=== PATIENT | male | born 1930 | race Two or more races ===

== ENCOUNTER 2019-02-14 12:02 | Day surgery (SDC) | payer MEDICARE, OTHER ==
[~2019-02-14] VITALS: Ht 182.9 cm; Wt 85.0 kg
[2019-02-14] VITALS (9 sets, daily range): BP systolic 103–166; BP diastolic 46–98; PULSE 83–100; RESP 14–23
[2019-02-14] MEDS ORDERED: METR500P3 IV (13:19)
[2019-02-14] MEDS ORDERED: MICO45CR10 VAGINAL (13:19)
[2019-02-14] MEDS ORDERED: MULTI PO (13:19)
[2019-02-14] MEDS ORDERED: GLUC1KIT IJ (13:19)
[2019-02-14] MEDS ORDERED: CHLO118L3 TOP (13:19)
[2019-02-14] MEDS ORDERED: ACET325S GTB (13:19)
[2019-02-14] MEDS ORDERED: [UNRECOGNIZED DRUG - CODE] IV (13:19)
[2019-02-14] MEDS ORDERED: METO10DI2 IJ (13:19)
[2019-02-14] MEDS ORDERED: [UNRECOGNIZED DRUG - OTHER] IV (13:19)
[2019-02-14] MEDS ORDERED: HEPA1000 IJ (13:19)
[2019-02-14] MEDS ORDERED: SAN30GM TOP (13:19)
[2019-02-14] MEDS ORDERED: DEXT50DI2 INJ (13:19)
[2019-02-14] MEDS ORDERED: ALBU2.5V3 NEB (13:19)
[2019-02-14] MEDS ORDERED: MICO30CR17 TOP (13:19)
[2019-02-14] MEDS ORDERED: ACET325S G-TUBE (13:19)
[2019-02-14] MEDS ORDERED: EPOE40002 SC (13:19)
[2019-02-14] MEDS ORDERED: BALS3OIN TP (13:19)
[2019-02-14] MEDS ORDERED: ONDA4VIA6 IV (13:21)
[2019-02-14] MEDS ORDERED: SILV20CR12 TOP (13:21)
[2019-02-14] MEDS ORDERED: OXYC5CAP17 PO (13:21)
[2019-02-14] MEDS ORDERED: SODI473S19 IRR (13:22)
[2019-02-14] MEDS ORDERED: VANC250C12 PO (13:22)
[2019-02-14] MEDS ORDERED: ZINC220T G-TUBE (13:23)
--- NOTE | 2019-02-14 16:14 | PREAC ---
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 not on B-Smooth Reported Medications Zinc Sulfate* (Zinc Sulfate*) 220 Mg Tablet, 220 MG G-TUBE DAILY, TAB 02/14/19 Sodium Hypochlorite (Dakin's (1/4 Strength)) 473 Ml Irrig.soln, 473 ML IRR DAILY, BOTTLE 02/14/19 Vancomycin Hcl (Vancocin Hcl Oral) 250 Mg Capsule, 250 MG PO Q6, CAP 02/14/19 Silver Sulfadiazine* (Silvadene*) 1% - 20 Gm Cream.gm., 1 APPLIC TOP DAILY, #1 TUB 02/14/19 Oxycodone Hcl* (IR) (Oxycodone Hcl*) 5 Mg Capsule, 5 MG PO Q6H PRN for PAIN, CAP 02/14/19 Ondansetron Hcl* (Ondansetron Hcl* Inj) 4 Mg/2 Ml Vial, 4 MG IV Q6 PRN for NAUSEA AND/OR VOMITING, VIAL 02/14/19 Multivitamins* (Theragran*) 1 Tab Tab, 1 TAB PO DAILY, TAB 02/14/19 Miconazole Nitrate* (Miconazole*) 2% - 45 Gm Cr, 1 APPFUL VAGINAL BID, #1 TUB 02/14/19 Miconazole Nitrate* (Miconazole Nitrate*) 2% - 30 Gm Cr, 1 APPLIC TOP BID, TUB 02/14/19 Metronidazole/Sodium Chloride (Metro IV 500 mg/100 ml) 500 Mg/100 Ml Piggyback, 500 MG IV Q8H 02/14/19 Metoclopramide HCl (Metoclopramide HCl) 10 Mg/2 Ml Syringe, 5 MG IJ TID 02/14/19 Heparin Sodium,Porcine/Pf (Heparin 2,000 Unit/2 ml Vial) 1,000 Unit/1 Ml Vial, 5000 UNIT IJ Q12, VIAL 02/14/19 Glucagon,Human Recombinant (Glucagon Emergency Kit) 1 Mg Kit, 1 MG IJ PRN for FOR BS<70, KIT 02/14/19 Epoetin amauri* (Epogen*) 4,000 Unit/1 Ml Vial, 28581 UNIT SC WITH DIALYSIS, VIAL 02/14/19 Dextrose/Sod Chloride* (D5-1/2NS*) 1,000 Ml Iv.soln., 1000 ML IV 50 ML/HR, EA 02/14/19 Dextrose* (D50W Syringe*) 50 Ml Soln, 50 ML INJ PRN FOR BS<70, EA 02/14/19 Collagenase* (Santyl*) 30 Gm Oint..gm., 1 APPLIC TOP .SOILED PRN for SOILED, #1 TUB 02/14/19 Chlorhexidine Gluconate* (Chlorhexidine Gluconate*) 118 Ml Liquid, 10 ML TOP Q12, ML 02/14/19 Balsam [place] Oil (CIRCUDERM EMOLLIENT) 3 Gm Oint.pack, 3 GM TP Q12 02/14/19 Albuterol Sulfate* (Albuterol Sulfate* Neb) 0.083%-3 Ml Neb, 2.5 MG NEB Q4H, #30 VIAL 02/14/19 Albumin Human* (Albumin 25%*) 100 Ml Soln, 100 ML IV WITH DIALYSIS, BOTTLE 02/14/19 Acetaminophen* (Acetaminophen* Susp) 325 Mg/10.15 Ml Solution, 500 MG GTB Q8 PRN for MILD PAIN(1-3) OR TEMP>38C, ML 02/14/19 Acetaminophen* (Acetaminophen* Susp) 325 Mg/10.15 Ml Solution, 650 MG G-TUBE Q4H PRN for PAIN OR TEMP ABOVE 38C, ML 02/14/19 Meds reviewed: Yes Allergies Coded Allergies: Cephalosporins (Verified Allergy, Severe, 02/14/19) ertapenem (Verified Allergy, Severe, 02/14/19) piperacillin (Verified Allergy, Severe, 02/14/19) tazobactam (Verified Allergy, Severe, 02/14/19) Allergies Reviewed: Yes Labs/Studies Labs Reviewed: Reviewed by anesthesiologist test: N/A Pre-procedure Exam Airway: Adequate mouth opening, Adequate thyromental dist Mallampati: Mallampati III Teeth: Normal Lung: Normal Heart: Normal ASA Physical Status ASA physical status: 4 Emergency: None Planned Anesthetic General/MAC: ETT Planned Pain Management Parenteral pain med Pre-operative Attestations Prior to commencing anesthesia and surgery, the patient was re-evaluated, there was verification of: *The patient's identity *The results of appropriate recent lab work and preoperative vital signs *The above evaluation not changing prior to induction *Anesthetic plan, risk benefits, alternative and complications discussed with patient/family; questions answered; patient/family understands, accepts and wishes to proceed. MALIA BURK February 14, 2019 16:14
--- NOTE | 2019-02-14 17:56 | HPN ---
Date/Time of Note Date/Time of Note DATE: 02/14/19 TIME: 17:56 Interval H&P Admission Note Pt. seen H&P reviewed: No system changes JUDI ZABALA MD February 14, 2019 17:56
--- NOTE | 2019-02-14 19:37 | PAC ---
Date/Time of Note Date/Time of Note DATE: 02/14/19 TIME: 19:36 Post-Anesthesia Notes Post-Anesthesia Note Last documented vital signs BP 152/75 o2 SAT 98% TEMP 98.1 P 88 Activity: WNL Respiratory function: WNL Cardiovascular function: WNL Mental status: Baseline Pain reasonably controlled: Yes Hydration appropriate: Yes Nausea/Vomiting absent: Yes MALIA BURK February 14, 2019 19:37
[2019-02-14] MEDS ORDERED: hydrALAzine 20 MG INJ ONE (19:55)
[2019-02-14] MEDS ORDERED: LABETALOL HCL 20MG INJ IV PRN (20:00)
[2019-02-14] MEDS ORDERED: FENTAnyl 50 MCG/ML VIAL IV PRN ×2 (20:00)
[2019-02-14] MEDS ORDERED: hydrALAzine 20 MG INJ IV PRN (20:00)
[2019-02-14] MEDS ORDERED: EPHEDrine 25 MG/5 ML SYG IV PRN (20:00)
[2019-02-14] MEDS ORDERED: MIDAZOLAM 1 MG/ML 2 ML INJ IV PRN (20:00)
[2019-02-14] MEDS ORDERED: DIPHENHYDRAMINE 50 MG INJ IV PRN (20:00)
[2019-02-14] MEDS ORDERED: ALBUTEROL 0.083% (NEB) 2.5 MG/3 ML AMP HHN PRN (20:00)
--- NOTE | 2019-02-15 03:51 | GILP ---
DATE OF PROCEDURE: 02/14/2019 PROCEDURE: G-tube and conversion of G-tube to J-tube. INDICATION: An 88-year-old male undergoing this procedure for a blocked GJ tube. The risk of the pr ocedure, related and unrelated complications, anesthetic risks, alternatives were discussed and infor med consent was obtained. The patient was mildly bradycardic on the floor with a heart rate of 50 to 60. Cardiology clearance was obtained. DESCRIPTION OF PROCEDURE: The patient was brought to the OR room #2, placed in a prone position. Up per endoscope was passed with much ease into the esophagus. NG tube was removed. The GJ tube also w as removed by deflating the balloon. The guidewire was passed through the gastrocutaneous fistula an d the entire procedure was completed by modified Ponsky technique. New 24-Italian G-tube was placed t hrough the same gastrocutaneous fistula through the G-tube. Now the J-tube extended, 12-Italian was p assed with much ease into the stomach. The loop was grasped with the alligator forceps and taken gm n all the way into the jejunum. No extended loop was left behind in the stomach. The J-tube extende r was well positioned in the proximal jejunum. Scope was thus removed with excellent patient toleran ce. IMPRESSION: 1. Removal of the GJ tube and NG tube. 2. Placement of 24-Italian G-tube endoscopically through the same gastrocutaneous fistula. 3. J-tube extended was passed through the G-tube and appropriately positioning the proximal jejunum. PLAN: To continue Reglan. Resume feeding through the J-tube feeding port and all the medication thr ough the medication port. Abdominal binder all the time. Dictated By: JUDI LEBRON/NTS Conf#: [id number] DID#: [id number] CC: DUSTIN TRIPP MD;*EndCC*
== END 2019-02-14 20:30 | disposition other institution (70) ==
LOC: GIL 12:02 → SDS 12:02 → GIL 20:30
PROVIDERS: ATTEND Internal Medicine Gastroenterology
DX: K94.23 Gastrostomy malfunction (principal); Y84.8 Other medical procedures as the cause of abnormal reaction of the patient, or of later complication, without mention of misadventure at the time of the procedure; Y82.8 Other medical devices associated with adverse incidents; I13.2 Hypertensive heart and chronic kidney disease with heart failure and with stage 5 chronic kidney disease, or end stage renal disease; I50.9 Heart failure, unspecified; N18.6 End stage renal disease; Z99.2 Dependence on renal dialysis
CPT/HCPCS: 49446; J0360

== ENCOUNTER 2019-02-19 09:28 | Day surgery (SDC) | payer OTHER ==
[~2019-02-19 09:28] MED LIST: ACET325S G-TUBE; ACET325S GTB; ALBU2.5V3 NEB; BALS3OIN TP; CHLO118L3 TOP; DEXT50DI2 INJ; EPOE40002 SC; GLUC1KIT IJ; HEPA1000 IJ; METO10DI2 IJ; METR500P3 IV; MICO30CR17 TOP; MICO45CR10 VAGINAL; MULTI PO; ONDA4VIA6 IV; OXYC5CAP17 PO; SAN30GM TOP; SILV20CR12 TOP; SODI473S19 IRR; VANC250C12 PO; ZINC220T G-TUBE; [UNRECOGNIZED DRUG - CODE] IV; [UNRECOGNIZED DRUG - OTHER] IV
== END 2019-02-21 10:31 ==
LOC: SDS 09:28
PROVIDERS: ATTEND Thoracic Surgery (Cardiothoracic Vascular Surgery)
DX: I12.0 Hypertensive chronic kidney disease with stage 5 chronic kidney disease or end stage renal disease (principal); N18.6 End stage renal disease; J96.10 Chronic respiratory failure, unspecified whether with hypoxia or hypercapnia; R53.2 Functional quadriplegia
CPT/HCPCS: 36561; 86850; 86900; 86901; 86920; 94002; C1750

== ENCOUNTER 2019-04-06 20:44 | Inpatient (IN) | payer MEDICARE, OTHER ==
[~2019-04-06] VITALS: Ht 198.1 cm; Wt 93.0 kg
[2019-04-06] MEDS ORDERED: AZTREONAM 1 GM/NS (PMX) 50 ML IVPB ONE (21:00)
[2019-04-06] MEDS ORDERED: VANCOMYCIN 1 GM (PMX) 250 ML IVPB ONE (21:00)
[2019-04-06] MEDS ORDERED: SOD CHLORIDE 0.9% 1,000 ML IV STA (21:01)
[2019-04-06] MEDS ORDERED: SOD CHLORIDE 0.9% 0 ML IV ONE (21:10)
[2019-04-06] MEDS ORDERED: ASPIRIN 300 MG SUPP PR ONE (21:30)
[2019-04-06] MEDS ORDERED: ONDANSETRON 4 MG INJ IV PRN ×2 (23:00)
[2019-04-06] MEDS ORDERED: NACL 0.9% 3 ML SYG IV SCH (23:00)
[2019-04-06] MEDS ORDERED: ACETAMINOPHEN 325 MG TAB PO PRN ×2 (23:00)
--- NOTE | 2019-04-06 23:27 | ERD ---
ER Documentation Chief Complaint Chief Complaint jon pa from [facility] for low hemoglobin, vent/trach HPI Patient is an 88-year-old male who receives dialysis on a chronic trach and vent who presents with low hemoglobin. Please note the history and physical exam is limited secondary to the patient's mental status at baseline and encephalopathy. The patient was brought in by ambulance. Hemoglobin was 6.2 so he was sent to the ER. The patient is a PICC line in the right upper extremity. He is full code. I cannot obtain history otherwise. ROS All systems reviewed and are negative except as per history of present illness. Medications Home Meds Reported Medications Zinc Sulfate* (Zinc Sulfate*) 220 Mg Tablet, 220 MG G-TUBE DAILY, TAB 02/14/19 Sodium Hypochlorite (Dakin's (1/ Strength)) 473 Ml Irrig.soln, 473 ML IRR DAILY, BOTTLE 02/14/19 Vancomycin Hcl (Vancocin Hcl Oral) 250 Mg Capsule, 250 MG PO Q6, CAP 02/14/19 Silver Sulfadiazine* (Silvadene*) 1% - 20 Gm Cream.gm., 1 APPLIC TOP DAILY, #1 TUB 02/14/19 Oxycodone Hcl* (IR) (Oxycodone Hcl*) 5 Mg Capsule, 5 MG PO Q6H PRN for PAIN, CAP 02/14/19 Ondansetron Hcl* (Ondansetron Hcl* Inj) 4 Mg/2 Ml Vial, 4 MG IV Q6 PRN for NAUSEA AND/OR VOMITING, VIAL 02/14/19 Multivitamins* (Theragran*) 1 Tab Tab, 1 TAB PO DAILY, TAB 02/14/19 Miconazole Nitrate* (Miconazole*) 2% - 45 Gm Cr, 1 APPFUL VAGINAL BID, #1 TUB 02/14/19 Miconazole Nitrate* (Miconazole Nitrate*) 2% - 30 Gm Cr, 1 APPLIC TOP BID, TUB 02/14/19 Metronidazole/Sodium Chloride (Metro IV 500 mg/100 ml) 500 Mg/100 Ml Piggyback, 500 MG IV Q8H 02/14/19 Metoclopramide HCl (Metoclopramide HCl) 10 Mg/2 Ml Syringe, 5 MG IJ TID 02/14/19 Heparin Sodium,Porcine/Pf (Heparin 2,000 Unit/2 ml Vial) 1,000 Unit/1 Ml Vial, 5000 UNIT IJ Q12, VIAL 02/14/19 Glucagon,Human Recombinant (Glucagon Emergency Kit) 1 Mg Kit, 1 MG IJ PRN for FOR BS<70, KIT 02/14/19 Epoetin amauri* (Epogen*) 4,000 Unit/1 Ml Vial, 95851 UNIT SC WITH DIALYSIS, VIAL 02/14/19 Dextrose/Sod Chloride* (D5-1/2NS*) 1,000 Ml Iv.soln., 1000 ML IV 50 ML/HR, EA 02/14/19 Dextrose* (D50W Syringe*) 50 Ml Soln, 50 ML INJ PRN FOR BS<70, EA 02/14/19 Collagenase* (Santyl*) 30 Gm Oint..gm., 1 APPLIC TOP .SOILED PRN for SOILED, #1 TUB 02/14/19 Chlorhexidine Gluconate* (Chlorhexidine Gluconate*) 118 Ml Liquid, 10 ML TOP Q12, ML 02/14/19 Balsam [place] Oil (CIRCUDERM EMOLLIENT) 3 Gm Oint.pack, 3 GM TP Q12 02/14/19 Albuterol Sulfate* (Albuterol Sulfate* Neb) 0.083%-3 Ml Neb, 2.5 MG NEB Q4H, #30 VIAL 02/14/19 Albumin Human* (Albumin 25%*) 100 Ml Soln, 100 ML IV WITH DIALYSIS, BOTTLE 02/14/19 Acetaminophen* (Acetaminophen* Susp) 325 Mg/10.15 Ml Solution, 500 MG GTB Q8 PRN for MILD PAIN(1-3) OR TEMP>38C, ML 02/14/19 Acetaminophen* (Acetaminophen* Susp) 325 Mg/10.15 Ml Solution, 650 MG G-TUBE Q4H PRN for PAIN OR TEMP ABOVE 38C, ML 02/14/19 Allergies Allergies: Coded Allergies: Cephalosporins (Verified Allergy, Severe, 02/19/19) ertapenem (Verified Allergy, Severe, 02/19/19) piperacillin (Verified Allergy, Severe, 02/19/19) tazobactam (Verified Allergy, Severe, 02/19/19) PMhx/Soc History of Surgery: Yes (SKIN GRAFT,TRACH,GTUBE,WILBER) Anesthesia Reaction: No Hx Neurological Disorder: Yes (ANOXIC BRAIN INJURY ) Hx Respiratory Disorders: Yes (RESP FAILURE,AIRWAY INJURY WHILE COOKING , PNEUMONIA) Hx Cardiac Disorders: Yes (HTN,CARDIAC ARREST,CHF,) Hx Miscellaneous Medical Probl: No Hx Alcohol Use: No (UNK) Hx Substance Use: No (UNK) Hx Tobacco Use: No (UNK) Smoking Status: Never smoker FmHx Unable to obtain Physical Exam Vitals Vital Signs Date Temp Pulse Resp B/P (MAP) Pulse Ox O2 O2 Flow FiO2 Time Delivery Rate 04/06/19 80 33 100 40 20:55 04/06/19 Nasal 20:51 Cannula 04/06/19 98.6 82 19 122/89 100 20:46 (100) Physical Exam Const: Chronically ill Head: Atraumatic Eyes: Normal Conjunctiva ENT: Tracheostomy in place Neck: Full range of motion. No meningismus. Resp: Clear to auscultation bilaterally Cardio: Regular rate and rhythm, no murmurs Abd: Soft, non tender, non distended. Normal bowel sounds Skin: No petechiae or rashes Back: No midline or flank tenderness Ext: No cyanosis, or edema Neur: Encephalopathic Result Diagram: 04/06/19204604/06/192046 Results 24 hrs Laboratory Tests Test 04/06/19 20:46 04/06/19 20:47 POC Venous Lactate 1.2 mmol/L White Blood Count 10.2 10^3/ul Red Blood Count 2.05 10^6/ul Hemoglobin 6.4 g/dl Hematocrit 21.7 % Mean Corpuscular Volume 105.9 fl Mean Corpuscular Hemoglobin 31.2 pg Mean Corpuscular Hemoglobin Concent 29.5 g/dl Red Cell Distribution Width 20.0 % Platelet Count 151 10^3/UL Mean Platelet Volume 10.8 fl Immature Granulocytes % 1.300 % Neutrophils % % Segmented Neutrophils % (Manual) 53 % Band Neutrophils % (Manual) 5 % Lymphocytes % % Lymphocytes % (Manual) 10 % Monocytes % % Monocytes % (Manual) 3 % Eosinophils % % Eosinophils % (Manual) 29 % Basophils % % Nucleated Red Blood Cells % 0.0 /100WBC Immature Granulocytes # 0.130 10^3/ul Neutrophils # 10^3/ul Neutrophils # (Manual) 5.5 10^3/ul Band Neutrophils # 0.5 10^3/ul Lymphocytes (Manual) 1.0 10^3/ul Lymphocytes # 10^3/ul Monocytes # 10^3/ul Monocytes # (Manual) 0.3 10^3/ul Eosinophils # 10^3/ul Basophils # 10^3/ul Nucleated Red Blood Cells # 10^3/ul Platelet Estimate NORMAL Polychromasia 2+ Hypochromasia 1+ Anisocytosis 2+ Macrocytosis 2+ Prothrombin Time 15.4 Sec Prothrombin Time Ratio 1.2 INR International Normalized Ratio 1.21 Activated Partial Thromboplast Time 110.2 Sec Sodium Level 139 mmol/L Potassium Level 3.2 mmol/L Chloride Level 103 mmol/L Carbon Dioxide Level 26 mmol/L Anion Gap 10 Blood Urea Nitrogen 38 mg/dl Creatinine 1.49 mg/dl Est Glomerular Filtrat Rate mL/min mL/min Glucose Level 109 mg/dl Calcium Level 9.0 mg/dl Total Bilirubin 0.3 mg/dl Direct Bilirubin 0.00 mg/dl Indirect Bilirubin 0.3 mg/dl Aspartate Amino Transf (AST/SGOT) 80 IU/L Alanine Aminotransferase (ALT/SGPT) 50 IU/L Alkaline Phosphatase 457 IU/L Troponin I 0.406 ng/ml Total Protein 7.6 g/dl Albumin 3.1 g/dl Globulin 4.50 g/dl Albumin/Globulin Ratio 0.68 Current Medications Medications Dose Sig/Leila Start Time Status Last (Trade) Ordered Route PRN Stop Time Admin Dose Reason Admin Vancomycin 250 ml @ ONCE ONCE 04/06/19 DC 04/06/19 HCl 125 mls/hr IVPB 21:00 21:58 04/06/19 22:59 Aztreonam 50 ml @ ONCE ONCE 04/06/19 DC 04/06/19 100 mls/hr IVPB 21:00 21:08 04/06/19 21:29 Sodium 1,000 ml @ Q1H STAT 04/06/19 DC 04/06/19 Chloride 1,000 mls/hr IV 21:01 21:08 04/06/19 22:00 Sodium 0 ml @ 0 Q0M ONCE 04/06/19 DC Chloride mls/hr IV 21:10 04/06/19 21:11 Aspirin 300 mg ONCE ONCE 04/06/19 DC 04/06/19 (Aspirin) OK 21:30 21:58 04/06/19 21:31 Ondansetron 4 mg ER BRIDGE 04/06/19 HCl (Zofran PRN IV 23:00 Inj) NAUSEA/VOMITI 04/07/19 22:59 NG 650 mg ER BRIDGE 04/06/19 Acetaminophen PRN PO 23:00 (Tylenol .MILD PAIN 04/07/19 22:59 Tab) 1-3 OR TEMP Sodium 1,000 ml @ Q8H IV 04/06/19 Chloride 125 mls/hr 22:52 IV Flush 3 ml PER 04/06/19 (NS 3 ml) PROTOCOL IV 23:00 Ondansetron 4 mg Q6H PRN 04/06/19 HCl (Zofran IV 23:00 Inj) NAUSEA/VOMITI NG 650 mg Q6H PRN 04/06/19 Acetaminophen PO .PAIN 1-3 23:00 (Tylenol OR TEMP Tab) Morphine 2 mg Q4H PRN 04/06/19 Sulfate IV .PAIN 23:00 (morphine) 7-10 Famotidine 20 mg DAILY IV 04/07/19 (Pepcid Iv) 09:00 Procedures/MDM EKG read by me: Rate/Rhythm: Regular rate and rhythm Intervals: Normal Impression: No evidence of ischemia or arrhythmia Chest x-ray read by radiology. Patient is a 88-year-old male who presents for anemia. The patient has a hemoglobin of 6.2 and I have ordered 2 units of packed red blood cells. The patient was also found to have a positive troponin consistent with NSTEMI. The patient was given rectal aspirin. I doubt sepsis at this time. The patient has a very poor prognosis and I believe the best course of action would be hospice care. I have consulted [facility] hospice from the emergency department. The patient will be admitted to Dr. Johnston as the patient's primary doctor is Dr. Odell. The patient will be admitted to a telemetry inpatient bed. Critical Care: Time: 35 minutes excluding all billable procedures. Treatments/Evaluations: Close monitoring and treatment of unstable vital signs, cardiorespiratory, and neurologic status, while maintaining tight balance of fluid, respiratory, and cardiac interventions. Departure Diagnosis: Primary Impression: NSTEMI (non-ST elevated myocardial infarction) Additional Impression: Anemia Anemia type: unspecified type Qualified Codes: D64.9 - Anemia, unspecified Condition: Serious KELTON SHORT MD Apr 06, 2019 23:26
[2019-04-07] VITALS (16 sets, daily range): BP systolic 82–106; BP diastolic 48–57; PULSE 74–85; RESP 18–34; BMI 17.8
[2019-04-07] MEDS: SOD CHLORIDE 0.9% 1,000 ML IV SCH ×4 (06:52→23:02)
[2019-04-07] MEDS ORDERED: POTASSIUM CHLORIDE (SR) 20 MEQ TAB PO STA (10:27)
--- NOTE | 2019-04-07 10:27 | HP ---
Date/Time of Note Date/Time of Note DATE: 04/07/19 TIME: 10:23 Assessment/Plan VTE Prophylaxis Pharmacological prophylaxis: NA/contraindicated Pharm contraindication: bleeding Lines/Catheters IV Catheter Type (from Nrsg): PICC Line Central line still needed: Yes Urinary Cath still in place: Yes Reason Cath still needed: skin wounds contaminated by urine Assessment/Plan Hospital Course 1) anemia - transfuse 2) questionable history of ESRD - monitor BUN/Cr 3) dehydration - IV hydration - restart tube feedings 4) encephalopathy - monitor Result Diagram: 04/07/1952204/07/19522 Results 24hrs Laboratory Tests Test 04/06/19 20:46 04/06/19 20:47 04/06/19 23:00 04/07/19 01:50 POC Venous Lactate 1.2 White Blood Count 10.2 Red Blood Count 2.05 #L Hemoglobin 6.4 #*L Hematocrit 21.7 L Mean Corpuscular 105.9 H Volume Mean Corpuscular 31.2 Hemoglobin Mean Corpuscular 29.5 L Hemoglobin Concent Red Cell 20.0 H Distribution Width Platelet Count 151 Mean Platelet Volume 10.8 H Immature 1.300 H Granulocytes % Neutrophils % Segmented 53 Neutrophils % (Manual) Band Neutrophils % 5 H (Manual) Lymphocytes % Lymphocytes % 10 L (Manual) Monocytes % Monocytes % (Manual) 3 Eosinophils % Eosinophils % 29 H (Manual) Basophils % Nucleated Red Blood 0.0 Cells % Immature 0.130 H Granulocytes # Neutrophils # Neutrophils # 5.5 (Manual) Band Neutrophils # 0.5 Lymphocytes (Manual) 1.0 Lymphocytes # Monocytes # Monocytes # (Manual) 0.3 Eosinophils # Basophils # Nucleated Red Blood Cells # Platelet Estimate NORMAL Polychromasia 2+ Hypochromasia 1+ Anisocytosis 2+ Macrocytosis 2+ Prothrombin Time 15.4 H Prothrombin Time 1.2 Ratio INR International 1.21 Normalized Ratio Activated 110.2 *H Partial Thromboplast Time Sodium Level 139 Potassium Level 3.2 L Chloride Level 103 Carbon Dioxide Level 26 Anion Gap 10 Blood Urea Nitrogen 38 H Creatinine 1.49 H Est Glomerular Filtrat Rate mL/min Glucose Level 109 Calcium Level 9.0 Total Bilirubin 0.3 Direct Bilirubin 0.00 Indirect Bilirubin 0.3 Aspartate Amino 80 H Transf (AST/SGOT) Alanine 50 Aminotransferase (AL T/SGPT) Alkaline Phosphatase 457 H Troponin I 0.406 *H Total Protein 7.6 Albumin 3.1 L Globulin 4.50 H Albumin/Globulin 0.68 Ratio Lactic Acid Level 2.1 *H 2.5 *H Test 04/07/19 05:23 White Blood Count 13.9 #H Red Blood Count 2.30 L Hemoglobin 7.1 L Hematocrit 23.5 L Mean Corpuscular 102.2 H Volume Mean Corpuscular 30.9 Hemoglobin Mean Corpuscular 30.2 L Hemoglobin Concent Red Cell 19.4 H Distribution Width Platelet Count 142 Mean Platelet Volume 10.7 H Immature 0.900 H Granulocytes % Neutrophils % 73.1 Lymphocytes % 8.5 L Monocytes % 8.6 Eosinophils % 8.7 H Basophils % 0.2 Nucleated Red Blood 0.0 Cells % Immature 0.130 H Granulocytes # Neutrophils # 10.1 H Lymphocytes # 1.2 Monocytes # 1.2 H Eosinophils # 1.2 H Basophils # 0.0 Nucleated Red Blood 0.0 Cells # Sodium Level 139 Potassium Level 3.3 L Chloride Level 105 Carbon Dioxide Level 26 Anion Gap 8 Blood Urea Nitrogen 44 H Creatinine 1.66 H Est Glomerular Filtrat Rate mL/min Glucose Level 61 #L Hemoglobin A1c 5.2 Calcium Level 9.1 Total Bilirubin 0.7 Direct Bilirubin 0.00 Indirect Bilirubin 0.7 Aspartate Amino 71 H Transf (AST/SGOT) Alanine 45 Aminotransferase (AL T/SGPT) Alkaline Phosphatase 389 H Total Protein 7.1 Albumin 2.9 L Globulin 4.20 H Albumin/Globulin 0.69 Ratio HPI/ROS Admit Date/Time Admit Date/Time Apr 06, 2019 at 22:52 Hx of Present Illness Patient with respiratory failure, ESRD per ER doctor's note, encephalopathy com es from subacute facility because of severe anemia. Patient was also found to be dehydrated. He was admitted for further treatment. Unable to obtain any other history at this time. PMH/Family/Social Past Medical History Respiratory failure Medications Current Medications Ondansetron HCl (Zofran Inj) 4 mg ER BRIDGE PRN IV NAUSEA/VOMITING; Start 04/06/19 at 23:00; Stop 04/07/19 at 22:59 Acetaminophen (Tylenol Tab) 650 mg ER BRIDGE PRN PO .MILD PAIN 1-3 OR TEMP; Start 04/06/19 at 23:00; Stop 04/07/19 at 22:59 Sodium Chloride 1,000 ml @ 125 mls/hr Q8H IV ; Start 04/06/19 at 22:52 IV Flush (NS 3 ml) 3 ml PER PROTOCOL IV ; Start 04/06/19 at 23:00 Ondansetron HCl (Zofran Inj) 4 mg Q6H PRN IV NAUSEA/VOMITING; Start 04/06/19 at 23:00 Acetaminophen (Tylenol Tab) 650 mg Q6H PRN PO .PAIN 1-3 OR TEMP; Start 04/06/19 at 23:00 Morphine Sulfate (morphine) 2 mg Q4H PRN IV .PAIN 7-10; Start 04/06/19 at 23:00 Famotidine (Pepcid Iv) 20 mg DAILY IV ; Start 04/07/19 at 09:00 Coded Allergies: Cephalosporins (Verified Allergy, Severe, 02/19/19) ertapenem (Verified Allergy, Severe, 02/19/19) piperacillin (Verified Allergy, Severe, 02/19/19) tazobactam (Verified Allergy, Severe, 02/19/19) Social History Smoking Status: Never smoker Exam/Review of Systems Vital Signs Vitals Vital Signs Date Temp Pulse Resp B/P (MAP) Pulse Ox O2 O2 Flow FiO2 Time Delivery Rate 04/07/19 98.5 77 26 82/48 (59) 97 Mechanical 07:21 Ventilator 04/07/19 40 04:52 Exam Constitutional: well developed Head: normocephalic, atraumatic Neck: supple Respiratory: diminished breath sounds Cardiovascular: regular rate and rhythm Gastrointestinal: soft, non-tender Extremities: normal pulses CARLITO GUERRA Apr 07, 2019 10:27
[2019-04-07] MEDS ORDERED: POTASSIUM CHLORIDE 20 MEQ POWDER FOR ORAL SOLN GTB SCH (11:30)
[2019-04-07] MEDS: FAMOTIDINE 20 MG INJ IV SCH (12:05)
[2019-04-08] VITALS (18 sets, daily range): BP systolic 82–111; BP diastolic 46–56; PULSE 63–75; RESP 20–33
[2019-04-08] MEDS: SOD CHLORIDE 0.9% 1,000 ML IV SCH (06:53)
[2019-04-08] MEDS: MIDODRINE 5 MG TAB PO SCH (09:00)
[2019-04-08] MEDS: FAMOTIDINE 20 MG INJ IV SCH (09:35)
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
[2019-04-08] MEDS ORDERED: COLLAGENASE 30 GM TUBE TOP PRN (13:30)
[2019-04-08] MEDS ORDERED: EPOETIN 4000 UNITS/ML VIAL (ONCOLOGY) SC SCH (13:30)
--- NOTE | 2019-04-08 13:57 | CONS ---
Assessment/Plan Assessment/Plan Hospital Course (Demo Recall) Acute blood loss anemia Labile blood pressure Elevated troponin, trending down CAD Preserved ejection fraction End-stage renal disease on hemodialysis Patient admitted with severe anemia. Incidentally found to have elevated troponin, which is trending down Patient unable to give history Echocardiogram recently done with preserved left ventricular ejection fraction Blood pressure has been labile, patient has a history of this and is on Midodrine We will check ECG, patient currently not on any antiplatelet therapy likely secondary to anemia Fluid management via hemodialysis as per nephrology No beta-aidee given labile blood pressure Would start statin if no complication Consultation Date/Type/Reason Admit Date/Time Apr 06, 2019 at 22:52 Type of Consult Cardiology Reason for Consultation Elevated troponin Date/Time of Note DATE: 04/08/19 TIME: 13:51 Hx of Present Illness This is an 88-year-old male with encephalopathy, vent dependent respiratory failure, end-stage renal disease hemodialysis who was admitted and found to have severe anemia. Incidental laboratory studies with elevated troponin for this reason cardiology condition was requested. Patient was seen by me when he was at [place] recently. He is unable to give history. Unable to be performed the current time given patient nonverbal Past Medical History Respiratory failure CAD Labile blood pressure End-stage renal disease on hemodialysis Home Meds Reported Medications Zinc Sulfate* (Zinc Sulfate*) 220 Mg Tablet, 220 MG G-TUBE DAILY, TAB 02/14/19 Sodium Hypochlorite (Dakin's (1/4 Strength)) 473 Ml Irrig.soln, 473 ML IRR D AILY, BOTTLE 02/14/19 Vancomycin Hcl (Vancocin Hcl Oral) 250 Mg Capsule, 250 MG PO Q6, CAP 02/14/19 Silver Sulfadiazine* (Silvadene*) 1% - 20 Gm Cream.gm., 1 APPLIC TOP DAILY, #1 TUB 02/14/19 Oxycodone Hcl* (IR) (Oxycodone Hcl*) 5 Mg Capsule, 5 MG PO Q6H PRN for PAIN, CAP 02/14/19 Ondansetron Hcl* (Ondansetron Hcl* Inj) 4 Mg/2 Ml Vial, 4 MG IV Q6 PRN for NAUSEA AND/OR VOMITING, VIAL 02/14/19 Multivitamins* (Theragran*) 1 Tab Tab, 1 TAB PO DAILY, TAB 02/14/19 Miconazole Nitrate* (Miconazole*) 2% - 45 Gm Cr, 1 APPFUL VAGINAL BID, #1 TUB 02/14/19 Miconazole Nitrate* (Miconazole Nitrate*) 2% - 30 Gm Cr, 1 APPLIC TOP BID, TUB 02/14/19 Metronidazole/Sodium Chloride (Metro IV 500 mg/100 ml) 500 Mg/100 Ml Piggyback, 500 MG IV Q8H 02/14/19 Metoclopramide HCl (Metoclopramide HCl) 10 Mg/2 Ml Syringe, 5 MG IJ TID 02/14/19 Heparin Sodium,Porcine/Pf (Heparin 2,000 Unit/2 ml Vial) 1,000 Unit/1 Ml Vial, 5000 UNIT IJ Q12, VIAL 02/14/19 Glucagon,Human Recombinant (Glucagon Emergency Kit) 1 Mg Kit, 1 MG IJ PRN for FOR BS<70, KIT 02/14/19 Epoetin amauri* (Epogen*) 4,000 Unit/1 Ml Vial, 37794 UNIT SC WITH DIALYSIS, VIAL 02/14/19 Dextrose/Sod Chloride* (D5-1/2NS*) 1,000 Ml Iv.soln., 1000 ML IV 50 ML/HR, EA 02/14/19 Dextrose* (D50W Syringe*) 50 Ml Soln, 50 ML INJ PRN FOR BS<70, EA 02/14/19 Collagenase* (Santyl*) 30 Gm Oint..gm., 1 APPLIC TOP .SOILED PRN for SOILED, #1 TUB 02/14/19 Chlorhexidine Gluconate* (Chlorhexidine Gluconate*) 118 Ml Liquid, 10 ML TOP Q12, ML 02/14/19 Balsam Lina/[place] Oil (CIRCUDERM EMOLLIENT) 3 Gm Oint.pack, 3 GM TP Q12 02/14/19 Albuterol Sulfate* (Albuterol Sulfate* Neb) 0.083%-3 Ml Neb, 2.5 MG NEB Q4H, #30 VIAL 02/14/19 Albumin Human* (Albumin 25%*) 100 Ml Soln, 100 ML IV WITH DIALYSIS, BOTTLE 02/14/19 Acetaminophen* (Acetaminophen* Susp) 325 Mg/10.15 Ml Solution, 500 MG GTB Q8 PRN for MILD PAIN(1-3) OR TEMP>38C, ML 02/14/19 Acetaminophen* (Acetaminophen* Susp) 325 Mg/10.15 Ml Solution, 650 MG G-TUBE Q4H PRN for PAIN OR TEMP ABOVE 38C, ML 02/14/19 Medications Current Medications Sodium Chloride 1,000 ml @ 125 mls/hr Q8H IV Last administered on 04/08/19at 06:53; Admin Dose 125 MLS/HR; Start 04/06/19 at 22:52 IV Flush (NS 3 ml) 3 ml PER PROTOCOL IV ; Start 04/06/19 at 23:00 Ondansetron HCl (Zofran Inj) 4 mg Q6H PRN IV NAUSEA/VOMITING; Start 04/06/19 at 23:00 Morphine Sulfate (morphine) 2 mg Q4H PRN IV .PAIN 7-10; Start 04/06/19 at 23:00 Famotidine (Pepcid Iv) 20 mg DAILY IV Last administered on 04/08/19at 09:35; Admin Dose 20 MG; Start 04/07/19 at 09:00 Acetaminophen (Tylenol Liquid) 650 mg Q4H PRN GTB MILD PAIN(1-3) OR TEMP>38C; Start 04/08/19 at 13:30 Albuterol (Proventil 0.083% (Neb)) 2.5 mg Q4H RESP THERAPY NEB ; Start 04/08/19 at 13:30 Collagenase (Santyl) 1 applic SOILED PRN TOP SOILED; Start 04/08/19 at 13:30 Epoetin Amauri (Epogen (Oncology)) 10,000 units WITH DIALYSIS SC ; Start 04/08/19 at 13:30 Zinc Sulfate (Zinc Sulfate) 220 mg DAILY GTB ; Start 04/09/19 at 09:00 Vancomycin HCl (Vancomycin Oral Syringe) 250 mg Q6 PO ; Start 04/08/19 at 18:00 Midodrine (Proamatine) 5 mg TID@,13,17 PO ; Start 04/08/19 at 17:00 Allergies: Coded Allergies: Cephalosporins (Verified Allergy, Severe, 02/19/19) ertapenem (Verified Allergy, Severe, 02/19/19) piperacillin (Verified Allergy, Severe, 02/19/19) tazobactam (Verified Allergy, Severe, 02/19/19) Past Surgical History Past Surgical Hx: other (Including but not limited to tracheostomy, PEG placement, dialysis catheter) Family History Significant Family History: no pertinent family hx Social History Smoking Status: Never smoker Exam/Review of Systems Vital Signs Vitals Vital Signs Date Temp Pulse Resp B/P (MAP) Pulse Ox O2 O2 Flow FiO2 Time Delivery Rate 04/08/19 86 24 98 40 11:17 04/08/19 98.0 87/51 (63) Mechanical 11:07 Ventilator Trach Collar Intake and Output 04/07/19 04/07/19 04/08/19 1515:00 23:00 07:00 IntakeIntake Total 1650 ml BalanceBalance 1650 ml Exam Exam Nonverbal, no apparent distress, trach to ventilator Head: normocephalic Neck: other (Tracheostomy) Respiratory: other (Coarse breath sounds bilaterally, scattered crackles) Cardiovascular: regular rate and rhythm (S1-S2 heard) Gastrointestinal: soft, bowel sounds, other (No grimacing with palpation) Extremities: edema Labs Result Diagram: 04/08/19 0551 04/07/19 0523 Results 24hrs Laboratory Tests Test 04/07/19 14:56 04/08/19 05:51 Troponin I 0.256 *H White Blood Count 9.9 # Red Blood Count 2.33 L Hemoglobin 7.3 L Hematocrit 23.0 L Mean Corpuscular Volume 98.7 Mean Corpuscular Hemoglobin 31.3 Mean Corpuscular Hemoglobin Concent 31.7 L Red Cell Distribution Width 22.4 H Platelet Count 158 Mean Platelet Volume 10.9 H Immature Granulocytes % 1.100 H Neutrophils % Segmented Neutrophils % (Manual) 70 Band Neutrophils % (Manual) 3 Lymphocytes % Lymphocytes % (Manual) 15 Monocytes % Monocytes % (Manual) 10 Eosinophils % Eosinophils % (Manual) 2 Basophils % Nucleated Red Blood Cells % 0.0 Immature Granulocytes # 0.110 H Neutrophils # Neutrophils # (Manual) 6.9 Band Neutrophils # 0.2 Lymphocytes (Manual) 1.4 Lymphocytes # Monocytes # Monocytes # (Manual) 0.9 Eosinophils # Basophils # Nucleated Red Blood Cells # Platelet Estimate NORMAL Giant Platelets 4 H Polychromasia 1+ Anisocytosis 1+ Macrocytosis 1+ Medications Medications Current Medications Sodium Chloride 1,000 ml @ 125 mls/hr Q8H IV Last administered on 04/08/19at 06:53; Admin Dose 125 MLS/HR; Start 04/06/19 at 22:52 IV Flush (NS 3 ml) 3 ml PER PROTOCOL IV ; Start 04/06/19 at 23:00 Ondansetron HCl (Zofran Inj) 4 mg Q6H PRN IV NAUSEA/VOMITING; Start 04/06/19 at 23:00 Morphine Sulfate (morphine) 2 mg Q4H PRN IV .PAIN 7-10; Start 04/06/19 at 23:00 Famotidine (Pepcid Iv) 20 mg DAILY IV Last administered on 04/08/19at 09:35; Admin Dose 20 MG; Start 04/07/19 at 09:00 Acetaminophen (Tylenol Liquid) 650 mg Q4H PRN GTB MILD PAIN(1-3) OR TEMP>38C; Start 04/08/19 at 13:30 Albuterol (Proventil 0.083% (Neb)) 2.5 mg Q4H RESP THERAPY NEB ; Start 04/08/19 at 13:30 Collagenase (Santyl) 1 applic SOILED PRN TOP SOILED; Start 04/08/19 at 13:30 Epoetin Amauri (Epogen (Oncology)) 10,000 units WITH DIALYSIS SC ; Start 04/08/19 at 13:30 Zinc Sulfate (Zinc Sulfate) 220 mg DAILY GTB ; Start 04/09/19 at 09:00 Vancomycin HCl (Vancomycin Oral Syringe) 250 mg Q6 PO ; Start 04/08/19 at 18:00 Midodrine (Proamatine) 5 mg TID@09,13,17 PO ; Start 04/08/19 at 17:00 Mendoza Ludwig DO Apr 08, 2019 13:57
[2019-04-08] MEDS ORDERED: COLLAGENASE 5 GM (UD JAR) TOP PRN (14:00)
[2019-04-08] MEDS ORDERED: VANCOMYCIN HCL 250 MG/5ML POSYG PO SCH (18:00)
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
[2019-04-08] MEDS: ALBUTEROL 0.083% (NEB) 2.5 MG/3 ML AMP NEB SCH (19:57)
[2019-04-08] MEDS: ATORVASTATIN 20 MG TAB PO SCH (21:00)
[2019-04-09] VITALS (34 sets, daily range): BP systolic 79–122; BP diastolic 42–67; PULSE 32–67; RESP 19–31
[2019-04-09] MEDS: ALBUTEROL 0.083% (NEB) 2.5 MG/3 ML AMP NEB SCH ×4 (01:19→14:10)
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
[2019-04-09] MEDS: ZINC SULFATE 220 MG CAP GTB SCH (10:31)
[2019-04-09] MEDS: FAMOTIDINE 20 MG INJ IV SCH (10:32)
[2019-04-09] MEDS: MIDODRINE 5 MG TAB PO SCH ×2 (13:00→17:00)
--- NOTE | 2019-04-09 14:20 | CONS ---
Assessment/Plan Assessment/Plan Hospital Course (Demo Recall) assessment/impression - anemia on admission - elevated troponin on admission - pulm edema vs pneumonia on CXR - h/o sepsis due to bacteremia - h/o sepsis due to C diff colitis - VDRF - GT - chronic metabolic encephalopathy recommendations - pending results: blood cultures x2 - I personally collected cultures of the purulence/slough at HD site on R chest wall, blister of R thigh, blood culture from HD catheter and another culture by phlebotomy - if it is local cellulitis without bacteremia, I recommend treating it with topical antibiotic and intensive wound care; if blood cultures grow and/or if Pt shows systemic signs of infection, I plan to start systemic antibiotics management d/w Pt's RN Ashish, charge nurse Vielka, dialysis nurse, [employer] Loraine the total time I took to care for this Pt today was from 1330 to 1415 Consultation Date/Type/Reason Admit Date/Time Apr 06, 2019 at 22:52 Initial Consult Date 04/08/19 Type of Consult ID Requesting Provider: WILLA CARTY Date/Time of Note DATE: 04/09/19 TIME: 14:14 24 HR Interval Summary Subjective hx not possible: pt non-verbal Exam/Review of Systems Exam Vitals Vital Signs Date Temp Pulse Resp B/P (MAP) Pulse Ox O2 O2 Flow FiO2 Time Delivery Rate 04/09/19 97.0 62 20 108/49 95 Trach 11:20 (68) Collar 04/09/19 40 09:15 Intake and Output 04/08/19 04/08/19 04/09/19 1515:00 23:00 07:00 OutputOutput Total 200 ml BalanceBalance -200 ml Constitutional: non-verbal, frail Psych: confusion Head: normocephalic, atraumatic Eyes: nl conjunctiva, nl lids ENMT: nl external ears & nose, nl nasal mucosa & septum, mucosa pink and moist Neck: other (trach) Respiratory: crackles/rales Cardiovascular: regular rate and rhythm, nl pulses, edema Gastrointestinal: soft, non-tender, other (GT); No distended Genitourinary - Male: other (FC) Musculoskeletal: other (contractured and rigid) Extremities: edema Neurological: unresponsive Skin: other (purulence from HD site, purulence on R anterior thigh, ) Results Result Diagram: 04/09/19 0528 04/09/19 0528 Results 24hrs Laboratory Tests Test 04/09/19 05:28 04/09/19 07:22 White Blood Count 8.5 Red Blood Count 2.66 L Hemoglobin 8.4 L Hematocrit 26.0 L Mean Corpuscular Volume 97.7 Mean Corpuscular Hemoglobin 31.6 Mean Corpuscular Hemoglobin Concent 32.3 Red Cell Distribution Width 21.9 H Platelet Count 167 Mean Platelet Volume 10.6 H Immature Granulocytes % 0.900 H Neutrophils % 59.5 Segmented Neutrophils % (Manual) 52 Band Neutrophils % (Manual) 14 H Lymphocytes % 18.9 Lymphocytes % (Manual) 7 L Reactive Lymphocytes % (Manual) 10 H Monocytes % 10.0 Monocytes % (Manual) 3 Eosinophils % 10.3 H Eosinophils % (Manual) 13 H Basophils % 0.4 Basophils % (Manual) 1 Nucleated Red Blood Cells % 0.0 Immature Granulocytes # 0.080 H Neutrophils # 5.1 Neutrophils # (Manual) 4.5 Band Neutrophils # 1.1 H Lymphocytes (Manual) 0.5 L Lymphocytes # 1.6 Reactive Lymphocytes # 0.8 H Monocytes # 0.9 Monocytes # (Manual) 0.2 L Eosinophils # 0.9 H Basophils # 0.0 Basophils # (Manual) 0.0 Nucleated Red Blood Cells # 0.0 Platelet Estimate NORMAL Polychromasia 1+ Poikilocytosis 3+ Anisocytosis 2+ Macrocytosis 2+ Sodium Level 139 Potassium Level 3.6 Chloride Level 108 Carbon Dioxide Level 21 Anion Gap 10 Blood Urea Nitrogen 64 H Creatinine 2.49 H Est Glomerular Filtrat Rate mL/min Glucose Level 119 Calcium Level 8.8 Lab Scanned Report BLOOD TRANSFUSION Medications Medication Current Medications IV Flush (NS 3 ml) 3 ml PER PROTOCOL IV ; Start 04/06/19 at 23:00 Ondansetron HCl (Zofran Inj) 4 mg Q6H PRN IV NAUSEA/VOMITING; Start 04/06/19 at 23:00 Morphine Sulfate (morphine) 2 mg Q4H PRN IV .PAIN 7-10; Start 04/06/19 at 23:00 Famotidine (Pepcid Iv) 20 mg DAILY IV Last administered on 04/09/19at 10:32; Admin Dose 20 MG; Start 04/07/19 at 09:00 Acetaminophen (Tylenol Liquid) 650 mg Q4H PRN GTB MILD PAIN(1-3) OR TEMP>38C; Start 04/08/19 at 13:30 Albuterol (Proventil 0.083% (Neb)) 2.5 mg Q4H RESP THERAPY NEB Last administered on 04/09/19at 14:10; Admin Dose 2.5 MG; Start 04/08/19 at 13:30 Epoetin Nick (Epogen (Oncology)) 10,000 units WITH DIALYSIS SC ; Start 04/08/19 at 13:30 Zinc Sulfate (Zinc Sulfate) 220 mg DAILY GTB Last administered on 04/09/19at 10:31; Admin Dose 220 MG; Start 04/09/19 at 09:00 Midodrine (Proamatine) 5 mg TID@09,13,17 PO Last administered on 04/08/19at 09:00; Admin Dose 5 MG; Start 04/08/19 at 17:00 Atorvastatin Calcium (Lipitor) 20 mg HS PO Last administered on 04/08/19at 21:00; Admin Dose 20 MG; Start 04/08/19 at 21:00 Collagenase (Santyl) 1 applic SOILED PRN TOP SOILED; Start 04/08/19 at 14:00 JESUS RIVAS M.D. Apr 09, 2019 14:20
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
--- NOTE | 2019-04-09 16:19 | CONS ---
Assessment/Plan Assessment/Plan Hospital Course (Demo Recall) Acute blood loss anemia Labile blood pressure Elevated troponin, trending down CAD Preserved ejection fraction End-stage renal disease on hemodialysis Encephalopathy Patient admitted with severe anemia. Incidentally found to have elevated troponin, which is trending down Echocardiogram recently done with preserved left ventricular ejection fraction Blood pressure has been labile, patient has a history of this and is on Midodrine No significant ischemic abnormalities on ECG Patient currently not on any antiplatelet therapy likely secondary to anemia Fluid management via hemodialysis as per nephrology No beta-aidee given labile blood pressure Continue statin therapy if no contraindication Consultation Date/Type/Reason Admit Date/Time Apr 06, 2019 at 22:52 Initial Consult Date 04/08/19 Type of Consult Cardiology Requesting Provider: WILLA CARTY Date/Time of Note DATE: 04/09/19 TIME: 16:17 24 HR Interval Summary Free Text/Dictation Patient being initiated on hemodialysis currently Exam/Review of Systems Vital Signs Vitals Vital Signs Date Temp Pulse Resp B/P (MAP) Pulse Ox O2 O2 Flow FiO2 Time Delivery Rate 04/09/19 97.0 60 20 96/50 (65) 99 Trach 15:35 Collar 04/09/19 40 15:10 Intake and Output 04/08/19 04/08/19 04/09/19 1515:00 23:00 07:00 OutputOutput Total 200 ml BalanceBalance -200 ml Exam Constitutional: non-verbal (No apparent distress) Head: normocephalic Neck: other (Tracheostomy) Respiratory: other (Coarse breath sounds bilaterally, no wheezing) Cardiovascular: regular rate and rhythm (S1-S2 heard) Gastrointestinal: soft, non-tender, bowel sounds Extremities: edema Labs Result Diagram: 04/09/19 0528 04/09/19 0528 Results 24hrs Laboratory Tests Test 04/09/19 05:28 04/09/19 07:22 04/09/19 14:05 White Blood Count 8.5 Red Blood Count 2.66 L Hemoglobin 8.4 L Hematocrit 26.0 L Mean Corpuscular Volume 97.7 Mean Corpuscular Hemoglobin 31.6 Mean Corpuscular 32.3 Hemoglobin Concent Red Cell Distribution Width 21.9 H Platelet Count 167 Mean Platelet Volume 10.6 H Immature Granulocytes % 0.900 H Neutrophils % 59.5 Segmented Neutrophils 52 % (Manual) Band Neutrophils % (Manual) 14 H Lymphocytes % 18.9 Lymphocytes % (Manual) 7 L Reactive Lymphocytes % (Manual) 10 H Monocytes % 10.0 Monocytes % (Manual) 3 Eosinophils % 10.3 H Eosinophils % (Manual) 13 H Basophils % 0.4 Basophils % (Manual) 1 Nucleated Red Blood Cells % 0.0 Immature Granulocytes # 0.080 H Neutrophils # 5.1 Neutrophils # (Manual) 4.5 Band Neutrophils # 1.1 H Lymphocytes (Manual) 0.5 L Lymphocytes # 1.6 Reactive Lymphocytes # 0.8 H Monocytes # 0.9 Monocytes # (Manual) 0.2 L Eosinophils # 0.9 H Basophils # 0.0 Basophils # (Manual) 0.0 Nucleated Red Blood Cells # 0.0 Platelet Estimate NORMAL Polychromasia 1+ Poikilocytosis 3+ Anisocytosis 2+ Macrocytosis 2+ Sodium Level 139 Potassium Level 3.6 Chloride Level 108 Carbon Dioxide Level 21 Anion Gap 10 Blood Urea Nitrogen 64 H Creatinine 2.49 H Est Glomerular Filtrat Rate mL/min Glucose Level 119 Calcium Level 8.8 Lab Scanned Report BLOOD TRANSFUSION Hepatitis B Surface Antigen NEGATIVE Medications Medications Current Medications IV Flush (NS 3 ml) 3 ml PER PROTOCOL IV ; Start 04/06/19 at 23:00 Ondansetron HCl (Zofran Inj) 4 mg Q6H PRN IV NAUSEA/VOMITING; Start 04/06/19 at 23:00 Morphine Sulfate (morphine) 2 mg Q4H PRN IV .PAIN 7-10; Start 04/06/19 at 23:00 Famotidine (Pepcid Iv) 20 mg DAILY IV Last administered on 04/09/19at 10:32; Admin Dose 20 MG; Start 04/07/19 at 09:00 Acetaminophen (Tylenol Liquid) 650 mg Q4H PRN GTB MILD PAIN(1-3) OR TEMP>38C; Start 04/08/19 at 13:30 Albuterol (Proventil 0.083% (Neb)) 2.5 mg Q4H RESP THERAPY NEB Last adm inistered on 04/09/19at 14:10; Admin Dose 2.5 MG; Start 04/08/19 at 13:30 Epoetin Nick (Epogen (Oncology)) 10,000 units WITH DIALYSIS SC ; Start 04/08/19 at 13:30 Zinc Sulfate (Zinc Sulfate) 220 mg DAILY GTB Last administered on 04/09/19at 10:31; Admin Dose 220 MG; Start 04/09/19 at 09:00 Midodrine (Proamatine) 5 mg TID@09,13,17 PO Last administered on 04/09/19at 13:00; Admin Dose 5 MG; Start 04/08/19 at 17:00 Atorvastatin Calcium (Lipitor) 20 mg HS PO Last administered on 04/08/19at 21:00; Admin Dose 20 MG; Start 04/08/19 at 21:00 Collagenase (Santyl) 1 applic SOILED PRN TOP SOILED; Start 04/08/19 at 14:00 Heparin Sodium (Porcine) (Heparin (1000 Units/ml)) 3,200 unit AFTER DIALYSIS CATHETER ; Start 04/09/19 at 14:30 Albumin Human 50 ml @ 100 mls/hr WITH DIALYSIS PRN IV SBP < 90 DURING DIALYSIS; Start 04/09/19 at 14:30 Mendoza Ludwig DO Apr 09, 2019 16:19
[2019-04-09] MEDS: HEPARIN 1000 UNITS/ML 10 ML INJ CATHETER SCH (16:51)
[2019-04-09] MEDS: ALBUMIN HUMAN 25% 50 ML IV PRN (17:00)
[2019-04-09] MEDS: ATORVASTATIN 20 MG TAB PO SCH (20:47)
[2019-04-09] MEDS: ALBUTEROL HFA 8 GM INHALER INH SCH (21:52)
[2019-04-10] VITALS (16 sets, daily range): BP systolic 100–132; BP diastolic 55–66; PULSE 65–69; RESP 19–25
[2019-04-10] MEDS ORDERED: ALBUTEROL HFA 8 GM INHALER INH SCH (01:00)
[2019-04-10] MEDS: ALBUTEROL HFA 8 GM INHALER INH SCH ×6 (01:15→21:13)
[2019-04-10] MEDS: ZINC SULFATE 220 MG CAP GTB SCH (09:09)
[2019-04-10] MEDS: MIDODRINE 5 MG TAB PO SCH ×3 (09:09→16:41)
[2019-04-10] MEDS: FAMOTIDINE 20 MG INJ IV SCH (09:09)
[2019-04-10] MEDS ORDERED: VANCOMYCIN IV PER PHARMACY XX SCH (15:30)
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
[2019-04-10] MEDS ORDERED: VANCOMYCIN 1.25 GM/NS 250 ML 250 ML IVPB ONE (17:00)
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
--- NOTE | 2019-04-10 17:18 | CONS ---
Assessment/Plan Assessment/Plan Hospital Course (Demo Recall) Acute blood loss anemia Labile blood pressure Elevated troponin, trending down CAD Preserved ejection fraction End-stage renal disease on hemodialysis Encephalopathy Patient admitted with severe anemia. Incidentally found to have elevated troponin, which is trending down Echocardiogram recently done with preserved left ventricular ejection fraction Blood pressure has been labile, patient has a history of this and is on Midodrine No significant ischemic abnormalities on ECG Patient currently not on any antiplatelet therapy likely secondary to anemia Fluid management via hemodialysis as per nephrology No beta-aidee given labile blood pressure Continue statin therapy if no contraindication Consultation Date/Type/Reason Admit Date/Time Apr 06, 2019 at 22:52 Initial Consult Date 04/08/19 Type of Consult Cardiology Requesting Provider: WILLA CARTY Date/Time of Note DATE: 04/10/19 TIME: 17:17 24 HR Interval Summary Subjective hx not possible: pt non-verbal Exam/Review of Systems Vital Signs Vitals Vital Signs Date Temp Pulse Resp B/P (MAP) Pulse Ox O2 O2 Flow FiO2 Time Delivery Rate 04/10/19 98.6 66 22 122/59 99 Mechanical 16:04 (80) Ventilator Trach Collar 04/10/19 40 13:13 Intake and Output 04/09/19 04/09/19 04/10/19 1515:00 23:00 07:00 OutputOutput Total 2500 ml 100 ml BalanceBalance -2500 ml -100 ml Exam Constitutional: non-verbal (No apparent distress) Respiratory: other (Coarse breath sounds bilaterally, no wheezing) Cardiovascular: regular rate and rhythm (S1-S2 heard) Gastrointestinal: soft, non-tender, bowel sounds Extremities: edema Labs Result Diagram: 04/10/19 0525 04/10/19 0525 Results 24hrs Laboratory Tests Test 04/10/19 05:25 White Blood Count 6.2 # Red Blood Count 2.61 L Hemoglobin 8.1 L Hematocrit 25.3 L Mean Corpuscular Volume 96.9 Mean Corpuscular Hemoglobin 31.0 Mean Corpuscular Hemoglobin Concent 32.0 Red Cell Distribution Width 21.9 H Platelet Count 169 Mean Platelet Volume 10.5 H Immature Granulocytes % 0.800 H Neutrophils % 56.1 Lymphocytes % 15.8 Monocytes % 12.2 H Eosinophils % 14.8 H Basophils % 0.3 Nucleated Red Blood Cells % 0.0 Immature Granulocytes # 0.050 H Neutrophils # 3.5 Lymphocytes # 1.0 Monocytes # 0.8 Eosinophils # 0.9 H Basophils # 0.0 Nucleated Red Blood Cells # 0.0 Sodium Level 139 Potassium Level 3.6 Chloride Level 103 Carbon Dioxide Level 28 Anion Gap 8 Blood Urea Nitrogen 46 #H Creatinine 1.89 H Est Glomerular Filtrat Rate mL/min Glucose Level 98 Calcium Level 8.3 L Medications Medications Current Medications IV Flush (NS 3 ml) 3 ml PER PROTOCOL IV ; Start 04/06/19 at 23:00 Ondansetron HCl (Zofran Inj) 4 mg Q6H PRN IV NAUSEA/VOMITING; Start 04/06/19 at 23:00 Morphine Sulfate (morphine) 2 mg Q4H PRN IV .PAIN 7-10; Start 04/06/19 at 23:00 Famotidine (Pepcid Iv) 20 mg DAILY IV Last administered on 04/10/19at 09:09; Admin Dose 20 MG; Start 04/07/19 at 09:00 Acetaminophen (Tylenol Liquid) 650 mg Q4H PRN GTB MILD PAIN(1-3) OR TEMP>38C; Start 04/08/19 at 13:30 Epoetin Nick (Epogen (Oncology)) 10,000 units WITH DIALYSIS SC ; Start 04/08/19 at 13:30 Zinc Sulfate (Zinc Sulfate) 220 mg DAILY GTB Last administered on 04/10/19at 09:09; Admin Dose 220 MG; Start 04/09/19 at 09:00 Midodrine (Proamatine) 5 mg TID@,13,17 PO Last administered on 04/10/19at 1 2:51; Admin Dose 5 MG; Start 04/08/19 at 17:00 Atorvastatin Calcium (Lipitor) 20 mg HS PO Last administered on 04/09/19at 20:47; Admin Dose 20 MG; Start 04/08/19 at 21:00 Collagenase (Santyl) 1 applic SOILED PRN TOP SOILED; Start 04/08/19 at 14:00 Heparin Sodium (Porcine) (Heparin (1000 Units/ml)) 3,200 unit AFTER DIALYSIS CATHETER Last administered on 04/09/19at 16:51; Admin Dose 3,200 UNIT; Start 04/09/19 at 14:30 Albumin Human 50 ml @ 100 mls/hr WITH DIALYSIS PRN IV SBP < 90 DURING DIALYSIS Last administered on 04/09/19at 17:00; Admin Dose 100 MLS/HR; Start 04/09/19 at 14:30 Albuterol (Ventolin Hfa) 2 puff Q4H RESP THERAPY INH Last administered on 04/10/19at 13:13; Admin Dose 2 PUFF; Start 04/09/19 at 21:50 Vancomycin HCl (Vanco Iv Per Pharmacy) VANCOMYCIN PER PHARMACY PER PROTOCOL XX ; Start 04/10/19 at 15:30 Vancomycin/Sodium Chloride 250 ml @ 83.333 mls/ hr ONCE ONCE IVPB ; Start 04/10/19 at 17:00; Stop 04/10/19 at 19:59 Miscellaneous Information (*Rx Drug Level Order Reminder*) RANDOM VANCOMYCIN LEVEL... ONCE ONCE XX ; Start 04/12/19 at 05:00; Stop 04/12/19 at 05:01 Mendoza Ludwig DO Apr 10, 2019 17:18
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
[2019-04-10] MEDS: ATORVASTATIN 20 MG TAB PO SCH (21:00)
[2019-04-11] VITALS (33 sets, daily range): BP systolic 85–134; BP diastolic 41–81; PULSE 58–71; RESP 18–25
[2019-04-11] MEDS: ALBUTEROL HFA 8 GM INHALER INH SCH ×6 (01:58→20:58)
[2019-04-11] MEDS: FAMOTIDINE 20 MG INJ IV SCH (08:35)
[2019-04-11] MEDS: MIDODRINE 5 MG TAB PO SCH ×3 (08:36→17:07)
[2019-04-11] MEDS: ZINC SULFATE 220 MG CAP GTB SCH (08:36)
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
[2019-04-11] MEDS: ALBUMIN HUMAN 25% 50 ML IV PRN ×2 (10:56→11:32)
[2019-04-11] MEDS: HEPARIN 1000 UNITS/ML 10 ML INJ CATHETER SCH (13:04)
--- NOTE | 2019-04-11 16:38 | CONS ---
Assessment/Plan Assessment/Plan Hospital Course (Demo Recall) Acute blood loss anemia Labile blood pressure Elevated troponin, trending down CAD Preserved ejection fraction End-stage renal disease on hemodialysis Encephalopathy Patient admitted with severe anemia. Incidentally found to have elevated troponin, which is trending down Echocardiogram recently done with preserved left ventricular ejection fraction Blood pressure has been labile, patient has a history of this and is on Midodrine No significant ischemic abnormalities on ECG Patient currently not on any antiplatelet therapy likely secondary to anemia Fluid management via hemodialysis as per nephrology No beta-aidee given labile blood pressure Continue statin therapy if no contraindication Consultation Date/Type/Reason Admit Date/Time Apr 06, 2019 at 22:52 Initial Consult Date 04/08/19 Type of Consult Cardiology Requesting Provider: WILLA CARTY Date/Time of Note DATE: 04/11/19 TIME: 16:37 24 HR Interval Summary Subjective hx not possible: pt non-verbal Exam/Review of Systems Vital Signs Vitals Vital Signs Date Temp Pulse Resp B/P (MAP) Pulse Ox O2 O2 Flow FiO2 Time Delivery Rate 04/11/19 68 13:30 04/11/19 89/50 (63) 12:39 04/11/19 98.0 22 96 Mechanical 12:37 Ventilator Trach Collar 04/11/19 40 04:17 Intake and Output 04/10/19 04/10/19 04/11/19 1515:00 23:00 07:00 OutputOutput Total 100 ml 100 ml BalanceBalance -100 ml -100 ml Exam Constitutional: non-verbal (No apparent distress) Head: normocephalic Respiratory: other (Coarse breath sounds bilaterally, no wheezing) Cardiovascular: regular rate and rhythm (S1-S2 heard) Gastrointestinal: soft, non-tender, bowel sounds Extremities: edema Labs Result Diagram: 04/11/19 0554 04/11/19 0554 Results 24hrs Laboratory Tests Test 04/11/19 05:54 White Blood Count 5.2 Red Blood Count 2.85 L Hemoglobin 8.7 L Hematocrit 27.7 L Mean Corpuscular Volume 97.2 Mean Corpuscular Hemoglobin 30.5 Mean Corpuscular Hemoglobin Concent 31.4 L Red Cell Distribution Width 21.5 H Platelet Count 171 Mean Platelet Volume 10.4 Immature Granulocytes % 0.800 H Neutrophils % 47.1 Lymphocytes % 19.7 Monocytes % 13.9 H Eosinophils % 18.1 H Basophils % 0.4 Nucleated Red Blood Cells % 0.0 Immature Granulocytes # 0.040 H Neutrophils # 2.5 Lymphocytes # 1.0 Monocytes # 0.7 Eosinophils # 0.9 H Basophils # 0.0 Nucleated Red Blood Cells # 0.0 Sodium Level 139 Potassium Level 3.6 Chloride Level 102 Carbon Dioxide Level 27 Anion Gap 10 Blood Urea Nitrogen 55 H Creatinine 2.31 H Est Glomerular Filtrat Rate mL/min Glucose Level 106 Calcium Level 8.5 Medications Medications Current Medications IV Flush (NS 3 ml) 3 ml PER PROTOCOL IV ; Start 04/06/19 at 23:00 Ondansetron HCl (Zofran Inj) 4 mg Q6H PRN IV NAUSEA/VOMITING; Start 04/06/19 at 23:00 Morphine Sulfate (morphine) 2 mg Q4H PRN IV .PAIN 7-10; Start 04/06/19 at 23:00 Famotidine (Pepcid Iv) 20 mg DAILY IV Last administered on 04/11/19at 08:35; Admin Dose 20 MG; Start 04/07/19 at 09:00 Acetaminophen (Tylenol Liquid) 650 mg Q4H PRN GTB MILD PAIN(1-3) OR TEMP>38C; Start 04/08/19 at 13:30 Epoetin Nick (Epogen (Oncology)) 10,000 units WITH DIALYSIS SC ; Start 04/08/19 at 13:30 Zinc Sulfate (Zinc Sulfate) 220 mg DAILY GTB Last administered on 04/11/19at 08:36; Admin Dose 220 MG; Start 04/09/19 at 09:00 Midodrine (Proamatine) 5 mg TID@,,17 PO Last administered on 04/11/19at 12:40; Admin Dose 5 MG; Start 04/08/19 at 17:00 Atorvastatin Calcium (Lipitor) 20 mg HS PO Last administered on 04/10/19at 21:00; Admin Dose 20 MG; Start 04/08/19 at 21:00 Collagenase (Santyl) 1 applic SOILED PRN TOP SOILED; Start 04/08/19 at 14:00 Heparin Sodium (Porcine) (Heparin (1000 Units/ml)) 3,200 unit AFTER DIALYSIS CATHETER Last administered on 04/11/19at 13:04; Admin Dose 3,200 UNIT; Start 04/09/19 at 14:30 Albumin Human 50 ml @ 100 mls/hr WITH DIALYSIS PRN IV SBP < 90 DURING DIALYSIS Last administered on 04/11/19at 11:32; Admin Dose 100 MLS/HR; Start 04/09/19 at 14:30 Albuterol (Ventolin Hfa) 2 puff Q4H RESP THERAPY INH Last administered on 04/11/19at 04:14; Admin Dose 2 PUFF; Start 04/09/19 at 21:50 Vancomycin HCl (Vanco Iv Per Pharmacy) VANCOMYCIN PER PHARMACY PER PROTOCOL XX ; Start 04/10/19 at 15:30 Miscellaneous Information (*Rx Drug Level Order Reminder*) RANDOM VANCOMYCIN LEVEL... ONCE ONCE XX ; Start 04/12/19 at 05:00; Stop 04/12/19 at 05:01 Mendoza Ludwig DO Apr 11, 2019 16:38
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
[2019-04-11] MEDS: ATORVASTATIN 20 MG TAB PO SCH (20:43)
[2019-04-12] VITALS (20 sets, daily range): BP systolic 92–112; BP diastolic 51–68; PULSE 61–106; RESP 20–25
[2019-04-12] MEDS: ALBUTEROL HFA 8 GM INHALER INH SCH ×6 (00:54→21:35)
[2019-04-12] MEDS: ZINC SULFATE 220 MG CAP GTB SCH (09:02)
[2019-04-12] MEDS: FAMOTIDINE 20 MG INJ IV SCH (09:03)
[2019-04-12] MEDS: MIDODRINE 5 MG TAB PO SCH ×3 (09:03→17:10)
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
--- NOTE | 2019-04-12 13:45 | CONS ---
Assessment/Plan Assessment/Plan Hospital Course (Demo Recall) Acute blood loss anemia Labile blood pressure Elevated troponin, trending down CAD Preserved ejection fraction End-stage renal disease on hemodialysis Encephalopathy Patient admitted with severe anemia. Incidentally found to have elevated troponin, which is trending down Echocardiogram recently done with preserved left ventricular ejection fraction Blood pressure has been labile, patient has a history of this and is on Midodrine No significant ischemic abnormalities on ECG Patient currently not on any antiplatelet therapy likely secondary to anemia Fluid management via hemodialysis as per nephrology No beta-aidee given labile blood pressure Continue statin therapy if no contraindication Consultation Date/Type/Reason Admit Date/Time Apr 06, 2019 at 22:52 Initial Consult Date 04/08/19 Type of Consult Cardiology Requesting Provider: WILLA CARTY Date/Time of Note DATE: 04/12/19 TIME: 13:44 24 HR Interval Summary Subjective hx not possible: pt non-verbal Exam/Review of Systems Vital Signs Vitals Vital Signs Date Temp Pulse Resp B/P (MAP) Pulse Ox O2 O2 Flow FiO2 Time Delivery Rate 04/12/19 67 12:32 04/12/19 98.2 21 92/54 (67) 96 Mechanical 12:16 Ventilator Trach Collar 04/12/19 30 11:04 Intake and Output 04/11/19 04/11/19 04/12/19 1515:00 23:00 07:00 IntakeIntake Total 100 ml 940 ml 780 ml OutputOutput Total 1600 ml 850 ml 50 ml BalanceBalance -1500 ml 90 ml 730 ml Exam Constitutional: non-verbal (No apparent distress) Head: normocephalic Respiratory: other (Coarse breath sounds bilaterally, no wheezing) Cardiovascular: regular rate and rhythm (S1-S2 heard) Gastrointestinal: soft, non-tender, bowel sounds Extremities: edema Labs Result Diagram: 04/12/19 1130 04/12/19 0514 Results 24hrs Laboratory Tests Test 04/12/19 05:14 04/12/19 07:03 04/12/19 11:30 White Blood Count 5.7 Red Blood Count 2.67 L Hemoglobin 8.1 L 8.0 L Hematocrit 26.5 L 25.6 L Mean Corpuscular Volume 99.3 Mean Corpuscular Hemoglobin 30.3 Mean Corpuscular 30.6 L Hemoglobin Concent Red Cell Distribution Width 21.5 H Platelet Count 167 Mean Platelet Volume 10.4 Immature Granulocytes % 0.500 H Neutrophils % 55.8 Lymphocytes % 17.5 Monocytes % 12.7 H Eosinophils % 13.1 H Basophils % 0.4 Nucleated Red Blood Cells % 0.0 Immature Granulocytes # 0.030 Neutrophils # 3.2 Lymphocytes # 1.0 Monocytes # 0.7 Eosinophils # 0.7 H Basophils # 0.0 Nucleated Red Blood Cells # 0.0 Sodium Level 138 Potassium Level 3.8 Chloride Level 101 Carbon Dioxide Level 29 Anion Gap 8 Blood Urea Nitrogen 42 #H Creatinine 1.73 H Est Glomerular Filtrat Rate mL/min Glucose Level 101 Calcium Level 8.3 L Phosphorus Level 2.8 Magnesium Level 1.9 Total Bilirubin 0.3 Direct Bilirubin 0.00 Indirect Bilirubin 0.3 Aspartate Amino Transf (AST/SGOT) 51 H Alanine 33 Aminotransferase (ALT/SGPT) Alkaline Phosphatase 272 H Total Protein 6.7 Albumin 2.8 L Globulin 3.90 H Albumin/Globulin Ratio 0.71 Random Vancomycin Level 15.4 Lab Scanned Report REFERENCE LAB Medications Medications Current Medications IV Flush (NS 3 ml) 3 ml PER PROTOCOL IV ; Start 04/06/19 at 23:00 Ondansetron HCl (Zofran Inj) 4 mg Q6H PRN IV NAUSEA/VOMITING; Start 04/06/19 at 23:00 Morphine Sulfate (morphine) 2 mg Q4H PRN IV .PAIN 7-10; Start 04/06/19 at 23:00 Famotidine (Pepcid Iv) 20 mg DAILY IV Last administered on 04/12/19at 09:03; Admin Dose 20 MG; Start 04/07/19 at 09:00 Acetaminophen (Tylenol Liquid) 650 mg Q4H PRN GTB MILD PAIN(1-3) OR TEMP>38C; Start 04/08/19 at 13:30 Epoetin Nick (Epogen (Oncology)) 10,000 units WITH DIALYSIS SC ; Start 04/08/19 at 13:30 Zinc Sulfate (Zinc Sulfate) 220 mg DAILY GTB Last administered on 04/12/19at 09:02; Admin Dose 220 MG; Start 04/09/19 at 09:00 Atorvastatin Calcium (Lipitor) 20 mg HS PO Last administered on 04/11/19at 20:43; Admin Dose 20 MG; Start 04/08/19 at 21:00 Collagenase (Santyl) 1 applic SOILED PRN TOP SOILED; Start 04/08/19 at 14:00 Heparin Sodium (Porcine) (Heparin (1000 Units/ml)) 3,200 unit AFTER DIALYSIS CATHETER Last administered on 04/11/19 13:04; Admin Dose 3,200 UNIT; Start 04/09/19 at 14:30 Albumin Human 50 ml @ 100 mls/hr WITH DIALYSIS PRN IV SBP < 90 DURING DIALYSIS Last administered on 04/11/19 11:32; Admin Dose 100 MLS/HR; Start 04/09/19 at 14:30 Albuterol (Ventolin Hfa) 2 puff Q4H RESP THERAPY INH Last administered on 04/12 13:08; Admin Dose 2 PUFF; Start 04/09/19 at 21:50 Vancomycin HCl (Vanco Iv Per Pharmacy) VANCOMYCIN PER PHARMACY PER PROTOCOL XX ; Start 04/10/19 at 15:30 Midodrine (Proamatine) 10 mg TID@09,13,17 PO Last administered on 04/12/19 12:35; Admin Dose 10 MG; Start 04/12/19 at 09:00 Mendoza Ludwig DO Apr 12, 2019 13:45
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
[2019-04-12] MEDS: ATORVASTATIN 20 MG TAB PO SCH (20:38)
[2019-04-12] MEDS ORDERED: VANCOMYCIN 1 GM 250 ML IVPB ONE (22:00)
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
[2019-04-13] VITALS (34 sets, daily range): BP systolic 88–115; BP diastolic 49–59; PULSE 44–80; RESP 16–30
[2019-04-13] MEDS: ALBUTEROL HFA 8 GM INHALER INH SCH ×6 (01:16→20:04)
[2019-04-13] MEDS: FAMOTIDINE 20 MG TAB GTB SCH (09:10)
[2019-04-13] MEDS: MIDODRINE 5 MG TAB PO SCH ×3 (09:10→17:28)
[2019-04-13] MEDS: ZINC SULFATE 220 MG CAP GTB SCH (09:10)
[2019-04-13] MEDS: COLLAGENASE 5 GM (UD JAR) TOP SCH (09:10)
[2019-04-13] MEDS: DAKINS 0.0125%(1/40) 473 ML SOLUTION TP SCH (09:23)
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
[2019-04-13] MEDS: ALBUMIN HUMAN 25% 50 ML IV PRN ×2 (15:36→17:32)
--- NOTE | 2019-04-13 16:14 | RADRPT ---
Vent Rate: 62 bpm RR Interval: 972 msec MO Interval: 226 msec QRS Duration: 103 msec QT Interval: 432 msec QTC Interval: 438 msec P-R-T [place]: 6 - -40 - 10 degrees Sinus rhythm...normal P axis, V-rate 50- 99 Prolonged MO interval...MO >220, V-rate 50- 90 Low voltage, extremity and precordial leads...extremity<0.5mV, precordial<1.0mV Electronically Signed By: Surinder Swanson
[2019-04-13] MEDS: HEPARIN 1000 UNITS/ML 10 ML INJ CATHETER SCH (18:28)
[2019-04-13] MEDS: ATORVASTATIN 20 MG TAB PO SCH (20:35)
[2019-04-14] VITALS (19 sets, daily range): BP systolic 88–106; BP diastolic 49–67; PULSE 67–102; RESP 16–29
[2019-04-14] MEDS: ALBUTEROL HFA 8 GM INHALER INH SCH ×6 (00:38→21:11)
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
[2019-04-14] MEDS: COLLAGENASE 5 GM (UD JAR) TOP SCH (09:01)
[2019-04-14] MEDS: ZINC SULFATE 220 MG CAP GTB SCH (09:01)
[2019-04-14] MEDS: MIDODRINE 5 MG TAB PO SCH ×3 (09:02→18:01)
[2019-04-14] MEDS: DAKINS 0.0125%(1/40) 473 ML SOLUTION TP SCH (09:02)
[2019-04-14] MEDS: FAMOTIDINE 20 MG TAB GTB SCH (09:02)
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
[2019-04-14] MEDS: ATORVASTATIN 20 MG TAB PO SCH (21:29)
[2019-04-15] VITALS (33 sets, daily range): BP systolic 73–136; BP diastolic 41–91; PULSE 58–138; RESP 18–27
[2019-04-15] MEDS: ALBUTEROL HFA 8 GM INHALER INH SCH ×6 (01:10→21:13)
[2019-04-15] MEDS: MUPIROCIN 2% 22 GM OINT TOP SCH ×3 (02:20→22:45)
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
[2019-04-15] MEDS: COLLAGENASE 5 GM (UD JAR) TOP SCH (09:35)
[2019-04-15] MEDS: DAKINS 0.0125%(1/40) 473 ML SOLUTION TP SCH (09:35)
[2019-04-15] MEDS: FAMOTIDINE 20 MG TAB GTB SCH (09:36)
[2019-04-15] MEDS: ZINC SULFATE 220 MG CAP GTB SCH (09:36)
[2019-04-15] MEDS: MIDODRINE 5 MG TAB PO SCH ×3 (09:36→17:51)
[2019-04-15] MEDS: ALBUMIN HUMAN 25% 50 ML IV PRN ×2 (12:26→12:50)
[2019-04-15] MEDS ORDERED: EPOETIN ALFA-EPBX (NON-ESRD 10,000 UNIT/ML VIAL SC SCH (13:30)
[2019-04-15] MEDS: HEPARIN 1000 UNITS/ML 10 ML INJ CATHETER SCH (14:51)
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
--- NOTE | 2019-04-15 17:15 | CONS ---
Assessment/Plan Assessment/Plan Hospital Course (Demo Recall) Acute blood loss anemia Labile blood pressure Elevated troponin, trending down CAD Preserved ejection fraction End-stage renal disease on hemodialysis Encephalopathy Midodrine as needed Fluid management via hemodialysis as per nephrology No beta-aidee given labile blood pressure Continue statin therapy if no contraindication Patient currently not on any antiplatelet therapy likely secondary to anemia Consultation Date/Type/Reason Admit Date/Time Apr 06, 2019 at 22:52 Initial Consult Date 04/08/19 Type of Consult Cardiology Requesting Provider: WILLA CARTY Date/Time of Note DATE: 04/15/19 TIME: 17:13 24 HR Interval Summary Subjective hx not possible: pt non-verbal Exam/Review of Systems Vital Signs Vitals Vital Signs Date Temp Pulse Resp B/P (MAP) Pulse Ox O2 O2 Flow FiO2 Time Delivery Rate 04/15/19 97.6 64 18 98/52 (67) 96 15:42 04/15/19 30 12:50 04/15/19 Trach 12:28 Collar Intake and Output 04/14/19 04/14/19 04/15/19 1515:00 23:00 07:00 IntakeIntake Total 930 ml 780 ml OutputOutput Total 100 ml 200 ml BalanceBalance 830 ml 580 ml Exam Exam nad, undergoing HD Head: normocephalic Respiratory: other (course bs, no wheeze) Cardiovascular: regular rate and rhythm (s1s2) Gastrointestinal: soft, non-tender, bowel sounds Extremities: edema Labs Result Diagram: 04/13/19 0457 04/13/19 0457 Results 24hrs Laboratory Tests Test 04/15/19 05:00 Random Vancomycin Level 18.0 Medications Medications Current Medications IV Flush (NS 3 ml) 3 ml PER PROTOCOL IV ; Start 04/06/19 at 23:00 Ondansetron HCl (Zofran Inj) 4 mg Q6H PRN IV NAUSEA/VOMITING; Start 04/06/19 at 23:00 Morphine Sulfate (morphine) 2 mg Q4H PRN IV .PAIN 7-10; Start 04/06/19 at 23:00 Acetaminophen (Tylenol Liquid) 650 mg Q4H PRN GTB MILD PAIN(1-3) OR TEMP>38C; Start 04/08/19 at 13:30 Zinc Sulfate (Zinc Sulfate) 220 mg DAILY GTB Last administered on 04/15/19 09:36; Admin Dose 220 MG; Start 04/09/19 at 09:00 Atorvastatin Calcium (Lipitor) 20 mg HS PO Last administered on 04/14/19 21:29; Admin Dose 20 MG; Start 04/08/19 at 21:00 Collagenase (Santyl) 1 applic SOILED PRN TOP SOILED; Start 04/08/19 at 14:00 Heparin Sodium (Porcine) (Heparin (1000 Units/ml)) 3,200 unit AFTER DIALYSIS CATHETER Last administered on 04/15/19 14:51; Admin Dose 3,200 UNIT; Start 04/09/19 at 14:30 Albumin Human 50 ml @ 100 mls/hr WITH DIALYSIS PRN IV SBP < 90 DURING DIALYSIS Last administered on 04/15/19 12:50; Admin Dose 100 MLS/HR; Start 04/09/19 at 14:30 Albuterol (Ventolin Hfa) 2 puff Q4H RESP THERAPY INH Last administered on 04/15/19 17:10; Admin Dose 2 PUFF; Start 04/09/19 at 21:50 Vancomycin HCl (Vanco Iv Per Pharmacy) VANCOMYCIN PER PHARMACY PER PROTOCOL XX ; Start 04/10/19 at 15:30 Midodrine (Proamatine) 10 mg TID@09,13,17 PO Last administered on 04/15/19 12:51; Admin Dose 10 MG; Start 04/12/19 at 09:00 Collagenase (Santyl) 1 applic DAILY TOP Last administered on 04/15/19 09:35; Admin Dose 1 APPLIC; Start 04/13/19 at 09:00 Sodium Hypochlorite (Dakins Diluted ()) 1 applic DAILY TP Last administered on 04/15/19 09:35; Admin Dose 1 APPLIC; Start 04/13/19 at 09:00 Famotidine (Pepcid) 20 mg DAILY GTB Last administered on 04/15/19 09:36; Admin Dose 20 MG; Start 04/13/19 at 09:00 Mupirocin (Bactroban) 1 applic BID TOP Last administered on 04/15/19 09:35; Admin Dose 1 APPLIC; Start 04/14/19 at 22:00 Vancomycin HCl 250 ml @ 125 mls/hr Q96H IVPB ; Start 04/15/19 at 21:00 Epoetin Nick-epbx (Retacrit (Non-Esrd)) 10,000 unit WITH DIALYSIS SC ; Start 04/15/19 at 13:30 Mendoza Ludwig DO Apr 15, 2019 17:15
[2019-04-15] MEDS ORDERED: VANCOMYCIN 1 GM 250 ML IVPB SCH (21:00)
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
[2019-04-15] MEDS: ATORVASTATIN 20 MG TAB PO SCH (22:45)
[2019-04-16] VITALS (51 sets, daily range): BP systolic 63–144; BP diastolic 31–62; PULSE 58–81; RESP 8–27
[2019-04-16] MEDS: ALBUTEROL HFA 8 GM INHALER INH SCH ×6 (01:09→21:04)
[2019-04-16] MEDS: MUPIROCIN 2% 22 GM OINT TOP SCH ×2 (09:01→21:32)
[2019-04-16] MEDS: MIDODRINE 5 MG TAB PO SCH ×3 (09:02→18:13)
[2019-04-16] MEDS: ZINC SULFATE 220 MG CAP GTB SCH (09:03)
[2019-04-16] MEDS: FAMOTIDINE 20 MG TAB GTB SCH (09:03)
[2019-04-16] MEDS: COLLAGENASE 5 GM (UD JAR) TOP SCH (09:03)
[2019-04-16] MEDS: DAKINS 0.0125%(1/40) 473 ML SOLUTION TP SCH (09:04)
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
[2019-04-16] MEDS ORDERED: GENTAMICIN IV PER PHARMACY XX SCH (14:00)
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
[2019-04-16] MEDS ORDERED: GENTAMICIN 150 MG in DEXTROSE 5% 100 ML IVPB SCH (16:30)
--- NOTE | 2019-04-16 18:48 | CONS ---
Assessment/Plan Assessment/Plan Hospital Course (Demo Recall) Acute blood loss anemia Labile blood pressure Elevated troponin, trending down CAD Preserved ejection fraction End-stage renal disease on hemodialysis Encephalopathy Patient with discrepancies in blood pressure readings, discussion with ICU nurse with a rapid response, blood pressure cuff was initially on the leg with hypotension, once moved to the arm, blood pressure normalized. Midodrine as needed Fluid management via hemodialysis as per nephrology No beta-aidee given labile blood pressure Continue statin therapy if no contraindication Patient currently not on any antiplatelet therapy likely secondary to anemia Consultation Date/Type/Reason Admit Date/Time Apr 06, 2019 at 22:52 Initial Consult Date 04/08/19 Type of Consult Cardiology Requesting Provider: WILLA CARTY Date/Time of Note DATE: 04/16/19 TIME: 18:47 24 HR Interval Summary Free Text/Dictation Patient transferred to ICU secondary to labile blood pressure Exam/Review of Systems Vital Signs Vitals Vital Signs Date Temp Pulse Resp B/P (MAP) Pulse Ox O2 O2 Flow FiO2 Time Delivery Rate 04/16/19 69 24 91/51 (64) 94 18:15 04/16/19 Mechanical 18:00 Ventilator 04/16/19 30 17:48 04/16/19 97.5 15:43 Intake and Output 04/15/19 04/15/19 04/16/19 1515:00 23:00 07:00 IntakeIntake Total 662 ml OutputOutput Total 250 ml 900 ml 200 ml BalanceBalance -250 ml -900 ml 462 ml Exam Constitutional: non-verbal (No apparent distress) Head: normocephalic Respiratory: other (Coarse breath sounds bilaterally, no wheezing) Cardiovascular: regular rate and rhythm (S1-S2 heard) Gastrointestinal: soft, non-tender, bowel sounds Extremities: edema Labs Result Diagram: 04/13/19 0457 04/13/19 0457 Results 24hrs Laboratory Tests Test 04/16/19 12:19 04/16/19 14:16 Bedside Glucose 120 Lactic Acid Level 1.6 Medications Medications Current Medications IV Flush (NS 3 ml) 3 ml PER PROTOCOL IV ; Start 04/06/19 at 23:00 Ondansetron HCl (Zofran Inj) 4 mg Q6H PRN IV NAUSEA/VOMITING; Start 04/06/19 at 23:00 Morphine Sulfate (morphine) 2 mg Q4H PRN IV .PAIN 7-10; Start 04/06/19 at 23:00 Acetaminophen (Tylenol Liquid) 650 mg Q4H PRN GTB MILD PAIN(1-3) OR TEMP>38C; Start 04/08/19 at 13:30 Zinc Sulfate (Zinc Sulfate) 220 mg DAILY GTB Last administered on 04/16/19 09:03; Admin Dose 220 MG; Start 04/09/19 at 09:00 Atorvastatin Calcium (Lipitor) 20 mg HS PO Last administered on 04/15/19 22:45; Admin Dose 20 MG; Start 04/08/19 at 21:00 Collagenase (Santyl) 1 applic SOILED PRN TOP SOILED; Start 04/08/19 at 14:00 Heparin Sodium (Porcine) (Heparin (1000 Units/ml)) 3,200 unit AFTER DIALYSIS CATHETER Last administered on 04/15/19 14:51; Admin Dose 3,200 UNIT; Start 04/09/19 at 14:30 Albumin Human 50 ml @ 100 mls/hr WITH DIALYSIS PRN IV SBP < 90 DURING DIALYSIS Last administered on 04/15/19 12:50; Admin Dose 100 MLS/HR; Start 04/09/19 at 14:30 Albuterol (Ventolin Hfa) 2 puff Q4H RESP THERAPY INH Last administered on 04/16/19 17:56; Admin Dose 2 PUFF; Start 04/09/19 at 21:50 Vancomycin HCl (Vanco Iv Per Pharmacy) VANCOMYCIN PER PHARMACY PER PROTOCOL XX ; Start 04/10/19 at 15:30 Midodrine (Proamatine) 10 mg TID@,,17 PO Last administered on 04/16/19 18:13; Admin Dose 10 MG; Start 04/12/19 at 09:00 Collagenase (Santyl) 1 applic DAILY TOP Last administered on 04/16/19 09:03; Admin Dose 1 APPLIC; Start 04/13/19 at 09:00 Sodium Hypochlorite (Dakins Diluted (40)) 1 applic DAILY TP Last administered on 04/16/19 09:04; Admin Dose 1 APPLIC; Start 04/13/19 at 09:00 Famotidine (Pepcid) 20 mg DAILY GTB Last administered on 04/16/19 09:03; Admin Dose 20 MG; Start 04/13/19 at 09:00 Mupirocin (Bactroban) 1 applic BID TOP Last administered on 04/16/19at 09:01; Admin Dose 1 APPLIC; Start 04/14/19 at 22:00 Vancomycin HCl 250 ml @ 125 mls/hr Q96H IVPB Last administered on 04/15/19at 22:45; Admin Dose 125 MLS/HR; Start 04/15/19 at 21:00 Epoetin Nick-epbx (Retacrit (Non-Esrd)) 10,000 unit WITH DIALYSIS SC ; Start 04/15/19 at 13:30 Gentamicin Sulfate (Gentamicin Iv Per Pharmacy) GENTAMICIN PER PHARM... NOTE XX ; Start 04/16/19 at 14:00 Gentamicin Sulfate 150 mg/ Dextrose 103.75 ml @ 103.75 mls/hr ONCE IVPB Last administered on 04/16/19at 18:10; Admin Dose 103.75 MLS/HR; Start 04/16/19 at 16:30; Stop 04/16/19 at 23:00 Gentamicin Sulfate 50 ml @ 104 mls/hr AFTER DIALYSIS IVPB ; Start 04/17/19 at 15:00 Mendoza Ludwig DO Apr 16, 2019 18:48
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
[2019-04-16] MEDS: ATORVASTATIN 20 MG TAB PO SCH (21:32)
[2019-04-17] VITALS (58 sets, daily range): BP systolic 66–115; BP diastolic 30–68; PULSE 58–85; RESP 0–33
[2019-04-17] MEDS: ALBUTEROL HFA 8 GM INHALER INH SCH ×6 (01:12→20:00)
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
[2019-04-17] MEDS: MUPIROCIN 2% 22 GM OINT TOP SCH ×2 (08:53→22:49)
[2019-04-17] MEDS: MIDODRINE 5 MG TAB PO SCH ×3 (08:59→18:51)
[2019-04-17] MEDS: COLLAGENASE 5 GM (UD JAR) TOP SCH (08:59)
[2019-04-17] MEDS: FAMOTIDINE 20 MG TAB GTB SCH (08:59)
[2019-04-17] MEDS: ZINC SULFATE 220 MG CAP GTB SCH (08:59)
[2019-04-17] MEDS: DAKINS 0.0125%(1/40) 473 ML SOLUTION TP SCH (09:00)
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
--- NOTE | 2019-04-17 12:47 | CONS ---
Assessment/Plan Assessment/Plan Hospital Course (Demo Recall) Acute blood loss anemia Labile blood pressure Elevated troponin, trending down CAD Preserved ejection fraction End-stage renal disease on hemodialysis Encephalopathy Midodrine to be continued, titrate as needed Fluid management via hemodialysis as per nephrology No beta-aidee given labile blood pressure Continue statin therapy if no contraindication Patient currently not on any antiplatelet therapy likely secondary to anemia Consultation Date/Type/Reason Admit Date/Time Apr 06, 2019 at 22:52 Initial Consult Date 04/08/19 Type of Consult Cardiology Requesting Provider: WILLA CARTY Date/Time of Note DATE: 04/17/19 TIME: 12:46 24 HR Interval Summary Free Text/Dictation Seen and examined Exam/Review of Systems Vital Signs Vitals Vital Signs Date Temp Pulse Resp B/P (MAP) Pulse Ox O2 O2 Flow FiO2 Time Delivery Rate 04/17/19 68 21 94/47 (63) 97 Mechanical 12:30 Ventilator 04/17/19 98.0 12:00 04/17/19 40 11:07 Intake and Output 04/16/19 04/16/19 04/17/19 1515:00 23:00 07:00 IntakeIntake Total 445 ml 583.75 ml 430 ml BalanceBalance 445 ml 583.75 ml 430 ml Exam Constitutional: non-verbal (Nurse at bedside) Head: normocephalic Respiratory: other (course bs, no wheeze) Cardiovascular: regular rate and rhythm, other (s1s2) Gastrointestinal: soft, non-tender, bowel sounds Extremities: edema Labs Result Diagram: 04/17/19 0430 04/17/19 0430 Results 24hrs Laboratory Tests Test 04/16/19 14:16 04/17/19 04:30 Lactic Acid Level 1.6 Procalcitonin 1.50 H White Blood Count 7.6 Red Blood Count 2.42 L Hemoglobin 7.5 L Hematocrit 24.3 L Mean Corpuscular Volume 100.4 Mean Corpuscular Hemoglobin 31.0 Mean Corpuscular Hemoglobin Concent 30.9 L Red Cell Distribution Width 20.9 H Platelet Count 145 Mean Platelet Volume 11.1 H Immature Granulocytes % 0.700 H Neutrophils % 59.3 Segmented Neutrophils % (Manual) 49 Band Neutrophils % (Manual) 8 H Lymphocytes % 18.3 Lymphocytes % (Manual) 19 Reactive Lymphocytes % (Manual) 1 H Monocytes % 11.5 H Monocytes % (Manual) 9 Eosinophils % 10.1 H Eosinophils % (Manual) 13 H Basophils % 0.1 Promyelocytes % (Manual) 1 H Nucleated Red Blood Cells % 0.0 Immature Granulocytes # 0.050 H Neutrophils # 4.5 Neutrophils # (Manual) 3.8 Band Neutrophils # 0.6 Lymphocytes (Manual) 1.4 Lymphocytes # 1.4 Reactive Lymphocytes # 0.0 Monocytes # 0.9 Monocytes # (Manual) 0.6 Eosinophils # 0.8 H Basophils # 0.0 Promyelocytes # 0.0 Nucleated Red Blood Cells # 0.0 Platelet Estimate NORMAL Hypochromasia 1+ Anisocytosis 2+ Macrocytosis 2+ Spherocytes 1+ Sodium Level 139 Potassium Level 3.5 Chloride Level 101 Carbon Dioxide Level 30 Anion Gap 8 Blood Urea Nitrogen 47 H Creatinine 1.94 H Est Glomerular Filtrat Rate mL/min Glucose Level 94 Calcium Level 8.5 Medications Medications Current Medications IV Flush (NS 3 ml) 3 ml PER PROTOCOL IV ; Start 04/06/19 at 23:00 Ondansetron HCl (Zofran Inj) 4 mg Q6H PRN IV NAUSEA/VOMITING; Start 04/06/19 at 23:00 Morphine Sulfate (morphine) 2 mg Q4H PRN IV .PAIN 7-10; Start 04/06/19 at 23:00 Acetaminophen (Tylenol Liquid) 650 mg Q4H PRN GTB MILD PAIN(1-3) OR TEMP>38C; Start 04/08/19 at 13:30 Zinc Sulfate (Zinc Sulfate) 220 mg DAILY GTB Last administered on 04/17/19at 08:59; Admin Dose 220 MG; Start 04/09/19 at 09:00 Atorvastatin Calcium (Lipitor) 20 mg HS PO Last administered on 04/16/19at 21:32; Admin Dose 20 MG; Start 04/08/19 at 21:00 Collagenase (Santyl) 1 applic SOILED PRN TOP SOILED; Start 04/08/19 at 14:00 Heparin Sodium (Porcine) (Heparin (1000 Units/ml)) 3,200 unit AFTER DIALYSIS CATHETER Last administered on 04/15/19at 14:51; Admin Dose 3,200 UNIT; Start 04/09/19 at 14:30 Albumin Human 50 ml @ 100 mls/hr WITH DIALYSIS PRN IV SBP < 90 DURING DIALYSIS Last administered on 04/15/19 12:50; Admin Dose 100 MLS/HR; Start 04/09/19 at 14:30 Albuterol (Ventolin Hfa) 2 puff Q4H RESP THERAPY INH Last administered on 04/17/19 09:04; Admin Dose 2 PUFF; Start 04/09/19 at 21:50 Vancomycin HCl (Vanco Iv Per Pharmacy) VANCOMYCIN PER PHARMACY PER PROTOCOL XX ; Start 04/10/19 at 15:30 Midodrine (Proamatine) 10 mg TID@,13,17 PO Last administered on 04/17/19 08:59; Admin Dose 10 MG; Start 04/12/19 at 09:00 Collagenase (Santyl) 1 applic DAILY TOP Last administered on 04/17/19 08:59; Admin Dose 1 APPLIC; Start 04/13/19 at 09:00 Sodium Hypochlorite (Dakins Diluted (1/40)) 1 applic DAILY TP Last administered on 04/17/19 09:00; Admin Dose 1 APPLIC; Start 04/13/19 at 09:00 Famotidine (Pepcid) 20 mg DAILY GTB Last administered on 04/17/19 08:59; Admin Dose 20 MG; Start 04/13/19 at 09:00 Mupirocin (Bactroban) 1 applic BID TOP Last administered on 04/17/19 08:53; Admin Dose 1 APPLIC; Start 04/14/19 at 22:00 Vancomycin HCl 250 ml @ 125 mls/hr Q96H IVPB Last administered on 04/15/19 22:45; Admin Dose 125 MLS/HR; Start 04/15/19 at 21:00 Epoetin Nick-epbx (Retacrit (Non-Esrd)) 10,000 unit WITH DIALYSIS SC ; Start 04/15/19 at 13:30 Gentamicin Sulfate (Gentamicin Iv Per Pharmacy) GENTAMICIN PER PHARM... NOTE XX ; Start 04/16/19 at 14:00 Gentamicin Sulfate 50 ml @ 104 mls/hr AFTER DIALYSIS IVPB ; Start 04/17/19 at 15:00 Mendoza Ludwig DO Apr 17, 2019 12:47
[2019-04-17] MEDS ORDERED: NORepinephrine 8MG/250 ML (PMX 250 ML ONE (13:40)
[2019-04-17] MEDS ORDERED: GENTAMICIN 80 MG/NS (PMX) 50 ML IVPB SCH (15:00)
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
[2019-04-17] MEDS: ATORVASTATIN 20 MG TAB PO SCH (22:48)
[2019-04-18] VITALS (37 sets, daily range): BP systolic 73–107; BP diastolic 23–59; PULSE 66–80; RESP 12–30
[2019-04-18] MEDS: ALBUTEROL HFA 8 GM INHALER INH SCH ×6 (00:35→21:15)
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
[2019-04-18] MEDS: MIDODRINE 5 MG TAB PO SCH ×3 (08:39→17:00)
[2019-04-18] MEDS: COLLAGENASE 5 GM (UD JAR) TOP SCH (08:39)
[2019-04-18] MEDS: FAMOTIDINE 20 MG TAB GTB SCH (08:39)
[2019-04-18] MEDS: MUPIROCIN 2% 22 GM OINT TOP SCH ×2 (08:40→21:02)
[2019-04-18] MEDS: ZINC SULFATE 220 MG CAP GTB SCH (08:40)
[2019-04-18] MEDS: DAKINS 0.0125%(1/40) 473 ML SOLUTION TP SCH (08:43)
--- NOTE | 2019-04-18 11:15 | CONS ---
Assessment/Plan Assessment/Plan Assessment/Plan (Daily) Ventilator setting; assist control of 24, tidal volume 500, PEEP of 5, 40% FiO2. Assessment and recommendations; 1. Patient with history of VDRF and chronic encephalopathy admitted for hypotension with interval improvement. 2. Bilateral pneumonia. 3. Sacral wound, growing multiple organisms. Patient currently on appropriate antimicrobial regimen. 4. End-stage renal disease, dialysis dependent. 5. Chronic anemia. 6. Interval resolution of large right pleural effusion. 7. History of diabetes and hypertension. Continue current supportive care. Prognosis is extremely poor. Hemodialysis per waste duster. Consultation Date/Type/Reason Admit Date/Time Apr 06, 2019 at 22:52 Initial Consult Date 04/17/19 Type of Consult Pulmonary/critical care Patient is an 89-year-old gentleman who was transferred to ICU from medical floor with episode of hypotension. The patient stabilized and did not require any pressor support. Patient has advanced dementia and was unable to give any history by himself whatsoever. Patient however did not appear to be in any distress. Past medical history; 1. Advanced encephalopathy. 2. End-stage renal disease, on hemodialysis. 3. History of diabetes. 4. History of hypertension. 5. Anemia on admission. Status post blood transfusion. 6. Sacral wound. Medications; reviewed. Allergies; as outlined above. Social history; not available. Occupational history; not available. Family history; patient apparently has a supportive family. Review of system; unable to be obtained. General exam; elderly male, on ventilator via tracheostomy, unresponsive, currently in no distress. Requesting Provider: WILLA CARTY Date/Time of Note DATE: 04/18/19 TIME: 11:12 24 HR Interval Summary Free Text/Dictation Patient's condition is stable. General exam; elderly male, on ventilator via tracheostomy, unresponsive. Currently in no distress. Exam/Review of Systems Exam Vitals Vital Signs Date Temp Pulse Resp B/P (MAP) Pulse Ox O2 O2 Flow FiO2 Time Delivery Rate 04/18/19 35 08:00 04/18/19 73 17 87/59 (68) 99 Mechanical 07:15 Ventilator 04/17/19 98.0 16:00 Intake and Output 04/17/19 04/17/19 04/18/19 1414:59 22:59 06:59 IntakeIntake Total 300 ml BalanceBalance 300 ml Exam H EENT exam; supple neck, no JVD. No lymphadenopathy. Midline trachea. No thyromegaly. Tracheostomy in place. Patient has multiple carious teeth. Chest exam; diminished breath sounds bilaterally. No added sounds. S1-S2 audible, no murmurs. Regular rhythm. Abdomen exam; soft, no organomegaly. G-tube in place. Bowel sounds are audible. Abdomen is nondistended. Extremity exam; no peripheral edema. RN ADVICE exam; patient remains profoundly unresponsive. Results Result Diagram: 04/18/19 0637 04/18/19 0637 Results 24hrs Laboratory Tests Test 04/17/19 16:00 04/17/19 18:45 04/18/19 06:37 Body Fluid Type PLEURAL FLUID Body Fluid Volume 1100.0 Body Fluid Color YELLOW Body Fluid Appearance HAZY Body Fluid WBC 216 Body Fluid RBC (Auto) 5000 Body Fluid Polynuclear WBCs (%) 17.1 Body Fluid Mononuclear Cells % 82.9 Auto Body Fluid Lactate Dehydrogenase 422 Bedside Glucose 105 White Blood Count 6.8 Red Blood Count 2.30 L Hemoglobin 7.2 L Hematocrit 22.9 L Mean Corpuscular Volume 99.6 Mean Corpuscular Hemoglobin 31.3 Mean Corpuscular 31.4 L Hemoglobin Concent Red Cell Distribution Width 21.1 H Platelet Count 155 Mean Platelet Volume 10.9 H Immature Granulocytes % 0.700 H Neutrophils % 57.7 Segmented Neutrophils % (Manual) 42 Band Neutrophils % (Manual) 13 H Lymphocytes % 20.7 Lymphocytes % (Manual) 26 Reactive Lymphocytes % (Manual) 2 H Monocytes % 12.8 H Monocytes % (Manual) 7 Eosinophils % 7.8 H Eosinophils % (Manual) 9 H Basophils % 0.3 Basophils % (Manual) 1 Nucleated Red Blood Cells % 0.0 Immature Granulocytes # 0.050 H Neutrophils # 3.9 Neutrophils # (Manual) 2.9 Band Neutrophils # 0.8 H Lymphocytes (Manual) 1.7 Lymphocytes # 1.4 Reactive Lymphocytes # 0.1 H Monocytes # 0.9 Monocytes # (Manual) 0.4 Eosinophils # 0.5 Basophils # 0.0 Basophils # (Manual) 0.0 Nucleated Red Blood Cells # 0.0 Platelet Estimate NORMAL Giant Platelets 2 H Polychromasia 1+ Poikilocytosis 1+ Anisocytosis 2+ Macrocytosis 1+ Sodium Level 136 Potassium Level 3.9 Chloride Level 98 Carbon Dioxide Level 29 Anion Gap 9 Blood Urea Nitrogen 58 H Creatinine 2.42 H Est Glomerular Filtrat Rate mL/min Glucose Level 89 Calcium Level 8.6 Medications Medication Current Medications IV Flush (NS 3 ml) 3 ml PER PROTOCOL IV ; Start 04/06/19 at 23:00 Ondansetron HCl (Zofran Inj) 4 mg Q6H PRN IV NAUSEA/VOMITING; Start 04/06/19 at 23:00 Morphine Sulfate (morphine) 2 mg Q4H PRN IV .PAIN 7-10; Start 04/06/19 at 23:00 Acetaminophen (Tylenol Liquid) 650 mg Q4H PRN GTB MILD PAIN(1-3) OR TEMP>38C; Start 04/08/19 at 13:30 Zinc Sulfate (Zinc Sulfate) 220 mg DAILY GTB Last administered on 04/18/19 08:40; Admin Dose 220 MG; Start 04/09/19 at 09:00 Atorvastatin Calcium (Lipitor) 20 mg HS PO Last administered on 04/17/19 22:48; Admin Dose 20 MG; Start 04/08/19 at 21:00 Collagenase (Santyl) 1 applic SOILED PRN TOP SOILED; Start 04/08/19 at 14:00 Heparin Sodium (Porcine) (Heparin (1000 Units/ml)) 3,200 unit AFTER DIALYSIS CATHETER Last administered on 04/15/19 14:51; Admin Dose 3,200 UNIT; Start 04/09/19 at 14:30 Albumin Human 50 ml @ 100 mls/hr WITH DIALYSIS PRN IV SBP < 90 DURING DIALYSIS Last administered on 04/15/19 12:50; Admin Dose 100 MLS/HR; Start 04/09/19 at 14:30 Albuterol (Ventolin Hfa) 2 puff Q4H RESP THERAPY INH Last administered on 04/18/19 09:01; Admin Dose 2 PUFF; Start 04/09/19 at 21:50 Vancomycin HCl (Vanco Iv Per Pharmacy) VANCOMYCIN PER PHARMACY PER PROTOCOL XX ; Start 04/10/19 at 15:30 Midodrine (Proamatine) 10 mg TID@,,17 PO Last administered on 04/18/19 08:39; Admin Dose 10 MG; Start 04/12/19 at 09:00 Collagenase (Santyl) 1 applic DAILY TOP Last administered on 04/18/19 08:39; Admin Dose 1 APPLIC; Start 04/13/19 at 09:00 Sodium Hypochlorite (Dakins Diluted ()) 1 applic DAILY TP Last administered on 04/18/19 08:43; Admin Dose 1 APPLIC; Start 04/13/19 at 09:00 Famotidine (Pepcid) 20 mg DAILY GTB Last administered on 04/18/19 08:39; Admin Dose 20 MG; Start 04/13/19 at 09:00 Mupirocin (Bactroban) 1 applic BID TOP Last administered on 04/18/19 08:40; Admin Dose 1 APPLIC; Start 04/14/19 at 22:00 Vancomycin HCl 250 ml @ 125 mls/hr Q96H IVPB Last administered on 04/15/19 22:45; Admin Dose 125 MLS/HR; Start 04/15/19 at 21:00 Epoetin Nick-epbx (Retacrit (Non-Esrd)) 10,000 unit WITH DIALYSIS SC ; Start 04/15/19 at 13:30 Gentamicin Sulfate (Gentamicin Iv Per Pharmacy) GENTAMICIN PER PHARM... NOTE XX ; Start 04/16/19 at 14:00 Gentamicin Sulfate 50 ml @ 104 mls/hr AFTER DIALYSIS IVPB ; Start 04/17/19 at 15:00 MARS FONSECA Apr 18, 2019 11:15
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
[2019-04-18] MEDS ORDERED: AMIKACIN IV PER PHARMACY XX SCH (18:00)
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
[2019-04-18] MEDS ORDERED: AMIKACIN 500 MG in SOD CHLORIDE 0.9% 100 ML IVPB SCH (20:00)
[2019-04-18] MEDS: ATORVASTATIN 20 MG TAB PO SCH (21:02)
[2019-04-18] MEDS ORDERED: ALBUMIN HUMAN 25% 50 ML IV ONE (23:00)
[2019-04-19] VITALS (47 sets, daily range): BP systolic 65–125; BP diastolic 30–77; PULSE 64–97; RESP 8–27
[2019-04-19] MEDS: ALBUTEROL HFA 8 GM INHALER INH SCH ×5 (01:24→16:07)
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
--- NOTE | 2019-04-19 09:20 | CONS ---
Assessment/Plan Assessment/Plan Assessment/Plan (Daily) Ventilator setting; AC of 24, tidal volume 500, PEEP of 5, 40% FiO2. Assessment and recommendations; 1. Patient with history of chronic encephalopathy and VDRF admitted for recurrent sepsis due to severe bilateral pneumonia as well as sacral decubitus ulcer. Multiple organisms cultured from sacral wound. Patient currently on appropriate antimicrobial regimen. 2. Chronic renal failure, dialysis dependent. Currently dialysis on hold. Patient exhibiting poor urine output. And may require reinitiation of dialysis. 3. Interval resolution of right pleural effusion. 4. Anemia and thrombocytopenia. Continue current supportive care. Overall prognosis is very poor. Consultation Date/Type/Reason Admit Date/Time Apr 06, 2019 at 22:52 Initial Consult Date 04/17/19 Type of Consult Pulmonary/critical care Patient is an 89-year-old gentleman who was transferred to ICU from medical floor with episode of hypotension. The patient stabilized and did not require any pressor support. Patient has advanced dementia and was unable to give any history by himself whatsoever. Patient however did not appear to be in any distress. Past medical history; 1. Advanced encephalopathy. 2. End-stage renal disease, on hemodialysis. 3. History of diabetes. 4. History of hypertension. 5. Anemia on admission. Status post blood transfusion. 6. Sacral wound. Medications; reviewed. Allergies; as outlined above. Social history; not available. Occupational history; not available. Family history; patient apparently has a supportive family. Review of system; unable to be obtained. General exam; elderly male, on ventilator via tracheostomy, unresponsive, currently in no distress. Requesting Provider: WILLA CARTY Date/Time of Note DATE: 04/19/19 TIME: 09:17 24 HR Interval Summary Free Text/Dictation Patient's condition remains critical but stable. Has remained hemodynamically stable. General exam; elderly male, on ventilator via tracheostomy, noncommunicative. Currently no distress. Exam/Review of Systems Exam Vitals Vital Signs Date Temp Pulse Resp B/P (MAP) Pulse Ox O2 O2 Flow FiO2 Time Delivery Rate 04/19/19 35 08:00 04/19/19 66 67/47 (54) 100 07:30 04/19/19 18 Mechanical 07:00 Ventilator 04/19/19 99.2 04:00 Intake and Output 04/18/19 04/18/19 04/19/19 1515:00 23:00 07:00 IntakeIntake Total 470 ml 40 ml 360 ml OutputOutput Total 7 ml 5 ml 50 ml BalanceBalance 463 ml 35 ml 310 ml Exam HEENT exam; supple neck, no JVD. No lymphadenopathy. Midline trachea. No thyromegaly. Tracheostomy in place. Patient has a multiple carious teeth. Chest exam; diminished breath sounds bilaterally. S1-S2 audible, no murmurs. Regular rhythm. Abdomen exam; soft, nondistended. No organomegaly. G-tube in place. Bowel sounds audible. Extremity exam; patient has a flexion contractures. No peripheral edema. Back exam; dressing applied to sacrum. INDEP[employer]ENT [employer]OR exam; patient is noncommunicative. Results Result Diagram: 04/19/19 0604/19/19 06 Results 24hrs Laboratory Tests Test 04/19/19 06:06 White Blood Count 7.2 Red Blood Count 2.38 L Hemoglobin 7.4 L Hematocrit 23.3 L Mean Corpuscular Volume 97.9 Mean Corpuscular Hemoglobin 31.1 Mean Corpuscular Hemoglobin Concent 31.8 L Red Cell Distribution Width 21.1 H Platelet Count 159 Mean Platelet Volume 10.7 H Immature Granulocytes % 1.100 H Neutrophils % 53.5 Lymphocytes % 23.5 Monocytes % 14.9 H Eosinophils % 6.7 Basophils % 0.3 Nucleated Red Blood Cells % 0.0 Immature Granulocytes # 0.080 H Neutrophils # 3.9 Lymphocytes # 1.7 Monocytes # 1.1 H Eosinophils # 0.5 Basophils # 0.0 Nucleated Red Blood Cells # 0.0 Sodium Level 136 Potassium Level 4.1 Chloride Level 99 Carbon Dioxide Level 28 Anion Gap 9 Blood Urea Nitrogen 71 H Creatinine 2.79 H Est Glomerular Filtrat Rate mL/min Glucose Level 80 Calcium Level 8.7 Medications Medication Current Medications IV Flush (NS 3 ml) 3 ml PER PROTOCOL IV ; Start 04/06/19 at 23:00 Ondansetron HCl (Zofran Inj) 4 mg Q6H PRN IV NAUSEA/VOMITING; Start 04/06/19 at 23:00 Morphine Sulfate (morphine) 2 mg Q4H PRN IV .PAIN 7-10; Start 04/06/19 at 23:00 Acetaminophen (Tylenol Liquid) 650 mg Q4H PRN GTB MILD PAIN(1-3) OR TEMP>38C; Start 04/08/19 at 13:30 Zinc Sulfate (Zinc Sulfate) 220 mg DAILY GTB Last administered on 04/18/19 08:40; Admin Dose 220 MG; Start 04/09/19 at 09:00 Atorvastatin Calcium (Lipitor) 20 mg HS PO Last administered on 04/18/19 21:02; Admin Dose 20 MG; Start 04/08/19 at 21:00 Collagenase (Santyl) 1 applic SOILED PRN TOP SOILED; Start 04/08/19 at 14:00 Heparin Sodium (Porcine) (Heparin (1000 Units/ml)) 3,200 unit AFTER DIALYSIS CATHETER Last administered on 04/15/19 14:51; Admin Dose 3,200 UNIT; Start 04/09/19 at 14:30 Albumin Human 50 ml @ 100 mls/hr WITH DIALYSIS PRN IV SBP < 90 DURING DIALYSIS Last administered on 04/15/19 12:50; Admin Dose 100 MLS/HR; Start 04/09/19 at 14:30 Albuterol (Ventolin Hfa) 2 puff Q4H RESP THERAPY INH Last administered on 04/19/19 08:09; Admin Dose 2 PUFF; Start 04/09/19 at 21:50 Midodrine (Proamatine) 10 mg TID@09,13,17 PO Last administered on 04/18/19 17:00; Admin Dose 10 MG; Start 04/12/19 at 09:00 Collagenase (Santyl) 1 applic DAILY TOP Last administered on 04/18/19 08:39; Admin Dose 1 APPLIC; Start 04/13/19 at 09:00 Sodium Hypochlorite (Dakins Diluted ()) 1 applic DAILY TP Last administered on 04/18/19 08:43; Admin Dose 1 APPLIC; Start 04/13/19 at 09:00 Famotidine (Pepcid) 20 mg DAILY GTB Last administered on 04/18/19 08:39; Admin Dose 20 MG; Start 04/13/19 at 09:00 Mupirocin (Bactroban) 1 applic BID TOP Last administered on 04/18/19 21:02; Admin Dose 1 APPLIC; Start 04/14/19 at 22:00 Epoetin Nick-epbx (Retacrit (Non-Esrd)) 10,000 unit WITH DIALYSIS SC ; Start 04/15/19 at 13:30 Amikacin Sulfate (Amikacin Iv Per Pharmacy) AMIKACIN PER PHARMACY NOTE XX ; Start 04/18/19 at 18:00 Amikacin Sulfate 350 mg/Sodium Chloride 101.4 ml @ 102 mls/hr AFTER DIALYSIS IVPB ; Start 04/19/19 at 22:00 MARS FONSECA Apr 19, 2019 09:20
[2019-04-19] MEDS: FAMOTIDINE 20 MG TAB GTB SCH (10:12)
[2019-04-19] MEDS: ZINC SULFATE 220 MG CAP GTB SCH (10:12)
[2019-04-19] MEDS: MIDODRINE 5 MG TAB PO SCH ×3 (10:12→18:52)
[2019-04-19] MEDS: MUPIROCIN 2% 22 GM OINT TOP SCH ×2 (10:13→21:59)
[2019-04-19] MEDS: DAKINS 0.0125%(1/40) 473 ML SOLUTION TP SCH (10:13)
[2019-04-19] MEDS: COLLAGENASE 5 GM (UD JAR) TOP SCH (10:13)
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
--- NOTE | 2019-04-19 13:52 | CONS ---
Assessment/Plan Assessment/Plan Hospital Course (Demo Recall) Late entry 04/18/2019 4pm Acute blood loss anemia Hypotension with labile blood pressure Elevated troponin, trending down CAD Preserved ejection fraction End-stage renal disease on hemodialysis Encephalopathy Midodrine to be continued, titrate as needed Fluid management via hemodialysis as per nephrology No beta-aidee given labile blood pressure Continue statin therapy if no contraindication Patient currently not on any antiplatelet therapy likely secondary to anemia Consultation Date/Type/Reason Admit Date/Time Apr 06, 2019 at 22:52 Initial Consult Date 04/08/19 Type of Consult Cardiology Requesting Provider: WILLA CARTY Date/Time of Note DATE: 04/18/19 TIME: 13:51 24 HR Interval Summary Subjective hx not possible: pt non-verbal Exam/Review of Systems Vital Signs Vitals Vital Signs Date Temp Pulse Resp B/P (MAP) Pulse Ox O2 O2 Flow FiO2 Time Delivery Rate 04/19/19 69 26 105/51 95 Mechanical 13:00 (69) Ventilator 04/19/19 30 12:00 04/19/19 97.8 12:00 Intake and Output 04/18/19 04/18/19 04/19/19 1515:00 23:00 07:00 IntakeIntake Total 470 ml 40 ml 400 ml OutputOutput Total 7 ml 5 ml 50 ml BalanceBalance 463 ml 35 ml 350 ml Exam Constitutional: non-verbal (No apparent distress) Head: normocephalic Respiratory: other (Coarse breath sounds bilaterally, no wheezing) Cardiovascular: regular rate and rhythm (S1-S2 heard) Gastrointestinal: soft, bowel sounds, other (No grimacing with palpation) Extremities: edema Labs Result Diagram: 04/19/19 0606 04/19/19 0606 Results 24hrs Laboratory Tests Test 04/19/19 06:06 White Blood Count 7.2 Red Blood Count 2.38 L Hemoglobin 7.4 L Hematocrit 23.3 L Mean Corpuscular Volume 97.9 Mean Corpuscular Hemoglobin 31.1 Mean Corpuscular Hemoglobin Concent 31.8 L Red Cell Distribution Width 21.1 H Platelet Count 159 Mean Platelet Volume 10.7 H Immature Granulocytes % 1.100 H Neutrophils % 53.5 Segmented Neutrophils % (Manual) 50 Band Neutrophils % (Manual) 7 H Lymphocytes % 23.5 Lymphocytes % (Manual) 20 Reactive Lymphocytes % (Manual) 1 H Monocytes % 14.9 H Monocytes % (Manual) 7 Eosinophils % 6.7 Eosinophils % (Manual) 11 H Basophils % 0.3 Basophils % (Manual) 1 Myelocytes % (Manual) 2 H Promyelocytes % (Manual) 1 H Nucleated Red Blood Cells % 0.0 Immature Granulocytes # 0.080 H Neutrophils # 3.9 Neutrophils # (Manual) 3.6 Band Neutrophils # 0.5 Lymphocytes (Manual) 1.4 Lymphocytes # 1.7 Reactive Lymphocytes # 0.0 Monocytes # 1.1 H Monocytes # (Manual) 0.5 Eosinophils # 0.5 Basophils # 0.0 Basophils # (Manual) 0.0 Myelocytes # 0.1 H Promyelocytes # 0.0 Nucleated Red Blood Cells # 0.0 Platelet Estimate NORMAL Giant Platelets 2 H Polychromasia 1+ Hypochromasia 1+ Anisocytosis 2+ Macrocytosis 1+ Spherocytes 1+ Sodium Level 136 Potassium Level 4.1 Chloride Level 99 Carbon Dioxide Level 28 Anion Gap 9 Blood Urea Nitrogen 71 H Creatinine 2.79 H Est Glomerular Filtrat Rate mL/min Glucose Level 80 Calcium Level 8.7 Medications Medications Current Medications IV Flush (NS 3 ml) 3 ml PER PROTOCOL IV ; Start 04/06/19 at 23:00 Ondansetron HCl (Zofran Inj) 4 mg Q6H PRN IV NAUSEA/VOMITING; Start 04/06/19 at 23:00 Morphine Sulfate (morphine) 2 mg Q4H PRN IV .PAIN 7-10; Start 04/06/19 at 23:00 Acetaminophen (Tylenol Liquid) 650 mg Q4H PRN GTB MILD PAIN(1-3) OR TEMP>38C; Start 04/08/19 at 13:30 Zinc Sulfate (Zinc Sulfate) 220 mg DAILY GTB Last administered on 04/19/19at 10:12; Admin Dose 220 MG; Start 04/09/19 at 09:00 Atorvastatin Calcium (Lipitor) 20 mg HS PO Last administered on 04/18/19at 21:02; Admin Dose 20 MG; Start 04/08/19 at 21:00 Collagenase (Santyl) 1 applic SOILED PRN TOP SOILED; Start 04/08/19 at 14:00 Heparin Sodium (Porcine) (Heparin (1000 Units/ml)) 3,200 unit AFTER DIALYSIS CATHETER Last administered on 04/15/19at 14:51; Admin Dose 3,200 UNIT; Start 04/09/19 at 14:30 Albumin Human 50 ml @ 100 mls/hr WITH DIALYSIS PRN IV SBP < 90 DURING DIALYSIS Last administered on 04/15/19 12:50; Admin Dose 100 MLS/HR; Start 04/09/19 at 14:30 Albuterol (Ventolin Hfa) 2 puff Q4H RESP THERAPY INH Last administered on 04/19/19 13:15; Admin Dose 2 PUFF; Start 04/09/19 at 21:50 Midodrine (Proamatine) 10 mg TID@09,13,17 PO Last administered on 04/19/19 10:12; Admin Dose 10 MG; Start 04/12/19 at 09:00 Collagenase (Santyl) 1 applic DAILY TOP Last administered on 04/19/19 10:13; Admin Dose 1 APPLIC; Start 04/13/19 at 09:00 Sodium Hypochlorite (Dakins Diluted (40)) 1 applic DAILY TP Last administered on 04/19/19 10:13; Admin Dose 1 APPLIC; Start 04/13/19 at 09:00 Famotidine (Pepcid) 20 mg DAILY GTB Last administered on 04/19/19 10:12; Admin Dose 20 MG; Start 04/13/19 at 09:00 Mupirocin (Bactroban) 1 applic BID TOP Last administered on 04/19/19 10:13; Admin Dose 1 APPLIC; Start 04/14/19 at 22:00 Epoetin Nick-epbx (Retacrit (Non-Esrd)) 10,000 unit WITH DIALYSIS SC ; Start 04/15/19 at 13:30 Amikacin Sulfate (Amikacin Iv Per Pharmacy) AMIKACIN PER PHARMACY NOTE XX ; Start 04/18/19 at 18:00 Amikacin Sulfate 350 mg/Sodium Chloride 101.4 ml @ 102 mls/hr AFTER DIALYSIS IVPB ; Start 04/19/19 at 22:00 Mendoza Ludwig DO Apr 19, 2019 13:52
--- NOTE | 2019-04-19 13:53 | CONS ---
Assessment/Plan Assessment/Plan Hospital Course (Demo Recall) Acute blood loss anemia Hypotension with labile blood pressure Elevated troponin, trending down CAD Preserved ejection fraction End-stage renal disease on hemodialysis Encephalopathy Midodrine to be continued, titrate as needed Fluid management via hemodialysis as per nephrology No beta-aidee given labile blood pressure Continue statin therapy if no contraindication Patient currently not on any antiplatelet therapy likely secondary to anemia Consultation Date/Type/Reason Admit Date/Time Apr 06, 2019 at 22:52 Initial Consult Date 04/08/19 Type of Consult Cardiology Requesting Provider: WILLA CARTY Date/Time of Note DATE: 04/19/19 TIME: 13:52 24 HR Interval Summary Subjective hx not possible: pt non-verbal Exam/Review of Systems Vital Signs Vitals Vital Signs Date Temp Pulse Resp B/P (MAP) Pulse Ox O2 O2 Flow FiO2 Time Delivery Rate 04/19/19 69 26 105/51 95 Mechanical 13:00 (69) Ventilator 04/19/19 30 12:00 04/19/19 97.8 12:00 Intake and Output 04/18/19 04/18/19 04/19/19 1515:00 23:00 07:00 IntakeIntake Total 470 ml 40 ml 400 ml OutputOutput Total 7 ml 5 ml 50 ml BalanceBalance 463 ml 35 ml 350 ml Exam Constitutional: non-verbal (No apparent distress) Head: normocephalic Respiratory: other (Coarse breath sounds bilaterally, no wheezing) Cardiovascular: regular rate and rhythm (S1-S2 heard) Gastrointestinal: soft, non-tender (No grimacing with palpation), bowel sounds Extremities: edema Labs Result Diagram: 04/19/19 0604/19/19 0606 Results 24hrs Laboratory Tests Test 04/19/19 06:06 White Blood Count 7.2 Red Blood Count 2.38 L Hemoglobin 7.4 L Hematocrit 23.3 L Mean Corpuscular Volume 97.9 Mean Corpuscular Hemoglobin 31.1 Mean Corpuscular Hemoglobin Concent 31.8 L Red Cell Distribution Width 21.1 H Platelet Count 159 Mean Platelet Volume 10.7 H Immature Granulocytes % 1.100 H Neutrophils % 53.5 Segmented Neutrophils % (Manual) 50 Band Neutrophils % (Manual) 7 H Lymphocytes % 23.5 Lymphocytes % (Manual) 20 Reactive Lymphocytes % (Manual) 1 H Monocytes % 14.9 H Monocytes % (Manual) 7 Eosinophils % 6.7 Eosinophils % (Manual) 11 H Basophils % 0.3 Basophils % (Manual) 1 Myelocytes % (Manual) 2 H Promyelocytes % (Manual) 1 H Nucleated Red Blood Cells % 0.0 Immature Granulocytes # 0.080 H Neutrophils # 3.9 Neutrophils # (Manual) 3.6 Band Neutrophils # 0.5 Lymphocytes (Manual) 1.4 Lymphocytes # 1.7 Reactive Lymphocytes # 0.0 Monocytes # 1.1 H Monocytes # (Manual) 0.5 Eosinophils # 0.5 Basophils # 0.0 Basophils # (Manual) 0.0 Myelocytes # 0.1 H Promyelocytes # 0.0 Nucleated Red Blood Cells # 0.0 Platelet Estimate NORMAL Giant Platelets 2 H Polychromasia 1+ Hypochromasia 1+ Anisocytosis 2+ Macrocytosis 1+ Spherocytes 1+ Sodium Level 136 Potassium Level 4.1 Chloride Level 99 Carbon Dioxide Level 28 Anion Gap 9 Blood Urea Nitrogen 71 H Creatinine 2.79 H Est Glomerular Filtrat Rate mL/min Glucose Level 80 Calcium Level 8.7 Medications Medications Current Medications IV Flush (NS 3 ml) 3 ml PER PROTOCOL IV ; Start 04/06/19 at 23:00 Ondansetron HCl (Zofran Inj) 4 mg Q6H PRN IV NAUSEA/VOMITING; Start 04/06/19 at 23:00 Morphine Sulfate (morphine) 2 mg Q4H PRN IV .PAIN 7-10; Start 04/06/19 at 23:00 Acetaminophen (Tylenol Liquid) 650 mg Q4H PRN GTB MILD PAIN(1-3) OR TEMP>38C; Start 04/08/19 at 13:30 Zinc Sulfate (Zinc Sulfate) 220 mg DAILY GTB Last administered on 04/19/19at 10:12; Admin Dose 220 MG; Start 04/09/19 at 09:00 Atorvastatin Calcium (Lipitor) 20 mg HS PO Last administered on 04/18/19at 21:02; Admin Dose 20 MG; Start 04/08/19 at 21:00 Collagenase (Santyl) 1 applic SOILED PRN TOP SOILED; Start 04/08/19 at 14:00 Heparin Sodium (Porcine) (Heparin (1000 Units/ml)) 3,200 unit AFTER DIALYSIS CATHETER Last administered on 04/15/19at 14:51; Admin Dose 3,200 UNIT; Start 04/09/19 at 14:30 Albumin Human 50 ml @ 100 mls/hr WITH DIALYSIS PRN IV SBP < 90 DURING DIALYSIS Last administered on 04/15/19 12:50; Admin Dose 100 MLS/HR; Start 04/09/19 at 14:30 Albuterol (Ventolin Hfa) 2 puff Q4H RESP THERAPY INH Last administered on 04/19/19 13:15; Admin Dose 2 PUFF; Start 04/09/19 at 21:50 Midodrine (Proamatine) 10 mg TID@09,13,17 PO Last administered on 04/19/19 10:12; Admin Dose 10 MG; Start 04/12/19 at 09:00 Collagenase (Santyl) 1 applic DAILY TOP Last administered on 04/19/19 10:13; Admin Dose 1 APPLIC; Start 04/13/19 at 09:00 Sodium Hypochlorite (Dakins Diluted (/40)) 1 applic DAILY TP Last administered on 04/19/19 10:13; Admin Dose 1 APPLIC; Start 04/13/19 at 09:00 Famotidine (Pepcid) 20 mg DAILY GTB Last administered on 04/19/19 10:12; Admin Dose 20 MG; Start 04/13/19 at 09:00 Mupirocin (Bactroban) 1 applic BID TOP Last administered on 04/19/19 10:13; Admin Dose 1 APPLIC; Start 04/14/19 at 22:00 Epoetin Nick-epbx (Retacrit (Non-Esrd)) 10,000 unit WITH DIALYSIS SC ; Start 04/15/19 at 13:30 Amikacin Sulfate (Amikacin Iv Per Pharmacy) AMIKACIN PER PHARMACY NOTE XX ; Start 04/18/19 at 18:00 Amikacin Sulfate 350 mg/Sodium Chloride 101.4 ml @ 102 mls/hr AFTER DIALYSIS IVPB ; Start 04/19/19 at 22:00 Mendoza Ludwig DO Apr 19, 2019 13:53
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
[2019-04-19] MEDS ORDERED: AMIKACIN 500 MG INJ INH SCH ×3 (16:00→17:00)
[2019-04-19] MEDS ORDERED: LIDOCAINE 1% (MDV) 20 ML INJ ONE (17:54)
--- NOTE | 2019-04-19 18:03 | OPR ---
Date/Time of Note Date/Time of Note DATE: 04/19/19 TIME: 18:01 Operative Report Procedure Date: Apr 19, 2019 Preoperative Diagnosis Status post permacath Postoperative Diagnosis Same Operation/Procedure Performed Removal of the permacath Surgeon see signature line Medicaid Eligibility Specialist None Anesthesia Type: other Estimated Blood Loss: minimal Transfusion none Specimen Catheter tip Grafts/Implants none Complications none Indications I was asked by the nephrology service to remove this catheter does not need it anymore Procedure Description Since comp occasions alternative therapies explained to the patient's family consent obtained timeout was called 1% lidocaine was used throughout the operation for local anesthesia at the cuff of the catheter was grabbed using a hemostat the catheter in the cuff were removed and the entirety appropriate dressings applied patient tolerated procedure well JENNYFER DE LEÓN MD Apr 19, 2019 18:03
[2019-04-19] MEDS: AMIKACIN 500 MG INJ INH SCH (20:12)
[2019-04-19] MEDS: ATORVASTATIN 20 MG TAB PO SCH (21:59)
[2019-04-19] MEDS ORDERED: AMIKACIN 350 MG in SOD CHLORIDE 0.9% 100 ML IVPB SCH (22:00)
[2019-04-20] VITALS (18 sets, daily range): BP systolic 104–127; BP diastolic 50–80; PULSE 58–92; RESP 18–24
[2019-04-20] MEDS: ALBUTEROL HFA 8 GM INHALER INH SCH ×7 (01:00→21:10)
[2019-04-20] MEDS: AMIKACIN 500 MG INJ INH SCH (08:00)
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
[2019-04-20] MEDS: DAKINS 0.0125%(1/40) 473 ML SOLUTION TP SCH (09:00)
[2019-04-20] MEDS: MUPIROCIN 2% 22 GM OINT TOP SCH ×2 (09:00→21:32)
[2019-04-20] MEDS: ZINC SULFATE 220 MG CAP GTB SCH (10:14)
[2019-04-20] MEDS: COLLAGENASE 5 GM (UD JAR) TOP SCH (10:14)
[2019-04-20] MEDS: FAMOTIDINE 20 MG TAB GTB SCH (10:20)
[2019-04-20] MEDS: MIDODRINE 5 MG TAB PO SCH ×3 (10:20→17:47)
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
--- NOTE | 2019-04-20 17:28 | CONS ---
Consult Date/Type/Reason Admit Date/Time Apr 06, 2019 at 22:52 Initial Consult Date 04/17/19 Type of Consultation: Pulm Requesting Provider: WILLA CARTY Date/Time of Note DATE: 04/20/19 TIME: 17:25 Subjective No events. Stable on the vent. Objective Vitals Vital Signs Date Temp Pulse Resp B/P (MAP) Pulse Ox O2 O2 Flow FiO2 Time Delivery Rate 04/20/19 98.2 58 18 112/55 97 16:40 (74) 04/20/19 30 16:31 04/20/19 Mechanical 04:00 Ventilator Intake and Output 04/19/19 04/19/19 04/20/19 1515:00 23:00 07:00 IntakeIntake Total 80 ml 640 ml OutputOutput Total 25 ml 200 ml BalanceBalance 55 ml 440 ml Exam HEENT: Neck supple; no JVD; no LAD; + trach CVS: RRR, S1 and S2 CHEST: Coarse BS b/l ABD: Soft, NT, + BS EXT: No c/c; + edema Results/Medications Result Diagram: 04/20/1952704/20/19527 Results 24 hrs Laboratory Tests Test 04/20/19 05:28 White Blood Count 6.7 Red Blood Count 2.63 L Hemoglobin 7.9 L Hematocrit 25.8 L Mean Corpuscular Volume 98.1 Mean Corpuscular Hemoglobin 30.0 Mean Corpuscular Hemoglobin Concent 30.6 L Red Cell Distribution Width 20.9 H Platelet Count 156 Mean Platelet Volume 10.8 H Immature Granulocytes % 1.200 H Neutrophils % 51.9 Lymphocytes % 20.6 Monocytes % 16.0 H Eosinophils % 10.0 H Basophils % 0.3 Nucleated Red Blood Cells % 0.0 Immature Granulocytes # 0.080 H Neutrophils # 3.5 Lymphocytes # 1.4 Monocytes # 1.1 H Eosinophils # 0.7 H Basophils # 0.0 Nucleated Red Blood Cells # 0.0 Sodium Level 135 Potassium Level 4.4 Chloride Level 98 Carbon Dioxide Level 28 Anion Gap 9 Blood Urea Nitrogen 87 H Creatinine 3.08 H Est Glomerular Filtrat Rate mL/min Glucose Level 107 Calcium Level 8.9 Home Meds Reported Medications Zinc Sulfate* (Zinc Sulfate*) 220 Mg Tablet, 220 MG G-TUBE DAILY, TAB 02/14/19 Sodium Hypochlorite (Dakin's (/ Strength)) 473 Ml Irrig.soln, 473 ML IRR DAILY, BOTTLE 02/14/19 Vancomycin Hcl (Vancocin Hcl Oral) 250 Mg Capsule, 250 MG PO Q6, CAP 02/14/19 Silver Sulfadiazine* (Silvadene*) 1% - 20 Gm Cream.gm., 1 APPLIC TOP DAILY, #1 TUB 02/14/19 Oxycodone Hcl* (IR) (Oxycodone Hcl*) 5 Mg Capsule, 5 MG PO Q6H PRN for PAIN, CAP 02/14/19 Ondansetron Hcl* (Ondansetron Hcl* Inj) 4 Mg/2 Ml Vial, 4 MG IV Q6 PRN for NAUSEA AND/OR VOMITING, VIAL 02/14/19 Multivitamins* (Theragran*) 1 Tab Tab, 1 TAB PO DAILY, TAB 02/14/19 Miconazole Nitrate* (Miconazole*) 2% - 45 Gm Cr, 1 APPFUL VAGINAL BID, #1 TUB 02/14/19 Miconazole Nitrate* (Miconazole Nitrate*) 2% - 30 Gm Cr, 1 APPLIC TOP BID, TUB 02/14/19 Metronidazole/Sodium Chloride (Metro IV 500 mg/100 ml) 500 Mg/100 Ml Piggyback, 500 MG IV Q8H 02/14/19 Metoclopramide HCl (Metoclopramide HCl) 10 Mg/2 Ml Syringe, 5 MG IJ TID 02/14/19 Heparin Sodium,Porcine/Pf (Heparin 2,000 Unit/2 ml Vial) 1,000 Unit/1 Ml Vial, 5000 UNIT IJ Q12, VIAL 02/14/19 Glucagon,Human Recombinant (Glucagon Emergency Kit) 1 Mg Kit, 1 MG IJ PRN for FOR BS<70, KIT 02/14/19 Epoetin amauri* (Epogen*) 4,000 Unit/1 Ml Vial, 81890 UNIT SC WITH DIALYSIS, VIAL 02/14/19 Dextrose/Sod Chloride* (D5-1/2NS*) 1,000 Ml Iv.soln., 1000 ML IV 50 ML/HR, EA 02/14/19 Dextrose* (D50W Syringe*) 50 Ml Soln, 50 ML INJ PRN FOR BS<70, EA 02/14/19 Collagenase* (Santyl*) 30 Gm Oint..gm., 1 APPLIC TOP .SOILED PRN for SOILED, #1 TUB 02/14/19 Chlorhexidine Gluconate* (Chlorhexidine Gluconate*) 118 Ml Liquid, 10 ML TOP Q12, ML 02/14/19 Balsam Lina/[place] Oil (CIRCUDERM EMOLLIENT) 3 Gm Oint.pack, 3 GM TP Q12 02/14/19 Albuterol Sulfate* (Albuterol Sulfate* Neb) 0.083%-3 Ml Neb, 2.5 MG NEB Q4H, #30 VIAL 02/14/19 Albumin Human* (Albumin 25%*) 100 Ml Soln, 100 ML IV WITH DIALYSIS, BOTTLE 02/14/19 Acetaminophen* (Acetaminophen* Susp) 325 Mg/10.15 Ml Solution, 500 MG GTB Q8 PRN for MILD PAIN(1-3) OR TEMP>38C, ML 02/14/19 Acetaminophen* (Acetaminophen* Susp) 325 Mg/10.15 Ml Solution, 650 MG G-TUBE Q4H PRN for PAIN OR TEMP ABOVE 38C, ML 02/14/19 Medications Current Medications IV Flush (NS 3 ml) 3 ml PER PROTOCOL IV ; Start 04/06/19 at 23:00 Ondansetron HCl (Zofran Inj) 4 mg Q6H PRN IV NAUSEA/VOMITING; Start 04/06/19 at 23:00 Morphine Sulfate (morphine) 2 mg Q4H PRN IV .PAIN 7-10; Start 04/06/19 at 23:00 Acetaminophen (Tylenol Liquid) 650 mg Q4H PRN GTB MILD PAIN(1-3) OR TEMP>38C; Start 04/08/19 at 13:30 Zinc Sulfate (Zinc Sulfate) 220 mg DAILY GTB Last administered on 04/20/19at 10:14; Admin Dose 220 MG; Start 04/09/19 at 09:00 Atorvastatin Calcium (Lipitor) 20 mg HS PO Last administered on 04/19/19at 21:59; Admin Dose 20 MG; Start 04/08/19 at 21:00 Collagenase (Santyl) 1 applic SOILED PRN TOP SOILED; Start 04/08/19 at 14:00 Heparin Sodium (Porcine) (Heparin (1000 Units/ml)) 3,200 unit AFTER DIALYSIS CATHETER Last administered on 04/15/19at 14:51; Admin Dose 3,200 UNIT; Start 04/09/19 at 14:30 Albumin Human 50 ml @ 100 mls/hr WITH DIALYSIS PRN IV SBP < 90 DURING DIALYSIS Last administered on 04/15/19 12:50; Admin Dose 100 MLS/HR; Start 04/09/19 at 14:30 Albuterol (Ventolin Hfa) 2 puff Q4H RESP THERAPY INH Last administered on 04/20/19 13:40; Admin Dose 2 PUFF; Start 04/09/19 at 21:50 Midodrine (Proamatine) 10 mg TID@,13,17 PO Last administered on 04/20/19 10:20; Admin Dose 10 MG; Start 04/12/19 at 09:00 Collagenase (Santyl) 1 applic DAILY TOP Last administered on 04/20/19 10:14; Admin Dose 1 APPLIC; Start 04/13/19 at 09:00 Sodium Hypochlorite (Dakins Diluted ()) 1 applic DAILY TP Last administered on 04/20/19 09:00; Admin Dose 1 APPLIC; Start 04/13/19 at 09:00 Famotidine (Pepcid) 20 mg DAILY GTB Last administered on 04/20/19 10:20; Admin Dose 20 MG; Start 04/13/19 at 09:00 Mupirocin (Bactroban) 1 applic BID TOP Last administered on 04/20/19 09:00; Admin Dose 1 APPLIC; Start 04/14/19 at 22:00 Epoetin Amauri-epbx (Retacrit (Non-Esrd)) 10,000 unit WITH DIALYSIS SC ; Start 04/15/19 at 13:30 Amikacin Sulfate (Amikacin) 250 mg Q12H RESP THERAPY INH Last administered on 04/19/19 20:12; Admin Dose 250 MG; Start 04/19/19 at 20:10 Colistimethate Sodium (Colistin Inhal) 75 mg BID RESP THERAPY NEB ; Start 04/20/19 at 20:00 Assessment/Plan Assessment/Plan (Daily) IMP: 1. Sepsis 2. VDRF 3. ESRD on HD 4. Pleura effusion 5. Anemia RECS: 1. continue current vent settings 2. CPT and suctioning prn 3. BD's YASH YODER MD Apr 20, 2019 17:28
[2019-04-20] MEDS ORDERED: COLISTIMETHATE (25 MG/ML INHAL SYG) NEB SCH (20:00)
[2019-04-20] MEDS: ATORVASTATIN 20 MG TAB PO SCH (21:31)
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
[2019-04-21] VITALS (18 sets, daily range): BP systolic 83–109; BP diastolic 47–56; PULSE 61–71; RESP 16–24
[2019-04-21] MEDS: ALBUTEROL HFA 8 GM INHALER INH SCH ×6 (01:19→20:17)
[2019-04-21] MEDS: FAMOTIDINE 20 MG TAB GTB SCH (09:26)
[2019-04-21] MEDS: DAKINS 0.0125%(1/40) 473 ML SOLUTION TP SCH (09:27)
[2019-04-21] MEDS: MUPIROCIN 2% 22 GM OINT TOP SCH ×2 (09:27→21:31)
[2019-04-21] MEDS: COLLAGENASE 5 GM (UD JAR) TOP SCH (09:27)
[2019-04-21] MEDS: ZINC SULFATE 220 MG CAP GTB SCH (09:27)
[2019-04-21] MEDS: MIDODRINE 5 MG TAB PO SCH ×3 (09:27→17:11)
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
--- NOTE | 2019-04-21 15:49 | CONS ---
Consult Date/Type/Reason Admit Date/Time Apr 06, 2019 at 22:52 Initial Consult Date 04/17/19 Type of Consultation: Pulm Requesting Provider: WILLA CARTY Date/Time of Note DATE: 04/21/19 TIME: 15:48 Subjective No events. Stable on the vent. Objective Vitals Vital Signs Date Temp Pulse Resp B/P (MAP) Pulse Ox O2 O2 Flow FiO2 Time Delivery Rate 04/21/19 97.6 61 18 92/54 (67) 97 15:01 04/21/19 40 13:08 04/20/19 Mechanical 04:00 Ventilator Intake and Output 04/20/19 04/20/19 04/21/19 1515:00 23:00 07:00 IntakeIntake Total 640 ml OutputOutput Total 200 ml 200 ml BalanceBalance -200 ml 440 ml Exam HEENT: Neck supple; no JVD; no LAD; + trach CVS: RRR, S1 and S2 CHEST: Coarse BS b/l ABD: Soft, NT, + BS EXT: No c/c; + edema Results/Medications Result Diagram: 04/21/19 0550 04/21/19 0550 Results 24 hrs Laboratory Tests Test 04/21/19 05:50 White Blood Count 6.5 Red Blood Count 2.57 L Hemoglobin 7.8 L Hematocrit 25.1 L Mean Corpuscular Volume 97.7 Mean Corpuscular Hemoglobin 30.4 Mean Corpuscular Hemoglobin Concent 31.1 L Red Cell Distribution Width 20.7 H Platelet Count 138 L Mean Platelet Volume 10.7 H Immature Granulocytes % 1.200 H Neutrophils % 47.1 Lymphocytes % 24.8 Monocytes % 14.7 H Eosinophils % 11.9 H Basophils % 0.3 Nucleated Red Blood Cells % 0.0 Immature Granulocytes # 0.080 H Neutrophils # 3.1 Lymphocytes # 1.6 Monocytes # 1.0 H Eosinophils # 0.8 H Basophils # 0.0 Nucleated Red Blood Cells # 0.0 Sodium Level 135 Potassium Level 4.2 Chloride Level 97 Carbon Dioxide Level 27 Anion Gap 11 Blood Urea Nitrogen 92 H Creatinine 3.45 H Est Glomerular Filtrat Rate mL/min Glucose Level 97 Calcium Level 9.0 Home Meds Reported Medications Zinc Sulfate* (Zinc Sulfate*) 220 Mg Tablet, 220 MG G-TUBE DAILY, TAB 02/14/19 Sodium Hypochlorite (Dakin's (/ Strength)) 473 Ml Irrig.soln, 473 ML IRR DAILY, BOTTLE 02/14/19 Vancomycin Hcl (Vancocin Hcl Oral) 250 Mg Capsule, 250 MG PO Q6, CAP 02/14/19 Silver Sulfadiazine* (Silvadene*) 1% - 20 Gm Cream.gm., 1 APPLIC TOP DAILY, #1 TUB 02/14/19 Oxycodone Hcl* (IR) (Oxycodone Hcl*) 5 Mg Capsule, 5 MG PO Q6H PRN for PAIN, CAP 02/14/19 Ondansetron Hcl* (Ondansetron Hcl* Inj) 4 Mg/2 Ml Vial, 4 MG IV Q6 PRN for NAUSEA AND/OR VOMITING, VIAL 02/14/19 Multivitamins* (Theragran*) 1 Tab Tab, 1 TAB PO DAILY, TAB 02/14/19 Miconazole Nitrate* (Miconazole*) 2% - 45 Gm Cr, 1 APPFUL VAGINAL BID, #1 TUB 02/14/19 Miconazole Nitrate* (Miconazole Nitrate*) 2% - 30 Gm Cr, 1 APPLIC TOP BID, TUB 02/14/19 Metronidazole/Sodium Chloride (Metro IV 500 mg/100 ml) 500 Mg/100 Ml Piggyback, 500 MG IV Q8H 02/14/19 Metoclopramide HCl (Metoclopramide HCl) 10 Mg/2 Ml Syringe, 5 MG IJ TID 02/14/19 Heparin Sodium,Porcine/Pf (Heparin 2,000 Unit/2 ml Vial) 1,000 Unit/1 Ml Vial, 5000 UNIT IJ Q12, VIAL 02/14/19 Glucagon,Human Recombinant (Glucagon Emergency Kit) 1 Mg Kit, 1 MG IJ PRN for FOR BS<70, KIT 02/14/19 Epoetin amauri* (Epogen*) 4,000 Unit/1 Ml Vial, 93882 UNIT SC WITH DIALYSIS, VIAL 02/14/19 Dextrose/Sod Chloride* (D5-1/2NS*) 1,000 Ml Iv.soln., 1000 ML IV 50 ML/HR, EA 02/14/19 Dextrose* (D50W Syringe*) 50 Ml Soln, 50 ML INJ PRN FOR BS<70, EA 02/14/19 Collagenase* (Santyl*) 30 Gm Oint..gm., 1 APPLIC TOP .SOILED PRN for SOILED, #1 TUB 02/14/19 Chlorhexidine Gluconate* (Chlorhexidine Gluconate*) 118 Ml Liquid, 10 ML TOP Q12, ML 02/14/19 Balsam Lina/Duarte Oil (CIRCUDERM EMOLLIENT) 3 Gm Oint.pack, 3 GM TP Q12 02/14/19 Albuterol Sulfate* (Albuterol Sulfate* Neb) 0.083%-3 Ml Neb, 2.5 MG NEB Q4H, #30 VIAL 02/14/19 Albumin Human* (Albumin 25%*) 100 Ml Soln, 100 ML IV WITH DIALYSIS, BOTTLE 02/14/19 Acetaminophen* (Acetaminophen* Susp) 325 Mg/10.15 Ml Solution, 500 MG GTB Q8 PRN for MILD PAIN(1-3) OR TEMP>38C, ML 02/14/19 Acetaminophen* (Acetaminophen* Susp) 325 Mg/10.15 Ml Solution, 650 MG G-TUBE Q4H PRN for PAIN OR TEMP ABOVE 38C, ML 02/14/19 Medications Current Medications IV Flush (NS 3 ml) 3 ml PER PROTOCOL IV ; Start 04/06/19 at 23:00 Ondansetron HCl (Zofran Inj) 4 mg Q6H PRN IV NAUSEA/VOMITING; Start 04/06/19 at 23:00 Morphine Sulfate (morphine) 2 mg Q4H PRN IV .PAIN 7-10; Start 04/06/19 at 23:00 Acetaminophen (Tylenol Liquid) 650 mg Q4H PRN GTB MILD PAIN(1-3) OR TEMP>38C; Start 04/08/19 at 13:30 Zinc Sulfate (Zinc Sulfate) 220 mg DAILY GTB Last administered on 04/21/19at 09:27; Admin Dose 220 MG; Start 04/09/19 at 09:00 Atorvastatin Calcium (Lipitor) 20 mg HS PO Last administered on 04/20/19at 21:31; Admin Dose 20 MG; Start 04/08/19 at 21:00 Collagenase (Santyl) 1 applic SOILED PRN TOP SOILED; Start 04/08/19 at 14:00 Heparin Sodium (Porcine) (Heparin (1000 Units/ml)) 3,200 unit AFTER DIALYSIS CATHETER Last administered on 04/15/19at 14:51; Admin Dose 3,200 UNIT; Start 04/09/19 at 14:30 Albumin Human 50 ml @ 100 mls/hr WITH DIALYSIS PRN IV SBP < 90 DURING DIALYSIS Last administered on 04/15/19 12:50; Admin Dose 100 MLS/HR; Start 04/09/19 at 14:30 Albuterol (Ventolin Hfa) 2 puff Q4H RESP THERAPY INH Last administered on 13:07; Admin Dose 2 PUFF; Start 04/09/19 at 21:50 Midodrine (Proamatine) 10 mg TID@09,13,17 PO Last administered on 04/21/19 14:00; Admin Dose 10 MG; Start 04/12/19 at 09:00 Collagenase (Santyl) 1 applic DAILY TOP Last administered on 04/21/19 09:27; Admin Dose 1 APPLIC; Start 04/13/19 at 09:00 Sodium Hypochlorite (Dakins Diluted (/40)) 1 applic DAILY TP Last administered on 04/21/19 09:27; Admin Dose 1 APPLIC; Start 04/13/19 at 09:00 Famotidine (Pepcid) 20 mg DAILY GTB Last administered on 04/21/19 09:26; Admin Dose 20 MG; Start 04/13/19 at 09:00 Mupirocin (Bactroban) 1 applic BID TOP Last administered on 04/21/19 09:27; Admin Dose 1 APPLIC; Start 04/14/19 at 22:00; Stop 04/21/19 at 23:59 Epoetin Amauri-epbx (Retacrit (Non-Esrd)) 10,000 unit WITH DIALYSIS SC ; Start 04/15/19 at 13:30 Assessment/Plan Assessment/Plan (Daily) IMP: 1. Sepsis 2. VDRF 3. ESRD on HD 4. Pleura effusion 5. Anemia RECS: 1. Continue current vent settings 2. CPT and suctioning prn 3. BD's YASH YODER MD Apr 21, 2019 15:49
[2019-04-21] MEDS: ATORVASTATIN 20 MG TAB PO SCH (21:30)
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
[2019-04-21] MEDS: VANCOMYCIN HCL 250 MG/5ML POSYG GTB SCH (23:29)
[2019-04-21] MEDS ORDERED: VANCOMYCIN IV PER PHARMACY XX SCH (23:30)
[2019-04-22] VITALS (20 sets, daily range): BP systolic 80–127; BP diastolic 41–60; PULSE 57–67; RESP 16–24
[2019-04-22] MEDS ORDERED: VANCOMYCIN 1.5 GM/NS 250 ML 250 ML IVPB SCH
[2019-04-22] MEDS: ALBUTEROL HFA 8 GM INHALER INH SCH ×6 (01:30→20:02)
[2019-04-22] MEDS ORDERED: SOD CHLORIDE 0.9% 500 ML IV ONE (04:30)
[2019-04-22] MEDS: VANCOMYCIN HCL 250 MG/5ML POSYG GTB SCH ×3 (05:40→17:03)
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
[2019-04-22] MEDS: COLLAGENASE 5 GM (UD JAR) TOP SCH (08:22)
[2019-04-22] MEDS: DAKINS 0.0125%(1/40) 473 ML SOLUTION TP SCH (08:22)
[2019-04-22] MEDS: FAMOTIDINE 20 MG TAB GTB SCH (08:23)
[2019-04-22] MEDS: ZINC SULFATE 220 MG CAP GTB SCH (08:23)
[2019-04-22] MEDS: MIDODRINE 5 MG TAB PO SCH ×3 (08:23→16:42)
--- NOTE | 2019-04-22 11:50 | CONS ---
Consult Date/Type/Reason Admit Date/Time Apr 06, 2019 at 22:52 Initial Consult Date 04/17/19 Type of Consult Pulmonary Requesting Provider: WILLA CARTY Date/Time of Note DATE: 04/22/19 TIME: 11:49 Subjective Patient comfortable this morning no respiratory distress Objective Vital Signs Date Temp Pulse Resp B/P (MAP) Pulse Ox O2 O2 Flow FiO2 Time Delivery Rate 04/22/19 68 24 98 40 09:58 04/22/19 98.8 113/52 Trach 07:47 (72) Collar Intake and Output 04/21/19 04/21/19 04/22/19 1515:00 23:00 07:00 IntakeIntake Total 1430.000 ml OutputOutput Total 700 ml 100 ml BalanceBalance -700 ml 1330.000 ml Exam GENERAL: VITAL SIGNS: per chart NECK: Supple. No JVD or lymphadenopathy. CARDIAC EXAM: S1, S2. No added sounds or murmurs. CHEST: Diminished air entry bases ABDOMEN: Soft, nontender. No guarding or rebound. EXTREMITIES: No cyanosis, clubbing or edema. NEUROLOGIC: Generalized weakness. Elderly gentleman on mechanical ventilation Vent Setting Ventilator Support Mode: AC Fraction of Inspired Oxygen pe: 40 Positive End Expiratory Pressu: 5.0 Results/Medications Result Diagram: 04/22/19 0500 04/22/19 0500 Results 24 hrs Laboratory Tests Test 04/22/19 05:00 White Blood Count 6.6 Red Blood Count 2.51 L Hemoglobin 7.8 L Hematocrit 24.5 L Mean Corpuscular Volume 97.6 Mean Corpuscular Hemoglobin 31.1 Mean Corpuscular Hemoglobin Concent 31.8 L Red Cell Distribution Width 20.3 H Platelet Count 146 Mean Platelet Volume 11.8 H Immature Granulocytes % 0.600 H Neutrophils % 57.1 Lymphocytes % 18.3 Monocytes % 12.2 H Eosinophils % 11.5 H Basophils % 0.3 Nucleated Red Blood Cells % 0.0 Immature Granulocytes # 0.040 H Neutrophils # 3.7 Lymphocytes # 1.2 Monocytes # 0.8 Eosinophils # 0.8 H Basophils # 0.0 Nucleated Red Blood Cells # 0.0 Sodium Level 134 L Potassium Level 4.6 Chloride Level 96 L Carbon Dioxide Level 27 Anion Gap 11 Blood Urea Nitrogen 100 H Creatinine 3.50 H Est Glomerular Filtrat Rate mL/min Glucose Level 115 Calcium Level 9.1 Medications Current Medications IV Flush (NS 3 ml) 3 ml PER PROTOCOL IV ; Start 04/06/19 at 23:00 Ondansetron HCl (Zofran Inj) 4 mg Q6H PRN IV NAUSEA/VOMITING; Start 04/06/19 at 23:00 Morphine Sulfate (morphine) 2 mg Q4H PRN IV .PAIN 7-10; Start 04/06/19 at 23:00 Acetaminophen (Tylenol Liquid) 650 mg Q4H PRN GTB MILD PAIN(1-3) OR TEMP>38C; Start 04/08/19 at 13:30 Zinc Sulfate (Zinc Sulfate) 220 mg DAILY GTB Last administered on 04/22/19 08:23; Admin Dose 220 MG; Start 04/09/19 at 09:00 Atorvastatin Calcium (Lipitor) 20 mg HS PO Last administered on 04/21/19 21:30; Admin Dose 20 MG; Start 04/08/19 at 21:00 Collagenase (Santyl) 1 applic SOILED PRN TOP SOILED; Start 04/08/19 at 14:00 Heparin Sodium (Porcine) (Heparin (1000 Units/ml)) 3,200 unit AFTER DIALYSIS CATHETER Last administered on 04/15/19 14:51; Admin Dose 3,200 UNIT; Start 04/09/19 at 14:30 Albumin Human 50 ml @ 100 mls/hr WITH DIALYSIS PRN IV SBP < 90 DURING DIALYSIS Last administered on 04/15/19 12:50; Admin Dose 100 MLS/HR; Start 04/09/19 at 14:30 Albuterol (Ventolin Hfa) 2 puff Q4H RESP THERAPY INH Last administered on 04/22/19 09:58; Admin Dose 2 PUFF; Start 04/09/19 at 21:50 Midodrine (Proamatine) 10 mg TID@,13,17 PO Last administered on 04/22/19 08:23; Admin Dose 10 MG; Start 04/12/19 at 09:00 Collagenase (Santyl) 1 applic DAILY TOP Last administered on 04/22/19 08:22; A dmin Dose 1 APPLIC; Start 04/13/19 at 09:00 Sodium Hypochlorite (Dakins Diluted (40)) 1 applic DAILY TP Last administered on 7/29/19at 08:22; Admin Dose 1 APPLIC; Start 04/13/19 at 09:00 Famotidine (Pepcid) 20 mg DAILY GTB Last administered on 04/22/19at 08:23; Admin Dose 20 MG; Start 04/13/19 at 09:00 Vancomycin HCl (Vancomycin Oral Syringe) 125 mg Q6 GTB Last administered on 04/22/19at 11:26; Admin Dose 125 MG; Start 04/22/19 at 00:00; Stop 04/28/19 at 23:59 Vancomycin HCl (Vanco Iv Per Pharmacy) VANCOMYCIN PER PHARMACY PER PROTOCOL XX ; Start 04/21/19 at 23:30; Stop 04/28/19 at 23:29 Miscellaneous Information (*Rx Drug Level Order Reminder*) RANDOM VANCOMYCIN LEVEL 7... 0500 ONCE XX ; Start 04/24/19 at 05:00; Stop 04/24/19 at 05:01 Epoetin Nick-epbx (Retacrit (Esrd)) 10,000 unit MoWeFr@1700 SC ; Start 04/22/19 at 17:00 Assessment/Plan Hospital Course (Demo Recall) IMP: 1. Sepsis 2. VDRF 3. ESRD on HD 4. Pleura effusion 5. Anemia RECS: 1. Continue current vent settings 2. CPT and suctioning prn 3. BD's NEHA WICK MD, [facility] Apr 22, 2019 11:50
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
--- NOTE | 2019-04-22 13:53 | CONS ---
Assessment/Plan Assessment/Plan Hospital Course (Demo Recall) Acute blood loss anemia Hypotension with labile blood pressure Elevated troponin, trending down CAD Preserved ejection fraction End-stage renal disease on hemodialysis Encephalopathy Midodrine to be continued, titrate as needed Fluid management via hemodialysis as per nephrology No beta-aidee given labile blood pressure Continue statin therapy if no contraindication Patient currently not on any antiplatelet therapy likely secondary to anemia Consultation Date/Type/Reason Admit Date/Time Apr 06, 2019 at 22:52 Initial Consult Date 04/08/19 Type of Consult Cardiology Requesting Provider: WILLA CARTY Date/Time of Note DATE: 04/22/19 TIME: 13:51 24 HR Interval Summary Subjective hx not possible: pt non-verbal Exam/Review of Systems Vital Signs Vitals Vital Signs Date Temp Pulse Resp B/P (MAP) Pulse Ox O2 O2 Flow FiO2 Time Delivery Rate 04/22/19 67 24 98 40 13:07 04/22/19 98.5 97/48 (64) Mechanical 12:34 Ventilator Trach Collar Intake and Output 04/21/19 04/21/19 04/22/19 1515:00 23:00 07:00 IntakeIntake Total 1430.000 ml OutputOutput Total 700 ml 100 ml BalanceBalance -700 ml 1330.000 ml Exam Constitutional: non-verbal (No apparent distress) Head: normocephalic Respiratory: other (Coarse breath sounds bilaterally, no wheezing) Cardiovascular: regular rate and rhythm, other (S1-S2 heard) Gastrointestinal: soft, non-tender, bowel sounds Extremities: edema Labs Result Diagram: 04/22/19 0500 04/22/19 0500 Results 24hrs Laboratory Tests Test 04/22/19 05:00 White Blood Count 6.6 Red Blood Count 2.51 L Hemoglobin 7.8 L Hematocrit 24.5 L Mean Corpuscular Volume 97.6 Mean Corpuscular Hemoglobin 31.1 Mean Corpuscular Hemoglobin Concent 31.8 L Red Cell Distribution Width 20.3 H Platelet Count 146 Mean Platelet Volume 11.8 H Immature Granulocytes % 0.600 H Neutrophils % 57.1 Lymphocytes % 18.3 Monocytes % 12.2 H Eosinophils % 11.5 H Basophils % 0.3 Nucleated Red Blood Cells % 0.0 Immature Granulocytes # 0.040 H Neutrophils # 3.7 Lymphocytes # 1.2 Monocytes # 0.8 Eosinophils # 0.8 H Basophils # 0.0 Nucleated Red Blood Cells # 0.0 Sodium Level 134 L Potassium Level 4.6 Chloride Level 96 L Carbon Dioxide Level 27 Anion Gap 11 Blood Urea Nitrogen 100 H Creatinine 3.50 H Est Glomerular Filtrat Rate mL/min Glucose Level 115 Calcium Level 9.1 Medications Medications Current Medications IV Flush (NS 3 ml) 3 ml PER PROTOCOL IV ; Start 04/06/19 at 23:00 Ondansetron HCl (Zofran Inj) 4 mg Q6H PRN IV NAUSEA/VOMITING; Start 04/06/19 at 23:00 Morphine Sulfate (morphine) 2 mg Q4H PRN IV .PAIN 7-10; Start 04/06/19 at 23:00 Acetaminophen (Tylenol Liquid) 650 mg Q4H PRN GTB MILD PAIN(1-3) OR TEMP>38C; Start 04/08/19 at 13:30 Zinc Sulfate (Zinc Sulfate) 220 mg DAILY GTB Last administered on 04/22/19 08:23; Admin Dose 220 MG; Start 04/09/19 at 09:00 Atorvastatin Calcium (Lipitor) 20 mg HS PO Last administered on 04/21/19 21:30; Admin Dose 20 MG; Start 04/08/19 at 21:00 Collagenase (Santyl) 1 applic SOILED PRN TOP SOILED; Start 04/08/19 at 14:00 Heparin Sodium (Porcine) (Heparin (1000 Units/ml)) 3,200 unit AFTER DIALYSIS CATHETER Last administered on 04/15/19 14:51; Admin Dose 3,200 UNIT; Start 04/09/19 at 14:30 Albumin Human 50 ml @ 100 mls/hr WITH DIALYSIS PRN IV SBP < 90 DURING DIALYSIS Last administered on 04/15/19 12:50; Admin Dose 100 MLS/HR; Start 04/09/19 at 14:30 Albuterol (Ventolin Hfa) 2 puff Q4H RESP THERAPY INH Last administered on 04/22/19 13:06; Admin Dose 2 PUFF; Start 04/09/19 at 21:50 Midodrine (Proamatine) 10 mg TID@09,13,17 PO Last administered on 04/22/19 12:51; Admin Dose 10 MG; Start 04/12/19 at 09:00 Collagenase (Santyl) 1 applic DAILY TOP Last administered on 04/22/19at 08:22; Admin Dose 1 APPLIC; Start 04/13/19 at 09:00 Sodium Hypochlorite (Dakins Diluted ()) 1 applic DAILY TP Last administered on 04/22/19at 08:22; Admin Dose 1 APPLIC; Start 04/13/19 at 09:00 Famotidine (Pepcid) 20 mg DAILY GTB Last administered on 04/22/19at 08:23; Admin Dose 20 MG; Start 04/13/19 at 09:00 Vancomycin HCl (Vancomycin Oral Syringe) 125 mg Q6 GTB Last administered on 04/22/19at 11:26; Admin Dose 125 MG; Start 04/22/19 at 00:00; Stop 04/28/19 at 23:59 Vancomycin HCl (Vanco Iv Per Pharmacy) VANCOMYCIN PER PHARMACY PER PROTOCOL XX ; Start 04/21/19 at 23:30; Stop 04/28/19 at 23:29 Miscellaneous Information (*Rx Drug Level Order Reminder*) RANDOM VANCOMYCIN LEV EL 7... 0500 ONCE XX ; Start 04/24/19 at 05:00; Stop 04/24/19 at 05:01 Epoetin Nick-epbx (Retacrit (Esrd)) 10,000 unit MoWeFr@1700 SC ; Start 04/22/19 at 17:00 Mendoza Ludwig DO Apr 22, 2019 13:53
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
[2019-04-22] MEDS: EPOETIN ALFA-EPBX (ESRD) 10,000 UNIT/ML VIAL SC SCH (16:43)
[2019-04-22] MEDS: ATORVASTATIN 20 MG TAB PO SCH (20:54)
[2019-04-23] VITALS (17 sets, daily range): BP systolic 90–111; BP diastolic 50–62; PULSE 52–69; RESP 18–24
[2019-04-23] MEDS: VANCOMYCIN HCL 250 MG/5ML POSYG GTB SCH ×4 (00:04→17:10)
[2019-04-23] MEDS: ALBUTEROL HFA 8 GM INHALER INH SCH ×6 (01:17→21:15)
[2019-04-23] MEDS: COLLAGENASE 5 GM (UD JAR) TOP SCH (08:52)
[2019-04-23] MEDS: MIDODRINE 5 MG TAB PO SCH ×3 (08:52→17:10)
[2019-04-23] MEDS: ZINC SULFATE 220 MG CAP GTB SCH (08:52)
[2019-04-23] MEDS: FAMOTIDINE 20 MG TAB GTB SCH (08:52)
[2019-04-23] MEDS: DAKINS 0.0125%(1/40) 473 ML SOLUTION TP SCH (08:52)
--- NOTE | 2019-04-23 11:40 | PN ---
DATE: 04/23/2019 SUBJECTIVE: The patient noted to be hypotensive, labile blood pressures. No other events noted. No hemoptysis, hematemesis or hematochezia. OBJECTIVE: VITAL SIGNS: Blood pressure is 100/59, respiration 18, pulse 82, temperature 98.3. HEENT: Head is normocephalic. NECK: Supple. HEART: Regular rate. LUNGS: Show diminished breath sounds at the base. ABDOMEN: Soft, nontender to palpation. EXTREMITIES: Negative for clubbing, cyanosis. Positive edema. DERMATOLOGIC: No rashes. MUSCULOSKELETAL: Positive wounds. NEUROLOGIC: No change in exam. MEDICATIONS: Have been reviewed. LABORATORY DATA: Have been reviewed. IMAGING STUDIES: Have been reviewed. ASSESSMENT AND PLAN: 1. End-stage renal disease. The patient is currently on a line holiday. Last hemodialysis was on 0 04/17/2019. The patient will likely need to be reinitiated on dialysis soon. We will discuss with in fectious disease about placement of a temporary catheter or a Perm-A-Cath. 2. Anemia. Continue to monitor hemoglobin and hematocrit levels. Continue Epogen. 3. Mineral bone disorder. Monitor calcium and phosphorus levels. 4. Ventilatory-dependent respiratory failure. Vent settings and ABG were reviewed. Continue to mon itor. 5. Hypotension. Continue to monitor. Continue midodrine. 6. Diabetes. Continue current insulin regimen. 7. History of cardiac arrest. 8. Anoxic encephalopathy. Continue to monitor. 9. Hematuria. Continue to monitor. Follow up with urology. 10. Non-STEMI. Continue medical management. 11. Sepsis secondary to bacteremia C. difficile colitis. Continue current antibiotic regimen. Foll ow up with infectious disease. 12. Dysphagia. Continue tube feeding. 13. Multiple wounds. Continue wound care. Dictated By: OLY DEGROOT DO NR/NTS Conf#: [id number] DID#: [id number] CC: CARLITO GUERRA MD;*EndCC*
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
--- NOTE | 2019-04-23 11:53 | CONS ---
Consult Date/Type/Reason Admit Date/Time Apr 06, 2019 at 22:52 Initial Consult Date 04/17/19 Type of Consult Pulmonary Requesting Provider: WILLA CARTY Date/Time of Note DATE: 04/23/19 TIME: 11:52 Subjective Patient comfortable this morning no respiratory distress Objective Vital Signs Date Temp Pulse Resp B/P (MAP) Pulse Ox O2 O2 Flow FiO2 Time Delivery Rate 04/23/19 59 24 99 40 11:06 04/23/19 98.1 90/50 (63) Mechanical 07:59 Ventilator Trach Collar Intake and Output 04/22/19 04/22/19 04/23/19 1515:00 23:00 07:00 IntakeIntake Total 680 ml OutputOutput Total 150 ml 75 ml BalanceBalance 530 ml -75 ml Exam GENERAL: VITAL SIGNS: per chart NECK: Supple. No JVD or lymphadenopathy. CARDIAC EXAM: S1, S2. No added sounds or murmurs. CHEST: Diminished air entry bases ABDOMEN: Soft, nontender. No guarding or rebound. EXTREMITIES: No cyanosis, clubbing or edema. NEUROLOGIC: Generalized weakness. Elderly gentleman on mechanical ventilation Vent Setting Ventilator Support Mode: AC, VC plus Fraction of Inspired Oxygen pe: 40 Positive End Expiratory Pressu: 5.0 Results/Medications Result Diagram: 04/23/1914 04/23/19 0514 Results 24 hrs Laboratory Tests Test 04/23/19 05:14 White Blood Count 9.0 # Red Blood Count 2.67 L Hemoglobin 8.2 L Hematocrit 26.1 L Mean Corpuscular Volume 97.8 Mean Corpuscular Hemoglobin 30.7 Mean Corpuscular Hemoglobin Concent 31.4 L Red Cell Distribution Width 20.4 H Platelet Count 139 L Mean Platelet Volume 11.2 H Immature Granulocytes % 0.700 H Neutrophils % 64.6 Lymphocytes % 18.9 Monocytes % 8.3 Eosinophils % 7.3 H Basophils % 0.2 Nucleated Red Blood Cells % 0.0 Immature Granulocytes # 0.060 H Neutrophils # 5.8 Lymphocytes # 1.7 Monocytes # 0.8 Eosinophils # 0.7 H Basophils # 0.0 Nucleated Red Blood Cells # 0.0 Sodium Level 136 Potassium Level 4.4 Chloride Level 98 Carbon Dioxide Level 27 Anion Gap 11 Blood Urea Nitrogen 103 H Creatinine 3.72 H Est Glomerular Filtrat Rate mL/min Glucose Level 130 Calcium Level 8.8 Phosphorus Level 3.8 Magnesium Level 2.1 Medications Current Medications IV Flush (NS 3 ml) 3 ml PER PROTOCOL IV ; Start 04/06/19 at 23:00 Ondansetron HCl (Zofran Inj) 4 mg Q6H PRN IV NAUSEA/VOMITING; Start 04/06/19 at 23:00 Morphine Sulfate (morphine) 2 mg Q4H PRN IV .PAIN 7-10; Start 04/06/19 at 23:00 Acetaminophen (Tylenol Liquid) 650 mg Q4H PRN GTB MILD PAIN(1-3) OR TEMP>38C; Start 04/08/19 at 13:30 Zinc Sulfate (Zinc Sulfate) 220 mg DAILY GTB Last administered on 04/23/19 08:52; Admin Dose 220 MG; Start 04/09/19 at 09:00 Atorvastatin Calcium (Lipitor) 20 mg HS PO Last administered on 04/22/19 20:54; Admin Dose 20 MG; Start 04/08/19 at 21:00 Collagenase (Santyl) 1 applic SOILED PRN TOP SOILED; Start 04/08/19 at 14:00 Heparin Sodium (Porcine) (Heparin (1000 Units/ml)) 3,200 unit AFTER DIALYSIS CATHETER Last administered on 04/15/19 14:51; Admin Dose 3,200 UNIT; Start 04/09/19 at 14:30 Albumin Human 50 ml @ 100 mls/hr WITH DIALYSIS PRN IV SBP < 90 DURING DIALYSIS Last administered on 04/15/19 12:50; Admin Dose 100 MLS/HR; Start 04/09/19 at 14:30 Albuterol (Ventolin Hfa) 2 puff Q4H RESP THERAPY INH Last administered on 04/23/19 08:17; Admin Dose 2 PUFF; Start 04/09/19 at 21:50 Midodrine (Proamatine) 10 mg TID@,13,17 PO Last administered on 04/23/19 08:52; Admin Dose 10 MG; Start 04/12/19 at 09:00 Collagenase (Santyl) 1 applic DAILY TOP Last administered on 04/23/19 08:52; Admin Dose 1 APPLIC; Start 04/13/19 at 09:00 Sodium Hypochlorite (Dakins Diluted ()) 1 applic DAILY TP Last administered on 7/30/19at 08:52; Admin Dose 1 APPLIC; Start 04/13/19 at 09:00 Famotidine (Pepcid) 20 mg DAILY GTB Last administered on 04/23/19at 08:52; Admin Dose 20 MG; Start 04/13/19 at 09:00 Vancomycin HCl (Vancomycin Oral Syringe) 125 mg Q6 GTB Last administered on 04/23/19at 05:44; Admin Dose 125 MG; Start 04/22/19 at 00:00; Stop 04/28/19 at 23:59 Vancomycin HCl (Vanco Iv Per Pharmacy) VANCOMYCIN PER PHARMACY PER PROTOCOL XX ; Start 04/21/19 at 23:30; Stop 04/28/19 at 23:29 Miscellaneous Information (*Rx Drug Level Order Reminder*) RANDOM VANCOMYCIN LEVEL 7... 0500 ONCE XX ; Start 04/24/19 at 05:00; Stop 04/24/19 at 05:01 Epoetin Nick-epbx (Retacrit (Esrd)) 10,000 unit MoWeFr@1700 SC Last administere d on 04/22/19at 16:43; Admin Dose 10,000 UNIT; Start 04/22/19 at 17:00 Assessment/Plan Hospital Course (Demo Recall) IMP: 1. Sepsis 2. VDRF 3. ESRD on HD 4. Pleura effusion 5. Anemia RECS: 1. Continue current vent settings 2. CPT and suctioning prn 3. BD's snf ? NEHA WICK MD, [facility] Apr 23, 2019 11:53
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
[2019-04-23] MEDS: ATORVASTATIN 20 MG TAB PO SCH (21:38)
--- NOTE | 2019-04-23 22:02 | CONS ---
Assessment/Plan Assessment/Plan Hospital Course (Demo Recall) Acute blood loss anemia Hypotension with labile blood pressure Elevated troponin, trending down CAD Preserved ejection fraction End-stage renal disease on hemodialysis Encephalopathy Midodrine to be continued, titrate as needed Fluid management via hemodialysis as per nephrology No beta-aidee given labile blood pressure Continue statin therapy if no contraindication Patient currently not on any antiplatelet therapy likely secondary to anemia Consultation Date/Type/Reason Admit Date/Time Apr 06, 2019 at 22:52 Initial Consult Date 04/08/19 Type of Consult Cardiology Requesting Provider: WILLA CARTY Date/Time of Note DATE: 04/23/19 TIME: 22:01 24 HR Interval Summary Subjective hx not possible: pt non-verbal Exam/Review of Systems Vital Signs Vitals Vital Signs Date Temp Pulse Resp B/P (MAP) Pulse Ox O2 O2 Flow FiO2 Time Delivery Rate 04/23/19 54 24 99 40 21:19 04/23/19 97.5 93/54 (67) 20:00 04/23/19 Mechanical 15:28 Ventilator Trach Collar Intake and Output 04/22/19 04/22/19 04/23/19 1515:00 23:00 07:00 IntakeIntake Total 680 ml OutputOutput Total 150 ml 75 ml BalanceBalance 530 ml -75 ml Exam Constitutional: non-verbal (nad) Head: normocephalic Respiratory: other (course bs, no wheeze) Cardiovascular: regular rate and rhythm (s1s2) Gastrointestinal: soft, non-tender, bowel sounds Extremities: edema Labs Result Diagram: 04/23/19 0514 04/23/19 0514 Results 24hrs Laboratory Tests Test 04/23/19 05:14 White Blood Count 9.0 # Red Blood Count 2.67 L Hemoglobin 8.2 L Hematocrit 26.1 L Mean Corpuscular Volume 97.8 Mean Corpuscular Hemoglobin 30.7 Mean Corpuscular Hemoglobin Concent 31.4 L Red Cell Distribution Width 20.4 H Platelet Count 139 L Mean Platelet Volume 11.2 H Immature Granulocytes % 0.700 H Neutrophils % 64.6 Lymphocytes % 18.9 Monocytes % 8.3 Eosinophils % 7.3 H Basophils % 0.2 Nucleated Red Blood Cells % 0.0 Immature Granulocytes # 0.060 H Neutrophils # 5.8 Lymphocytes # 1.7 Monocytes # 0.8 Eosinophils # 0.7 H Basophils # 0.0 Nucleated Red Blood Cells # 0.0 Sodium Level 136 Potassium Level 4.4 Chloride Level 98 Carbon Dioxide Level 27 Anion Gap 11 Blood Urea Nitrogen 103 H Creatinine 3.72 H Est Glomerular Filtrat Rate mL/min Glucose Level 130 Calcium Level 8.8 Phosphorus Level 3.8 Magnesium Level 2.1 Medications Medications Current Medications IV Flush (NS 3 ml) 3 ml PER PROTOCOL IV ; Start 04/06/19 at 23:00 Ondansetron HCl (Zofran Inj) 4 mg Q6H PRN IV NAUSEA/VOMITING; Start 04/06/19 at 23:00 Morphine Sulfate (morphine) 2 mg Q4H PRN IV .PAIN 7-10; Start 04/06/19 at 23:00 Acetaminophen (Tylenol Liquid) 650 mg Q4H PRN GTB MILD PAIN(1-3) OR TEMP>38C; Start 04/08/19 at 13:30 Zinc Sulfate (Zinc Sulfate) 220 mg DAILY GTB Last administered on 04/23/19 08:52; Admin Dose 220 MG; Start 04/09/19 at 09:00 Atorvastatin Calcium (Lipitor) 20 mg HS PO Last administered on 04/23/19 21:38; Admin Dose 20 MG; Start 04/08/19 at 21:00 Collagenase (Santyl) 1 applic SOILED PRN TOP SOILED; Start 04/08/19 at 14:00 Heparin Sodium (Porcine) (Heparin (1000 Units/ml)) 3,200 unit AFTER DIALYSIS CATHETER Last administered on 04/15/19 14:51; Admin Dose 3,200 UNIT; Start 04/09/19 at 14:30 Albumin Human 50 ml @ 100 mls/hr WITH DIALYSIS PRN IV SBP < 90 DURING DIALYSIS Last administered on 04/15/19 12:50; Admin Dose 100 MLS/HR; Start 04/09/19 at 14:30 Albuterol (Ventolin Hfa) 2 puff Q4H RESP THERAPY INH Last administered on 04/23/19 21:15; Admin Dose 2 PUFF; Start 04/09/19 at 21:50 Midodrine (Proamatine) 10 mg TID@09,13,17 PO Last administered on 04/23/19 17 :10; Admin Dose 10 MG; Start 04/12/19 at 09:00 Collagenase (Santyl) 1 applic DAILY TOP Last administered on 04/23/19 08:52; Admin Dose 1 APPLIC; Start 04/13/19 at 09:00 Sodium Hypochlorite (Dakins Diluted ()) 1 applic DAILY TP Last administered on 04/23/19 08:52; Admin Dose 1 APPLIC; Start 04/13/19 at 09:00 Famotidine (Pepcid) 20 mg DAILY GTB Last administered on 04/23/19 08:52; Admin Dose 20 MG; Start 04/13/19 at 09:00 Vancomycin HCl (Vancomycin Oral Syringe) 125 mg Q6 GTB Last administered on 04/23/19 17:10; Admin Dose 125 MG; Start 04/22/19 at 00:00; Stop 04/28/19 at 23:59 Vancomycin HCl (Vanco Iv Per Pharmacy) VANCOMYCIN PER PHARMACY PER PROTOCOL XX ; Start 04/21/19 at 23:30; Stop 04/28/19 at 23:29 Miscellaneous Information (*Rx Drug Level Order Reminder*) RANDOM VANCOMYCIN L EVEL 7... 0500 ONCE XX ; Start 04/24/19 at 05:00; Stop 04/24/19 at 05:01 Epoetin Nick-epbx (Retacrit (Esrd)) 10,000 unit MoWeFr@1700 SC Last administered on 04/22/19at 16:43; Admin Dose 10,000 UNIT; Start 04/22/19 at 17:00 Mendoza Ludwig DO Apr 23, 2019 22:02
[2019-04-24] VITALS (16 sets, daily range): BP systolic 91–114; BP diastolic 52–64; PULSE 55–98; RESP 18–33; Ht 198.1 cm; Wt 93.0 kg
[2019-04-24] MEDS: VANCOMYCIN HCL 250 MG/5ML POSYG GTB SCH ×4 (00:07→19:01)
[2019-04-24] MEDS: ALBUTEROL HFA 8 GM INHALER INH SCH ×6 (01:10→21:21)
[2019-04-24] MEDS: FAMOTIDINE 20 MG TAB GTB SCH (09:21)
[2019-04-24] MEDS: COLLAGENASE 5 GM (UD JAR) TOP SCH (09:21)
[2019-04-24] MEDS: ZINC SULFATE 220 MG CAP GTB SCH (09:21)
[2019-04-24] MEDS: DAKINS 0.0125%(1/40) 473 ML SOLUTION TP SCH (09:22)
[2019-04-24] MEDS: MIDODRINE 5 MG TAB PO SCH ×3 (09:22→19:05)
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
--- NOTE | 2019-04-24 12:02 | CONS ---
Consult Date/Type/Reason Admit Date/Time Apr 06, 2019 at 22:52 Initial Consult Date 04/17/19 Type of Consult Pulmonary Requesting Provider: WILLA CARTY Date/Time of Note DATE: 04/24/19 TIME: 12:01 Subjective Patient appears comfortable no respiratory distress. Objective Vital Signs Date Temp Pulse Resp B/P (MAP) Pulse Ox O2 O2 Flow FiO2 Time Delivery Rate 04/24/19 98.5 62 24 114/57 100 Mechanical 11:46 (76) Ventilator 04/24/19 40 08:00 Intake and Output 04/23/19 04/23/19 04/24/19 1515:00 23:00 07:00 IntakeIntake Total 830 ml OutputOutput Total 600 ml BalanceBalance 230 ml Exam GENERAL: VITAL SIGNS: per chart NECK: Supple. No JVD or lymphadenopathy. CARDIAC EXAM: S1, S2. No added sounds or murmurs. CHEST: Diminished air entry bases ABDOMEN: Soft, nontender. No guarding or rebound. EXTREMITIES: No cyanosis, clubbing or edema. NEUROLOGIC: Generalized weakness. Elderly gentleman on mechanical ventilation Vent Setting Ventilator Support Mode: AC Fraction of Inspired Oxygen pe: 40 Positive End Expiratory Pressu: 5.0 Results/Medications Result Diagram: 04/24/1913 04/24/19 0613 Results 24 hrs Laboratory Tests Test 04/24/19 06:13 White Blood Count 9.2 Red Blood Count 2.67 L Hemoglobin 8.3 L Hematocrit 26.0 L Mean Corpuscular Volume 97.4 Mean Corpuscular Hemoglobin 31.1 Mean Corpuscular Hemoglobin Concent 31.9 L Red Cell Distribution Width 20.4 H Platelet Count 108 #L Mean Platelet Volume 11.8 H Immature Granulocytes % 1.200 H Neutrophils % Segmented Neutrophils % (Manual) 56 Band Neutrophils % (Manual) 16 H Lymphocytes % Lymphocytes % (Manual) 18 Monocytes % Monocytes % (Manual) 7 Eosinophils % Eosinophils % (Manual) 3 Basophils % Nucleated Red Blood Cells % 0.0 Immature Granulocytes # 0.110 H Neutrophils # Neutrophils # (Manual) 5.3 Band Neutrophils # 1.4 H Lymphocytes (Manual) 1.6 Lymphocytes # Monocytes # Monocytes # (Manual) 0.6 Eosinophils # Basophils # Nucleated Red Blood Cells # Platelet Estimate DECREASED Giant Platelets 1 H Poikilocytosis 1+ Anisocytosis 2+ Macrocytosis 2+ Tear Drop Cells 1+ Sodium Level 134 L Potassium Level 4.5 Chloride Level 97 Carbon Dioxide Level 25 Anion Gap 12 Blood Urea Nitrogen 113 H Creatinine 3.85 H Est Glomerular Filtrat Rate mL/min Glucose Level 121 Calcium Level 8.8 Phosphorus Level 3.9 Magnesium Level 2.1 Random Vancomycin Level 25.4 Medications Current Medications IV Flush (NS 3 ml) 3 ml PER PROTOCOL IV ; Start 04/06/19 at 23:00 Ondansetron HCl (Zofran Inj) 4 mg Q6H PRN IV NAUSEA/VOMITING; Start 04/06/19 at 23:00 Morphine Sulfate (morphine) 2 mg Q4H PRN IV .PAIN 7-10; Start 04/06/19 at 23:00 Acetaminophen (Tylenol Liquid) 650 mg Q4H PRN GTB MILD PAIN(1-3) OR TEMP>38C; Start 04/08/19 at 13:30 Zinc Sulfate (Zinc Sulfate) 220 mg DAILY GTB Last administered on 04/24/19 09:21; Admin Dose 220 MG; Start 04/09/19 at 09:00 Atorvastatin Calcium (Lipitor) 20 mg HS PO Last administered on 04/23/19 21:38; Admin Dose 20 MG; Start 04/08/19 at 21:00 Collagenase (Santyl) 1 applic SOILED PRN TOP SOILED; Start 04/08/19 at 14:00 Heparin Sodium (Porcine) (Heparin (1000 Units/ml)) 3,200 unit AFTER DIALYSIS CATHETER Last administered on 04/15/19 14:51; Admin Dose 3,200 UNIT; Start 04/09/19 at 14:30 Albumin Human 50 ml @ 100 mls/hr WITH DIALYSIS PRN IV SBP < 90 DURING DIALYSIS Last administered on 04/15/19 12:50; Admin Dose 100 MLS/HR; Start 04/09/19 at 14:30 Albuterol (Ventolin Hfa) 2 puff Q4H RESP THERAPY INH Last administered on 04/24/19 08:55; Admin Dose 2 PUFF; Start 04/09/19 at 21:50 Midodrine (Proamatine) 10 mg TID@09,13,17 PO Last administered on 04/24/19 09:22; Admin Dose 10 MG; Start 04/12/19 at 09:00 Collagenase (Santyl) 1 applic DAILY TOP Last administered on 04/24/19 09:21; Admin Dose 1 APPLIC; Start 04/13/19 at 09:00 Sodium Hypochlorite (Dakins Diluted ()) 1 applic DAILY TP Last administered on 04/24/19 09:22; Admin Dose 1 APPLIC; Start 04/13/19 at 09:00 Famotidine (Pepcid) 20 mg DAILY GTB Last administered on 04/24/19 09:21; Admin Dose 20 MG; Start 04/13/19 at 09:00 Vancomycin HCl (Vancomycin Oral Syringe) 125 mg Q6 GTB Last administered on 04/24/19 11:26; Admin Dose 125 MG; Start 04/22/19 at 00:00; Stop 04/28/19 at 23:59 Vancomycin HCl (Vanco Iv Per Pharmacy) VANCOMYCIN PER PHARMACY PER PROTOCOL XX ; Start 04/21/19 at 23:30; Stop 04/28/19 at 23:29 Epoetin Nick-epbx (Retacrit (Esrd)) 10,000 unit MoWeFr@1700 SC Last administered on 04/22/19at 16:43; Admin Dose 10,000 UNIT; Start 04/22/19 at 17:00 Assessment/Plan Hospital Course (Demo Recall) IMP: 1. Sepsis 2. VDRF 3. ESRD on HD 4. Pleura effusion 5. Anemia RECS: 1. Continue current vent settings 2. CPT and suctioning prn 3. BD's snf ? NEHA WICK MD, [facility] Apr 24, 2019 12:02
[2019-04-24] MEDS ORDERED: LIDOCAINE 1% (MDV) 20 ML INJ ONE (12:21)
--- NOTE | 2019-04-24 12:27 | PN ---
DATE: 04/24/2019 SUBJECTIVE: The patient remains critically ill, on full ventilatory support. No other events noted. No hemoptysis, hematemesis or hematochezia. OBJECTIVE: VITAL SIGNS: Blood pressure is 107/52, respirations 18, pulse 62, temperature 97.5. HEENT: Head is normocephalic. NECK: Supple. HEART: Regular rate. LUNGS: Show diminished breath sounds at the base. ABDOMEN: Soft, nontender to palpation without rebound or guarding. EXTREMITIES: Negative for clubbing, cyanosis. Positive edema. DERMATOLOGIC: No rashes. MUSCULOSKELETAL: No joint effusion. NEUROLOGIC: No change in exam. MEDICATIONS: The patient's medications have been reviewed. LABORATORY DATA: Laboratory data has been reviewed. IMAGING STUDIES: Imaging studies have been reviewed. MICROBIOLOGY: Microbiology has been reviewed. ASSESSMENT AND PLAN: 1. End-stage renal disease. The patient is currently on line holiday. Last hemodialysis was on . The patient will need to be reinitiated on dialysis due to volume overload and uremic sympt oms. We will request interventional radiology to place a Mahin catheter. We will resume dialysis once access is obtained. 2. Anemia. Continue to monitor hemoglobin and hematocrit levels. Continue Epogen. 3. Mineral bone disorder. Monitor calcium and phosphorus levels. 4. Ventilator-dependent respiratory failure. Vent settings and ABG was reviewed. Continue to monit or. 5. Hypertension. Continue midodrine. 6. Diabetes. Continue current insulin regimen. 7. Volume overload. We will continue ultrafiltration with dialysis once access is obtained. 8. Anoxic encephalopathy. Continue to monitor. 9. Non-ST elevation myocardial infarction. Continue medical management. 10. Sepsis secondary to bacteremia and Clostridium difficile colitis. Continue antibiotic therapy. Follow up with Infectious Disease. 11. Dysphagia. Continue tube feeding. 12. Multiple wounds. Continue wound care. 13. Hypernatremia, secondary to end-stage renal disease. Continue to monitor. Minimize free water flushes. Dictated By: OLY DEGROOT DO NR/NTS Conf#: [id number] DID#: [id number] CC: JENNYFER DE LEÓN MD; CARLITO GUERRA MD;*EndCC*
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
[2019-04-24] MEDS ORDERED: HEPARIN 1000 UNITS/ML 10 ML INJ ONE (14:00)
[2019-04-24] MEDS: EPOETIN ALFA-EPBX (ESRD) 10,000 UNIT/ML VIAL SC SCH (19:02)
[2019-04-24] MEDS: ATORVASTATIN 20 MG TAB PO SCH (22:03)
[2019-04-25] VITALS (33 sets, daily range): BP systolic 86–138; BP diastolic 46–67; PULSE 61–77; RESP 18–28
[2019-04-25] MEDS: VANCOMYCIN HCL 250 MG/5ML POSYG GTB SCH ×4 (00:18→17:18)
[2019-04-25] MEDS: ALBUTEROL HFA 8 GM INHALER INH SCH ×6 (01:07→21:00)
[2019-04-25] MEDS: morphine 2 MG INJ IV PRN ×3 (01:51→23:35)
[2019-04-25] MEDS: ACETAMINOPHEN 650MG/20.3ML CUP GTB PRN (06:40)
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
--- NOTE | 2019-04-25 08:28 | PN ---
DATE: 04/25/2019 SUBJECTIVE: The patient is stable. The patient had a Perm-A-Cath placed yesterday. Anticipate hemo dialysis today. No other acute events noted. OBJECTIVE: VITAL SIGNS: Blood pressure is 92/50, respiration 22, pulse 66, temperature 97.5. HEENT: Head is normocephalic. NECK: Supple. HEART: Regular rate. LUNGS: Show diminished breath sounds at the base. ABDOMEN: Soft, nontender to palpation without rebound or guarding. EXTREMITIES: Negative for clubbing, cyanosis. Positive edema. DERMATOLOGIC: No rashes. MUSCULOSKELETAL: No joint effusion. NEUROLOGIC: No change in exam. MEDICATIONS: Have been reviewed. LABORATORY DATA: Has been reviewed. IMAGING STUDIES: Have been reviewed. ASSESSMENT AND PLAN: 1. End-stage renal disease. The patient had a Perm-A-Cath placed yesterday. Plan for hemodialysis today and tomorrow for solute clearance and volume removal. 2. Anemia. Monitor hemoglobin and hematocrit levels. Continue Epogen. 3. 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 4. Ventilatory-dependent respiratory failure. Vent settings and ABG have been reviewed. Continue t o monitor. 5. Hypotension. Continue midodrine. 6. Diabetes. Continue current insulin regimen. 7. Volume overload. Continue ultrafiltration dialysis. 8. Toxic encephalopathy. Continue to monitor. 10. Ventilator dependent respiratory failure. Vent settings and arterial blood gas has been reviewe d. Continue to monitor. 11. Non-STEMI. Continue medical management. 12. Sepsis. 13. C. diff. Continue antibiotic regimen. 14. Dysphagia. Continue tube feeding. 15. Multiple wounds. Continue wound care. Dictated By: OLY DEGROOT DO NR/NTS Conf#: [id number] DID#: [id number] CC: CARLITO GUERRA MD;*EndCC*
[2019-04-25] MEDS: ZINC SULFATE 220 MG CAP GTB SCH (08:41)
[2019-04-25] MEDS: FAMOTIDINE 20 MG TAB GTB SCH (08:41)
[2019-04-25] MEDS: COLLAGENASE 5 GM (UD JAR) TOP SCH (08:41)
[2019-04-25] MEDS: MIDODRINE 5 MG TAB PO SCH ×3 (08:42→17:18)
[2019-04-25] MEDS: DAKINS 0.0125%(1/40) 473 ML SOLUTION TP SCH (08:42)
--- NOTE | 2019-04-25 10:29 | CONS ---
Consultation Date/Type/Reason Admit Date/Time Apr 06, 2019 at 22:52 Initial Consult Date 04/17/19 Type of Consult Pulmonary/critical care Patient is an 89-year-old gentleman who was transferred to ICU from medical floor with episode of hypotension. The patient stabilized and did not require any pressor support. Patient has advanced dementia and was unable to give any history by himself whatsoever. Patient however did not appear to be in any distress. Past medical history; 1. Advanced encephalopathy. 2. End-stage renal disease, on hemodialysis. 3. History of diabetes. 4. History of hypertension. 5. Anemia on admission. Status post blood transfusion. 6. Sacral wound. Medications; reviewed. Allergies; as outlined above. Social history; not available. Occupational history; not available. Family history; patient apparently has a supportive family. Review of system; unable to be obtained. General exam; elderly male, on ventilator via tracheostomy, unresponsive, currently in no distress. Requesting Provider: WILLA CARTY Date/Time of Note DATE: 04/25/19 TIME: 10:28 24 HR Interval Summary Free Text/Dictation Patient's condition is stable. Has remained hemodynamically stable. General exam; elderly male, on ventilator via tracheostomy, awake but noncommunicative. Currently in no distress. Getting hemodialysis at bedside. HEENT exam; supple neck, no JVD. No lymphadenopathy. Midline trachea. No thyromegaly. Tracheostomy in place. Patient has fair dentition. Chest exam; diminished breath sounds bilaterally. S1-S2 audible, no murmurs. Regular rhythm. Abdomen exam; soft, nondistended. No organomegaly. G-tube in place. Bowel sounds audible. Extremity exam; trace edema with flexion contractures. [employer] exam; patient awake but noncommunicative. Ventilator setting; assist control of 24, tidal volume 500, PEEP of 5, 40% FiO2. Assessment and recommendations; 1. Patient with history of VDRF and chronic encephalopathy admitted for sepsis. Source is decubitus ulcers, growing multiple organisms. 2. End-stage renal disease, on hemodialysis. 3. Chronic anemia and thrombocytopenia. Continue current supportive care. Prognosis is poor. 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 Exam/Review of Systems Exam Vitals Vital Signs Date Temp Pulse Resp B/P (MAP) Pulse Ox O2 O2 Flow FiO2 Time Delivery Rate 04/25/19 77 26 100 40 09:40 04/25/19 97.5 86/53 (64) 07:48 04/25/19 Mechanical 04:26 Ventilator Intake and Output 04/24/19 04/24/19 04/25/19 1515:00 23:00 07:00 IntakeIntake Total 440 ml 730 ml OutputOutput Total 30 ml 50 ml BalanceBalance 410 ml 680 ml Results Result Diagram: 04/24/19 0613 04/24/1913 Results 24hrs Laboratory Tests Test 04/25/19 01:30 Blood Gas Specimen Source Blood arterial Arterial Blood Date Drawn 04/25/2019 1:50:45 AM Arterial Blood pH (Temp corrected) 7.343 L Arterial Blood pCO2 (Temp correct) 43.4 Arterial Blood pO2 (Temp corrected) 105.5 H Arterial Blood HCO3 23.0 Arterial Blood Base Excess -2.5 Arterial Blood Oxygen Saturation 97.3 Joseph Test ACCEPTAB Arterial Blood Gas Puncture Site Right Radial Arterial Blood Carboxyhemoglobin 0.5 Arterial Blood Methemoglobin 0.5 Blood Gas A-a O2 Differential 202.2 H Oxyhemoglobin Percent 96.3 Blood Gas Temperature 37.0 Blood Gas Respiration Rate 24.0 Blood Gas Actual Respiration Rate 27 Blood Gas Modality VENT - AC FiO2 50.0 Blood Gas Tidal Volume 500.0 Blood Gas Low PEEP Setting 5.0 Blood Gas Notified Whom MA Blood Gas Notified Time 04/25/2019 2:05:35 AM Medications Medication Current Medications IV Flush (NS 3 ml) 3 ml PER PROTOCOL IV ; Start 04/06/19 at 23:00 Ondansetron HCl (Zofran Inj) 4 mg Q6H PRN IV NAUSEA/VOMITING; Start 04/06/19 at 23:00 Morphine Sulfate (morphine) 2 mg Q4H PRN IV .PAIN 7-10 Last administered on 04/25/19at 01:51; Admin Dose 2 MG; Start 04/06/19 at 23:00 Acetaminophen (Tylenol Liquid) 650 mg Q4H PRN GTB MILD PAIN(1-3) OR TEMP>38C Last administered on 04/25/19at 06:40; Admin Dose 650 MG; Start 04/08/19 at 13:30 Zinc Sulfate (Zinc Sulfate) 220 mg DAILY GTB Last administered on 04/25/19at 08:41; Admin Dose 220 MG; Start 04/09/19 at 09:00 Atorvastatin Calcium (Lipitor) 20 mg HS PO Last administered on 04/24/19 22:03; Admin Dose 20 MG; Start 04/08/19 at 21:00 Collagenase (Santyl) 1 applic SOILED PRN TOP SOILED; Start 04/08/19 at 14:00 Albumin Human 50 ml @ 100 mls/hr WITH DIALYSIS PRN IV SBP < 90 DURING DIALYSIS Last administered on 04/15/19at 12:50; Admin Dose 100 MLS/HR; Start 04/09/19 at 14:30 Albuterol (Ventolin Hfa) 2 puff Q4H RESP THERAPY INH Last administered on 04/25/19 09:27; Admin Dose 2 PUFF; Start 04/09/19 at 21:50 Midodrine (Proamatine) 10 mg TID@09,13,17 PO Last administered on 04/25/19 08:42; Admin Dose 10 MG; Start 04/12/19 at 09:00 Collagenase (Santyl) 1 applic DAILY TOP Last administered on 04/25/19 08:41; Admin Dose 1 APPLIC; Start 04/13/19 at 09:00 Sodium Hypochlorite (Dakins Diluted ()) 1 applic DAILY TP Last administered on 04/25/19 08:42; Admin Dose 1 APPLIC; Start 04/13/19 at 09:00 Famotidine (Pepcid) 20 mg DAILY GTB Last administered on 04/25/19 08:41; Admin Dose 20 MG; Start 04/13/19 at 09:00 Vancomycin HCl (Vancomycin Oral Syringe) 125 mg Q6 GTB Last administered on 04/25/19 07:05; Admin Dose 125 MG; Start 04/22/19 at 00:00; Stop 04/28/19 at 23:59 Vancomycin HCl (Vanco Iv Per Pharmacy) VANCOMYCIN PER PHARMACY PER PROTOCOL XX ; Start 04/21/19 at 23:30; Stop 04/28/19 at 23:29 Epoetin Nick-epbx (Retacrit (Esrd)) 10,000 unit MoWeFr@1700 SC Last administered on 04/24/19 19:02; Admin Dose 10,000 UNIT; Start 04/22/19 at 17:00 Vancomycin HCl 250 ml @ 125 mls/hr ONCE IVPB ; Start 04/25/19 at 15:00; Stop 04/25/19 at 23:59 MARS FONSECA Apr 25, 2019 10:29
[2019-04-25] MEDS ORDERED: ALBUMIN HUMAN 25% 100 ML IV PRN (11:00)
[2019-04-25] MEDS: ALBUMIN HUMAN 25% 100 ML IV PRN (12:18)
--- NOTE | 2019-04-25 14:05 | CONS ---
Assessment/Plan Assessment/Plan Hospital Course (Demo Recall) Acute blood loss anemia Hypotension with labile blood pressure Elevated troponin, trending down CAD Preserved ejection fraction End-stage renal disease on hemodialysis Encephalopathy Midodrine to be continued, titrate as needed Fluid management via hemodialysis as per nephrology No beta-aidee given labile blood pressure Continue statin therapy if no contraindication Patient currently not on any antiplatelet therapy likely secondary to anemia Consultation Date/Type/Reason Admit Date/Time Apr 06, 2019 at 22:52 Initial Consult Date 04/08/19 Type of Consult Cardiology Requesting Provider: WILLA CARTY Date/Time of Note DATE: 04/25/19 TIME: 14:04 24 HR Interval Summary Free Text/Dictation Seen and examined Subjective hx not possible: pt non-verbal Exam/Review of Systems Vital Signs Vitals Vital Signs Date Temp Pulse Resp B/P (MAP) Pulse Ox O2 O2 Flow FiO2 Time Delivery Rate 04/25/19 66 13:40 04/25/19 26 100 40 13:28 04/25/19 97.8 91/52 (65) 11:37 04/25/19 Mechanical 10:30 Ventilator Trach Collar Intake and Output 04/24/19 04/24/19 04/25/19 1515:00 23:00 07:00 IntakeIntake Total 440 ml 730 ml OutputOutput Total 30 ml 50 ml BalanceBalance 410 ml 680 ml Exam Constitutional: non-verbal (Undergoing hemodialysis, no apparent distress) Head: normocephalic Respiratory: other (Coarse breath sounds bilaterally, no wheezing) Cardiovascular: regular rate and rhythm (S1-S2 heard) Gastrointestinal: soft, non-tender, bowel sounds Extremities: edema Labs Result Diagram: 04/24/19 0613 04/24/19 0613 Results 24hrs Laboratory Tests Test 04/25/19 01:30 Blood Gas Specimen Source Blood arterial Arterial Blood Date Drawn 04/25/2019 1:50:45 AM Arterial Blood pH (Temp corrected) 7.343 L Arterial Blood pCO2 (Temp correct) 43.4 Arterial Blood pO2 (Temp corrected) 105.5 H Arterial Blood HCO3 23.0 Arterial Blood Base Excess -2.5 Arterial Blood Oxygen Saturation 97.3 Joseph Test ACCEPTAB Arterial Blood Gas Puncture Site Right Radial Arterial Blood Carboxyhemoglobin 0.5 Arterial Blood Methemoglobin 0.5 Blood Gas A-a O2 Differential 202.2 H Oxyhemoglobin Percent 96.3 Blood Gas Temperature 37.0 Blood Gas Respiration Rate 24.0 Blood Gas Actual Respiration Rate 27 Blood Gas Modality VENT - AC FiO2 50.0 Blood Gas Tidal Volume 500.0 Blood Gas Low PEEP Setting 5.0 Blood Gas Notified Whom MA Blood Gas Notified Time 04/25/2019 2:05:35 AM Medications Medications Current Medications IV Flush (NS 3 ml) 3 ml PER PROTOCOL IV ; Start 04/06/19 at 23:00 Ondansetron HCl (Zofran Inj) 4 mg Q6H PRN IV NAUSEA/VOMITING; Start 04/06/19 at 23:00 Morphine Sulfate (morphine) 2 mg Q4H PRN IV .PAIN 7-10 Last administered on 04/25/19 01:51; Admin Dose 2 MG; Start 04/06/19 at 23:00 Acetaminophen (Tylenol Liquid) 650 mg Q4H PRN GTB MILD PAIN(1-3) OR TEMP>38C Last administered on 04/25/19 06:40; Admin Dose 650 MG; Start 04/08/19 at 13:30 Zinc Sulfate (Zinc Sulfate) 220 mg DAILY GTB Last administered on 04/25/19 08:41; Admin Dose 220 MG; Start 04/09/19 at 09:00 Atorvastatin Calcium (Lipitor) 20 mg HS PO Last administered on 04/24/19 22:03 ; Admin Dose 20 MG; Start 04/08/19 at 21:00 Collagenase (Santyl) 1 applic SOILED PRN TOP SOILED; Start 04/08/19 at 14:00 Albuterol (Ventolin Hfa) 2 puff Q4H RESP THERAPY INH Last administered on 04/25 13:27; Admin Dose 2 PUFF; Start 04/09/19 at 21:50 Midodrine (Proamatine) 10 mg TID@,13,17 PO Last administered on 04/25/19 12:02; Admin Dose 10 MG; Start 04/12/19 at 09:00 Collagenase (Santyl) 1 applic DAILY TOP Last administered on 04/25/19 08:41; Admin Dose 1 APPLIC; Start 04/13/19 at 09:00 Sodium Hypochlorite (Dakins Diluted ()) 1 applic DAILY TP Last administered on 8/1/19at 08:42; Admin Dose 1 APPLIC; Start 04/13/19 at 09:00 Famotidine (Pepcid) 20 mg DAILY GTB Last administered on 04/25/19at 08:41; Admin Dose 20 MG; Start 04/13/19 at 09:00 Vancomycin HCl (Vancomycin Oral Syringe) 125 mg Q6 GTB Last administered on 04/25/19at 12:02; Admin Dose 125 MG; Start 04/22/19 at 00:00; Stop 04/28/19 at 23:59 Vancomycin HCl (Vanco Iv Per Pharmacy) VANCOMYCIN PER PHARMACY PER PROTOCOL XX ; Start 04/21/19 at 23:30; Stop 04/28/19 at 23:29 Epoetin Nick-epbx (Retacrit (Esrd)) 10,000 unit MoWeFr@1700 SC Last administered on 04/24/19at 19:02; Admin Dose 10,000 UNIT; Start 04/22/19 at 17:00 Vancomycin HCl 250 ml @ 125 mls/hr ONCE IVPB ; Start 04/25/19 at 15:00; Stop 04/25/19 at 23:59 Albumin Human 100 ml @ 100 mls/hr WITH DIALYSIS PRN IV SBP < 90 DURING DIALYSIS Last administered on 04/25/19at 12:18; Admin Dose 100 MLS/HR; Start 04/25/19 at 12:30 Mendoza Ludwig DO Apr 25, 2019 14:05
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
[2019-04-25] MEDS ORDERED: VANCOMYCIN 1 GM 250 ML IVPB SCH (15:00)
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
[2019-04-25] MEDS: ATORVASTATIN 20 MG TAB PO SCH (22:16)
[2019-04-26] VITALS (17 sets, daily range): BP systolic 80–103; BP diastolic 36–57; PULSE 57–67; RESP 21–26
[2019-04-26] MEDS: VANCOMYCIN HCL 250 MG/5ML POSYG GTB SCH ×4 (00:27→18:33)
[2019-04-26] MEDS: ALBUTEROL HFA 8 GM INHALER INH SCH ×6 (01:50→20:14)
--- NOTE | 2019-04-26 06:14 | CONS ---
Assessment/Plan Assessment/Plan Assessment/Plan (Daily) Yesterday April 25 I asked case management to contact family members and schedule a family conference to address goals of care patient is 89 years old has multiple medical problems and a very valdemar course throughout this hospitalization grim prognosis with palliative performance scale of less than 10%. According to information I have given from Mat in case management family members patient's son specifically stated in the past his father is improved from every health crisis and they wish for everything to continue to be done neither he nor his family wish to participate in family conference and are informed and firm in her decision making and will not consent to have a family conference to change or discuss changing goals of care. Consultation Date/Type/Reason Admit Date/Time Apr 06, 2019 at 22:52 Initial Consult Date 04/17/19 Requesting Provider: WILLA CARTY Date/Time of Note DATE: 04/26/19 TIME: 06:12 Exam/Review of Systems Exam Vitals Vital Signs Date Temp Pulse Resp B/P (MAP) Pulse Ox O2 O2 Flow FiO2 Time Delivery Rate 04/26/19 75 24 100 40 05:55 04/26/19 98.6 103/57 03:32 (72) 04/25/19 Mechanical 10:30 Ventilator Trach Collar Intake and Output 04/25/19 04/25/19 04/26/19 1515:00 23:00 07:00 IntakeIntake Total 705 ml OutputOutput Total 2000 ml 100 ml 50 ml BalanceBalance -2000 ml 605 ml -50 ml Results Result Diagram: 04/24/1961204/24/19612 Medications Medication Current Medications IV Flush (NS 3 ml) 3 ml PER PROTOCOL IV ; Start 04/06/19 at 23:00 Ondansetron HCl (Zofran Inj) 4 mg Q6H PRN IV NAUSEA/VOMITING; Start 04/06/19 at 23:00 Morphine Sulfate (morphine) 2 mg Q4H PRN IV .PAIN 7-10 Last administered on 04/25/19at 23:35; Admin Dose 2 MG; Start 04/06/19 at 23:00 Acetaminophen (Tylenol Liquid) 650 mg Q4H PRN GTB MILD PAIN(1-3) OR TEMP>38C Last administered on 04/25/19at 06:40; Admin Dose 650 MG; Start 04/08/19 at 13:30 Zinc Sulfate (Zinc Sulfate) 220 mg DAILY GTB Last administered on 04/25/19 08:41; Admin Dose 220 MG; Start 04/09/19 at 09:00 Atorvastatin Calcium (Lipitor) 20 mg HS PO Last administered on 04/25/19 22:16; Admin Dose 20 MG; Start 04/08/19 at 21:00 Collagenase (Santyl) 1 applic SOILED PRN TOP SOILED; Start 04/08/19 at 14:00 Albuterol (Ventolin Hfa) 2 puff Q4H RESP THERAPY INH Last administered on 04/26/19 05:13; Admin Dose 2 PUFF; Start 04/09/19 at 21:50 Midodrine (Proamatine) 10 mg TID@09,13,17 PO Last administered on 04/25/19 17:1 8; Admin Dose 10 MG; Start 04/12/19 at 09:00 Collagenase (Santyl) 1 applic DAILY TOP Last administered on 04/25/19 08:41; Admin Dose 1 APPLIC; Start 04/13/19 at 09:00 Sodium Hypochlorite (Dakins Diluted ()) 1 applic DAILY TP Last administered on 04/25/19 08:42; Admin Dose 1 APPLIC; Start 04/13/19 at 09:00 Famotidine (Pepcid) 20 mg DAILY GTB Last administered on 04/25/19 08:41; Admin Dose 20 MG; Start 04/13/19 at 09:00 Vancomycin HCl (Vancomycin Oral Syringe) 125 mg Q6 GTB Last administered on 04/26/19 06:04; Admin Dose 125 MG; Start 04/22/19 at 00:00; Stop 04/28/19 at 23:59 Vancomycin HCl (Vanco Iv Per Pharmacy) VANCOMYCIN PER PHARMACY PER PROTOCOL XX ; Start 04/21/19 at 23:30; Stop 04/28/19 at 23:29 Epoetin Nick-epbx (Retacrit (Esrd)) 10,000 unit MoWeFr@1700 SC Last administered on 04/24/19 19:02; Admin Dose 10,000 UNIT; Start 04/22/19 at 17:00 Albumin Human 100 ml @ 100 mls/hr WITH DIALYSIS PRN IV SBP < 90 DURING DIALYSIS Last administered on 8/1/19at 12:18; Admin Dose 100 MLS/HR; Start 04/25/19 at 12:30 BECCA VANN Apr 26, 2019 06:14
--- NOTE | 2019-04-26 08:25 | PN ---
DATE: 04/26/2019 SUBJECTIVE: The patient had hemodialysis yesterday. He tolerated it well. No other events noted. OBJECTIVE: VITAL SIGNS: Blood pressure is 103/57, respirations 21, pulse of 67, temperature 98.6. HEENT: Head is normocephalic. NECK: Supple. HEART: Regular rate. LUNGS: Show diminished breath sounds at the base. ABDOMEN: Soft, nontender to palpation without rebound or guarding. EXTREMITIES: Negative for clubbing, cyanosis. Positive edema. DERMATOLOGIC: No rashes. MUSCULOSKELETAL: No joint effusion. NEUROLOGIC: No change in exam. MEDICATIONS: Have been reviewed. LABORATORY DATA: Have been reviewed. IMAGING STUDIES: Have been reviewed. ASSESSMENT AND PLAN: 1. End-stage renal disease. Plan is for hemodialysis today. We will dialyze 3 hours of 2k bath, ca lcium 2.5. 2. Anemia. Monitor hemoglobin and hematocrit levels. The patient's hemoglobin levels are low. Con tinue Epogen. Check an iron panel. Transfuse PRBCs as needed. 3. Mineral bone disorder. Monitor calcium and phosphorus levels. 4. Hypertension. Continue medical management. 5. Diabetes. Continue current insulin regimen. 6. Volume overload. Continue ultrafiltration with dialysis. 7. Toxic encephalopathy. Continue to monitor. 8. Ventilator-dependent respiratory failure. Vent settings reviewed. Continue to monitor. 9. Non ST elevation myocardial infarction. Continue medical management. 10. Sepsis. 11. Clostridium difficile sepsis. 12. Dysphagia. Continue tube feeding. 13. Multiple wounds. Continue wound care. Dictated By: OLY DEGROOT DO NR/NTS Conf#: [id number] DID#: [id number] CC: CARLITO GUERRA MD; JENNYFER DE LEÓN MD;*EndCC*
[2019-04-26] MEDS: MIDODRINE 5 MG TAB PO SCH ×3 (08:26→17:18)
[2019-04-26] MEDS: COLLAGENASE 5 GM (UD JAR) TOP SCH (08:26)
[2019-04-26] MEDS: FAMOTIDINE 20 MG TAB GTB SCH (08:26)
[2019-04-26] MEDS: ZINC SULFATE 220 MG CAP GTB SCH (08:26)
[2019-04-26] MEDS: DAKINS 0.0125%(1/40) 473 ML SOLUTION TP SCH (08:27)
[2019-04-26] MEDS ORDERED: MIDODRINE 5 MG TAB PO PRN (09:00)
--- NOTE | 2019-04-26 09:49 | CONS ---
Consultation Date/Type/Reason Admit Date/Time Apr 06, 2019 at 22:52 Initial Consult Date 04/17/19 Type of Consult Pulmonary/critical care Patient is an 89-year-old gentleman who was transferred to ICU from medical floor with episode of hypotension. The patient stabilized and did not require any pressor support. Patient has advanced dementia and was unable to give any history by himself whatsoever. Patient however did not appear to be in any distress. Past medical history; 1. Advanced encephalopathy. 2. End-stage renal disease, on hemodialysis. 3. History of diabetes. 4. History of hypertension. 5. Anemia on admission. Status post blood transfusion. 6. Sacral wound. Medications; reviewed. Allergies; as outlined above. Social history; not available. Occupational history; not available. Family history; patient apparently has a supportive family. Review of system; unable to be obtained. General exam; elderly male, on ventilator via tracheostomy, unresponsive, currently in no distress. Requesting Provider: WILLA CARTY Date/Time of Note DATE: 04/26/19 TIME: 09:48 24 HR Interval Summary Free Text/Dictation Patient's condition is stable. General exam; elderly male, on ventilator via tracheostomy, currently no distress. Noncommunicative. H ENT can; supple neck, no JVD. No lymphadenopathy. Midline trachea. No thyr omegaly. Patient has fair dentition. Tracheostomy in place. Chest exam; diminished but clear breath sounds. S1-S2 audible, no murmurs. Regular rhythm. Abdomen exam; soft, G-tube in place. Bowel sounds audible. No organomegaly. Extremity exam; no peripheral edema clubbing. GLAZE WIPER exam; patient awake but noncommunicative. Ventilator setting; noted. Assessment and recommendations; 1. Patient with history of VDRF and chronic severe encephalopathy admitted for recurrent sepsis with interval improvement. 2. Chronic renal failure, dialysis dependent. 3. Anemia. 4. History of diabetes and hypertension. 5. Sacral ulcer. Continue current supportive care. Dialysis per stripper opaquer. Prognosis is poor. Exam/Review of Systems Exam Vitals Vital Signs Date Temp Pulse Resp B/P (MAP) Pulse Ox O2 O2 Flow FiO2 Time Delivery Rate 04/26/19 72 24 99 40 09:40 04/26/19 96.4 80/36 (51) Mechanical 08:07 Ventilator Intake and Output 04/25/19 04/25/19 04/26/19 1515:00 23:00 07:00 IntakeIntake Total 705 ml 611 ml OutputOutput Total 2000 ml 100 ml 100 ml BalanceBalance -2000 ml 605 ml 511 ml Results Result Diagram: 04/26/19 0605 04/26/19 0605 Results 24hrs Laboratory Tests Test 04/26/19 06:05 White Blood Count 7.8 Red Blood Count 2.21 L Hemoglobin 6.8 *L Hematocrit 21.9 L Mean Corpuscular Volume 99.1 Mean Corpuscular Hemoglobin 30.8 Mean Corpuscular Hemoglobin Concent 31.1 L Red Cell Distribution Width 21.3 H Platelet Count 89 L Mean Platelet Volume 11.5 H Immature Granulocytes % 0.600 H Neutrophils % 69.4 Segmented Neutrophils % (Manual) 43 Band Neutrophils % (Manual) 27 H Lymphocytes % 13.8 L Lymphocytes % (Manual) 15 Monocytes % 11.0 Monocytes % (Manual) 8 Eosinophils % 4.9 Eosinophils % (Manual) 6 Basophils % 0.3 Basophils % (Manual) 1 Nucleated Red Blood Cells % 0.0 Immature Granulocytes # 0.050 H Neutrophils # 5.4 Neutrophils # (Manual) 3.5 Band Neutrophils # 2.1 H Lymphocytes (Manual) 1.1 Lymphocytes # 1.1 Monocytes # 0.9 Monocytes # (Manual) 0.6 Eosinophils # 0.4 Basophils # 0.0 Basophils # (Manual) 0.0 Nucleated Red Blood Cells # 0.0 Pathologist Review (Hematology) YES Platelet Estimate DECREASED Giant Platelets 3 H Polychromasia 1+ Hypochromasia 2+ Anisocytosis 2+ Macrocytosis 2+ Target Cells 1+ Sodium Level 139 Potassium Level 4.2 Chloride Level 101 Carbon Dioxide Level 27 Anion Gap 11 Blood Urea Nitrogen 74 #H Creatinine 2.75 #H Est Glomerular Filtrat Rate mL/min Glucose Level 101 Calcium Level 8.4 Phosphorus Level 2.9 Magnesium Level 2.1 Iron Level 82 Total Iron Binding Capacity 167 L Percent Iron Saturation 49 Ferritin 910.0 H Medications Medication Current Medications IV Flush (NS 3 ml) 3 ml PER PROTOCOL IV ; Start 04/06/19 at 23:00 Ondansetron HCl (Zofran Inj) 4 mg Q6H PRN IV NAUSEA/VOMITING; Start 04/06/19 at 23:00 Morphine Sulfate (morphine) 2 mg Q4H PRN IV .PAIN 7-10 Last administered on 04/25/19 23:35; Admin Dose 2 MG; Start 04/06/19 at 23:00 Acetaminophen (Tylenol Liquid) 650 mg Q4H PRN GTB MILD PAIN(1-3) OR TEMP>38C Last administered on 04/25/19 06:40; Admin Dose 650 MG; Start 04/08/19 at 13:30 Zinc Sulfate (Zinc Sulfate) 220 mg DAILY GTB Last administered on 04/26/19 08:26; Admin Dose 220 MG; Start 04/09/19 at 09:00 Atorvastatin Calcium (Lipitor) 20 mg HS PO Last administered on 04/25/19 22:16; Admin Dose 20 MG; Start 04/08/19 at 21:00 Collagenase (Santyl) 1 applic SOILED PRN TOP SOILED; Start 04/08/19 at 14:00 Albuterol (Ventolin Hfa) 2 puff Q4H RESP THERAPY INH Last administered on 04/26/19 05:13; Admin Dose 2 PUFF; Start 04/09/19 at 21:50 Midodrine (Proamatine) 10 mg TID@09,13,17 PO Last administered on 04/26/19 08:26; Admin Dose 10 MG; Start 04/12/19 at 09:00 Collagenase (Santyl) 1 applic DAILY TOP Last administered on 04/26/19 08:26; Admin Dose 1 APPLIC; Start 04/13/19 at 09:00 Sodium Hypochlorite (Dakins Diluted ()) 1 applic DAILY TP Last administered on 04/26/19 08:27; Admin Dose 1 APPLIC; Start 04/13/19 at 09:00 Famotidine (Pepcid) 20 mg DAILY GTB Last administered on 04/26/19 08:26; Admin Dose 20 MG; Start 04/13/19 at 09:00 Vancomycin HCl (Vancomycin Oral Syringe) 125 mg Q6 GTB Last administered on 04/26/19 06:04; Admin Dose 125 MG; Start 04/22/19 at 00:00; Stop 04/28/19 at 23:59 Vancomycin HCl (Vanco Iv Per Pharmacy) VANCOMYCIN PER PHARMACY PER PROTOCOL XX ; Start 04/21/19 at 23:30; Stop 04/28/19 at 23:29 Epoetin Nick-epbx (Retacrit (Esrd)) 10,000 unit MoWeFr@1700 SC Last administered on 04/24/19at 19:02; Admin Dose 10,000 UNIT; Start 04/22/19 at 17:00 Albumin Human 100 ml @ 100 mls/hr WITH DIALYSIS PRN IV SBP < 90 DURING DIALYSIS Last administered on 04/25/19at 12:18; Admin Dose 100 MLS/HR; Start 04/25/19 at 12:30 Midodrine (Proamatine) 10 mg ONCE PRN PO with dialysis; Start 04/26/19 at 09:00 MARS FONSECA Apr 26, 2019 09:49
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
--- NOTE | 2019-04-26 12:25 | CONS ---
Assessment/Plan Assessment/Plan Hospital Course (Demo Recall) Acute blood loss anemia Hypotension with labile blood pressure Elevated troponin, trending down CAD Preserved ejection fraction End-stage renal disease on hemodialysis Encephalopathy Midodrine to be continued, titrate as needed Fluid management via hemodialysis as per nephrology No beta-aidee given labile blood pressure Continue statin therapy if no contraindication Patient currently not on any antiplatelet therapy secondary to anemia Consultation Date/Type/Reason Admit Date/Time Apr 06, 2019 at 22:52 Initial Consult Date 04/08/19 Type of Consult Cardiology Requesting Provider: WILLA CARTY Date/Time of Note DATE: 04/26/19 TIME: 12:24 24 HR Interval Summary Subjective hx not possible: pt non-verbal Exam/Review of Systems Vital Signs Vitals Vital Signs Date Temp Pulse Resp B/P (MAP) Pulse Ox O2 O2 Flow FiO2 Time Delivery Rate 04/26/19 96.9 60 24 89/52 (64) 99 Mechanical 11:38 Ventilator 04/26/19 40 11:24 Intake and Output 04/25/19 04/25/19 04/26/19 1515:00 23:00 07:00 IntakeIntake Total 705 ml 611 ml OutputOutput Total 2000 ml 100 ml 100 ml BalanceBalance -2000 ml 605 ml 511 ml Exam Constitutional: non-verbal (No apparent distress) Head: normocephalic Respiratory: other (Coarse breath sounds bilaterally, no wheezing) Cardiovascular: regular rate and rhythm (S1-S2 heard) Gastrointestinal: soft, non-tender, bowel sounds Extremities: edema Labs Result Diagram: 04/26/19 0605 04/26/19 0605 Results 24hrs Laboratory Tests Test 04/26/19 06:05 White Blood Count 7.8 Red Blood Count 2.21 L Hemoglobin 6.8 *L Hematocrit 21.9 L Mean Corpuscular Volume 99.1 Mean Corpuscular Hemoglobin 30.8 Mean Corpuscular Hemoglobin Concent 31.1 L Red Cell Distribution Width 21.3 H Platelet Count 89 L Mean Platelet Volume 11.5 H Immature Granulocytes % 0.600 H Neutrophils % 69.4 Segmented Neutrophils % (Manual) 43 Band Neutrophils % (Manual) 27 H Lymphocytes % 13.8 L Lymphocytes % (Manual) 15 Monocytes % 11.0 Monocytes % (Manual) 8 Eosinophils % 4.9 Eosinophils % (Manual) 6 Basophils % 0.3 Basophils % (Manual) 1 Nucleated Red Blood Cells % 0.0 Immature Granulocytes # 0.050 H Neutrophils # 5.4 Neutrophils # (Manual) 3.5 Band Neutrophils # 2.1 H Lymphocytes (Manual) 1.1 Lymphocytes # 1.1 Monocytes # 0.9 Monocytes # (Manual) 0.6 Eosinophils # 0.4 Basophils # 0.0 Basophils # (Manual) 0.0 Nucleated Red Blood Cells # 0.0 Pathologist Review (Hematology) YES Platelet Estimate DECREASED Giant Platelets 3 H Polychromasia 1+ Hypochromasia 2+ Anisocytosis 2+ Macrocytosis 2+ Target Cells 1+ Sodium Level 139 Potassium Level 4.2 Chloride Level 101 Carbon Dioxide Level 27 Anion Gap 11 Blood Urea Nitrogen 74 #H Creatinine 2.75 #H Est Glomerular Filtrat Rate mL/min Glucose Level 101 Calcium Level 8.4 Phosphorus Level 2.9 Magnesium Level 2.1 Iron Level 82 Total Iron Binding Capacity 167 L Percent Iron Saturation 49 Ferritin 910.0 H Medications Medications Current Medications IV Flush (NS 3 ml) 3 ml PER PROTOCOL IV ; Start 04/06/19 at 23:00 Ondansetron HCl (Zofran Inj) 4 mg Q6H PRN IV NAUSEA/VOMITING; Start 04/06/19 at 23:00 Morphine Sulfate (morphine) 2 mg Q4H PRN IV .PAIN 7-10 Last administered on 04/25/19at 23:35; Admin Dose 2 MG; Start 04/06/19 at 23:00 Acetaminophen (Tylenol Liquid) 650 mg Q4H PRN GTB MILD PAIN(1-3) OR TEMP>38C Last administered on 04/25/19 06:40; Admin Dose 650 MG; Start 04/08/19 at 13:30 Zinc Sulfate (Zinc Sulfate) 220 mg DAILY GTB Last administered on 04/26/19 08:26; Admin Dose 220 MG; Start 04/09/19 at 09:00 Atorvastatin Calcium (Lipitor) 20 mg HS PO Last administered on 04/25/19 22:16; Admin Dose 20 MG; Start 04/08/19 at 21:00 Collagenase (Santyl) 1 applic SOILED PRN TOP SOILED; Start 04/08/19 at 14:00 Albuterol (Ventolin Hfa) 2 puff Q4H RESP THERAPY INH Last administered on 04/26/19 05:13; Admin Dose 2 PUFF; Start 04/09/19 at 21:50 Midodrine (Proamatine) 10 mg TID@09,13,17 PO Last administered on 04/26/19 12:23; Admin Dose 10 MG; Start 04/12/19 at 09:00 Collagenase (Santyl) 1 applic DAILY TOP Last administered on 04/26/19 08:26; Admin Dose 1 APPLIC; Start 04/13/19 at 09:00 Sodium Hypochlorite (Dakins Diluted ()) 1 applic DAILY TP Last administered on 04/26/19 08:27; Admin Dose 1 APPLIC; Start 04/13/19 at 09:00 Famotidine (Pepcid) 20 mg DAILY GTB Last administered on 04/26/19 08:26; Admin Dose 20 MG; Start 04/13/19 at 09:00 Vancomycin HCl (Vancomycin Oral Syringe) 125 mg Q6 GTB Last administered on 04/26/19 12:23; Admin Dose 125 MG; Start 04/22/19 at 00:00; Stop 04/28/19 at 2 3:59 Vancomycin HCl (Vanco Iv Per Pharmacy) VANCOMYCIN PER PHARMACY PER PROTOCOL XX ; Start 04/21/19 at 23:30; Stop 04/28/19 at 23:29 Epoetin Nick-epbx (Retacrit (Esrd)) 10,000 unit MoWeFr@1700 SC Last administered on 04/24/19 19:02; Admin Dose 10,000 UNIT; Start 04/22/19 at 17:00 Albumin Human 100 ml @ 100 mls/hr WITH DIALYSIS PRN IV SBP < 90 DURING DIALYSIS Last administered on 04/25/19 12:18; Admin Dose 100 MLS/HR; Start 04/25/19 at 12:30 Midodrine (Proamatine) 10 mg ONCE PRN PO with dialysis; Start 04/26/19 at 09:00 Mendoza Ludwig DO Apr 26, 2019 12:25
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
[2019-04-26] MEDS: EPOETIN ALFA-EPBX (ESRD) 10,000 UNIT/ML VIAL SC SCH (17:18)
[2019-04-26] MEDS: ATORVASTATIN 20 MG TAB PO SCH (21:52)
[2019-04-27] VITALS (34 sets, daily range): BP systolic 79–114; BP diastolic 34–60; PULSE 50–68; RESP 18–25
[2019-04-27] MEDS: VANCOMYCIN HCL 250 MG/5ML POSYG GTB SCH ×4 (00:46→18:04)
[2019-04-27] MEDS: ALBUTEROL HFA 8 GM INHALER INH SCH ×6 (00:48→21:41)
[2019-04-27] MEDS: MIDODRINE 5 MG TAB PO SCH ×3 (07:29→18:04)
[2019-04-27] MEDS: ALBUMIN HUMAN 25% 100 ML IV PRN ×2 (08:00→08:33)
--- NOTE | 2019-04-27 08:42 | PN ---
DATE: 04/27/2019 SUBJECTIVE: The patient did not have hemodialysis yesterday, although dialysis was ordered. The pat ient will have hemodialysis this morning. OBJECTIVE: VITAL SIGNS: Blood pressure is a 79/34, pulse 65, respirations 20, temperature 98.5. HEENT: Head is normocephalic. NECK: Supple. HEART: Regular rate. LUNGS: Show diminished breath sounds at the base. ABDOMEN: Soft, nontender to palpation without rebound or guarding. EXTREMITIES: Negative for clubbing, no rashes. Positive edema. DERMATOLOGIC: No rashes. MUSCULOSKELETAL: No joint effusion. NEUROLOGIC: No change in exam. MEDICATIONS: Reviewed. LABORATORY DATA: Has been reviewed. IMAGING STUDIES: Have been reviewed. ASSESSMENT AND PLAN: 1. End-stage renal disease. Plan for hemodialysis today. 2. Anemia. Monitor hemoglobin and hematocrit levels, transfuse PRBCs as needed. Continue Epogen. 3. Mineral bone disorder. Monitor calcium and phosphorus levels. 4. Hypertension. Continue current blood pressure regimen. 5. Diabetes. Continue current insulin regimen. 6. Volume overload. Continue ultrafiltration dialysis. 7. Acute encephalopathy. Etiology is toxic metabolic. Continue to monitor. 8. Ventilator-dependent respiratory failure. Vent settings have been reviewed. Continue to monitor . 9. Non-ST elevation myocardial infarction. Continue medical management. 10. Clostridium difficile colitis. 11. Dysphagia. Continue tube feeding. 12. Multiple wounds. Continue wound care. Dictated By: OLY DEGROOT DO NR/NTS Conf#: [id number] DID#: [id number] CC: CARLITO GUERRA MD;*EndCC*
--- NOTE | 2019-04-27 09:26 | CONS ---
Consultation Date/Type/Reason Admit Date/Time Apr 06, 2019 at 22:52 Initial Consult Date 04/17/19 Type of Consult Pulmonary/critical care Patient is an 89-year-old gentleman who was transferred to ICU from medical floor with episode of hypotension. The patient stabilized and did not require any pressor support. Patient has advanced dementia and was unable to give any history by himself whatsoever. Patient however did not appear to be in any distress. Past medical history; 1. Advanced encephalopathy. 2. End-stage renal disease, on hemodialysis. 3. History of diabetes. 4. History of hypertension. 5. Anemia on admission. Status post blood transfusion. 6. Sacral wound. Medications; reviewed. Allergies; as outlined above. Social history; not available. Occupational history; not available. Family history; patient apparently has a supportive family. Review of system; unable to be obtained. General exam; elderly male, on ventilator via tracheostomy, unresponsive, currently in no distress. Requesting Provider: WILLA CARTY Date/Time of Note DATE: 04/27/19 TIME: 09:25 24 HR Interval Summary Free Text/Dictation Patient's condition is a stable. Has remained hemodynamically stable. General exam; elderly male, on ventilator via tracheostomy, noncommunicative. Currently in no distress. HEENT exam; supple neck, no JVD. No lymphadenopathy. Midline trachea. No thyromegaly. Tracheostomy in place. Chest exam; diminished breath sounds bilaterally. No added sounds. S1-S2 audible, no murmurs. Regular rhythm. Abdomen exam; soft, no organomegaly. G-tube in place. Bowel sounds are audible. Extremity exam; no peripheral edema. Patient does have patchy ecchymosis. TAX ASSOCIATE ATTORNEY exam; patient remains noncommunicative. Ventilator setting; noted. Assessment and recommendations; 1. Patient with history of severe encephalopathy and VDRF admitted for sepsis from pneumonia as well as multiple decubitus ulcers. Currently on appropriate antimicrobial regimen. 2. Chronic renal failure. 3. Anemia. 4. Thrombocytopenia. Continue current supportive care. Hemodialysis per telecommunications field technician. Antibiotics per ID recommendations. Prognosis very poor. Exam/Review of Systems Exam Vitals Vital Signs Date Temp Pulse Resp B/P (MAP) Pulse Ox O2 O2 Flow FiO2 Time Delivery Rate 04/27/19 98.0 55 20 79/34 (49) 93 07:45 04/27/19 40 05:06 04/26/19 Mechanical 16:44 Ventilator Intake and Output 04/26/19 04/26/19 04/27/19 1515:00 23:00 07:00 IntakeIntake Total 480 ml 614 ml OutputOutput Total 40 ml BalanceBalance 440 ml 614 ml Results Result Diagram: 04/27/19 0516 04/27/19 0516 Results 24hrs Laboratory Tests Test 04/27/19 05:16 White Blood Count 8.3 Red Blood Count 2.53 L Hemoglobin 7.8 L Hematocrit 24.5 L Mean Corpuscular Volume 96.8 Mean Corpuscular Hemoglobin 30.8 Mean Corpuscular Hemoglobin Concent 31.8 L Red Cell Distribution Width 21.2 H Platelet Count 99 L Mean Platelet Volume 11.8 H Immature Granulocytes % 0.800 H Neutrophils % 59.5 Lymphocytes % 18.5 Monocytes % 13.0 H Eosinophils % 8.1 H Basophils % 0.1 Nucleated Red Blood Cells % 0.0 Immature Granulocytes # 0.070 H Neutrophils # 4.9 Lymphocytes # 1.5 Monocytes # 1.1 H Eosinophils # 0.7 H Basophils # 0.0 Nucleated Red Blood Cells # 0.0 Sodium Level 136 Potassium Level 4.6 Chloride Level 99 Carbon Dioxide Level 26 Anion Gap 11 Blood Urea Nitrogen 86 H Creatinine 2.95 H Est Glomerular Filtrat Rate mL/min Glucose Level 99 Calcium Level 8.4 Phosphorus Level 3.4 Magnesium Level 2.2 Medications Medication Current Medications IV Flush (NS 3 ml) 3 ml PER PROTOCOL IV ; Start 04/06/19 at 23:00 Ondansetron HCl (Zofran Inj) 4 mg Q6H PRN IV NAUSEA/VOMITING; Start 04/06/19 at 23:00 Morphine Sulfate (morphine) 2 mg Q4H PRN IV .PAIN 7-10 Last administered on 04/25/19at 23:35; Admin Dose 2 MG; Start 04/06/19 at 23:00 Acetaminophen (Tylenol Liquid) 650 mg Q4H PRN GTB MILD PAIN(1-3) OR TEMP>38C Last administered on 04/25/19at 06:40; Admin Dose 650 MG; Start 04/08/19 at 13:30 Zinc Sulfate (Zinc Sulfate) 220 mg DAILY GTB Last administered on 04/26/19at 08:26; Admin Dose 220 MG; Start 04/09/19 at 09:00 Atorvastatin Calcium (Lipitor) 20 mg HS PO Last administered on 04/26/19 21:52; Admin Dose 20 MG; Start 04/08/19 at 21:00 Collagenase (Santyl) 1 applic SOILED PRN TOP SOILED; Start 04/08/19 at 14:00 Albuterol (Ventolin Hfa) 2 puff Q4H RESP THERAPY INH Last administered on 04/27/19 09:14; Admin Dose 2 PUFF; Start 04/09/19 at 21:50 Midodrine (Proamatine) 10 mg TID@,13,17 PO Last administered on 04/27/19 07:29; Admin Dose 10 MG; Start 04/12/19 at 09:00 Collagenase (Santyl) 1 applic DAILY TOP Last administered on 04/26/19 08:26; Admin Dose 1 APPLIC; Start 04/13/19 at 09:00 Sodium Hypochlorite (Dakins Diluted (40)) 1 applic DAILY TP Last administered on 04/26/19 08:27; Admin Dose 1 APPLIC; Start 04/13/19 at 09:00 Famotidine (Pepcid) 20 mg DAILY GTB Last administered on 04/26/19 08:26; Admin Dose 20 MG; Start 04/13/19 at 09:00 Vancomycin HCl (Vanco Iv Per Pharmacy) VANCOMYCIN PER PHARMACY PER PROTOCOL XX ; Start 04/21/19 at 23:30; Stop 04/28/19 at 23:29 Epoetin Nick-epbx (Retacrit (Esrd)) 10,000 unit MoWeFr@1700 SC Last administered on 04/26/19 17:18; Admin Dose 10,000 UNIT; Start 04/22/19 at 17:00 Albumin Human 100 ml @ 100 mls/hr WITH DIALYSIS PRN IV SBP < 90 DURING DIALYSIS Last administered on 04/27/19 08:33; Admin Dose 100 MLS/HR; Start 04/25/19 at 12:30 Midodrine (Proamatine) 10 mg ONCE PRN PO with dialysis; Start 04/26/19 at 09:00 Vancomycin HCl (Vancomycin Oral Syringe) 125 mg Q6 GTB Last administered on 04/27/19 06:13; Admin Dose 125 MG; Start 04/26/19 at 18:00; Stop 05/05/19 at 23:59 MARS FONSECA Apr 27, 2019 09:26
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
[2019-04-27] MEDS: FAMOTIDINE 20 MG TAB GTB SCH (11:39)
[2019-04-27] MEDS: ZINC SULFATE 220 MG CAP GTB SCH (11:39)
[2019-04-27] MEDS: DAKINS 0.0125%(1/40) 473 ML SOLUTION TP SCH (11:40)
[2019-04-27] MEDS: COLLAGENASE 5 GM (UD JAR) TOP SCH (11:40)
--- NOTE | 2019-04-27 14:03 | CONS ---
Assessment/Plan Assessment/Plan Assessment/Plan (Daily) Acute blood loss anemia Hypotension with labile blood pressure Elevated troponin, trending down CAD Preserved ejection fraction End-stage renal disease on hemodialysis Encephalopathy Midodrine to be continued, titrate as needed Fluid management via hemodialysis as per nephrology No beta-aidee given labile blood pressure Continue statin therapy if no contraindication Patient currently not on any antiplatelet therapy secondary to anemia Consultation Date/Type/Reason Admit Date/Time Apr 06, 2019 at 22:52 Initial Consult Date 04/17/19 Type of Consult Cardiology Requesting Provider: WILLA CARTY Date/Time of Note DATE: 04/27/19 TIME: 14:02 24 HR Interval Summary Free Text/Dictation the aptient with no cahnge Exam/Review of Systems Vital Signs Vitals Vital Signs Date Temp Pulse Resp B/P (MAP) Pulse Ox O2 O2 Flow FiO2 Time Delivery Rate 04/27/19 98.3 66 20 83/46 (58) 98 11:22 04/27/19 40 08:00 04/27/19 Mechanical 07:50 Ventilator Trach Collar Intake and Output 04/26/19 04/26/19 04/27/19 1515:00 23:00 07:00 IntakeIntake Total 480 ml 614 ml OutputOutput Total 40 ml BalanceBalance 440 ml 614 ml Labs Result Diagram: 04/27/19 0516 04/27/19 0516 Results 24hrs Laboratory Tests Test 04/27/19 05:16 White Blood Count 8.3 Red Blood Count 2.53 L Hemoglobin 7.8 L Hematocrit 24.5 L Mean Corpuscular Volume 96.8 Mean Corpuscular Hemoglobin 30.8 Mean Corpuscular Hemoglobin Concent 31.8 L Red Cell Distribution Width 21.2 H Platelet Count 99 L Mean Platelet Volume 11.8 H Immature Granulocytes % 0.800 H Neutrophils % 59.5 Lymphocytes % 18.5 Monocytes % 13.0 H Eosinophils % 8.1 H Basophils % 0.1 Nucleated Red Blood Cells % 0.0 Immature Granulocytes # 0.070 H Neutrophils # 4.9 Lymphocytes # 1.5 Monocytes # 1.1 H Eosinophils # 0.7 H Basophils # 0.0 Nucleated Red Blood Cells # 0.0 Sodium Level 136 Potassium Level 4.6 Chloride Level 99 Carbon Dioxide Level 26 Anion Gap 11 Blood Urea Nitrogen 86 H Creatinine 2.95 H Est Glomerular Filtrat Rate mL/min Glucose Level 99 Calcium Level 8.4 Phosphorus Level 3.4 Magnesium Level 2.2 Medications Medications Current Medications IV Flush (NS 3 ml) 3 ml PER PROTOCOL IV ; Start 04/06/19 at 23:00 Ondansetron HCl (Zofran Inj) 4 mg Q6H PRN IV NAUSEA/VOMITING; Start 04/06/19 at 23:00 Morphine Sulfate (morphine) 2 mg Q4H PRN IV .PAIN 7-10 Last administered on 04/25/19 23:35; Admin Dose 2 MG; Start 04/06/19 at 23:00 Acetaminophen (Tylenol Liquid) 650 mg Q4H PRN GTB MILD PAIN(1-3) OR TEMP>38C Last administered on 04/25/19 06:40; Admin Dose 650 MG; Start 04/08/19 at 13:30 Zinc Sulfate (Zinc Sulfate) 220 mg DAILY GTB Last administered on 04/27/19 11:39; Admin Dose 220 MG; Start 04/09/19 at 09:00 Atorvastatin Calcium (Lipitor) 20 mg HS PO Last administered on 04/26/19 21:52; Admin Dose 20 MG; Start 04/08/19 at 21:00 Collagenase (Santyl) 1 applic SOILED PRN TOP SOILED; Start 04/08/19 at 14:00 Albuterol (Ventolin Hfa) 2 puff Q4H RESP THERAPY INH Last administered on 04/27/19 12:49; Admin Dose 2 PUFF; Start 04/09/19 at 21:50 Midodrine (Proamatine) 10 mg TID@,13,17 PO Last administered on 04/27/19 13:31; Admin Dose 10 MG; Start 04/12/19 at 09:00 Collagenase (Santyl) 1 applic DAILY TOP Last administered on 04/27/19 11:40; Admin Dose 1 APPLIC; Start 04/13/19 at 09:00 Sodium Hypochlorite (Dakins Diluted ()) 1 applic DAILY TP Last administered on 04/27/19 11:40; Admin Dose 1 APPLIC; Start 04/13/19 at 09:00 Famotidine (Pepcid) 20 mg DAILY GTB Last administered on 04/27/19 11:39; Admin Dose 20 MG; Start 04/13/19 at 09:00 Vancomycin HCl (Vanco Iv Per Pharmacy) VANCOMYCIN PER PHARMACY PER PROTOCOL XX ; Start 04/21/19 at 23:30; Stop 04/28/19 at 23:29 Epoetin Nick-epbx (Retacrit (Esrd)) 10,000 unit MoWeFr@1700 SC Last administered on 04/26/19at 17:18; Admin Dose 10,000 UNIT; Start 04/22/19 at 17:00 Albumin Human 100 ml @ 100 mls/hr WITH DIALYSIS PRN IV SBP < 90 DURING DIALYSIS Last administered on 04/27/19at 08:33; Admin Dose 100 MLS/HR; Start 04/25/19 at 12:30 Midodrine (Proamatine) 10 mg ONCE PRN PO with dialysis; Start 04/26/19 at 09:00 Vancomycin HCl (Vancomycin Oral Syringe) 125 mg Q6 GTB Last administered on 04/27/19at 13:30; Admin Dose 125 MG; Start 04/26/19 at 18:00; Stop 05/05/19 at 23:59 RUSTY RAMAN MD Apr 27, 2019 14:03
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
[2019-04-27] MEDS: ATORVASTATIN 20 MG TAB PO SCH (21:30)
[2019-04-28] VITALS (18 sets, daily range): BP systolic 101–112; BP diastolic 51–66; PULSE 60–74; RESP 20–27
[2019-04-28] MEDS: VANCOMYCIN HCL 250 MG/5ML POSYG GTB SCH ×4 (00:45→17:12)
[2019-04-28] MEDS: ALBUTEROL HFA 8 GM INHALER INH SCH ×6 (01:14→21:16)
[2019-04-28] MEDS ORDERED: traMADol 50 MG TAB GTB PRN (02:00)
--- NOTE | 2019-04-28 08:08 | PN ---
DATE: 04/28/2019 SUBJECTIVE: The patient is stable. No events overnight. OBJECTIVE: VITAL SIGNS: Blood pressure is 106/65, pulse 62, respirations 20, temperature 98.2. HEENT: Head is normocephalic. NECK: Supple. HEART: Regular rate. LUNGS: Show diminished breath sounds at the base. ABDOMEN: Soft, nontender to palpation without rebound or guarding. EXTREMITIES: Negative for clubbing, cyanosis, no edema. DERMATOLOGIC: No rashes. MUSCULOSKELETAL: No joint effusion. NEUROLOGIC: No change in exam. MEDICATIONS: The patient's medications have been reviewed. LABORATORY DATA: Reviewed. Imaging studies have been reviewed. ASSESSMENT AND PLAN: 1. End-stage renal disease. Plan for hemodialysis tomorrow. 2. Anemia. Monitor hemoglobin and hematocrit levels. Continue Epogen. 3. Mineral bone disorder. Monitor calcium and phosphorus levels. 4. Hypertension. Continue current blood pressure regimen. 5. Diabetes. Continue current insulin regimen. 6. Volume overload. Continue ultrafiltration with dialysis. 7. Acute encephalopathy, etiology is toxic metabolic. Continue to monitor. 8. Ventilator-dependent respiratory failure. Vent settings have been reviewed. Continue to monitor . 9. Non-STEMI. Continue medical management. 10. Clostridium difficile colitis. 11. Dysphagia. Continue tube feeding. 12. Multiple wounds. Continue wound care. Dictated By: OLY DEGROOT DO NR/NTS Conf#: [id number] DID#: [id number] CC: JENNYFER DE LEÓN MD; CARLITO GUERRA MD;*EndCC*
[2019-04-28] MEDS: MIDODRINE 5 MG TAB PO SCH ×3 (08:48→17:12)
[2019-04-28] MEDS: FAMOTIDINE 20 MG TAB GTB SCH (08:48)
[2019-04-28] MEDS: ZINC SULFATE 220 MG CAP GTB SCH (08:48)
[2019-04-28] MEDS: COLLAGENASE 5 GM (UD JAR) TOP SCH (08:48)
[2019-04-28] MEDS: DAKINS 0.0125%(1/40) 473 ML SOLUTION TP SCH (08:49)
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
--- NOTE | 2019-04-28 14:55 | CONS ---
Consult Date/Type/Reason Admit Date/Time Apr 06, 2019 at 22:52 Initial Consult Date 04/17/19 Type of Consultation: Pulm Requesting Provider: WILLA CARTY Date/Time of Note DATE: 04/28/19 TIME: 14:54 Subjective On the vent. No events overnight. Elevated PIP noted on vent. Objective Vitals Vital Signs Date Temp Pulse Resp B/P (MAP) Pulse Ox O2 O2 Flow FiO2 Time Delivery Rate 04/28/19 97.9 74 22 109/66 99 12:06 (80) 04/28/19 40 08:27 04/27/19 Mechanical 07:50 Ventilator Trach Collar Intake and Output 04/27/19 04/27/19 04/28/19 1515:00 23:00 07:00 IntakeIntake Total 730 ml 780 ml OutputOutput Total 2350 ml 160 ml 500 ml BalanceBalance -2350 ml 570 ml 280 ml Exam HEENT: Neck supple; no JVD; no LAD; + trach CVS: RRR, S1 and S2 CHEST: Coarse BS b/l ABD: Soft, NT, + BS EXT: No c/c; + edema Results/Medications Result Diagram: 04/27/1951504/27/19515 Home Meds Reported Medications Zinc Sulfate* (Zinc Sulfate*) 220 Mg Tablet, 220 MG G-TUBE DAILY, TAB 02/14/19 Sodium Hypochlorite (Dakin's (1/4 Strength)) 473 Ml Irrig.soln, 473 ML IRR DAILY, BOTTLE 02/14/19 Vancomycin Hcl (Vancocin Hcl Oral) 250 Mg Capsule, 250 MG PO Q6, CAP 02/14/19 Silver Sulfadiazine* (Silvadene*) 1% - 20 Gm Cream.gm., 1 APPLIC TOP DAILY, #1 TUB 02/14/19 Oxycodone Hcl* (IR) (Oxycodone Hcl*) 5 Mg Capsule, 5 MG PO Q6H PRN for PAIN, CAP 02/14/19 Ondansetron Hcl* (Ondansetron Hcl* Inj) 4 Mg/2 Ml Vial, 4 MG IV Q6 PRN for NAUSEA AND/OR VOMITING, VIAL 02/14/19 Multivitamins* (Theragran*) 1 Tab Tab, 1 TAB PO DAILY, TAB 02/14/19 Miconazole Nitrate* (Miconazole*) 2% - 45 Gm Cr, 1 APPFUL VAGINAL BID, #1 TUB 02/14/19 Miconazole Nitrate* (Miconazole Nitrate*) 2% - 30 Gm Cr, 1 APPLIC TOP BID, TUB 02/14/19 Metronidazole/Sodium Chloride (Metro IV 500 mg/100 ml) 500 Mg/100 Ml Piggyback, 500 MG IV Q8H 02/14/19 Metoclopramide HCl (Metoclopramide HCl) 10 Mg/2 Ml Syringe, 5 MG IJ TID 02/14/19 Heparin Sodium,Porcine/Pf (Heparin 2,000 Unit/2 ml Vial) 1,000 Unit/1 Ml Vial, 5000 UNIT IJ Q12, VIAL 02/14/19 Glucagon,Human Recombinant (Glucagon Emergency Kit) 1 Mg Kit, 1 MG IJ PRN for FOR BS<70, KIT 02/14/19 Epoetin amauri* (Epogen*) 4,000 Unit/1 Ml Vial, 55763 UNIT SC WITH DIALYSIS, VIAL 02/14/19 Dextrose/Sod Chloride* (D5-1/2NS*) 1,000 Ml Iv.soln., 1000 ML IV 50 ML/HR, EA 02/14/19 Dextrose* (D50W Syringe*) 50 Ml Soln, 50 ML INJ PRN FOR BS<70, EA 02/14/19 Collagenase* (Santyl*) 30 Gm Oint..gm., 1 APPLIC TOP .SOILED PRN for SOILED, #1 TUB 02/14/19 Chlorhexidine Gluconate* (Chlorhexidine Gluconate*) 118 Ml Liquid, 10 ML TOP Q12, ML 02/14/19 Balsam Lanexa/[place] Oil (CIRCUDERM EMOLLIENT) 3 Gm Oint.pack, 3 GM TP Q12 02/14/19 Albuterol Sulfate* (Albuterol Sulfate* Neb) 0.083%-3 Ml Neb, 2.5 MG NEB Q4H, #30 VIAL 02/14/19 Albumin Human* (Albumin 25%*) 100 Ml Soln, 100 ML IV WITH DIALYSIS, BOTTLE 02/14/19 Acetaminophen* (Acetaminophen* Susp) 325 Mg/10.15 Ml Solution, 500 MG GTB Q8 PRN for MILD PAIN(1-3) OR TEMP>38C, ML 02/14/19 Acetaminophen* (Acetaminophen* Susp) 325 Mg/10.15 Ml Solution, 650 MG G-TUBE Q4H PRN for PAIN OR TEMP ABOVE 38C, ML 02/14/19 Medications Current Medications IV Flush (NS 3 ml) 3 ml PER PROTOCOL IV ; Start 04/06/19 at 23:00 Ondansetron HCl (Zofran Inj) 4 mg Q6H PRN IV NAUSEA/VOMITING; Start 04/06/19 at 23:00 Morphine Sulfate (morphine) 2 mg Q4H PRN IV .PAIN 7-10 Last administered on 04/25/19 23:35; Admin Dose 2 MG; Start 04/06/19 at 23:00 Acetaminophen (Tylenol Liquid) 650 mg Q4H PRN GTB MILD PAIN(1-3) OR TEMP>38C Last administered on 04/25/19 06:40; Admin Dose 650 MG; Start 04/08/19 at 13:30 Zinc Sulfate (Zinc Sulfate) 220 mg DAILY GTB Last administered on 04/28/19 08:48; Admin Dose 220 MG; Start 04/09/19 at 09:00 Atorvastatin Calcium (Lipitor) 20 mg HS PO Last administered on 04/27/19 21:30; Admin Dose 20 MG; Start 04/08/19 at 21:00 Collagenase (Santyl) 1 applic SOILED PRN TOP SOILED; Start 04/08/19 at 14:00 Albuterol (Ventolin Hfa) 2 puff Q4H RESP THERAPY INH Last administered on 04/28/19 13:07; Admin Dose 2 PUFF; Start 04/09/19 at 21:50 Midodrine (Proamatine) 10 mg TID@,,17 PO Last administered on 04/28/19 12:27; Admin Dose 10 MG; Start 04/12/19 at 09:00 Collagenase (Santyl) 1 applic DAILY TOP Last administered on 04/28/19 08:48; Admin Dose 1 APPLIC; Start 04/13/19 at 09:00 Sodium Hypochlorite (Dakins Diluted ()) 1 applic DAILY TP Last administered on 04/28/19 08:49; Admin Dose 1 APPLIC; Start 04/13/19 at 09:00 Famotidine (Pepcid) 20 mg DAILY GTB Last administered on 8/4/19at 08:48; Admin Dose 20 MG; Start 04/13/19 at 09:00 Vancomycin HCl (Vanco Iv Per Pharmacy) VANCOMYCIN PER PHARMACY PER PROTOCOL XX ; Start 04/21/19 at 23:30; Stop 04/28/19 at 23:29 Epoetin Amauri-epbx (Retacrit (Esrd)) 10,000 unit MoWeFr@1700 SC Last administered on 04/26/19at 17:18; Admin Dose 10,000 UNIT; Start 04/22/19 at 17:00 Albumin Human 100 ml @ 100 mls/hr WITH DIALYSIS PRN IV SBP < 90 DURING DIALYSIS Last administered on 04/27/19at 08:33; Admin Dose 100 MLS/HR; Start 04/25/19 at 12:30 Midodrine (Proamatine) 10 mg ONCE PRN PO with dialysis; Start 04/26/19 at 09:00 Vancomycin HCl (Vancomycin Oral Syringe) 125 mg Q6 GTB Last administered on 04/28/19at 12:26; Admin Dose 125 MG; Start 04/26/19 at 18:00; Stop 05/05/19 at 23:59 Tramadol HCl (Ultram) 50 mg Q6H PRN GTB MODERATE PAIN LEVEL 4-6; Start 04/28/19 at 02:00 Assessment/Plan Assessment/Plan (Daily) IMP: 1. Sepsis 2. VDRF 3. ESRD on HD 4. Pleura effusion 5. Anemia RECS: 1. Continue current vent settings 2. CPT and suctioning prn 3. BD's 4. Am CXR YASH YODER MD Apr 28, 2019 14:55
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
[2019-04-28] MEDS: ATORVASTATIN 20 MG TAB PO SCH (21:09)
[2019-04-29] VITALS (31 sets, daily range): BP systolic 68–126; BP diastolic 33–61; PULSE 51–65; RESP 18–26
[2019-04-29] MEDS: VANCOMYCIN HCL 250 MG/5ML POSYG GTB SCH ×4 (00:13→17:12)
[2019-04-29] MEDS: ALBUTEROL HFA 8 GM INHALER INH SCH ×6 (01:12→19:51)
--- NOTE | 2019-04-29 08:22 | PN ---
DATE: 04/29/2019 SUBJECTIVE: The patient is stable, no events overnight. OBJECTIVE: VITAL SIGNS: Blood pressure is 132/58, pulse 55, respirations 20, temperature 98.6. HEENT: Head is normocephalic. NECK: Supple. HEART: Regular rate. LUNGS: Show diminished breath sounds at the base. ABDOMEN: Soft, nontender to palpation without rebound or guarding. EXTREMITIES: Negative for clubbing, cyanosis. Positive edema. DERMATOLOGIC: No rashes. MUSCULOSKELETAL: No joint effusion. NEUROLOGIC: No change in exam. MEDICATIONS: Reviewed. LABORATORY DATA: Has been reviewed. IMAGING STUDIES: Have been reviewed. ASSESSMENT AND PLAN: 1. End-stage renal disease. Plan for hemodialysis today. We will dialyze 3 hours 2k bath, calcium 2.5. 2. Anemia. Monitor hemoglobin and hematocrit levels. Continue Epogen. 3. 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 4. Hypertension. Continue current blood pressure regimen. 5. Diabetes. Continue current insulin regimen. 6. Volume overload. Continue ultrafiltration dialysis. 7. Acute encephalopathy, etiology is toxic metabolic. Continue to monitor. 8. Ventilator dependent respiratory failure. Vent settings and ABG was reviewed. Continue to monit or. 9. Non-STEMI, continue medical management. 10. C. diff colitis. 11. Dysphagia, continue tube feeding. 12. Multiple wounds. Continue wound care. Dictated By: OLY SLATER/NTS Conf#: [id number] DID#: [id number] CC: CARLITO GUERRA MD;*EndCC*
[2019-04-29] MEDS: FAMOTIDINE 20 MG TAB GTB SCH (08:23)
[2019-04-29] MEDS: DAKINS 0.0125%(1/40) 473 ML SOLUTION TP SCH (08:23)
[2019-04-29] MEDS: COLLAGENASE 5 GM (UD JAR) TOP SCH (08:23)
[2019-04-29] MEDS: MIDODRINE 5 MG TAB PO SCH ×3 (08:23→17:12)
[2019-04-29] MEDS: ZINC SULFATE 220 MG CAP GTB SCH (08:23)
--- NOTE | 2019-04-29 11:33 | CONS ---
Consultation Date/Type/Reason Admit Date/Time Apr 06, 2019 at 22:52 Initial Consult Date 04/17/19 Type of Consult Pulmonary/critical care Patient is an 89-year-old gentleman who was transferred to ICU from medical floor with episode of hypotension. The patient stabilized and did not require any pressor support. Patient has advanced dementia and was unable to give any history by himself whatsoever. Patient however did not appear to be in any distress. Past medical history; 1. Advanced encephalopathy. 2. End-stage renal disease, on hemodialysis. 3. History of diabetes. 4. History of hypertension. 5. Anemia on admission. Status post blood transfusion. 6. Sacral wound. Medications; reviewed. Allergies; as outlined above. Social history; not available. Occupational history; not available. Family history; patient apparently has a supportive family. Review of system; unable to be obtained. General exam; elderly male, on ventilator via tracheostomy, unresponsive, currently in no distress. Requesting Provider: WILLA CARTY Date/Time of Note DATE: 04/29/19 TIME: 11:31 24 HR Interval Summary Free Text/Dictation Patient's condition is critical. Remains noncommunicative. Patient however has remained hemodynamically stable. General exam; elderly male, on ventilator via tracheostomy, noncommunicative and unresponsive to any commands. Currently in no distress. HEENT exam; supple neck, no JVD. No lymphadenopathy. Midline trachea. No thyromegaly. Tracheostomy in place. No neck masses. Chest exam; diminished breath sounds bilaterally. S1-S2 audible, no murmurs. Regular rhythm. Abdomen exam; soft, no organomegaly. G-tube in place. Bowel sounds are audible. Extremity exam; no edema. Patient has a flexion contractures. [employer] exam; patient remains noncommunicative. Ventilator setting; reviewed. Chest x-ray was reviewed from today which is showing large right pleural effusion. Assessment and recommendations; 1. Patient with history of severe chronic encephalopathy and VDRF admitted for sepsis and pneumonia, currently on appropriate treatment regimen. 2. End-stage renal disease, on hemodialysis. 3. Recurrent large right pleural effusion. 4. Sacral wound growing multiple organisms. 5. Anemia and thrombocytopenia. Continue current supportive care. Obtain follow-up chest x-ray in 48 hours. If the patient has persistent effusion after dialysis then he would need thoracentesis performed. Prognosis appears very poor. Exam/Review of Systems Exam Vitals Vital Signs Date Temp Pulse Resp B/P (MAP) Pulse Ox O2 O2 Flow FiO2 Time Delivery Rate 04/29/19 40 08:00 04/29/19 98.6 55 20 113/58 99 07:13 (76) 04/27/19 Mechanical 07:50 Ventilator Trach Collar Intake and Output 04/28/19 04/28/19 04/29/19 1515:00 23:00 07:00 IntakeIntake Total 780 ml OutputOutput Total 150 ml 600 ml BalanceBalance -150 ml 180 ml Results Result Diagram: 04/29/19 0605 04/29/19 0605 Results 24hrs Laboratory Tests Test 04/29/19 06:05 White Blood Count 8.8 Red Blood Count 2.78 L Hemoglobin 8.4 L Hematocrit 26.3 L Mean Corpuscular Volume 94.6 Mean Corpuscular Hemoglobin 30.2 Mean Corpuscular Hemoglobin Concent 31.9 L Red Cell Distribution Width 21.7 H Platelet Count 100 L Mean Platelet Volume 12.0 H Immature Granulocytes % 0.700 H Neutrophils % 55.8 Lymphocytes % 15.8 Monocytes % 12.9 H Eosinophils % 14.5 H Basophils % 0.3 Nucleated Red Blood Cells % 0.0 Immature Granulocytes # 0.060 H Neutrophils # 4.9 Lymphocytes # 1.4 Monocytes # 1.1 H Eosinophils # 1.3 H Basophils # 0.0 Nucleated Red Blood Cells # 0.0 Sodium Level 138 Potassium Level 4.4 Chloride Level 101 Carbon Dioxide Level 27 Anion Gap 10 Blood Urea Nitrogen 71 H Creatinine 2.51 H Est Glomerular Filtrat Rate mL/min Glucose Level 100 Calcium Level 8.7 Medications Medication Current Medications IV Flush (NS 3 ml) 3 ml PER PROTOCOL IV ; Start 04/06/19 at 23:00 Ondansetron HCl (Zofran Inj) 4 mg Q6H PRN IV NAUSEA/VOMITING; Start 04/06/19 at 23:00 Morphine Sulfate (morphine) 2 mg Q4H PRN IV .PAIN 7-10 Last administered on 04/25/19at 23:35; Admin Dose 2 MG; Start 04/06/19 at 23:00 Acetaminophen (Tylenol Liquid) 650 mg Q4H PRN GTB MILD PAIN(1-3) OR TEMP>38C Last administered on 04/25/19 06:40; Admin Dose 650 MG; Start 04/08/19 at 13:30 Zinc Sulfate (Zinc Sulfate) 220 mg DAILY GTB Last administered on 04/29/19 08:23; Admin Dose 220 MG; Start 04/09/19 at 09:00 Atorvastatin Calcium (Lipitor) 20 mg HS PO Last administered on 04/28/19 21:09; Admin Dose 20 MG; Start 04/08/19 at 21:00 Collagenase (Santyl) 1 applic SOILED PRN TOP SOILED; Start 04/08/19 at 14:00 Albuterol (Ventolin Hfa) 2 puff Q4H RESP THERAPY INH Last administered on 04/29/19 09:28; Admin Dose 2 PUFF; Start 04/09/19 at 21:50 Midodrine (Proamatine) 10 mg TID@09,13,17 PO Last administered on 04/29/19 08:23; Admin Dose 10 MG; Start 04/12/19 at 09:00 Collagenase (Santyl) 1 applic DAILY TOP Last administered on 04/29/19 08:23; Admin Dose 1 APPLIC; Start 04/13/19 at 09:00 Sodium Hypochlorite (Dakins Diluted ()) 1 applic DAILY TP Last administered on 04/29/19 08:23; Admin Dose 1 APPLIC; Start 04/13/19 at 09:00 Famotidine (Pepcid) 20 mg DAILY GTB Last administered on 04/29/19 08:23; Admin Dose 20 MG; Start 04/13/19 at 09:00 Epoetin Nick-epbx (Retacrit (Esrd)) 10,000 unit MoWeFr@1700 SC Last administered on 04/26/19 17:18; Admin Dose 10,000 UNIT; Start 04/22/19 at 17:00 Albumin Human 100 ml @ 100 mls/hr WITH DIALYSIS PRN IV SBP < 90 DURING DIALYSIS Last administered on 04/27/19 08:33; Admin Dose 100 MLS/HR; Start 04/25/19 at 12:30 Midodrine (Proamatine) 10 mg ONCE PRN PO with dialysis; Start 04/26/19 at 09:00 Vancomycin HCl (Vancomycin Oral Syringe) 125 mg Q6 GTB Last administered on 8/5/19at 06:31; Admin Dose 125 MG; Start 04/26/19 at 18:00; Stop 05/05/19 at 23:59 Tramadol HCl (Ultram) 50 mg Q6H PRN GTB MODERATE PAIN LEVEL 4-6; Start 04/28/19 at 02:00 MARS FONSECA Apr 29, 2019 11:33
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
[2019-04-29] MEDS: ALBUMIN HUMAN 25% 100 ML IV PRN ×2 (14:15→15:27)
[2019-04-29] MEDS: EPOETIN ALFA-EPBX (ESRD) 10,000 UNIT/ML VIAL SC SCH (17:13)
--- NOTE | 2019-04-29 18:58 | CONS ---
Assessment/Plan Assessment/Plan Hospital Course (Demo Recall) Acute blood loss anemia Hypotension with labile blood pressure Elevated troponin, trending down CAD Preserved ejection fraction End-stage renal disease on hemodialysis Encephalopathy Midodrine to be continued, titrate as needed Fluid management via hemodialysis as per nephrology No beta-aidee given labile blood pressure Continue statin therapy if no contraindication Patient currently not on any antiplatelet therapy secondary to anemia Consultation Date/Type/Reason Admit Date/Time Apr 06, 2019 at 22:52 Initial Consult Date 04/08/19 Type of Consult Cardiology Requesting Provider: WILLA CARTY Date/Time of Note DATE: 04/29/19 TIME: 18:57 24 HR Interval Summary Subjective hx not possible: pt non-verbal Exam/Review of Systems Vital Signs Vitals Vital Signs Date Temp Pulse Resp B/P (MAP) Pulse Ox O2 O2 Flow FiO2 Time Delivery Rate 04/29/19 52 24 100 40 17:22 04/29/19 104/54 Mechanical 13:50 (71) Ventilator 04/29/19 98.2 11:57 Intake and Output 04/28/19 04/28/19 04/29/19 1414:59 22:59 06:59 IntakeIntake Total 780 ml OutputOutput Total 150 ml 600 ml BalanceBalance -150 ml 180 ml Exam Constitutional: non-verbal (nad) Head: normocephalic Respiratory: other (course bs, no wheeze) Cardiovascular: regular rate and rhythm (s1s2) Gastrointestinal: soft, non-tender, bowel sounds Extremities: edema Labs Result Diagram: 04/29/19 0605 04/29/19 0605 Results 24hrs Laboratory Tests Test 04/29/19 06:05 White Blood Count 8.8 Red Blood Count 2.78 L Hemoglobin 8.4 L Hematocrit 26.3 L Mean Corpuscular Volume 94.6 Mean Corpuscular Hemoglobin 30.2 Mean Corpuscular Hemoglobin Concent 31.9 L Red Cell Distribution Width 21.7 H Platelet Count 100 L Mean Platelet Volume 12.0 H Immature Granulocytes % 0.700 H Neutrophils % 55.8 Lymphocytes % 15.8 Monocytes % 12.9 H Eosinophils % 14.5 H Basophils % 0.3 Nucleated Red Blood Cells % 0.0 Immature Granulocytes # 0.060 H Neutrophils # 4.9 Lymphocytes # 1.4 Monocytes # 1.1 H Eosinophils # 1.3 H Basophils # 0.0 Nucleated Red Blood Cells # 0.0 Sodium Level 138 Potassium Level 4.4 Chloride Level 101 Carbon Dioxide Level 27 Anion Gap 10 Blood Urea Nitrogen 71 H Creatinine 2.51 H Est Glomerular Filtrat Rate mL/min Glucose Level 100 Calcium Level 8.7 Medications Medications Current Medications IV Flush (NS 3 ml) 3 ml PER PROTOCOL IV ; Start 04/06/19 at 23:00 Ondansetron HCl (Zofran Inj) 4 mg Q6H PRN IV NAUSEA/VOMITING; Start 04/06/19 at 23:00 Morphine Sulfate (morphine) 2 mg Q4H PRN IV .PAIN 7-10 Last administered on 04/25/19 23:35; Admin Dose 2 MG; Start 04/06/19 at 23:00 Acetaminophen (Tylenol Liquid) 650 mg Q4H PRN GTB MILD PAIN(1-3) OR TEMP>38C Last administered on 04/25/19 06:40; Admin Dose 650 MG; Start 04/08/19 at 13:30 Zinc Sulfate (Zinc Sulfate) 220 mg DAILY GTB Last administered on 04/29/19 08:23; Admin Dose 220 MG; Start 04/09/19 at 09:00 Atorvastatin Calcium (Lipitor) 20 mg HS PO Last administered on 04/28/19 21:09; Admin Dose 20 MG; Start 04/08/19 at 21:00 Collagenase (Santyl) 1 applic SOILED PRN TOP SOILED; Start 04/08/19 at 14:00 Albuterol (Ventolin Hfa) 2 puff Q4H RESP THERAPY INH Last administered on 04/29/19 16:42; Admin Dose 2 PUFF; Start 04/09/19 at 21:50 Midodrine (Proamatine) 10 mg TID@,13,17 PO Last administered on 04/29/19 17:12; Admin Dose 10 MG; Start 04/12/19 at 09:00 Collagenase (Santyl) 1 applic DAILY TOP Last administered on 04/29/19 08:23; Admin Dose 1 APPLIC; Start 04/13/19 at 09:00 Sodium Hypochlorite (Dakins Diluted ()) 1 applic DAILY TP Last administered on 04/29/19 08:23; Admin Dose 1 APPLIC; Start 7/20/19 at 09:00 Famotidine (Pepcid) 20 mg DAILY GTB Last administered on 04/29/19 08:23; Admin Dose 20 MG; Start 04/13/19 at 09:00 Epoetin Nick-epbx (Retacrit (Esrd)) 10,000 unit MoWeFr@1700 SC Last administered on 04/29/19 17:13; Admin Dose 10,000 UNIT; Start 04/22/19 at 17:00 Albumin Human 100 ml @ 100 mls/hr WITH DIALYSIS PRN IV SBP < 90 DURING DIALYSIS Last administered on 04/29/19at 15:27; Admin Dose 100 MLS/HR; Start 04/25/19 at 12:30 Midodrine (Proamatine) 10 mg ONCE PRN PO with dialysis; Start 04/26/19 at 09:00 Vancomycin HCl (Vancomycin Oral Syringe) 125 mg Q6 GTB Last administered on 04/29/19at 17:12; Admin Dose 125 MG; Start 04/26/19 at 18:00; Stop 05/05/19 at 23:59 Tramadol HCl (Ultram) 50 mg Q6H PRN GTB MODERATE PAIN LEVEL 4-6; Start 04/28/19 at 02:00 Mendoza Ludwig DO Apr 29, 2019 18:58
[2019-04-29] MEDS: ATORVASTATIN 20 MG TAB PO SCH (21:27)
[2019-04-30] VITALS (18 sets, daily range): BP systolic 89–109; BP diastolic 45–52; PULSE 56–71; RESP 18–24
[2019-04-30] MEDS ORDERED: EPINEPHrine 0.1 MG/ML SYG ONE
[2019-04-30] MEDS: VANCOMYCIN HCL 250 MG/5ML POSYG GTB SCH ×4 (00:20→17:02)
[2019-04-30] MEDS: ALBUTEROL HFA 8 GM INHALER INH SCH ×6 (01:31→21:26)
[2019-04-30] MEDS: FAMOTIDINE 20 MG TAB GTB SCH (08:26)
[2019-04-30] MEDS: MIDODRINE 5 MG TAB PO SCH ×3 (08:26→17:02)
[2019-04-30] MEDS: ZINC SULFATE 220 MG CAP GTB SCH (08:26)
[2019-04-30] MEDS: COLLAGENASE 5 GM (UD JAR) TOP SCH (08:26)
[2019-04-30] MEDS: DAKINS 0.0125%(1/40) 473 ML SOLUTION TP SCH (08:27)
--- NOTE | 2019-04-30 09:04 | PN ---
DATE: 04/30/2019 SUBJECTIVE: The patient is stable, no events overnight. OBJECTIVE: VITAL SIGNS: Blood pressure is 113/58, pulse 65, respirations 26, temperature 98.8. HEENT: Head is normocephalic. NECK: Supple. HEART: Regular rate. LUNGS: Show diminished breath sounds at the base. ABDOMEN: Soft, nontender to palpation without rebound or guarding. EXTREMITIES: Negative for clubbing, cyanosis, positive edema. DERMATOLOGIC: No rashes. MUSCULOSKELETAL: No joint effusion. NEUROLOGIC: No change. MEDICATIONS: The patient's medications have been reviewed. LABORATORY DATA: Has been reviewed. IMAGING STUDIES: Have been reviewed. ASSESSMENT AND PLAN: 1. End-stage renal disease. The patient had hemodialysis yesterday. Unfortunately, due to complica lars hemodialysis, unable to ultrafiltrate. The patient was given positive fluid. Plan for dial ysis again tomorrow. Will give midodrine prior to hemodialysis. Hopefully, the patient will have ad equate blood pressure enabling ultrafiltration. 2. Anemia. Monitor hemoglobin and hematocrit levels. Continue Epogen. 3. Mineral bone disorder. Monitor calcium and phosphorus levels. 4. Hypertension. Continue current blood pressure regimen. 5. Diabetes. Continue current insulin regimen. 6. Volume overload. Continue ultrafiltration with dialysis. 7. Acute encephalopathy. Etiology is toxic metabolic. Continue to monitor. 8. Ventilatory-dependent respiratory failure. Vent settings and ABG was reviewed. Continue to [facility]. 9. Non-STEMI. Continue medical management. 10. Clostridium difficile colitis. 11. Dysphagia. Continue tube feeding. 12. wounds. Continue wound care. Dictated By: OLY DEGROOT DO NR/NTS Conf#: [id number] DID#: [id number] CC: JENNYFER DE LEÓN MD; CARLITO GUERRA MD;*EndCC*
--- NOTE | 2019-04-30 12:14 | CONS ---
Consult Date/Type/Reason Admit Date/Time Apr 06, 2019 at 22:52 Initial Consult Date 04/17/19 Type of Consult Pulmonary Requesting Provider: WILLA CARTY Date/Time of Note DATE: 04/30/19 TIME: 12:13 Subjective Patient appears comfortable this morning no new events Objective Vital Signs Date Temp Pulse Resp B/P (MAP) Pulse Ox O2 O2 Flow FiO2 Time Delivery Rate 04/30/19 53 24 100 40 09:19 04/30/19 98.6 103/52 08:15 (69) 04/29/19 Mechanical 13:50 Ventilator Intake and Output 04/29/19 04/29/19 04/30/19 1515:00 23:00 07:00 OutputOutput Total 1350 ml BalanceBalance -1350 ml Exam GENERAL: VITAL SIGNS: per chart NECK: Supple. No JVD or lymphadenopathy. CARDIAC EXAM: S1, S2. No added sounds or murmurs. CHEST: clear bilaterally, No added sounds, rales or wheezes ABDOMEN: Soft, nontender. No guarding or rebound. EXTREMITIES: No cyanosis, clubbing or edema. NEUROLOGIC: Generalized weakness. No focal deficits. Vent Setting Ventilator Support Mode: AC Fraction of Inspired Oxygen pe: 40 Positive End Expiratory Pressu: 5.0 Results/Medications Result Diagram: 04/29/1960404/29/19604 Results 24 hrs Laboratory Tests Test 04/30/19 08:35 Lab Scanned Report BLOOD TRANSFUSION Medications Current Medications IV Flush (NS 3 ml) 3 ml PER PROTOCOL IV ; Start 04/06/19 at 23:00 Ondansetron HCl (Zofran Inj) 4 mg Q6H PRN IV NAUSEA/VOMITING; Start 04/06/19 at 23:00 Morphine Sulfate (morphine) 2 mg Q4H PRN IV .PAIN 7-10 Last administered on 04/25/19at 23:35; Admin Dose 2 MG; Start 04/06/19 at 23:00 Acetaminophen (Tylenol Liquid) 650 mg Q4H PRN GTB MILD PAIN(1-3) OR TEMP>38C Last administered on 04/25/19at 06:40; Admin Dose 650 MG; Start 04/08/19 at 13:30 Zinc Sulfate (Zinc Sulfate) 220 mg DAILY GTB Last administered on 04/30/19at 08:26; Admin Dose 220 MG; Start 04/09/19 at 09:00 Atorvastatin Calcium (Lipitor) 20 mg HS PO Last administered on 04/29/19 21:27; Admin Dose 20 MG; Start 04/08/19 at 21:00 Collagenase (Santyl) 1 applic SOILED PRN TOP SOILED; Start 04/08/19 at 14:00 Albuterol (Ventolin Hfa) 2 puff Q4H RESP THERAPY INH Last administered on 04/30/19 09:18; Admin Dose 2 PUFF; Start 04/09/19 at 21:50 Midodrine (Proamatine) 10 mg TID@09,13,17 PO Last administered on 04/30/19 08:26; Admin Dose 10 MG; Start 04/12/19 at 09:00 Collagenase (Santyl) 1 applic DAILY TOP Last administered on 04/30/19 08:26; Admin Dose 1 APPLIC; Start 04/13/19 at 09:00 Sodium Hypochlorite (Dakins Diluted (40)) 1 applic DAILY TP Last administered on 04/30/19 08:27; Admin Dose 1 APPLIC; Start 04/13/19 at 09:00 Famotidine (Pepcid) 20 mg DAILY GTB Last administered on 04/30/19 08:26; Admin Dose 20 MG; Start 04/13/19 at 09:00 Epoetin Nick-epbx (Retacrit (Esrd)) 10,000 unit MoWeFr@1700 SC Last administered on 04/29/19 17:13; Admin Dose 10,000 UNIT; Start 04/22/19 at 17:00 Albumin Human 100 ml @ 100 mls/hr WITH DIALYSIS PRN IV SBP < 90 DURING D IALYSIS Last administered on 04/29/19 15:27; Admin Dose 100 MLS/HR; Start 04/25/19 at 12:30 Midodrine (Proamatine) 10 mg ONCE PRN PO with dialysis; Start 04/26/19 at 09:00 Vancomycin HCl (Vancomycin Oral Syringe) 125 mg Q6 GTB Last administered on 04/30/19 05:35; Admin Dose 125 MG; Start 04/26/19 at 18:00; Stop 05/05/19 at 23:59 Tramadol HCl (Ultram) 50 mg Q6H PRN GTB MODERATE PAIN LEVEL 4-6; Start 04/28/19 at 02:00 Assessment/Plan Hospital Course (Demo Recall) IMP: 1. Sepsis, improved. 2. VDRF 3. ESRD on HD 4. Pleura effusion 5. Anemia RECS: 1. Continue current vent settings 2. CPT and suctioning prn 3. BD's NEHA WICK MD, [facility] Apr 30, 2019 12:14
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
--- NOTE | 2019-04-30 16:33 | CONS ---
Assessment/Plan Assessment/Plan Hospital Course (Demo Recall) Acute blood loss anemia Hypotension with labile blood pressure Elevated troponin, trending down CAD Preserved ejection fraction End-stage renal disease on hemodialysis Encephalopathy Midodrine to be continued, titrate as needed Fluid management via hemodialysis as per nephrology No beta-aidee given labile blood pressure Continue statin therapy if no contraindication Patient currently not on any antiplatelet therapy secondary to anemia Consultation Date/Type/Reason Admit Date/Time Apr 06, 2019 at 22:52 Initial Consult Date 04/08/19 Type of Consult Cardiology Requesting Provider: WILLA CARTY Date/Time of Note DATE: 04/30/19 TIME: 16:33 24 HR Interval Summary Free Text/Dictation Nonverbal Exam/Review of Systems Vital Signs Vitals Vital Signs Date Temp Pulse Resp B/P (MAP) Pulse Ox O2 O2 Flow FiO2 Time Delivery Rate 04/30/19 57 24 100 30 12:53 04/30/19 98.0 99/51 (67) 12:11 04/29/19 Mechanical 13:50 Ventilator Intake and Output 04/29/19 04/29/19 04/30/19 1515:00 23:00 07:00 OutputOutput Total 1350 ml BalanceBalance -1350 ml Exam Constitutional: non-verbal (No apparent distress) Head: normocephalic Respiratory: other (Coarse breath sounds bilaterally, no wheezing) Cardiovascular: regular rate and rhythm (S1-S2 heard) Gastrointestinal: soft, non-tender, bowel sounds Extremities: edema Labs Result Diagram: 04/29/19 0604/29/19 0605 Results 24hrs Laboratory Tests Test 04/30/19 08:35 Lab Scanned Report BLOOD TRANSFUSION Medications Medications Current Medications IV Flush (NS 3 ml) 3 ml PER PROTOCOL IV ; Start 04/06/19 at 23:00 Ondansetron HCl (Zofran Inj) 4 mg Q6H PRN IV NAUSEA/VOMITING; Start 04/06/19 at 23:00 Morphine Sulfate (morphine) 2 mg Q4H PRN IV .PAIN 7-10 Last administered on 04/25/19at 23:35; Admin Dose 2 MG; Start 04/06/19 at 23:00 Acetaminophen (Tylenol Liquid) 650 mg Q4H PRN GTB MILD PAIN(1-3) OR TEMP>38C Last administered on 04/25/19at 06:40; Admin Dose 650 MG; Start 04/08/19 at 13:30 Zinc Sulfate (Zinc Sulfate) 220 mg DAILY GTB Last administered on 04/30/19 08:26; Admin Dose 220 MG; Start 04/09/19 at 09:00 Atorvastatin Calcium (Lipitor) 20 mg HS PO Last administered on 04/29/19 21:27; Admin Dose 20 MG; Start 04/08/19 at 21:00 Collagenase (Santyl) 1 applic SOILED PRN TOP SOILED; Start 04/08/19 at 14:00 Albuterol (Ventolin Hfa) 2 puff Q4H RESP THERAPY INH Last administered on 04/30/19 12:32; Admin Dose 2 PUFF; Start 04/09/19 at 21:50 Midodrine (Proamatine) 10 mg TID@09,13,17 PO Last administered on 04/30/19 12:21; Admin Dose 10 MG; Start 04/12/19 at 09:00 Collagenase (Santyl) 1 applic DAILY TOP Last administered on 04/30/19 08:26; Admin Dose 1 APPLIC; Start 04/13/19 at 09:00 Sodium Hypochlorite (Dakins Diluted ()) 1 applic DAILY TP Last administered on 04/30/19 08:27; Admin Dose 1 APPLIC; Start 04/13/19 at 09:00 Famotidine (Pepcid) 20 mg DAILY GTB Last administered on 04/30/19 08:26; Admin Dose 20 MG; Start 04/13/19 at 09:00 Epoetin Nick-epbx (Retacrit (Esrd)) 10,000 unit MoWeFr@1700 SC Last administered on 04/29/19 17:13; Admin Dose 10,000 UNIT; Start 04/22/19 at 17:00 Albumin Human 100 ml @ 100 mls/hr WITH DIALYSIS PRN IV SBP < 90 DURING DIALYSIS Last administered on 04/29/19 15:27; Admin Dose 100 MLS/HR; Start 04/25/19 at 12:30 Midodrine (Proamatine) 10 mg ONCE PRN PO with dialysis; Start 04/26/19 at 09:00 Vancomycin HCl (Vancomycin Oral Syringe) 125 mg Q6 GTB Last administered on 8/6/19at 12:21; Admin Dose 125 MG; Start 04/26/19 at 18:00; Stop 05/05/19 at 23:59 Tramadol HCl (Ultram) 50 mg Q6H PRN GTB MODERATE PAIN LEVEL 4-6; Start 04/28/19 at 02:00 Mendoza Ludwig DO Apr 30, 2019 16:33
[2019-04-30] MEDS: ATORVASTATIN 20 MG TAB PO SCH (20:54)
[2019-05-01] VITALS (27 sets, daily range): BP systolic 50–91; BP diastolic 20–52; PULSE 52–85; RESP 18–32
[2019-05-01] MEDS: VANCOMYCIN HCL 250 MG/5ML POSYG GTB SCH ×4 (00:41→18:53)
[2019-05-01] MEDS: ACETAMINOPHEN 650MG/20.3ML CUP GTB PRN (00:41)
[2019-05-01] MEDS: ALBUTEROL HFA 8 GM INHALER INH SCH ×6 (01:04→21:14)
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
--- NOTE | 2019-05-01 09:43 | PN ---
DATE: 05/01/2019 SUBJECTIVE: The patient is stable, no events overnight. OBJECTIVE: VITAL SIGNS: Blood pressure is 103/52, pulse 71, respiration 26, temperature 98.6. HEENT: Head is normocephalic. NECK: Supple. HEART: Regular rate. LUNGS: Show diminished breath sounds at the base. ABDOMEN: Soft, nontender to palpation without rebound or guarding. EXTREMITIES: Negative for clubbing, cyanosis. Positive edema. DERMATOLOGIC: No rashes. MUSCULOSKELETAL: No joint effusion. NEUROLOGIC: No change in exam. MEDICATIONS: The patient's medications have been reviewed. LABORATORY DATA: The laboratory data has been reviewed. IMAGING STUDIES: The imaging studies have been reviewed. ASSESSMENT AND PLAN: 1. End-stage renal disease. The patient is scheduled for dialysis today. 2. Anemia. Monitor H and H levels. Continue Epogen. 3. Mineral bone disorder. Monitor calcium and phosphorus levels. 4. Hypertension. Continue to monitor. Will give Midodrine prior to dialysis. 5. Diabetes. Continue current insulin regimen. 6. Volume overload. We will ultrafiltrate with hemodialysis if hemodynamically stable. 7. Acute encephalopathy, etiology is toxic metabolic. 8. Ventilator-dependent respiratory failure. Vent settings and ABG was reviewed. Continue to monit or. 9. Clostridium difficile colitis. 10. Dysphagia. 11. Lower extremity wounds. Continue wound care. Dictated By: OLY DEGROOT DO NR/NTS Conf#: [id number] DID#: [id number] CC: JENNYFER DE LEÓN MD; CARLITO GUERRA MD;*EndCC*
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
[2019-05-01] MEDS: COLLAGENASE 5 GM (UD JAR) TOP SCH (10:52)
[2019-05-01] MEDS: FAMOTIDINE 20 MG TAB GTB SCH (10:58)
[2019-05-01] MEDS: ZINC SULFATE 220 MG CAP GTB SCH (10:58)
[2019-05-01] MEDS: MIDODRINE 5 MG TAB PO SCH ×3 (10:58→18:56)
[2019-05-01] MEDS: DAKINS 0.0125%(1/40) 473 ML SOLUTION TP SCH (10:59)
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
--- NOTE | 2019-05-01 15:22 | CONS ---
Consult Date/Type/Reason Admit Date/Time Apr 06, 2019 at 22:52 Initial Consult Date 04/17/19 Type of Consult Pulmonary Requesting Provider: WILLA CARTY Date/Time of Note DATE: 05/01/19 TIME: 15:22 Subjective Patient is comfortable this morning no respiratory distress Objective Vital Signs Date Temp Pulse Resp B/P (MAP) Pulse Ox O2 O2 Flow FiO2 Time Delivery Rate 05/01/19 55 24 79/42 (54) 99 Mechanical 12:07 Ventilator 05/01/19 30 04:43 05/01/19 98.4 00:00 Intake and Output 04/30/19 04/30/19 05/01/19 1515:00 23:00 07:00 IntakeIntake Total 820 ml OutputOutput Total 750 ml 50 ml BalanceBalance 70 ml -50 ml Exam GENERAL: VITAL SIGNS: per chart NECK: Supple. No JVD or lymphadenopathy. CARDIAC EXAM: S1, S2. No added sounds or murmurs. CHEST: clear bilaterally, No added sounds, rales or wheezes ABDOMEN: Soft, nontender. No guarding or rebound. EXTREMITIES: No cyanosis, clubbing or edema. NEUROLOGIC: Generalized weakness. No focal deficits. Vent Setting Ventilator Support Mode: AC Fraction of Inspired Oxygen pe: 30 Positive End Expiratory Pressu: 5.0 Results/Medications Result Diagram: 04/29/1960404/29/19604 Medications Current Medications IV Flush (NS 3 ml) 3 ml PER PROTOCOL IV ; Start 04/06/19 at 23:00 Ondansetron HCl (Zofran Inj) 4 mg Q6H PRN IV NAUSEA/VOMITING; Start 04/06/19 at 23:00 Morphine Sulfate (morphine) 2 mg Q4H PRN IV .PAIN 7-10 Last administered on 04/25/19at 23:35; Admin Dose 2 MG; Start 04/06/19 at 23:00 Acetaminophen (Tylenol Liquid) 650 mg Q4H PRN GTB MILD PAIN(1-3) OR TEMP>38C Last administered on 05/01/19at 00:41; Admin Dose 650 MG; Start 04/08/19 at 13:30 Zinc Sulfate (Zinc Sulfate) 220 mg DAILY GTB Last administered on 05/01/19at 10:58; Admin Dose 220 MG; Start 04/09/19 at 09:00 Atorvastatin Calcium (Lipitor) 20 mg HS PO Last administered on 04/30/19 20:54; Admin Dose 20 MG; Start 04/08/19 at 21:00 Collagenase (Santyl) 1 applic SOILED PRN TOP SOILED; Start 04/08/19 at 14:00 Albuterol (Ventolin Hfa) 2 puff Q4H RESP THERAPY INH Last administered on 05/01/19 13:22; Admin Dose 2 PUFF; Start 04/09/19 at 21:50 Midodrine (Proamatine) 10 mg TID@,13,17 PO Last administered on 05/01/19 13:59; Admin Dose 10 MG; Start 04/12/19 at 09:00 Collagenase (Santyl) 1 applic DAILY TOP Last administered on 05/01/19 10:52; Admin Dose 1 APPLIC; Start 04/13/19 at 09:00 Sodium Hypochlorite (Dakins Diluted ()) 1 applic DAILY TP Last administered on 05/01/19 10:59; Admin Dose 1 APPLIC; Start 04/13/19 at 09:00 Famotidine (Pepcid) 20 mg DAILY GTB Last administered on 05/01/19 10:58; Admin Dose 20 MG; Start 04/13/19 at 09:00 Epoetin Nick-epbx (Retacrit (Esrd)) 10,000 unit MoWeFr@1700 SC Last administered on 04/29/19 17:13; Admin Dose 10,000 UNIT; Start 04/22/19 at 17:00 Albumin Human 100 ml @ 100 mls/hr WITH DIALYSIS PRN IV SBP < 90 DURING DIALY SIS Last administered on 04/29/19 15:27; Admin Dose 100 MLS/HR; Start 04/25/19 at 12:30 Midodrine (Proamatine) 10 mg ONCE PRN PO with dialysis; Start 04/26/19 at 09:00 Vancomycin HCl (Vancomycin Oral Syringe) 125 mg Q6 GTB Last administered on 05/01/19 13:48; Admin Dose 125 MG; Start 04/26/19 at 18:00; Stop 05/05/19 at 23:59 Tramadol HCl (Ultram) 50 mg Q6H PRN GTB MODERATE PAIN LEVEL 4-6; Start 04/28/19 at 02:00 Assessment/Plan Hospital Course (Demo Recall) IMP: 1. Sepsis, improved. 2. VDRF 3. ESRD on HD 4. Pleura effusion 5. Anemia RECS: 1. Continue current vent settings 2. CPT and suctioning prn 3. BD's DC planning? NEHA WICK MD, [facility] May 01, 2019 15:22
[2019-05-01] MEDS: EPOETIN ALFA-EPBX (ESRD) 10,000 UNIT/ML VIAL SC SCH (18:54)
[2019-05-01] MEDS: ATORVASTATIN 20 MG TAB PO SCH (21:07)
[2019-05-01] MEDS ORDERED: NORepinephrine 8MG/250 ML (PMX 250 ML ONE (21:30)
[2019-05-01] MEDS ORDERED: PHENYLephrine 20MG IN 250 ML 250 ML IV SCH (22:00)
[2019-05-01] MEDS: NORepinephrine 8MG/250 ML (PMX 250 ML IV SCH (22:13)
[2019-05-02] VITALS (108 sets, daily range): BP systolic 67–122; BP diastolic 21–83; PULSE 59–94; RESP 13–40
[2019-05-02] MEDS: VANCOMYCIN HCL 250 MG/5ML POSYG GTB SCH ×5 (00:25→23:19)
[2019-05-02] MEDS: ALBUTEROL HFA 8 GM INHALER INH SCH ×5 (01:04→20:04)
[2019-05-02] MEDS: NORepinephrine 8MG/250 ML (PMX 250 ML IV SCH (05:17)
[2019-05-02] MEDS ORDERED: DEXTROSE 50% 50 ML SYRINGE ONE (05:51)
[2019-05-02] MEDS ORDERED: DEXTROSE 50% 50 ML SYRINGE IV ONE ×4 (06:00→18:30)
[2019-05-02] MEDS: morphine 2 MG INJ IV PRN ×2 (06:37→18:20)
--- NOTE | 2019-05-02 07:36 | PN ---
DATE: 05/02/2019 SUBJECTIVE: The patient was transferred from telemetry to intensive care unit as he was hypotensive in shock. The patient was placed on pressor support. No other events noted overnight. No hemoptysi s, hematemesis, hematochezia. OBJECTIVE: VITAL SIGNS: Blood pressure is 97/64, respiration 38, pulse 82, temperature 98.6. HEENT: Head is normocephalic. NECK: Supple. HEART: Regular rate. LUNGS: Show diminished breath sounds at the base. ABDOMEN: Soft, nontender to palpation without rebound or guarding. EXTREMITIES: Negative for clubbing, cyanosis. Positive edema, diffuse anasarca. DERMATOLOGIC: No rashes. MUSCULOSKELETAL: No joint effusion. NEUROLOGIC: No change in exam. MEDICATIONS: Have been reviewed. LABORATORY DATA: Has been reviewed. IMAGING STUDIES: Have been reviewed. ASSESSMENT AND PLAN: 1. End-stage renal disease. The patient unable to tolerate dialysis yesterday. Will attempt dialys is again today. Now, the patient is on pressor support. Attempt ultrafiltration if hemodynamically stable. 2. Anemia. Monitor hemoglobin and hematocrit levels. Continue Epogen. 3. Mineral bone disorder. Monitor calcium and phosphorus levels. 4. Shock, septic. The patient is on pressor support, antibiotic therapy, will continue. Follow up cultures. Follow up with infectious disease. 5. Diabetes. Continue current insulin regimen. 6. Volume overload, diffuse anasarca. We will attempt ultrafiltration dialysis as the patient is on pressor support if hemodynamically stable. 7. Acute encephalopathy. Etiology is toxic metabolic. 8. Ventilator-dependent respiratory failure. Vent settings and ABG was reviewed. Continue to monit or. 9. Clostridium difficile colitis. 10. Dysphagia. Continue tube feeding. 11. Lower extremity wounds. Continue wound care. Dictated By: OLY DEGROOT DO NR/NTS Conf#: [id number] DID#: [id number] CC: CARLITO GUERRA MD;*EndCC*
[2019-05-02] MEDS: DEXTROSE 10% 1,000 ML IV SCH (08:45)
[2019-05-02] MEDS: MIDODRINE 5 MG TAB PO SCH ×3 (08:45→18:18)
[2019-05-02] MEDS: FAMOTIDINE 20 MG TAB GTB SCH (08:46)
[2019-05-02] MEDS: ZINC SULFATE 220 MG CAP GTB SCH (08:46)
[2019-05-02] MEDS: COLLAGENASE 5 GM (UD JAR) TOP SCH ×2 (08:46→18:20)
--- NOTE | 2019-05-02 08:48 | CONS ---
Assessment/Plan Assessment/Plan Assessment/Plan (Daily) Ventilator setting; AC of 24, tidal volume 500, PEEP of 5, 60% FiO2. Patient is currently on Levophed at 20 mics per minute. Assessment and recommendations; 1. Patient with history of chronic encephalopathy admitted to ICU transfer from medical floor because of hypotension with significant spiking leukocytosis. 2. History of diabetes, hypertension and anemia. 3. Multiple skin ulcers. Growing multiple organisms. Patient was taken off antibiotics just recently. 4. End-stage renal disease, on hemodialysis. Continue current supportive care. Add Azactam and vancomycin. Further antibiotic adjustment/replacement to be done once patient evaluated by infectious disease digital media sales consultant today. Patient has very poor peripheral IV access and will require a central venous access placement. Obtain chest x-ray. Overall prognosis remains very poor. Consultation Date/Type/Reason Admit Date/Time Apr 06, 2019 at 22:52 Initial Consult Date 04/17/19 Type of Consult Pulmonary/critical care Patient is an 89-year-old gentleman who was transferred to ICU from medical floor with episode of hypotension. The patient stabilized and did not require any pressor support. Patient has advanced dementia and was unable to give any history by himself whatsoever. Patient however did not appear to be in any distress. Past medical history; 1. Advanced encephalopathy. 2. End-stage renal disease, on hemodialysis. 3. History of diabetes. 4. History of hypertension. 5. Anemia on admission. Status post blood transfusion. 6. Sacral wound. Medications; reviewed. Allergies; as outlined above. Social history; not available. Occupational history; not available. Family history; patient apparently has a supportive family. Review of system; unable to be obtained. General exam; elderly male, on ventilator via tracheostomy, unresponsive, currently in no distress. Requesting Provider: WILLA CARTY Date/Time of Note DATE: 05/02/19 TIME: 08:45 24 HR Interval Summary Free Text/Dictation Patient's condition is critical. Became hypotensive on medical floor and was transferred to ICU. Patient currently on high-dose Levophed drip. General exam; elderly male, on ventilator via tracheostomy, awake but noncommunicative. Currently no distress. On ventilator via tracheostomy. Exam/Review of Systems Exam Vitals Vital Signs Date Temp Pulse Resp B/P (MAP) Pulse Ox O2 O2 Flow FiO2 Time Delivery Rate 05/02/19 75 30 93/44 (60) 99 07:15 05/02/19 Mechanical 07:00 Ventilator 05/02/19 60 05:54 05/02/19 97.2 04:00 Intake and Output 05/01/19 05/01/19 05/02/19 1515:00 23:00 07:00 IntakeIntake Total 110 ml 643.50 ml OutputOutput Total 10 ml 84 ml BalanceBalance 100 ml 559.50 ml Exam H ENT exam; supple neck, patient has multiple carious teeth. Tracheostomy in place. No neck masses. No lymphadenopathy. Chest exam; diminished breath sounds bilaterally. S1-S2 audible, no murmurs. Regular rhythm. Abdomen exam; soft, G-tube in place. No organomegaly. Bowel sounds audible. Extremity exam; no peripheral edema. Patient has a multiple ecchymosis. Flexion contractures in all 4 extremities. Back exam; dressing applied over sacrum. TECHNICAL ASSISTANCE CONSULTANT exam; patient remains awake but noncommunicative. Results Result Diagram: 05/02/19 0453 05/02/19 0453 Results 24hrs Laboratory Tests Test 05/02/19 04:53 05/02/19 05:53 05/02/19 06:13 05/02/19 06:26 White Blood Count 23.8 #H Red Blood Count 3.00 L Hemoglobin 9.3 L Hematocrit 30.6 L Mean Corpuscular Volume 102.0 H Mean Corpuscular 31.0 Hemoglobin Mean Corpuscular 30.4 L Hemoglobin Concent Red Cell Distribution 23.6 H Width Platelet Count 43 #L Mean Platelet Volume 12.7 H Immature Granulocytes % 0.800 H Neutrophils % Lymphocytes % Monocytes % Eosinophils % Basophils % Nucleated Red Blood 0.0 Cells % Immature Granulocytes # 0.190 H Neutrophils # Lymphocytes # Monocytes # Eosinophils # Basophils # Nucleated Red Blood Cells # Sodium Level 135 Potassium Level 3.7 Chloride Level 98 Carbon Dioxide Level 17 L Anion Gap 20 H Blood Urea Nitrogen 64 H Creatinine 2.54 H Est Glomerular Filtrat Rate mL/min Glucose Level 22 *L Calcium Level 9.4 Magnesium Level 2.1 Bedside Glucose 35 *L 109 95 Test 05/02/19 06:43 Bedside Glucose 68 L Medications Medication Current Medications IV Flush (NS 3 ml) 3 ml PER PROTOCOL IV ; Start 04/06/19 at 23:00 Ondansetron HCl (Zofran Inj) 4 mg Q6H PRN IV NAUSEA/VOMITING; Start 04/06/19 at 23:00 Morphine Sulfate (morphine) 2 mg Q4H PRN IV .PAIN 7-10 Last administered on 05/02/19 06:37; Admin Dose 2 MG; Start 04/06/19 at 23:00 Acetaminophen (Tylenol Liquid) 650 mg Q4H PRN GTB MILD PAIN(1-3) OR TEMP>38C Last administered on 05/01/19 00:41; Admin Dose 650 MG; Start 04/08/19 at 13:30 Zinc Sulfate (Zinc Sulfate) 220 mg DAILY GTB Last administered on 05/01/19 10:58; Admin Dose 220 MG; Start 04/09/19 at 09:00 Atorvastatin Calcium (Lipitor) 20 mg HS PO Last administered on 05/01/19 21:07; Admin Dose 20 MG; Start 04/08/19 at 21:00 Collagenase (Santyl) 1 applic SOILED PRN TOP SOILED; Start 04/08/19 at 14:00 Albuterol (Ventolin Hfa) 2 puff Q4H RESP THERAPY INH Last administered on 05/02/19 05:42; Admin Dose 2 PUFF; Start 04/09/19 at 21:50 Midodrine (Proamatine) 10 mg TID@,,17 PO Last administered on 05/01/19 18:56; Admin Dose 10 MG; Start 04/12/19 at 09:00 Collagenase (Santyl) 1 applic DAILY TOP Last administered on 05/01/19 10:52; Admin Dose 1 APPLIC; Start 04/13/19 at 09:00 Sodium Hypochlorite (Dakins Diluted ()) 1 applic DAILY TP Last administered on 05/01/19 10:59; Admin Dose 1 APPLIC; Start 04/13/19 at 09:00 Famotidine (Pepcid) 20 mg DAILY GTB Last administered on 05/01/19 10:58; Admin Dose 20 MG; Start 04/13/19 at 09:00 Epoetin Nick-epbx (Retacrit (Esrd)) 10,000 unit MoWeFr@1700 SC Last administered on 05/01/19 18:54; Admin Dose 10,000 UNIT; Start 04/22/19 at 17:00 Albumin Human 100 ml @ 100 mls/hr WITH DIALYSIS PRN IV SBP < 90 DURING DIALYSIS Last administered on 04/29/19at 15:27; Admin Dose 100 MLS/HR; Start at 12:30 Midodrine (Proamatine) 10 mg ONCE PRN PO with dialysis; Start 04/26/19 at 09:00 Vancomycin HCl (Vancomycin Oral Syringe) 125 mg Q6 GTB Last administered on 05/02/19at 05:34; Admin Dose 125 MG; Start 04/26/19 at 18:00; Stop 05/05/19 at 23:59 Tramadol HCl (Ultram) 50 mg Q6H PRN GTB MODERATE PAIN LEVEL 4-6 Last administered on 05/02/19at 00:53; Admin Dose 50 MG; Start 04/28/19 at 02:00 Norepinephrine 250 ml @ 1.875 mls/ hr TITRATE IV Last administered on 05/02/19at 05:17; Admin Dose 33.75 MLS/HR; Start 05/01/19 at 22:00 Phenylephrine HCl 250 ml @ 75 mls/hr TITRATE IV ; Start 05/01/19 at 22:00 Dextrose 1,000 ml @ 25 mls/hr Q24H IV ; Start 05/02/19 at 08:00 Phenylephrine HCl 80 mg/Dextrose 250 ml @ 18.75 mls/ hr TITRATE IV ; Start 05/02/19 at 09:00; Status UNV Norepinephrine 32 mg/Dextrose 250 ml @ 0.47 mls/hr TITRATE IV ; Start 05/02/19 at 09:00; Status UNV MARS FONSECA May 02, 2019 08:48
[2019-05-02] MEDS ORDERED: VANCOMYCIN IV PER PHARMACY XX SCH (09:00)
[2019-05-02] MEDS ORDERED: AZTREONAM 0.5 GM in SOD CHLORIDE 0.9% 50 ML IV SCH (10:00)
[2019-05-02] MEDS: AZTREONAM 1 GM/NS (PMX) 50 ML IVPB SCH (10:27)
[2019-05-02] MEDS ORDERED: VANCOMYCIN 1.25 GM/NS 250 ML 250 ML IVPB SCH (10:30)
[2019-05-02] MEDS ORDERED: PROPOFOL 100 ML ONE (10:49)
[2019-05-02] MEDS ORDERED: NORepinephrine 8MG/250 ML (PMX 250 ML ONE (11:11)
[2019-05-02] MEDS ORDERED: OCULAR LUBRICANT 3.5 GM OPH OINT BOTH EYES ONE (12:00)
[2019-05-02] MEDS: NORepinephrine 32 MG in DEXTROSE 5% 218 ML IV SCH (13:00)
[2019-05-02] MEDS: PHENYLephrine 80 MG in DEXTROSE 5% 242 ML IV SCH ×3 (13:00→23:53)
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
[2019-05-02] MEDS ORDERED: IPRATROPIUM (NEB) 0.5 MG/2.5 ML AMP ONE (13:34)
[2019-05-02] MEDS: IPRATROPIUM (HFA) 12.9 GM INHALER INH SCH ×2 (13:42→20:04)
--- NOTE | 2019-05-02 14:04 | SP ---
DATE OF PROCEDURE: 05/02/2019 PROCEDURE: Central line placement. INDICATION: Septic shock. No IV access. DESCRIPTION OF PROCEDURE: Right femoral site was cleaned and prepped in usual sterile manner. Using ultrasound guidance, the right femoral vein was located. Large bore needle was passed into femoral vein and following dilatation, triple lumen catheter passed over guidewire. The patient had good lukas w through all 3 ports. Blood flow was nonpulsatile. Central line was secured in place and no compli cations noted. Dictated By: NEHA WICK MD SV/NTS Conf#: [id number] DID#: [id number] CC: CARLITO GUERRA MD;*EndCC*
[2019-05-02] MEDS: PROPOFOL 100 ML IV SCH ×3 (14:22→22:00)
[2019-05-02] MEDS: DAKINS 0.0125%(1/40) 473 ML SOLUTION TP SCH (14:22)
[2019-05-02] MEDS: ARTIFICIAL TEARS 15 ML OPH BOTH EYES SCH ×3 (14:26→20:22)
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
[2019-05-02] MEDS ORDERED: TOBRAMYCIN IV PER PHARMACY XX SCH (16:00)
[2019-05-02] MEDS: ALBUMIN HUMAN 25% 100 ML IV PRN (16:09)
[2019-05-02] MEDS ORDERED: CASPOFUNGIN 70 MG in SOD CHLORIDE 0.9% 250 ML IVPB ONE (17:00)
--- NOTE | 2019-05-02 17:27 | CONS ---
Assessment/Plan Assessment/Plan Hospital Course (Demo Recall) Severe shock Hypotension on IV pressors Anemia CAD Preserved ejection fraction End-stage renal disease on hemodialysis Encephalopathy Titrate IV pressors to maintain SBP greater than 90 and/or map above 60 Midodrine to be continued, titrate as needed Fluid management via hemodialysis as per nephrology No beta-aidee given hypotension Continue statin therapy if no contraindication Patient currently not on any antiplatelet therapy secondary to anemia Greater than 33 minutes of critical care time taken in the care of this patient Consultation Date/Type/Reason Admit Date/Time Apr 06, 2019 at 22:52 Initial Consult Date 04/08/19 Type of Consult Cardiology Requesting Provider: WILLA CARTY Date/Time of Note DATE: 05/02/19 TIME: 17:25 24 HR Interval Summary Free Text/Dictation Patient transferred to ICU for worsening blood pressure. Currently on 2 IV pressors. Exam/Review of Systems Vital Signs Vitals Vital Signs Date Temp Pulse Resp B/P (MAP) Pulse Ox O2 O2 Flow FiO2 Time Delivery Rate 05/02/19 83 32 99 60 16:51 05/02/19 85/34 (51) 16:30 05/02/19 Mechanical 16:15 Ventilator 05/02/19 97.5 16:00 Intake and Output 05/01/19 05/01/19 05/02/19 1515:00 23:00 07:00 IntakeIntake Total 110 ml 643.50 ml OutputOutput Total 10 ml 84 ml BalanceBalance 100 ml 559.50 ml Exam Exam No apparent distress, nonverbal, nurse at bedside Head: normocephalic Respiratory: other (Coarse breath sounds bilaterally, no wheezing, scattered crackles) Cardiovascular: regular rate and rhythm (S1-S2 heard) Gastrointestinal: soft, bowel sounds, distended, other (No grimacing with palpation) Extremities: edema Skin: other (Numerous areas of skin breakdown) Labs Result Diagram: 05/02/19 0453 05/02/19 0453 Results 24hrs Laboratory Tests Test 05/02/19 04:53 05/02/19 05:53 05/02/19 06:13 05/02/19 06:26 White Blood Count 23.8 #H Red Blood Count 3.00 L Hemoglobin 9.3 L Hematocrit 30.6 L Mean Corpuscular 102.0 H Volume Mean Corpuscular 31.0 Hemoglobin Mean Corpuscular 30.4 L Hemoglobin Concent Red Cell Distribution 23.6 H Width Platelet Count 43 #L Mean Platelet Volume 12.7 H Immature Granulocytes 0.800 H % Neutrophils % Segmented Neutrophils 31 L % (Manual) Band Neutrophils % 57 H (Manual) Lymphocytes % Lymphocytes % 3 L (Manual) Monocytes % Monocytes % (Manual) 3 Eosinophils % Basophils % Metamyelocytes % 5 H (manual) Myelocytes % (Manual) 1 H Nucleated Red Blood 0.0 Cells % Immature Granulocytes 0.190 H # Neutrophils # Neutrophils # 10.6 H (Manual) Band Neutrophils # 13.5 H Lymphocytes (Manual) 0.7 L Lymphocytes # Monocytes # Monocytes # (Manual) 0.7 Eosinophils # Basophils # Metamyelocytes # 1.1 H Myelocytes # 0.2 H Nucleated Red Blood Cells # Platelet Estimate SIG DECREASED Giant Platelets 1 H Polychromasia 1+ Poikilocytosis 3+ Anisocytosis 3+ Macrocytosis 3+ Schistocytes 1+ Sodium Level 135 Potassium Level 3.7 Chloride Level 98 Carbon Dioxide Level 17 L Anion Gap 20 H Blood Urea Nitrogen 64 H Creatinine 2.54 H Est Glomerular Filtrat Rate mL/min Glucose Level 22 *L Calcium Level 9.4 Magnesium Level 2.1 Bedside Glucose 35 *L 109 95 Test 05/02/19 06:43 05/02/19 14:21 05/02/19 14:37 05/02/19 16:08 Bedside Glucose 68 L 38 *L 100 Lactic Acid Level 7.6 *H Procalcitonin 8.82 H Medications Medications Current Medications IV Flush (NS 3 ml) 3 ml PER PROTOCOL IV ; Start 04/06/19 at 23:00 Ondansetron HCl (Zofran Inj) 4 mg Q6H PRN IV NAUSEA/VOMITING; Start 04/06/19 at 23:00 Morphine Sulfate (morphine) 2 mg Q4H PRN IV .PAIN 7-10 Last administered on 05/02/19at 06:37; Admin Dose 2 MG; Start 04/06/19 at 23:00 Acetaminophen (Tylenol Liquid) 650 mg Q4H PRN GTB MILD PAIN(1-3) OR TEMP>38C Last administered on 05/01/19at 00:41; Admin Dose 650 MG; Start 04/08/19 at 13:30 Zinc Sulfate (Zinc Sulfate) 220 mg DAILY GTB Last administered on 05/02/19 08:46; Admin Dose 220 MG; Start 04/09/19 at 09:00 Atorvastatin Calcium (Lipitor) 20 mg HS PO Last administered on 05/01/19 21:07; Admin Dose 20 MG; Start 04/08/19 at 21:00 Collagenase (Santyl) 1 applic SOILED PRN TOP SOILED; Start 04/08/19 at 14:00 Midodrine (Proamatine) 10 mg TID@09,13,17 PO Last administered on 05/02/19 14:27; Admin Dose 10 MG; Start 04/12/19 at 09:00 Collagenase (Santyl) 1 applic DAILY TOP Last administered on 05/02/19 08:46; Admin Dose 1 APPLIC; Start 04/13/19 at 09:00 Sodium Hypochlorite (Dakins Diluted (40)) 1 applic DAILY TP Last administered on 05/02/19 14:22; Admin Dose 1 APPLIC; Start 04/13/19 at 09:00 Famotidine (Pepcid) 20 mg DAILY GTB Last administered on 05/02/19 08:46; Admin Dose 20 MG; Start 04/13/19 at 09:00 Epoetin Nick-epbx (Retacrit (Esrd)) 10,000 unit MoWeFr@1700 SC Last administered on 05/01/19 18:54; Admin Dose 10,000 UNIT; Start 04/22/19 at 17:00 Albumin Human 100 ml @ 100 mls/hr WITH DIALYSIS PRN IV SBP < 90 DURING DIALYSIS Last administered on 05/02/19 16:09; Admin Dose 100 MLS/HR; Start 04/25/19 at 12:30 Midodrine (Proamatine) 10 mg ONCE PRN PO with dialysis; Start 04/26/19 at 09:00 Vancomycin HCl (Vancomycin Oral Syringe) 125 mg Q6 GTB Last administered on 05/02/19 14:23; Admin Dose 125 MG; Start 04/26/19 at 18:00; Stop 05/05/19 at 23:59 Tramadol HCl (Ultram) 50 mg Q6H PRN GTB MODERATE PAIN LEVEL 4-6 Last administered on 05/02/19 00:53; Admin Dose 50 MG; Start 04/28/19 at 02:00 Dextrose 1,000 ml @ 25 mls/hr Q24H IV Last administered on 05/02/19 08:45; Admin Dose 25 MLS/HR; Start 05/02/19 at 08:00 Phenylephrine HCl 80 mg/Dextrose 250 ml @ 18.75 mls/ hr TITRATE IV Last administered on 05/02/19 13:00; Admin Dose 18.75 MLS/HR; Start 05/02/19 at 09:00 Norepinephrine 32 mg/Dextrose 250 ml @ 0.47 mls/hr TITRATE IV Last administered on 05/02/19 13:00; Admin Dose 9.38 MLS/HR; Start 05/02/19 at 09:00 Vancomycin HCl (Vanco Iv Per Pharmacy) VANCOMYCIN PER PHARMACY PER PROTOCOL XX ; Start 05/02/19 at 09:00 Aztreonam 50 ml @ 100 mls/hr Q24H IVPB Last administered on 05/02/19 10:27; Admin Dose 100 MLS/HR; Start 05/02/19 at 10:00 Albuterol (Ventolin Hfa) 4 puff Q6H RESP THERAPY INH Last administered on 05/02/19 13:42; Admin Dose 4 PUFF; Start 05/02/19 at 14:00 Ipratropium [place] (Atrovent Hfa) 4 puff Q6H RESP THERAPY INH Last administered on 05/02/19 13:42; Admin Dose 4 PUFF; Start 05/02/19 at 14:00 Propofol 100 ml @ 2.79 mls/hr Q12H IV Last administered on 05/02/19 14:22; Admin Dose 2.79 MLS/HR; Start 05/02/19 at 11:00 Eye Lubricant (Artificial Tears Oph) 2 drop QID BOTH EYES Last administered on 05/02/19 14:26; Admin Dose 2 DROP; Start 05/02/19 at 13:00 Tobramycin (Tobramycin Iv Per Pharmacy) TOBRAMYCIN PER PHARMACY NOTE XX ; Start 05/02/19 at 16:00 Caspofungin 50 mg/ Sodium Chloride 250 ml @ 250 mls/hr Q24H IVPB ; Start 05/03/19 at 17:00 Caspofungin 70 mg/ Sodium Chloride 250 ml @ 250 mls/hr ONCE ONCE IVPB ; Start 05/02/19 at 17:00; Stop 05/02/19 at 17:59 Tobramycin 150 mg/ Dextrose 103.75 ml @ 103.75 mls/hr ONCE ONCE IVPB ; Start 05/02/19 at 18:00; Stop 05/02/19 at 18:59 Diagnostic Test (Pha) (Accu-Chek) 1 ea Q6 XX ; Start 05/02/19 at 18:00 Mendoza Ludwig DO May 02, 2019 17:27
[2019-05-02] MEDS ORDERED: TOBRAMYCIN 150 MG in DEXTROSE 5% 100 ML IVPB ONE (18:00)
[2019-05-02] MEDS: ACCU-CHEK XX SCH ×2 (18:11→23:44)
[2019-05-02] MEDS ORDERED: PHENYLephrine 20MG IN 250 ML 250 ML ONE (19:17)
[2019-05-02] MEDS: OCULAR LUBRICANT 3.5 GM OPH OINT BOTH EYES SCH (20:22)
[2019-05-02] MEDS: ATORVASTATIN 20 MG TAB PO SCH (20:22)
[2019-05-02] MEDS ORDERED: VASOPRESSIN 60 UNIT in DEXTROSE 5% 57 ML IV SCH (21:00)
[2019-05-03] VITALS (105 sets, daily range): BP systolic 70–132; BP diastolic 17–73; PULSE 0–123; RESP 0–38
[2019-05-03] MEDS: IPRATROPIUM (HFA) 12.9 GM INHALER INH SCH ×4 (01:24→20:37)
[2019-05-03] MEDS: ALBUTEROL HFA 8 GM INHALER INH SCH ×4 (01:25→20:37)
[2019-05-03] MEDS: COLLAGENASE 5 GM (UD JAR) TOP SCH (02:19)
[2019-05-03] MEDS: morphine 2 MG INJ IV PRN (02:19)
[2019-05-03] MEDS ORDERED: NA BICARBONATE 8.4% 50 ML SYG IV ONE (05:18)
[2019-05-03] MEDS: PHENYLephrine 80 MG in DEXTROSE 5% 242 ML IV SCH ×4 (05:34→19:23)
[2019-05-03] MEDS: VASOPRESSIN 60 UNIT in DEXTROSE 5% 57 ML IV SCH (05:34)
[2019-05-03] MEDS: VANCOMYCIN HCL 250 MG/5ML POSYG GTB SCH ×3 (05:49→18:24)
[2019-05-03] MEDS: ACCU-CHEK XX SCH ×3 (06:20→18:24)
--- NOTE | 2019-05-03 08:13 | CONS ---
Assessment/Plan Assessment/Plan Assessment/Plan (Daily) I had a long conversation with patient's family member on April 28, 2019. He was very accusatory of the quality of care that his family member has been given during his hospital stay. Including availability of physicians quality of care and multiple other issues. In the interim patient has deteriorated and has been transferred to the intensive care unit. He is on pressors at this time 100% F iO2 extremely poor prognosis. At this time I would a suggest early intervention and bioethics consultation as well as risk management. I anticipate family member will be extremely unhappy once again that patient has been transferred to the intensive care unit. The last time I met with him he did not want to address changing patient's CODE STATUS at all. Consultation Date/Type/Reason Admit Date/Time Apr 06, 2019 at 22:52 Date/Time of Note DATE: 05/03/19 TIME: 08:11 Past Medical History Medical History: colitis, congestive heart failure, coronary artery disease, hypertension, renal disease, other (burs to the face and neck s/p skin graft,, delirium dementia) Home Meds Reported Medications Zinc Sulfate* (Zinc Sulfate*) 220 Mg Tablet, 220 MG G-TUBE DAILY, TAB 02/14/19 Sodium Hypochlorite (Dakin's (1/4 Strength)) 473 Ml Irrig.soln, 473 ML IRR DAILY, BOTTLE 02/14/19 Vancomycin Hcl (Vancocin Hcl Oral) 250 Mg Capsule, 250 MG PO Q6, CAP 02/14/19 Silver Sulfadiazine* (Silvadene*) 1% - 20 Gm Cream.gm., 1 APPLIC TOP DAILY, #1 TUB 02/14/19 Oxycodone Hcl* (IR) (Oxycodone Hcl*) 5 Mg Capsule, 5 MG PO Q6H PRN for PAIN, CAP 02/14/19 Ondansetron Hcl* (Ondansetron Hcl* Inj) 4 Mg/2 Ml Vial, 4 MG IV Q6 PRN for NAUSEA AND/OR VOMITING, VIAL 02/14/19 Multivitamins* (Theragran*) 1 Tab Tab, 1 TAB PO DAILY, TAB 02/14/19 Miconazole Nitrate* (Miconazole*) 2% - 45 Gm Cr, 1 APPFUL VAGINAL BID, #1 TUB 02/14/19 Miconazole Nitrate* (Miconazole Nitrate*) 2% - 30 Gm Cr, 1 APPLIC TOP BID, TUB 02/14/19 Metronidazole/Sodium Chloride ([place]ro IV 500 mg/100 ml) 500 Mg/100 Ml Piggyback, 500 MG IV Q8H 02/14/19 Metoclopramide HCl (Metoclopramide HCl) 10 Mg/2 Ml Syringe, 5 MG IJ TID 02/14/19 Heparin Sodium,Porcine/Pf (Heparin 2,000 Unit/2 ml Vial) 1,000 Unit/1 Ml Vial, 5000 UNIT IJ Q12, VIAL 02/14/19 Glucagon,Human Recombinant (Glucagon Emergency Kit) 1 Mg Kit, 1 MG IJ PRN for FOR BS<70, KIT 02/14/19 Epoetin amauri* (Epogen*) 4,000 Unit/1 Ml Vial, 01177 UNIT SC WITH DIALYSIS, VIAL 02/14/19 Dextrose/Sod Chloride* (D5-1/2NS*) 1,000 Ml Iv.soln., 1000 ML IV 50 ML/HR, EA 02/14/19 Dextrose* (D50W Syringe*) 50 Ml Soln, 50 ML INJ PRN FOR BS<70, EA 02/14/19 Collagenase* (Santyl*) 30 Gm Oint..gm., 1 APPLIC TOP .SOILED PRN for SOILED, #1 TUB 02/14/19 Chlorhexidine Gluconate* (Chlorhexidine Gluconate*) 118 Ml Liquid, 10 ML TOP Q12, ML 02/14/19 Balsam [place] Oil (CIRCUDERM EMOLLIENT) 3 Gm Oint.pack, 3 GM TP Q12 02/14/19 Albuterol Sulfate* (Albuterol Sulfate* Neb) 0.083%-3 Ml Neb, 2.5 MG NEB Q4H, #30 VIAL 02/14/19 Albumin Human* (Albumin 25%*) 100 Ml Soln, 100 ML IV WITH DIALYSIS, BOTTLE 02/14/19 Acetaminophen* (Acetaminophen* Susp) 325 Mg/10.15 Ml Solution, 500 MG GTB Q8 PRN for MILD PAIN(1-3) OR TEMP>38C, ML 02/14/19 Acetaminophen* (Acetaminophen* Susp) 325 Mg/10.15 Ml Solution, 650 MG G-TUBE Q4H PRN for PAIN OR TEMP ABOVE 38C, ML 02/14/19 Medications Current Medications IV Flush (NS 3 ml) 3 ml PER PROTOCOL IV ; Start 04/06/19 at 23:00 Ondansetron HCl (Zofran Inj) 4 mg Q6H PRN IV NAUSEA/VOMITING; Start 04/06/19 at 23:00 Morphine Sulfate (morphine) 2 mg Q4H PRN IV .PAIN 7-10 Last administered on 05/03/19 02:19; Admin Dose 2 MG; Start 04/06/19 at 23:00 Acetaminophen (Tylenol Liquid) 650 mg Q4H PRN GTB MILD PAIN(1-3) OR TEMP>38C Last administered on 05/01/19 00:41; Admin Dose 650 MG; Start 04/08/19 at 13:30 Zinc Sulfate (Zinc Sulfate) 220 mg DAILY GTB Last administered on 05/02/19 08:46; Admin Dose 220 MG; Start 04/09/19 at 09:00 Atorvastatin Calcium (Lipitor) 20 mg HS PO Last administered on 05/02/19 20:22; Admin Dose 20 MG; Start 04/08/19 at 21:00 Collagenase (Santyl) 1 applic SOILED PRN TOP SOILED; Start 04/08/19 at 14:00 Midodrine (Proamatine) 10 mg TID@09,13,17 PO Last administered on 05/02/19 18:18; Admin Dose 10 MG; Start 04/12/19 at 09:00 Collagenase (Santyl) 1 applic DAILY TOP Last administered on 05/03/19 02:19; Admin Dose 1 APPLIC; Start 04/13/19 at 09:00 Sodium Hypochlorite (Dakins Diluted (40)) 1 applic DAILY TP Last administered on 05/02/19 14:22; Admin Dose 1 APPLIC; Start 04/13/19 at 09:00 Famotidine (Pepcid) 20 mg DAILY GTB Last administered on 05/02/19 08:46; Admin Dose 20 MG; Start 04/13/19 at 09:00 Epoetin Amauri-epbx (Retacrit (Esrd)) 10,000 unit MoWeFr@1700 SC Last administered on 05/01/19 18:54; Admin Dose 10,000 UNIT; Start 04/22/19 at 17:00 Albumin Human 100 ml @ 100 mls/hr WITH DIALYSIS PRN IV SBP < 90 DURING DIALYSIS Last administered on 05/02/19 16:09; Admin Dose 100 MLS/HR; Start 04/25/19 at 12:30 Midodrine (Proamatine) 10 mg ONCE PRN PO with dialysis; Start 04/26/19 at 09:00 Vancomycin HCl (Vancomycin Oral Syringe) 125 mg Q6 GTB Last administered on 05/03/19 05:49; Admin Dose 125 MG; Start 04/26/19 at 18:00; Stop 05/05/19 at 23:59 Tramadol HCl (Ultram) 50 mg Q6H PRN GTB MODERATE PAIN LEVEL 4-6 Last administered on 05/02/19 00:53; Admin Dose 50 MG; Start 04/28/19 at 02:00 Dextrose 1,000 ml @ 25 mls/hr Q24H IV Last administered on 05/02/19 08:45; Admin Dose 25 MLS/HR; Start 05/02/19 at 08:00 Phenylephrine HCl 80 mg/Dextrose 250 ml @ 18.75 mls/ hr TITRATE IV Last administered on 05/03/19 05:34; Admin Dose 56.25 MLS/HR; Start 05/02/19 at 09:00 Norepinephrine 32 mg/Dextrose 250 ml @ 0.47 mls/hr TITRATE IV Last administered on 05/02/19 13:00; Admin Dose 9.38 MLS/HR; Start 05/02/19 at 09:00 Vancomycin HCl (Vanco Iv Per Pharmacy) VANCOMYCIN PER PHARMACY PER PROTOCOL XX ; Start 05/02/19 at 09:00 Aztreonam 50 ml @ 100 mls/hr Q24H IVPB Last administered on 05/02/19 10:27; Admin Dose 100 MLS/HR; Start 05/02/19 at 10:00 Albuterol (Ventolin Hfa) 4 puff Q6H RESP THERAPY INH Last administered on 05/03/19 01:25; Admin Dose 4 PUFF; Start 05/02/19 at 14:00 Ipratropium [place] (Atrovent Hfa) 4 puff Q6H RESP THERAPY INH Last administered on 05/03/19 01:24; Admin Dose 4 PUFF; Start 05/02/19 at 14:00 Propofol 100 ml @ 2.79 mls/hr Q12H IV Last administered on 05/02/19at 22:00; Admin Dose 5.58 MLS/HR; Start 05/02/19 at 11:00 Eye Lubricant (Artificial Tears Oph) 2 drop QID BOTH EYES Last administered on 05/02/19at 20:22; Admin Dose 2 DROP; Start 05/02/19 at 13:00 Tobramycin (Tobramycin Iv Per Pharmacy) TOBRAMYCIN PER PHARMACY NOTE XX ; Start 05/02/19 at 16:00 Caspofungin 50 mg/ Sodium Chloride 250 ml @ 250 mls/hr Q24H IVPB ; Start 05/03/19 at 17:00 Diagnostic Test (Pha) (Accu-Chek) 1 ea Q6 XX Last administered on 05/03/19at 06:20; Admin Dose 1 EA; Start 05/02/19 at 18:00 Eye Lubricant (Akwa Oint) 1 applic TID BOTH EYES Last administered on 05/02/19at 20:22; Admin Dose 1 APPLIC; Start 05/02/19 at 21:00 Tobramycin 90 mg/ Dextrose 102.25 ml @ 103.75 mls/hr AFTER DIALYSIS IVPB ; Start 05/03/19 at 20:00 Vasopressin 60 unit/Dextrose 60 ml @ 1.2 mls/hr IV INFUSION IV Last administered on 05/03/19at 05:34; Admin Dose 2.4 MLS/HR; Start 05/02/19 at 23:30 Allergies: Coded Allergies: Cephalosporins (Verified Allergy, Severe, 02/19/19) ertapenem (Verified Allergy, Severe, 02/19/19) piperacillin (Verified Allergy, Severe, 02/19/19) tazobactam (Verified Allergy, Severe, 02/19/19) Past Surgical History Past Surgical Hx: other (Including but not limited to tracheostomy, PEG placement, dialysis catheter) Social History Smoking Status: Unknown if ever smoked Exam/Review of Systems Exam Vitals Vital Signs Date Temp Pulse Resp B/P (MAP) Pulse Ox O2 O2 Flow FiO2 Time Delivery Rate 05/03/19 73 30 100 80 05:20 05/03/19 98/58 (71) 00:30 05/03/19 97.3 Mechanical 00:00 Ventilator Intake and Output 05/02/19 05/02/19 05/03/19 1515:00 23:00 07:00 IntakeIntake Total 1183.786 ml 898.39 ml 533.4 ml OutputOutput Total 105 ml 2510 ml 0 ml BalanceBalance 1078.786 ml -1611.61 ml 533.4 ml Constitutional: frail, other (Sedated) Head: normocephalic, atraumatic; No lacerations, No hematomas, No other Eyes: nl conjunctiva, EOMI, nl lids, nl sclera, PERRL; No icteric, No fundi, disc, No other Respiratory: congested cough, crackles/rales Cardiovascular: No regular rate and rhythm, No nl pulses, No bruits, No diastolic murmur, No edema, No gallop, No irregular rhythm, No jugular venous distention (JVD), No murmurs/extra sounds, No rub, No systolic murmur, No S3, No S4, No other Results Result Diagram: 05/02/19 0453 05/02/19 0453 Results 24hrs Laboratory Tests Test 05/02/19 14:21 05/02/19 14:37 05/02/19 16:08 05/02/19 18:11 Bedside Glucose 38 *L 100 63 L Lactic Acid 7.6 *H Level Procalcitonin 8.82 H Test 05/02/19 18:39 05/02/19 23:44 05/03/19 00:30 05/03/19 04:00 Bedside Glucose 110 81 Blood Gas Blood arterial Blood arterial Specimen Source Arterial Blood 05/03/2019 12:17:0 05/03/2019 3:45:10 Date Drawn 3 AM AM Arterial Blood 7.270 *L 7.249 *L pH (Temp corrected) Arterial Blood 39.0 41.9 pCO2 (Temp correct) Arterial Blood 36.0 *L 53.5 *L pO2 (Temp corrected) Arterial Blood 17.5 L 17.9 L HCO3 Arterial Blood -8.7 L -8.7 L Base Excess Arterial Blood 64.7 L 84.4 L Oxygen Saturatio n Joseph Test ACCEPTAB ACCEPTAB Arterial Blood Left Radial Left Radial Gas Puncture Site Arterial 0.2 0.3 Blood Carboxyhem oglobin Arterial Blood 0.7 0.5 Methemoglobin Blood Gas A-a O2 348.9 H 472.9 H Differential Oxyhemoglobin 64.1 L 83.7 L Percent Blood Gas 37.0 37.0 Temperature Blood Gas 24.0 24.0 Respiration Rate Blood Gas Actual 34 24 Respiration Rate Blood Gas VENT - AC VENT - PC Modality FiO2 60.0 80.0 Blood Gas Tidal 500.0 440.0 Volume Blood Gas Mean 24 Airway Pressure Blood Gas Low 5.0 10.0 PEEP Setting Blood Gas 56.0 Inspiratory Pressure Blood Gas Felice CARSON RN Critical Value Read Back Blood Gas [place] MG Notified Whom Blood Gas 05/03/2019 12:28:5 05/03/2019 3:54:29 Notified Time 5 AM AM Blood Gas 0.75 Inspiratory Time Blood Gas High 35.0 PEEP Setting Test 05/03/19 06:17 Bedside Glucose 95 Medications Medication Current Medications IV Flush (NS 3 ml) 3 ml PER PROTOCOL IV ; Start 04/06/19 at 23:00 Ondansetron HCl (Zofran Inj) 4 mg Q6H PRN IV NAUSEA/VOMITING; Start 04/06/19 at 23:00 Morphine Sulfate (morphine) 2 mg Q4H PRN IV .PAIN 7-10 Last administered on 05/03/19at 02:19; Admin Dose 2 MG; Start 04/06/19 at 23:00 Acetaminophen (Tylenol Liquid) 650 mg Q4H PRN GTB MILD PAIN(1-3) OR TEMP>38C Last administered on 05/01/19at 00:41; Admin Dose 650 MG; Start 04/08/19 at 13:30 Zinc Sulfate (Zinc Sulfate) 220 mg DAILY GTB Last administered on 05/02/19at 08:46; Admin Dose 220 MG; Start 04/09/19 at 09:00 Atorvastatin Calcium (Lipitor) 20 mg HS PO Last administered on 05/02/19at 20:22; Admin Dose 20 MG; Start 04/08/19 at 21:00 Collagenase (Santyl) 1 applic SOILED PRN TOP SOILED; Start 04/08/19 at 14:00 Midodrine (Proamatine) 10 mg TID@09,13,17 PO Last administered on 05/02/19at 18:18; Admin Dose 10 MG; Start 04/12/19 at 09:00 Collagenase (Santyl) 1 applic DAILY TOP Last administered on 05/03/19 02:19; Admin Dose 1 APPLIC; Start 04/13/19 at 09:00 Sodium Hypochlorite (Dakins Diluted ()) 1 applic DAILY TP Last administered on 05/02/19 14:22; Admin Dose 1 APPLIC; Start 04/13/19 at 09:00 Famotidine (Pepcid) 20 mg DAILY GTB Last administered on 05/02/19 08:46; Admin Dose 20 MG; Start 04/13/19 at 09:00 Epoetin Amauri-epbx (Retacrit (Esrd)) 10,000 unit MoWeFr@1700 SC Last admini stered on 05/01/19 18:54; Admin Dose 10,000 UNIT; Start 04/22/19 at 17:00 Albumin Human 100 ml @ 100 mls/hr WITH DIALYSIS PRN IV SBP < 90 DURING DIALYSIS Last administered on 05/02/19 16:09; Admin Dose 100 MLS/HR; Start 04/25/19 at 12:30 Midodrine (Proamatine) 10 mg ONCE PRN PO with dialysis; Start 04/26/19 at 09:00 Vancomycin HCl (Vancomycin Oral Syringe) 125 mg Q6 GTB Last administered on 05/03/19 05:49; Admin Dose 125 MG; Start 04/26/19 at 18:00; Stop 05/05/19 at 23:59 Tramadol HCl (Ultram) 50 mg Q6H PRN GTB MODERATE PAIN LEVEL 4-6 Last administered on 05/02/19 00:53; Admin Dose 50 MG; Start 04/28/19 at 02:00 Dextrose 1,000 ml @ 25 mls/hr Q24H IV Last administered on 05/02/19 08:45; Adm in Dose 25 MLS/HR; Start 05/02/19 at 08:00 Phenylephrine HCl 80 mg/Dextrose 250 ml @ 18.75 mls/ hr TITRATE IV Last administered on 05/03/19 05:34; Admin Dose 56.25 MLS/HR; Start 05/02/19 at 09:00 Norepinephrine 32 mg/Dextrose 250 ml @ 0.47 mls/hr TITRATE IV Last administered on 05/02/19 13:00; Admin Dose 9.38 MLS/HR; Start 05/02/19 at 09:00 Vancomycin HCl (Vanco Iv Per Pharmacy) VANCOMYCIN PER PHARMACY PER PROTOCOL XX ; Start 05/02/19 at 09:00 Aztreonam 50 ml @ 100 mls/hr Q24H IVPB Last administered on 05/02/19 10:27; Admin Dose 100 MLS/HR; Start 05/02/19 at 10:00 Albuterol (Ventolin Hfa) 4 puff Q6H RESP THERAPY INH Last administered on 05/03/19 01:25; Admin Dose 4 PUFF; Start 05/02/19 at 14:00 Ipratropium [place] (Atrovent Hfa) 4 puff Q6H RESP THERAPY INH Last administered on 05/03/19 01:24; Admin Dose 4 PUFF; Start 05/02/19 at 14:00 Propofol 100 ml @ 2.79 mls/hr Q12H IV Last administered on 05/02/19 22:00; Admin Dose 5.58 MLS/HR; Start 05/02/19 at 11:00 Eye Lubricant (Artificial Tears Oph) 2 drop QID BOTH EYES Last administered on 05/02/19 20:22; Admin Dose 2 DROP; Start 05/02/19 at 13:00 Tobramycin (Tobramycin Iv Per Pharmacy) TOBRAMYCIN PER PHARMACY NOTE XX ; Start 05/02/19 at 16:00 Caspofungin 50 mg/ Sodium Chloride 250 ml @ 250 mls/hr Q24H IVPB ; Start 05/03/19 at 17:00 Diagnostic Test (Pha) (Accu-Chek) 1 ea Q6 XX Last administered on 05/03/19 06:20; Admin Dose 1 EA; Start 05/02/19 at 18:00 Eye Lubricant (Akwa Oint) 1 applic TID BOTH EYES Last administered on 05/02/19 20:22; Admin Dose 1 APPLIC; Start 05/02/19 at 21:00 Tobramycin 90 mg/ Dextrose 102.25 ml @ 103.75 mls/hr AFTER DIALYSIS IVPB ; Start 05/03/19 at 20:00 Vasopressin 60 unit/Dextrose 60 ml @ 1.2 mls/hr IV INFUSION IV Last administered on 05/03/19 05:34; Admin Dose 2.4 MLS/HR; Start 8/8/19 at 23:30 BECCA VANN May 03, 2019 08:13
--- NOTE | 2019-05-03 08:40 | CONS ---
Assessment/Plan Assessment/Plan Assessment/Plan (Daily) Spoke with patient's son this morning. 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 Dr. Campbell has reached out to son this morning also. At this time both sons are decision-maker for ongoing level of care for patient. He is insistent to continue with this high level of care and to code patient in the event he has a sudden catastrophic change in his clinical condition. I told him that was the intentions of his primary care healthcare delivery team. However I have also made a suggestion for bioethics consultation to address his issues discussed with me with communication and level of care. However I believe the patient continues to decline and physicians feel that this is futile care it would be indicated to consider a bioethics consultation. Because family has had major disagreements with the level of care recommended and have asked for risk management consultation also. Consultation Date/Type/Reason Admit Date/Time Apr 06, 2019 at 22:52 Date/Time of Note DATE: 05/03/19 TIME: 08:37 Past Medical History Medical History: colitis, congestive heart failure, coronary artery disease, hypertension, renal disease, other (burs to the face and neck s/p skin graft,, delirium dementia) Home Meds Reported Medications Zinc Sulfate* (Zinc Sulfate*) 220 Mg Tablet, 220 MG G-TUBE DAILY, TAB 02/14/19 Sodium Hypochlorite (Dakin's (1/4 Strength)) 473 Ml Irrig.soln, 473 ML IRR DAILY, BOTTLE 02/14/19 Vancomycin Hcl (Vancocin Hcl Oral) 250 Mg Capsule, 250 MG PO Q6, CAP 02/14/19 Silver Sulfadiazine* (Silvadene*) 1% - 20 Gm Cream.gm., 1 APPLIC TOP DAILY, #1 TUB 02/14/19 Oxycodone Hcl* (IR) (Oxycodone Hcl*) 5 Mg Capsule, 5 MG PO Q6H PRN for PAIN, CAP 02/14/19 Ondansetron Hcl* (Ondansetron Hcl* Inj) 4 Mg/2 Ml Vial, 4 MG IV Q6 PRN for NAUSEA AND/OR VOMITING, VIAL 02/14/19 Multivitamins* (Theragran*) 1 Tab Tab, 1 TAB PO DAILY, TAB 02/14/19 Miconazole Nitrate* (Miconazole*) 2% - 45 Gm Cr, 1 APPFUL VAGINAL BID, #1 TUB 02/14/19 Miconazole Nitrate* (Miconazole Nitrate*) 2% - 30 Gm Cr, 1 APPLIC TOP BID, TUB 02/14/19 Metronidazole/Sodium Chloride ([place] IV 500 mg/100 ml) 500 Mg/100 Ml Piggyback, 500 MG IV Q8H 02/14/19 Metoclopramide HCl (Metoclopramide HCl) 10 Mg/2 Ml Syringe, 5 MG IJ TID 02/14/19 Heparin Sodium,Porcine/Pf (Heparin 2,000 Unit/2 ml Vial) 1,000 Unit/1 Ml Vial, 5000 UNIT IJ Q12, VIAL 02/14/19 Glucagon,Human Recombinant (Glucagon Emergency Kit) 1 Mg Kit, 1 MG IJ PRN for FOR BS<70, KIT 02/14/19 Epoetin amauri* (Epogen*) 4,000 Unit/1 Ml Vial, 60770 UNIT SC WITH DIALYSIS, VIAL 02/14/19 Dextrose/Sod Chloride* (D5-1/2NS*) 1,000 Ml Iv.soln., 1000 ML IV 50 ML/HR, EA 02/14/19 Dextrose* (D50W Syringe*) 50 Ml Soln, 50 ML INJ PRN FOR BS<70, EA 02/14/19 Collagenase* (Santyl*) 30 Gm Oint..gm., 1 APPLIC TOP .SOILED PRN for SOILED, #1 TUB 02/14/19 Chlorhexidine Gluconate* (Chlorhexidine Gluconate*) 118 Ml Liquid, 10 ML TOP Q12, ML 02/14/19 Balsam [place] Oil (CIRCUDERM EMOLLIENT) 3 Gm Oint.pack, 3 GM TP Q12 02/14/19 Albuterol Sulfate* (Albuterol Sulfate* Neb) 0.083%-3 Ml Neb, 2.5 MG NEB Q4H, #30 VIAL 02/14/19 Albumin Human* (Albumin 25%*) 100 Ml Soln, 100 ML IV WITH DIALYSIS, BOTTLE 02/14/19 Acetaminophen* (Acetaminophen* Susp) 325 Mg/10.15 Ml Solution, 500 MG GTB Q8 PRN for MILD PAIN(1-3) OR TEMP>38C, ML 02/14/19 Acetaminophen* (Acetaminophen* Susp) 325 Mg/10.15 Ml Solution, 650 MG G-TUBE Q4H PRN for PAIN OR TEMP ABOVE 38C, ML 02/14/19 Medications Current Medications IV Flush (NS 3 ml) 3 ml PER PROTOCOL IV ; Start 04/06/19 at 23:00 Ondansetron HCl (Zofran Inj) 4 mg Q6H PRN IV NAUSEA/VOMITING; Start 04/06/19 at 23:00 Morphine Sulfate (morphine) 2 mg Q4H PRN IV .PAIN 7-10 Last administered on 05/03/19 02:19; Admin Dose 2 MG; Start 04/06/19 at 23:00 Acetaminophen (Tylenol Liquid) 650 mg Q4H PRN GTB MILD PAIN(1-3) OR TEMP>38C Last administered on 05/01/19 00:41; Admin Dose 650 MG; Start 04/08/19 at 13:30 Zinc Sulfate (Zinc Sulfate) 220 mg DAILY GTB Last administered on 05/02/19 08:46; Admin Dose 220 MG; Start 04/09/19 at 09:00 Atorvastatin Calcium (Lipitor) 20 mg HS PO Last administered on 05/02/19 20:22; Admin Dose 20 MG; Start 04/08/19 at 21:00 Collagenase (Santyl) 1 applic SOILED PRN TOP SOILED; Start 04/08/19 at 14:00 Midodrine (Proamatine) 10 mg TID@09,13,17 PO Last administered on 05/02/19 18:18; Admin Dose 10 MG; Start 04/12/19 at 09:00 Collagenase (Santyl) 1 applic DAILY TOP Last administered on 05/03/19 02:19; Admin Dose 1 APPLIC; Start 04/13/19 at 09:00 Sodium Hypochlorite (Dakins Diluted ()) 1 applic DAILY TP Last administered on 05/02/19 14:22; Admin Dose 1 APPLIC; Start 04/13/19 at 09:00 Famotidine (Pepcid) 20 mg DAILY GTB Last administered on 05/02/19 08:46; Admin Dose 20 MG; Start 04/13/19 at 09:00 Epoetin Amauri-epbx (Retacrit (Esrd)) 10,000 unit MoWeFr@1700 SC Last administered on 05/01/19 18:54; Admin Dose 10,000 UNIT; Start 04/22/19 at 17:00 Albumin Human 100 ml @ 100 mls/hr WITH DIALYSIS PRN IV SBP < 90 DURING DIALYSIS Last administered on 05/02/19 16:09; Admin Dose 100 MLS/HR; Start 04/25/19 at 12:30 Midodrine (Proamatine) 10 mg ONCE PRN PO with dialysis; Start 04/26/19 at 09:00 Vancomycin HCl (Vancomycin Oral Syringe) 125 mg Q6 GTB Last administered on 05/03/19 05:49; Admin Dose 125 MG; Start 04/26/19 at 18:00; Stop 05/05/19 at 23:59 Tramadol HCl (Ultram) 50 mg Q6H PRN GTB MODERATE PAIN LEVEL 4-6 Last administered on 05/02/19 00:53; Admin Dose 50 MG; Start 04/28/19 at 02:00 Dextrose 1,000 ml @ 25 mls/hr Q24H IV Last administered on 05/02/19 08:45; Admin Dose 25 MLS/HR; Start 05/02/19 at 08:00 Phenylephrine HCl 80 mg/Dextrose 250 ml @ 18.75 mls/ hr TITRATE IV Last administered on 05/03/19 05:34; Admin Dose 56.25 MLS/HR; Start 05/02/19 at 09:00 Norepinephrine 32 mg/Dextrose 250 ml @ 0.47 mls/hr TITRATE IV Last administered on 05/02/19 13:00; Admin Dose 9.38 MLS/HR; Start 05/02/19 at 09:00 Vancomycin HCl (Vanco Iv Per Pharmacy) VANCOMYCIN PER PHARMACY PER PROTOCOL XX ; Start 05/02/19 at 09:00 Aztreonam 50 ml @ 100 mls/hr Q24H IVPB Last administered on 05/02/19 10:27; Admin Dose 100 MLS/HR; Start 05/02/19 at 10:00 Albuterol (Ventolin Hfa) 4 puff Q6H RESP THERAPY INH Last administered on 05/03/19 01:25; Admin Dose 4 PUFF; Start 05/02/19 at 14:00 Ipratropium [place] (Atrovent Hfa) 4 puff Q6H RESP THERAPY INH Last administered on 05/03/19 01:24; Admin Dose 4 PUFF; Start 05/02/19 at 14:00 Propofol 100 ml @ 2.79 mls/hr Q12H IV Last administered on 05/02/19 22:00; Admin Dose 5.58 MLS/HR; Start 05/02/19 at 11:00 Eye Lubricant (Artificial Tears Oph) 2 drop QID BOTH EYES Last administered on 05/02/19 20:22; Admin Dose 2 DROP; Start 05/02/19 at 13:00 Tobramycin (Tobramycin Iv Per Pharmacy) TOBRAMYCIN PER PHARMACY NOTE XX ; Start 05/02/19 at 16:00 Caspofungin 50 mg/ Sodium Chloride 250 ml @ 250 mls/hr Q24H IVPB ; Start 05/03/19 at 17:00 Diagnostic Test (Pha) (Accu-Chek) 1 ea Q6 XX Last administered on 05/03/19at 06:20; Admin Dose 1 EA; Start 05/02/19 at 18:00 Eye Lubricant (Akwa Oint) 1 applic TID BOTH EYES Last administered on 05/02/19 20:22; Admin Dose 1 APPLIC; Start 05/02/19 at 21:00 Tobramycin 90 mg/ Dextrose 102.25 ml @ 103.75 mls/hr AFTER DIALYSIS IVPB ; Start 05/03/19 at 20:00 Vasopressin 60 unit/Dextrose 60 ml @ 1.2 mls/hr IV INFUSION IV Last administered on 05/03/19at 05:34; Admin Dose 2.4 MLS/HR; Start 05/02/19 at 23:30 Allergies: Coded Allergies: Cephalosporins (Verified Allergy, Severe, 02/19/19) ertapenem (Verified Allergy, Severe, 02/19/19) piperacillin (Verified Allergy, Severe, 02/19/19) tazobactam (Verified Allergy, Severe, 02/19/19) Past Surgical History Past Surgical Hx: other (Including but not limited to tracheostomy, PEG placement, dialysis catheter) Social History Smoking Status: Unknown if ever smoked Exam/Review of Systems Exam Vitals Vital Signs Date Temp Pulse Resp B/P (MAP) Pulse Ox O2 O2 Flow FiO2 Time Delivery Rate 05/03/19 73 30 100 80 05:20 05/03/19 98/58 (71) 00:30 05/03/19 97.3 Mechanical 00:00 Ventilator Intake and Output 05/02/19 05/02/19 05/03/19 1515:00 23:00 07:00 IntakeIntake Total 1183.786 ml 898.39 ml 533.4 ml OutputOutput Total 105 ml 2510 ml 0 ml BalanceBalance 1078.786 ml -1611.61 ml 533.4 ml Results Result Diagram: 05/02/19 0453 05/02/19 0453 Results 24hrs Laboratory Tests Test 05/02/19 14:21 05/02/19 14:37 05/02/19 16:08 05/02/19 18:11 Bedside Glucose 38 *L 100 63 L Lactic Acid 7.6 *H Level Procalcitonin 8.82 H Test 05/02/19 18:39 05/02/19 23:44 05/03/19 00:30 05/03/19 04:00 Bedside Glucose 110 81 Blood Gas Blood arterial Blood arterial Specimen Source Arterial Blood 05/03/2019 12:17:0 05/03/2019 3:45:10 Date Drawn 3 AM AM Arterial Blood 7.270 *L 7.249 *L pH (Temp corrected) Arterial Blood 39.0 41.9 pCO2 (Temp correct) Arterial Blood 36.0 *L 53.5 *L pO2 (Temp corrected) Arterial Blood 17.5 L 17.9 L HCO3 Arterial Blood -8.7 L -8.7 L Base Excess Arterial Blood 64.7 L 84.4 L Oxygen Saturatio n Joseph Test ACCEPTAB ACCEPTAB Arterial Blood Left Radial Left Radial Gas Puncture Site Arterial 0.2 0.3 Blood Carboxyhem oglobin Arterial Blood 0.7 0.5 Methemoglobin Blood Gas A-a O2 348.9 H 472.9 H Differential Oxyhemoglobin 64.1 L 83.7 L Percent Blood Gas 37.0 37.0 Temperature Blood Gas 24.0 24.0 Respiration Rate Blood Gas Actual 34 24 Respiration Rate Blood Gas VENT - AC VENT - PC Modality FiO2 60.0 80.0 Blood Gas Tidal 500.0 440.0 Volume Blood Gas Mean 24 Airway Pressure Blood Gas Low 5.0 10.0 PEEP Setting Blood Gas 56.0 Inspiratory Pressure Blood Gas YAMILETH,V.R.N. K. Tino,OLVIN Critical Value Read Back Blood Gas LUIS DANIEL,TEEN COUNSELOR MG Notified Whom Blood Gas 05/03/2019 12:28:5 05/03/2019 3:54:29 Notified Time 5 AM AM Blood Gas 0.75 Inspiratory Time Blood Gas High 35.0 PEEP Setting Test 05/03/19 06:17 Bedside Glucose 95 Medications Medication Current Medications IV Flush (NS 3 ml) 3 ml PER PROTOCOL IV ; Start 04/06/19 at 23:00 Ondansetron HCl (Zofran Inj) 4 mg Q6H PRN IV NAUSEA/VOMITING; Start 04/06/19 at 23:00 Morphine Sulfate (morphine) 2 mg Q4H PRN IV .PAIN 7-10 Last administered on 05/03/19 02:19; Admin Dose 2 MG; Start 04/06/19 at 23:00 Acetaminophen (Tylenol Liquid) 650 mg Q4H PRN GTB MILD PAIN(1-3) OR TEMP>38C L ast administered on 05/01/19 00:41; Admin Dose 650 MG; Start 04/08/19 at 13:30 Zinc Sulfate (Zinc Sulfate) 220 mg DAILY GTB Last administered on 05/02/19 08:46; Admin Dose 220 MG; Start 04/09/19 at 09:00 Atorvastatin Calcium (Lipitor) 20 mg HS PO Last administered on 05/02/19 20:22; Admin Dose 20 MG; Start 04/08/19 at 21:00 Collagenase (Santyl) 1 applic SOILED PRN TOP SOILED; Start 04/08/19 at 14:00 Midodrine (Proamatine) 10 mg TID@,13,17 PO Last administered on 05/02/19 18:18; Admin Dose 10 MG; Start 04/12/19 at 09:00 Collagenase (Santyl) 1 applic DAILY TOP Last administered on 05/03/19 02:19; Admin Dose 1 APPLIC; Start 04/13/19 at 09:00 Sodium Hypochlorite (Dakins Diluted (/40)) 1 applic DAILY TP Last administered on 05/02/19 14:22; Admin Dose 1 APPLIC; Start 04/13/19 at 09:00 Famotidine (Pepcid) 20 mg DAILY GTB Last administered on 05/02/19 08:46; Admin Dose 20 MG; Start 04/13/19 at 09:00 Epoetin Amauri-epbx (Retacrit (Esrd)) 10,000 unit MoWeFr@1700 SC Last administered on 05/01/19 18:54; Admin Dose 10,000 UNIT; Start 04/22/19 at 17:00 Albumin Human 100 ml @ 100 mls/hr WITH DIALYSIS PRN IV SBP < 90 DURING DIALYSIS Last administered on 05/02/19 16:09; Admin Dose 100 MLS/HR; Start 04/25/19 at 12:30 Midodrine (Proamatine) 10 mg ONCE PRN PO with dialysis; Start 04/26/19 at 09:00 Vancomycin HCl (Vancomycin Oral Syringe) 125 mg Q6 GTB Last administered on 05/03/19 05:49; Admin Dose 125 MG; Start 04/26/19 at 18:00; Stop 05/05/19 at 23:59 Tramadol HCl (Ultram) 50 mg Q6H PRN GTB MODERATE PAIN LEVEL 4-6 Last administered on 05/02/19 00:53; Admin Dose 50 MG; Start 04/28/19 at 02:00 Dextrose 1,000 ml @ 25 mls/hr Q24H IV Last administered on 05/02/19 08:45; Admin Dose 25 MLS/HR; Start 05/02/19 at 08:00 Phenylephrine HCl 80 mg/Dextrose 250 ml @ 18.75 mls/ hr TITRATE IV Last administered on 05/03/19 05:34; Admin Dose 56.25 MLS/HR; Start 05/02/19 at 09:00 Norepinephrine 32 mg/Dextrose 250 ml @ 0.47 mls/hr TITRATE IV Last administered on 05/02/19 13:00; Admin Dose 9.38 MLS/HR; Start 05/02/19 at 09:00 Vancomycin HCl (Vanco Iv Per Pharmacy) VANCOMYCIN PER PHARMACY PER PROTOCOL XX ; Start 05/02/19 at 09:00 Aztreonam 50 ml @ 100 mls/hr Q24H IVPB Last administered on 05/02/19 10:27; Admin Dose 100 MLS/HR; Start 05/02/19 at 10:00 Albuterol (Ventolin Hfa) 4 puff Q6H RESP THERAPY INH Last administered on 05/03/19 01:25; Admin Dose 4 PUFF; Start 05/02/19 at 14:00 Ipratropium [place] (Atrovent Hfa) 4 puff Q6H RESP THERAPY INH Last administered on 05/03/19 01:24; Admin Dose 4 PUFF; Start 05/02/19 at 14:00 Propofol 100 ml @ 2.79 mls/hr Q12H IV Last administered on 05/02/19 22:00; Admin Dose 5.58 MLS/HR; Start 05/02/19 at 11:00 Eye Lubricant (Artificial Tears Oph) 2 drop QID BOTH EYES Last administered on 05/02/19 20:22; Admin Dose 2 DROP; Start 05/02/19 at 13:00 Tobramycin (Tobramycin Iv Per Pharmacy) TOBRAMYCIN PER PHARMACY NOTE XX ; Start 05/02/19 at 16:00 Caspofungin 50 mg/ Sodium Chloride 250 ml @ 250 mls/hr Q24H IVPB ; Start 05/03/19 at 17:00 Diagnostic Test (Pha) (Accu-Chek) 1 ea Q6 XX Last administered on 05/03/19 06:20; Admin Dose 1 EA; Start 05/02/19 at 18:00 Eye Lubricant (Akwa Oint) 1 applic TID BOTH EYES Last administered on 05/02/19 20:22; Admin Dose 1 APPLIC; Start 05/02/19 at 21:00 Tobramycin 90 mg/ Dextrose 102.25 ml @ 103.75 mls/hr AFTER DIALYSIS IVPB ; Start 05/03/19 at 20:00 Vasopressin 60 unit/Dextrose 60 ml @ 1.2 mls/hr IV INFUSION IV Last administered on 05/03/19 05:34; Admin Dose 2.4 MLS/HR; Start 05/02/19 at 23:30 BECCA VANN May 03, 2019 08:40
[2019-05-03] MEDS: OCULAR LUBRICANT 3.5 GM OPH OINT BOTH EYES SCH ×3 (09:12→21:39)
[2019-05-03] MEDS: DEXTROSE 10% 1,000 ML IV SCH (09:12)
[2019-05-03] MEDS: ARTIFICIAL TEARS 15 ML OPH BOTH EYES SCH ×4 (09:12→21:39)
[2019-05-03] MEDS: FAMOTIDINE 20 MG TAB GTB SCH (09:12)
[2019-05-03] MEDS: ZINC SULFATE 220 MG CAP GTB SCH (09:13)
[2019-05-03] MEDS: MIDODRINE 5 MG TAB PO SCH ×3 (09:13→18:24)
[2019-05-03] MEDS: DAKINS 0.0125%(1/40) 473 ML SOLUTION TP SCH (09:13)
--- NOTE | 2019-05-03 09:47 | CONS ---
Consult Date/Type/Reason Admit Date/Time Apr 06, 2019 at 22:52 Initial Consult Date 04/17/19 Type of Consult Pulmonary Requesting Provider: WILLA CARTY Date/Time of Note DATE: 05/03/19 TIME: 09:45 Subjective Patient continues to decline. Chest x-ray demonstrating ARDS. Now on 3 vasopressors. Objective Vital Signs Date Temp Pulse Resp B/P (MAP) Pulse Ox O2 O2 Flow FiO2 Time Delivery Rate 05/03/19 79 25 95/62 (73) 100 09:15 05/03/19 Mechanical 09:00 Ventilator 05/03/19 97.6 08:00 05/03/19 80 05:20 Intake and Output 05/02/19 05/02/19 05/03/19 1515:00 23:00 07:00 IntakeIntake Total 1183.786 ml 898.39 ml 533.4 ml OutputOutput Total 105 ml 2510 ml 0 ml BalanceBalance 1078.786 ml -1611.61 ml 533.4 ml Exam GENERAL: Chronically ill-appearing gentleman with multiple contractures unresponsive on mechanical ventilation VITAL SIGNS: per chart NECK: Supple. No JVD or lymphadenopathy. CARDIAC EXAM: S1, S2. No added sounds or murmurs. CHEST: Diminished air entry bilaterally ABDOMEN: Soft, nontender. No guarding or rebound. EXTREMITIES: No cyanosis, clubbing edema +3 NEUROLOGIC: Generalized weakness. Vent Setting Ventilator Support Mode: AC, PC Fraction of Inspired Oxygen pe: 80 Positive End Expiratory Pressu: 10.0 Results/Medications Result Diagram: 05/02/19 0453 05/02/19 0453 Results 24 hrs Laboratory Tests Test 05/02/19 14:21 05/02/19 14:37 05/02/19 16:08 05/02/19 18:11 Bedside Glucose 38 *L 100 63 L Lactic Acid 7.6 *H Level Procalcitonin 8.82 H Test 05/02/19 18:39 05/02/19 23:44 05/03/19 00:30 05/03/19 04:00 Bedside Glucose 110 81 Blood Gas Blood arterial Blood arterial Specimen Source Arterial Blood 05/03/2019 12:17:0 05/03/2019 3:45:10 Date Drawn 3 AM AM Arterial Blood 7.270 *L 7.249 *L pH (Temp corrected) Arterial Blood 39.0 41.9 pCO2 (Temp correct) Arterial Blood 36.0 *L 53.5 *L pO2 (Temp corrected) Arterial Blood 17.5 L 17.9 L HCO3 Arterial Blood -8.7 L -8.7 L Base Excess Arterial Blood 64.7 L 84.4 L Oxygen Saturatio n Joseph Test ACCEPTAB ACCEPTAB Arterial Blood Left Radial Left Radial Gas Puncture Site Arterial 0.2 0.3 Blood Carboxyhem oglobin Arterial Blood 0.7 0.5 Methemoglobin Blood Gas A-a O2 348.9 H 472.9 H Differential Oxyhemoglobin 64.1 L 83.7 L Percent Blood Gas 37.0 37.0 Temperature Blood Gas 24.0 24.0 Respiration Rate Blood Gas Actual 34 24 Respiration Rate Blood Gas VENT - AC VENT - PC Modality FiO2 60.0 80.0 Blood Gas Tidal 500.0 440.0 Volume Blood Gas Mean 24 Airway Pressure Blood Gas Low 5.0 10.0 PEEP Setting Blood Gas 56.0 Inspiratory Pressure Blood Gas Felice CARSON RN Critical Value Read Back Blood Gas GRETA CARY MG Notified Whom Blood Gas 05/03/2019 12:28:5 05/03/2019 3:54:29 Notified Time 5 AM AM Blood Gas 0.75 Inspiratory Time Blood Gas High 35.0 PEEP Setting Test 05/03/19 06:17 Bedside Glucose 95 Medications Current Medications IV Flush (NS 3 ml) 3 ml PER PROTOCOL IV ; Start 04/06/19 at 23:00 Ondansetron HCl (Zofran Inj) 4 mg Q6H PRN IV NAUSEA/VOMITING; Start 04/06/19 at 23:00 Morphine Sulfate (morphine) 2 mg Q4H PRN IV .PAIN 7-10 Last administered on 05/03/19at 02:19; Admin Dose 2 MG; Start 04/06/19 at 23:00 Acetaminophen (Tylenol Liquid) 650 mg Q4H PRN GTB MILD PAIN(1-3) OR TEMP>38C Last administered on 05/01/19at 00:41; Admin Dose 650 MG; Start 04/08/19 at 13:30 Zinc Sulfate (Zinc Sulfate) 220 mg DAILY GTB Last administered on 05/03/19at 09:13; Admin Dose 220 MG; Start 04/09/19 at 09:00 Atorvastatin Calcium (Lipitor) 20 mg HS PO Last administered on 05/02/19 20:22; Admin Dose 20 MG; Start 04/08/19 at 21:00 Collagenase (Santyl) 1 applic SOILED PRN TOP SOILED; Start 04/08/19 at 14:00 Midodrine (Proamatine) 10 mg TID@09,13,17 PO Last administered on 05/03/19 09:13; Admin Dose 10 MG; Start 04/12/19 at 09:00 Collagenase (Santyl) 1 applic DAILY TOP Last administered on 05/03/19 02:19; Admin Dose 1 APPLIC; Start 04/13/19 at 09:00 Sodium Hypochlorite (Dakins Diluted ()) 1 applic DAILY TP Last administered on 05/03/19 09:13; Admin Dose 1 APPLIC; Start 04/13/19 at 09:00 Famotidine (Pepcid) 20 mg DAILY GTB Last administered on 05/03/19 09:12; Admin Dose 20 MG; Start 04/13/19 at 09:00 Epoetin Nick-epbx (Retacrit (Esrd)) 10,000 unit MoWeFr@1700 SC Last administered on 05/01/19 18:54; Admin Dose 10,000 UNIT; Start 04/22/19 at 17:00 Albumin Human 100 ml @ 100 mls/hr WITH DIALYSIS PRN IV SBP < 90 DURING DIALYSIS Last administered on 05/02/19 16:09; Admin Dose 100 MLS/HR; Start 04/25/19 at 12:30 Midodrine (Proamatine) 10 mg ONCE PRN PO with dialysis; Start 04/26/19 at 09:00 Vancomycin HCl (Vancomycin Oral Syringe) 125 mg Q6 GTB Last administered on 05/03/19 05:49; Admin Dose 125 MG; Start 04/26/19 at 18:00; Stop 05/05/19 at 23:59 Tramadol HCl (Ultram) 50 mg Q6H PRN GTB MODERATE PAIN LEVEL 4-6 Last administered on 05/02/19 00:53; Admin Dose 50 MG; Start 04/28/19 at 02:00 Dextrose 1,000 ml @ 25 mls/hr Q24H IV Last administered on 05/03/19 09:12; Admin Dose 25 MLS/HR; Start 05/02/19 at 08:00 Phenylephrine HCl 80 mg/Dextrose 250 ml @ 18.75 mls/ hr TITRATE IV Last administered on 05/03/19 05:34; Admin Dose 56.25 MLS/HR; Start 05/02/19 at 09:00 Norepinephrine 32 mg/Dextrose 250 ml @ 0.47 mls/hr TITRATE IV Last administered on 05/02/19 13:00; Admin Dose 9.38 MLS/HR; Start 05/02/19 at 09:00 Vancomycin HCl (Vanco Iv Per Pharmacy) VANCOMYCIN PER PHARMACY PER PROTOCOL XX ; Start 05/02/19 at 09:00 Aztreonam 50 ml @ 100 mls/hr Q24H IVPB Last administered on 05/02/19 10:27; Admin Dose 100 MLS/HR; Start 05/02/19 at 10:00 Albuterol (Ventolin Hfa) 4 puff Q6H RESP THERAPY INH Last administered on 05/03/19 08:10; Admin Dose 4 PUFF; Start 05/02/19 at 14:00 Ipratropium [place] (Atrovent Hfa) 4 puff Q6H RESP THERAPY INH Last administered on 05/03/19 08:10; Admin Dose 4 PUFF; Start 05/02/19 at 14:00 Propofol 100 ml @ 2.79 mls/hr Q12H IV Last administered on 05/02/19 22:00; Admin Dose 5.58 MLS/HR; Start 05/02/19 at 11:00 Eye Lubricant (Artificial Tears Oph) 2 drop QID BOTH EYES Last administered on 05/03/19 09:12; Admin Dose 2 DROP; Start 05/02/19 at 13:00 Tobramycin (Tobramycin Iv Per Pharmacy) TOBRAMYCIN PER PHARMACY NOTE XX ; Start 05/02/19 at 16:00 Caspofungin 50 mg/ Sodium Chloride 250 ml @ 250 mls/hr Q24H IVPB ; Start 05/03/19 at 17:00 Diagnostic Test (Pha) (Accu-Chek) 1 ea Q6 XX Last administered on 05/03/19 06:20; Admin Dose 1 EA; Start 05/02/19 at 18:00 Eye Lubricant (Akwa Oint) 1 applic TID BOTH EYES Last administered on 05/03/19at 09:12; Admin Dose 1 APPLIC; Start 05/02/19 at 21:00 Tobramycin 90 mg/ Dextrose 102.25 ml @ 103.75 mls/hr AFTER DIALYSIS IVPB ; Start 05/03/19 at 20:00 Vasopressin 60 unit/Dextrose 60 ml @ 1.2 mls/hr IV INFUSION IV Last administered on 05/03/19at 05:34; Admin Dose 2.4 MLS/HR; Start 05/02/19 at 23:30 Assessment/Plan Hospital Course (Demo Recall) Assessment 1. Refractory septic shock on multiple vasopressors 2. Leukocytopenia and thrombocytopenia 3. Encephalopathy with persistent vegetative state 4. End-stage renal failure 5. Severe metabolic acidosis Plan 1. Continue mechanical ventilation 2. Vasopressors 3. Hold off on tube feeding 4. Not stable for hemodialysis Critical care time 40 minutes Appreciate palliative care recommendations however family wish to continue full CODE STATUS despite the fact that prognosis is extremely poor. NEHA WICK MD, [facility] May 03, 2019 09:47
[2019-05-03] MEDS: AZTREONAM 1 GM/NS (PMX) 50 ML IVPB SCH (10:20)
[2019-05-03] MEDS: NORepinephrine 32 MG in DEXTROSE 5% 218 ML IV SCH (11:01)
--- NOTE | 2019-05-03 11:09 | PN ---
DATE: 05/03/2019 SUBJECTIVE: The patient is critically ill, on multiple pressors. The patient had hemodialysis yeste rday, approximately 800 mL removed. No other events noted. No hemoptysis, hematemesis, hematochezia . OBJECTIVE: VITAL SIGNS: Blood pressure is 98/58, respirations 24, pulse 75, temperature 98.6. HEENT: Head is normocephalic. NECK: Supple. HEART: Regular rate. LUNGS: Show diminished breath sounds at the base. ABDOMEN: Soft, nontender to palpation without rebound or guarding. EXTREMITIES: Negative for clubbing, cyanosis, positive edema, diffuse anasarca. DERMATOLOGIC: No rashes. MUSCULOSKELETAL: No joint effusion. NEUROLOGIC: No change in exam. MEDICATIONS: Have been reviewed. LABORATORY DATA: Has been reviewed. IMAGING STUDIES: Have been reviewed. ASSESSMENT AND PLAN: 1. End-stage renal disease. The patient had hemodialysis yesterday for approximately 2-1/2 hours. The patient is clinically unstable for dialysis as he is currently on 3 pressors. I will continue to monitor. 2. Septic shock, etiology is multifactorial secondary to bacteremia and pneumonia. The patient's re peat blood cultures are positive. We will discuss with infectious disease if the patient's PermCath needs to be removed. Additionally, we will have blood cultures drawn from Perm-A-Cath. Continue cur rent medical management. Continue pressor support, antibiotic therapy. 3. Anemia. Continue to monitor hemoglobin and hematocrit levels. Continue Epogen. 4. 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 5. Diabetes. Continue current insulin regimen. 6. Diffuse anasarca, volume overload. Etiology is secondary to end-stage renal disease, septic shoc k. The patient is clinically unstable for dialysis and ultrafiltration at this time. 7. Acute on chronic encephalopathy, etiology toxic metabolic. 8. Ventilatory-dependent respiratory failure. Vent settings and ABG was reviewed. Continue to [facility]. 9. History of C. difficile colitis. 10. Dysphagia. Continue tube feeding as tolerated. 11. Lower extremity wounds. Continue wound care. 12. Thrombocytopenia. Continue to monitor. 13. Metabolic acidosis secondary to septic shock, end-stage renal disease. Lactic acidosis. The pa tient will be given 2 amps of bicarbonate. Will repeat ABG and monitor. The patient is unable to to lerate dialysis. Will consider bicarbonate drip. Please note I spent over 30 minutes of critical care time with this patient. Please note, patient has overall poor prognosis. Dictated By: OLY DEGROOT DO NR/MADELEINE Conf#: [id number] DID#: [id number] CC: CARLITO GUERRA MD;*EndCC*
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
--- NOTE | 2019-05-03 13:02 | CONS ---
Assessment/Plan Assessment/Plan Hospital Course (Demo Recall) Severe shock Hypotension on IV pressors Anemia CAD Preserved ejection fraction End-stage renal disease on hemodialysis Encephalopathy Patient currently on 3 IV pressors Titrate IV pressors to maintain SBP greater than 90 and/or map above 60 Midodrine to be continued, titrate as needed Fluid management via hemodialysis as per nephrology No beta-aidee given hypotension Continue statin therapy if no contraindication Patient currently not on any antiplatelet therapy secondary to anemia Greater than 33 minutes of critical care time taken in the care of this patient Consultation Date/Type/Reason Admit Date/Time Apr 06, 2019 at 22:52 Initial Consult Date 04/08/19 Type of Consult Cardiology Requesting Provider: WILLA CARTY Date/Time of Note DATE: 05/03/19 TIME: 13:01 24 HR Interval Summary Free Text/Dictation Patient now on 3 IV pressors and discussion with nursing staff Exam/Review of Systems Vital Signs Vitals Vital Signs Date Temp Pulse Resp B/P (MAP) Pulse Ox O2 O2 Flow FiO2 Time Delivery Rate 05/03/19 82 26 100 90 11:50 05/03/19 95/53 (67) 11:30 05/03/19 Mechanical 11:00 Ventilator 05/03/19 97.6 08:00 Intake and Output 05/02/19 05/02/19 05/03/19 1515:00 23:00 07:00 IntakeIntake Total 1183.786 ml 898.39 ml 646.69 ml OutputOutput Total 105 ml 2510 ml 5 ml BalanceBalance 1078.786 ml -1611.61 ml 641.69 ml Exam Exam Eyes are open, nonverbal, not following commands Head: normocephalic Neck: other (Tracheostomy) Respiratory: other (Coarse breath sounds with scattered crackles and wheezing) Cardiovascular: regular rate and rhythm (S1-S2 heard) Gastrointestinal: soft, non-tender (No grimacing with palpation), bowel sounds Extremities: edema Skin: other (Multiple wounds) Labs Result Diagram: 05/02/19 0453 05/02/19 0453 Results 24hrs Laboratory Tests Test 05/02/19 14:21 05/02/19 14:37 05/02/19 16:08 05/02/19 18:11 Bedside Glucose 38 *L 100 63 L Lactic Acid 7.6 *H Level Procalcitonin 8.82 H Test 05/02/19 18:39 05/02/19 23:44 05/03/19 00:30 05/03/19 04:00 Bedside Glucose 110 81 Blood Gas Blood arterial Blood arterial Specimen Source Arterial Blood 05/03/2019 12:17:0 05/03/2019 3:45:10 Date Drawn 3 AM AM Arterial Blood 7.270 *L 7.249 *L pH (Temp corrected) Arterial Blood 39.0 41.9 pCO2 (Temp correct) Arterial Blood 36.0 *L 53.5 *L pO2 (Temp corrected) Arterial Blood 17.5 L 17.9 L HCO3 Arterial Blood -8.7 L -8.7 L Base Excess Arterial Blood 64.7 L 84.4 L Oxygen Saturatio n Joseph Test ACCEPTAB ACCEPTAB Arterial Blood Left Radial Left Radial Gas Puncture Site Arterial 0.2 0.3 Blood Carboxyhem oglobin Arterial Blood 0.7 0.5 Methemoglobin Blood Gas A-a O2 348.9 H 472.9 H Differential Oxyhemoglobin 64.1 L 83.7 L Percent Blood Gas 37.0 37.0 Temperature Blood Gas 24.0 24.0 Respiration Rate Blood Gas Actual 34 24 Respiration Rate Blood Gas VENT - AC VENT - PC Modality FiO2 60.0 80.0 Blood Gas Tidal 500.0 440.0 Volume Blood Gas Mean 24 Airway Pressure Blood Gas Low 5.0 10.0 PEEP Setting Blood Gas 56.0 Inspiratory Pressure Blood Gas Felice CARSON RN Critical Value Read Back Blood Gas [place] MG Notified Whom Blood Gas 05/03/2019 12:28:5 05/03/2019 3:54:29 Notified Time 5 AM AM Blood Gas 0.75 Inspiratory Time Blood Gas High 35.0 PEEP Setting Test 05/03/19 06:17 05/03/19 12:43 Bedside Glucose 95 114 Medications Medications Current Medications IV Flush (NS 3 ml) 3 ml PER PROTOCOL IV ; Start 04/06/19 at 23:00 Ondansetron HCl (Zofran Inj) 4 mg Q6H PRN IV NAUSEA/VOMITING; Start 04/06/19 at 23:00 Morphine Sulfate (morphine) 2 mg Q4H PRN IV .PAIN 7-10 Last administered on 05/03/19at 02:19; Admin Dose 2 MG; Start 04/06/19 at 23:00 Acetaminophen (Tylenol Liquid) 650 mg Q4H PRN GTB MILD PAIN(1-3) OR TEMP>38C Last administered on 05/01/19 00:41; Admin Dose 650 MG; Start 04/08/19 at 13:30 Zinc Sulfate (Zinc Sulfate) 220 mg DAILY GTB Last administered on 05/03/19 09:13; Admin Dose 220 MG; Start 04/09/19 at 09:00 Atorvastatin Calcium (Lipitor) 20 mg HS PO Last administered on 05/02/19 20:22; Admin Dose 20 MG; Start 04/08/19 at 21:00 Collagenase (Santyl) 1 applic SOILED PRN TOP SOILED; Start 04/08/19 at 14:00 Midodrine (Proamatine) 10 mg TID@,13,17 PO Last administered on 05/03/19 09:13; Admin Dose 10 MG; Start 04/12/19 at 09:00 Collagenase (Santyl) 1 applic DAILY TOP Last administered on 05/03/19 02:19; Admin Dose 1 APPLIC; Start 04/13/19 at 09:00 Sodium Hypochlorite (Dakins Diluted (40)) 1 applic DAILY TP Last administered on 05/03/19 09:13; Admin Dose 1 APPLIC; Start 04/13/19 at 09:00 Famotidine (Pepcid) 20 mg DAILY GTB Last administered on 05/03/19 09:12; Admin Dose 20 MG; Start 04/13/19 at 09:00 Epoetin Nick-epbx (Retacrit (Esrd)) 10,000 unit MoWeFr@1700 SC Last administered on 05/01/19 18:54; Admin Dose 10,000 UNIT; Start 04/22/19 at 17:00 Albumin Human 100 ml @ 100 mls/hr WITH DIALYSIS PRN IV SBP < 90 DURING DIALYSIS Last administered on 05/02/19 16:09; Admin Dose 100 MLS/HR; Start 04/25/19 at 12:30 Midodrine (Proamatine) 10 mg ONCE PRN PO with dialysis; Start 04/26/19 at 09:00 Vancomycin HCl (Vancomycin Oral Syringe) 125 mg Q6 GTB Last administered on 05/03/19 12:33; Admin Dose 125 MG; Start 04/26/19 at 18:00; Stop 05/05/19 at 23:59 Tramadol HCl (Ultram) 50 mg Q6H PRN GTB MODERATE PAIN LEVEL 4-6 Last administered on 05/02/19 00:53; Admin Dose 50 MG; Start 04/28/19 at 02:00 Dextrose 1,000 ml @ 25 mls/hr Q24H IV Last administered on 05/03/19 09:12; Admin Dose 25 MLS/HR; Start 05/02/19 at 08:00 Phenylephrine HCl 80 mg/Dextrose 250 ml @ 18.75 mls/ hr TITRATE IV Last adm inistered on 05/03/19 09:55; Admin Dose 56.25 MLS/HR; Start 05/02/19 at 09:00 Norepinephrine 32 mg/Dextrose 250 ml @ 0.47 mls/hr TITRATE IV Last administered on 05/03/19 11:01; Admin Dose 14.06 MLS/HR; Start 05/02/19 at 09:00 Vancomycin HCl (Vanco Iv Per Pharmacy) VANCOMYCIN PER PHARMACY PER PROTOCOL XX ; Start 05/02/19 at 09:00 Aztreonam 50 ml @ 100 mls/hr Q24H IVPB Last administered on 05/03/19 10:20; Admin Dose 100 MLS/HR; Start 05/02/19 at 10:00 Albuterol (Ventolin Hfa) 4 puff Q6H RESP THERAPY INH Last administered on 05/03/19 08:10; Admin Dose 4 PUFF; Start 05/02/19 at 14:00 Ipratropium [place] (Atrovent Hfa) 4 puff Q6H RESP THERAPY INH Last administered on 05/03/19 08:10; Admin Dose 4 PUFF; Start 05/02/19 at 14:00 Propofol 100 ml @ 2.79 mls/hr Q12H IV Last administered on 05/02/19 22:00; Admin Dose 5.58 MLS/HR; Start 05/02/19 at 11:00 Eye Lubricant (Artificial Tears Oph) 2 drop QID BOTH EYES Last administered on 05/03/19 09:12; Admin Dose 2 DROP; Start 05/02/19 at 13:00 Tobramycin (Tobramycin Iv Per Pharmacy) TOBRAMYCIN PER PHARMACY NOTE XX ; Start 05/02/19 at 16:00 Caspofungin 50 mg/ Sodium Chloride 250 ml @ 250 mls/hr Q24H IVPB ; Start 05/03/19 at 17:00 Diagnostic Test (Pha) (Accu-Chek) 1 ea Q6 XX Last administered on 05/03/19at 12:44; Admin Dose 1 EA; Start 05/02/19 at 18:00 Eye Lubricant (Akwa Oint) 1 applic TID BOTH EYES Last administered on 05/03/19at 09:12; Admin Dose 1 APPLIC; Start 05/02/19 at 21:00 Tobramycin 90 mg/ Dextrose 102.25 ml @ 103.75 mls/hr AFTER DIALYSIS IVPB ; Start 05/03/19 at 20:00 Vasopressin 60 unit/Dextrose 60 ml @ 1.2 mls/hr IV INFUSION IV Last administered on 05/03/19at 05:34; Admin Dose 2.4 MLS/HR; Start 05/02/19 at 23:30 Mendoza Ludwig DO May 03, 2019 13:02
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
[2019-05-03] MEDS: Metronidazole 500 MG in NS 100 ML IVPB SCH ×2 (15:00→21:39)
[2019-05-03] MEDS ORDERED: CASPOFUNGIN 50 MG in SOD CHLORIDE 0.9% 250 ML IVPB SCH (17:00)
[2019-05-03] MEDS: EPOETIN ALFA-EPBX (ESRD) 10,000 UNIT/ML VIAL SC SCH (18:23)
--- NOTE | 2019-05-03 18:47 | CONS ---
DATE OF ADMISSION: 04/06/2019 DATE OF CONSULTATION: TYPE OF CONSULTATION: Gastroenterology. 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 His G-tube accidentally came out, so GI consult was called in. I came and looked at the gastrocutane ous fistula. The patient already had a Sofia catheter and the opening was larger. We put 24-[place] replacement tube with much ease into the stomach. Balloon was inflated with 10 mL normal saline. Ex ternal bumper was secured and there was a retrograde flow of gastric contents through the stalk. IMPRESSION: Successful placement of 24-[place] G-tube through the existing gastrocutaneous fistula. PLAN: Resume feeding through the G-tube. If abdominal pain or leakage, they should contact me. Ca lassiter notes will be dictated later on. Dictated By: JUDI ZABALA MD PJ/NTS Conf#: [id number] DID#: [id number] CC: CARLITO GUERRA MD; JENNYFER DE LEÓN MD;*EndCC*
[2019-05-03] MEDS ORDERED: TOBRAMYCIN IVPB SCH (20:00)
[2019-05-03] MEDS ORDERED: DEXTROSE 5% IVPB SCH (20:00)
[2019-05-03] MEDS: ATORVASTATIN 20 MG TAB PO SCH (21:40)
[2019-05-03] MEDS: PROPOFOL 100 ML IV SCH (23:00)
[2019-05-04] VITALS (45 sets, daily range): BP systolic 0–112; BP diastolic 0–77; PULSE 0–87; RESP 10–35
[2019-05-04] MEDS: ACCU-CHEK XX SCH ×3 (00:33→12:42)
[2019-05-04] MEDS: VANCOMYCIN HCL 250 MG/5ML POSYG GTB SCH ×3 (00:33→12:42)
[2019-05-04] MEDS: PHENYLephrine 80 MG in DEXTROSE 5% 242 ML IV SCH ×3 (00:38→12:38)
[2019-05-04] MEDS: IPRATROPIUM (HFA) 12.9 GM INHALER INH SCH ×2 (01:39→09:24)
[2019-05-04] MEDS: ALBUTEROL HFA 8 GM INHALER INH SCH ×2 (01:39→09:24)
[2019-05-04] MEDS: NORepinephrine 32 MG in DEXTROSE 5% 218 ML IV SCH (02:47)
[2019-05-04] MEDS: VASOPRESSIN 60 UNIT in DEXTROSE 5% 57 ML IV SCH (02:47)
[2019-05-04] MEDS: PROPOFOL 100 ML IV SCH (05:51)
[2019-05-04] MEDS: Metronidazole 500 MG in NS 100 ML IVPB SCH ×2 (05:51→13:08)
[2019-05-04] MEDS: MIDODRINE 5 MG TAB PO SCH ×2 (09:12→12:42)
[2019-05-04] MEDS: FAMOTIDINE 20 MG TAB GTB SCH (09:12)
[2019-05-04] MEDS: COLLAGENASE 5 GM (UD JAR) TOP SCH (09:12)
[2019-05-04] MEDS: ZINC SULFATE 220 MG CAP GTB SCH (09:12)
[2019-05-04] MEDS: ARTIFICIAL TEARS 15 ML OPH BOTH EYES SCH ×2 (09:13→12:43)
[2019-05-04] MEDS: DAKINS 0.0125%(1/40) 473 ML SOLUTION TP SCH (09:13)
[2019-05-04] MEDS: AZTREONAM 1 GM/NS (PMX) 50 ML IVPB SCH (09:13)
[2019-05-04] MEDS: OCULAR LUBRICANT 3.5 GM OPH OINT BOTH EYES SCH ×2 (09:14→12:43)
[2019-05-04] MEDS: DEXTROSE 10% 1,000 ML IV SCH (09:19)
--- NOTE | 2019-05-04 09:22 | CONS ---
Consult Date/Type/Reason Admit Date/Time Apr 06, 2019 at 22:52 Initial Consult Date 04/17/19 Type of Consult Pulmonary Requesting Provider: WILLA CARTY Date/Time of Note DATE: 05/04/19 TIME: 09:21 Subjective No significant changes. Continues multiple vasopressors neurologically unchanged remains in vegetative state. Objective Vital Signs Date Temp Pulse Resp B/P (MAP) Pulse Ox O2 O2 Flow FiO2 Time Delivery Rate 05/04/19 96.6 71 32 87/47 (60) 100 Mechanical 08:30 Ventilator 05/04/19 90 05:37 Intake and Output 05/03/19 05/03/19 05/04/19 1515:00 23:00 07:00 IntakeIntake Total 930.77 ml 1199.89 ml 1043.33 ml OutputOutput Total 10 ml 70 ml 0 ml BalanceBalance 920.77 ml 1129.89 ml 1043.33 ml Exam GENERAL: Chronically ill-appearing gentleman with multiple contractures unresponsive on mechanical ventilation VITAL SIGNS: per chart NECK: Supple. No JVD or lymphadenopathy. CARDIAC EXAM: S1, S2. No added sounds or murmurs. CHEST: Diminished air entry bilaterally ABDOMEN: Soft, nontender. No guarding or rebound. EXTREMITIES: No cyanosis, clubbing edema +3 NEUROLOGIC: Generalized weakness. Vent Setting Ventilator Support Mode: AC, PC Fraction of Inspired Oxygen pe: 90 Positive End Expiratory Pressu: 10.0 Results/Medications Result Diagram: 05/04/19 0608 05/04/19 0608 Results 24 hrs Laboratory Tests Test 05/03/19 12:43 05/03/19 18:28 05/04/19 00:32 05/04/19 06:00 Bedside Glucose 114 122 136 130 Test 05/04/19 06:08 White Blood Count 19.3 H Red Blood Count 2.18 #L Hemoglobin 6.8 #*L Hematocrit 22.0 #L Mean Corpuscular 100.9 Volume Mean Corpuscular 31.2 Hemoglobin Mean Corpuscular 30.9 L Hemoglobin Concent Red Cell Distribution 23.1 H Width Platelet Count 25 #*L Mean Platelet Volume 14.2 H Immature Granulocytes 1.200 H % Neutrophils % Lymphocytes % Monocytes % Eosinophils % Basophils % Nucleated Red Blood 0.0 Cells % Immature Granulocytes 0.230 H # Neutrophils # Lymphocytes # Monocytes # Eosinophils # Basophils # Nucleated Red Blood Cells # Sodium Level 130 L Potassium Level 3.5 Chloride Level 94 L Carbon Dioxide Level 23 Anion Gap 13 Blood Urea Nitrogen 54 H Creatinine 2.17 H Est Glomerular Filtrat Rate mL/min Glucose Level 123 Calcium Level 8.9 Phosphorus Level 2.5 Magnesium Level 1.9 Medications Current Medications IV Flush (NS 3 ml) 3 ml PER PROTOCOL IV ; Start 04/06/19 at 23:00 Ondansetron HCl (Zofran Inj) 4 mg Q6H PRN IV NAUSEA/VOMITING; Start 04/06/19 at 23:00 Morphine Sulfate (morphine) 2 mg Q4H PRN IV .PAIN 7-10 Last administered on 05/03/19 02:19; Admin Dose 2 MG; Start 04/06/19 at 23:00 Acetaminophen (Tylenol Liquid) 650 mg Q4H PRN GTB MILD PAIN(1-3) OR TEMP>38C Last administered on 05/01/19 00:41; Admin Dose 650 MG; Start 04/08/19 at 13:30 Zinc Sulfate (Zinc Sulfate) 220 mg DAILY GTB Last administered on 05/04/19 09:12; Admin Dose 220 MG; Start 04/09/19 at 09:00 Atorvastatin Calcium (Lipitor) 20 mg HS PO Last administered on 05/03/19 21:40; Admin Dose 20 MG; Start 04/08/19 at 21:00 Collagenase (Santyl) 1 applic SOILED PRN TOP SOILED; Start 04/08/19 at 14:00 Midodrine (Proamatine) 10 mg TID@,13,17 PO Last administered on 05/04/19 09:12; Admin Dose 10 MG; Start 04/12/19 at 09:00 Collagenase (Santyl) 1 applic DAILY TOP Last administered on 05/04/19 09:12; Admin Dose 1 APPLIC; Start 04/13/19 at 09:00 Sodium Hypochlorite (Dakins Diluted ()) 1 applic DAILY TP Last administered on 05/04/19 09:13; Admin Dose 1 APPLIC; Start 04/13/19 at 09:00 Famotidine (Pepcid) 20 mg DAILY GTB Last administered on 05/04/19 09:12; Admin Dose 20 MG; Start 04/13/19 at 09:00 Epoetin Nick-epbx (Retacrit (Esrd)) 10,000 unit MoWeFr@1700 SC Last administered on 05/03/19 18:23; Admin Dose 10,000 UNIT; Start 04/22/19 at 17:00 Albumin Human 100 ml @ 100 mls/hr WITH DIALYSIS PRN IV SBP < 90 DURING DIALYSIS Last administered on 05/02/19 16:09; Admin Dose 100 MLS/HR; Start 04/25/19 at 12:30 Midodrine (Proamatine) 10 mg ONCE PRN PO with dialysis; Start 04/26/19 at 09:00 Vancomycin HCl (Vancomycin Oral Syringe) 125 mg Q6 GTB Last administered on 05/04/19 05:51; Admin Dose 125 MG; Start 04/26/19 at 18:00; Stop 05/05/19 at 23:59 Tramadol HCl (Ultram) 50 mg Q6H PRN GTB MODERATE PAIN LEVEL 4-6 Last administered on 05/02/19 00:53; Admin Dose 50 MG; Start 04/28/19 at 02:00 Dextrose 1,000 ml @ 25 mls/hr Q24H IV Last administered on 05/04/19 09:19; Admin Dose 25 MLS/HR; Start 05/02/19 at 08:00 Phenylephrine HCl 80 mg/Dextrose 250 ml @ 18.75 mls/ hr TITRATE IV Last administered on 05/04/19 06:38; Admin Dose 41.25 MLS/HR; Start 05/02/19 at 09:00 Norepinephrine 32 mg/Dextrose 250 ml @ 0.47 mls/hr TITRATE IV Last administered on 05/04/19at 02:47; Admin Dose 14.06 MLS/HR; Start 05/02/19 at 09:00 Vancomycin HCl (Vanco Iv Per Pharmacy) VANCOMYCIN PER PHARMACY PER PROTOCOL XX ; Start 05/02/19 at 09:00 Aztreonam 50 ml @ 100 mls/hr Q24H IVPB Last administered on 05/04/19 09:13; Admin Dose 100 MLS/HR; Start 05/02/19 at 10:00 Albuterol (Ventolin Hfa) 4 puff Q6H RESP THERAPY INH Last administered on 05/04/19 01:39; Admin Dose 4 PUFF; Start 05/02/19 at 14:00 Ipratropium [place] (Atrovent Hfa) 4 puff Q6H RESP THERAPY INH Last admin istered on 05/04/19 01:39; Admin Dose 4 PUFF; Start 05/02/19 at 14:00 Propofol 100 ml @ 2.79 mls/hr Q12H IV Last administered on 05/04/19 05:51; Admin Dose 8.37 MLS/HR; Start 05/02/19 at 11:00 Eye Lubricant (Artificial Tears Oph) 2 drop QID BOTH EYES Last administered on 05/04/19 09:13; Admin Dose 2 DROP; Start 05/02/19 at 13:00 Tobramycin (Tobramycin Iv Per Pharmacy) TOBRAMYCIN PER PHARMACY NOTE XX ; Start 05/02/19 at 16:00 Caspofungin 50 mg/ Sodium Chloride 250 ml @ 250 mls/hr Q24H IVPB Last administered on 05/03/19 18:22; Admin Dose 250 MLS/HR; Start 05/03/19 at 17:00 Diagnostic Test (Pha) (Accu-Chek) 1 ea Q6 XX Last administered on 05/04/19 06:02; Admin Dose 1 EA; Start 05/02/19 at 18:00 Eye Lubricant (Akwa Oint) 1 applic TID BOTH EYES Last administered on 05/04/19 09:14; Admin Dose 1 APPLIC; Start 05/02/19 at 21:00 Tobramycin 90 mg/ Dextrose 102.25 ml @ 103.75 mls/hr AFTER DIALYSIS IVPB ; Start 05/03/19 at 20:00 Vasopressin 60 unit/Dextrose 60 ml @ 1.2 mls/hr IV INFUSION IV Last administered on 05/04/19 02:47; Admin Dose 2.4 MLS/HR; Start 05/02/19 at 23:30 Metronidazole 100 ml @ 100 mls/hr Q8 IVPB Last administered on 05/04/19 05:51; Admin Dose 100 MLS/HR; Start 05/03/19 at 14:35 Metoclopramide HCl (Reglan) 5 mg Q6 IV ; Start 05/04/19 at 12:00 Assessment/Plan Hospital Course (Demo Recall) Assessment 1. Refractory septic shock on multiple vasopressors 2. Leukocytopenia and thrombocytopenia 3. Encephalopathy with persistent vegetative state 4. End-stage renal failure 5. Severe metabolic acidosis Plan 1. Continue mechanical ventilation 2. Vasopressors 3. Hold off on tube feeding tolerated. 4. Not stable for hemodialysis Critical care time 40 minutes Appreciate palliative care recommendations however family wish to continue full CODE STATUS despite the fact that prognosis is extremely poor. NEHA WICK MD, [facility] May 04, 2019 09:22
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
[2019-05-04] MEDS ORDERED: METOCLOPRAMIDE 10 MG INJ IV SCH (12:00)
--- NOTE | 2019-05-04 12:08 | CONS ---
Assessment/Plan Assessment/Plan Hospital Course (Demo Recall) 1. End-stage renal disease. s/p hd yesterday. next hd tomorrow. 2. Septic shock, etiology is multifactorial secondary to bacteremia and pneumonia. The patient's repeat blood cultures are positive. cont abx per ID 3. Anemia. Continue to monitor hemoglobin and hematocrit levels. Continue Epogen. 4. 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 5. Diabetes. Continue current insulin regimen. 6. Diffuse anasarca, volume overload. Etiology is secondary to end-stage renal disease, septic shock. The patient is clinically unstable for dialysis and ultrafiltration at this time. 7. Acute on chronic encephalopathy, etiology toxic metabolic. 8. Ventilatory-dependent respiratory failure. Vent settings and ABG was reviewed. Continue to monitor. 9. History of C. difficile colitis. 10. Dysphagia. Continue tube feeding as tolerated. 11. Lower extremity wounds. Continue wound care. 12. Thrombocytopenia. Continue to monitor. 13. Metabolic acidosis secondary to septic shock, end-stage renal disease. Lactic acidosis. improved Consultation Date/Type/Reason Admit Date/Time Apr 06, 2019 at 22:52 Initial Consult Date 04/17/19 Requesting Provider: WILLA CARTY Date/Time of Note DATE: 05/04/19 TIME: 12:05 24 HR Interval Summary Free Text/Dictation remains on ventilator per trach still on 3 pressors with increasing pressor requirement s/p hd yesterday d/w rn PE gen nonverbal cv rrr pulm coarse bs abd soft nd nt +bs ext: no edema Exam/Review of Systems Exam Vitals Vital Signs Date Temp Pulse Resp B/P (MAP) Pulse Ox O2 O2 Flow FiO2 Time Delivery Rate 05/04/19 96.6 71 32 87/47 (60) 100 Mechanical 08:30 Ventilator 05/04/19 90 08:00 Intake and Output 05/03/19 05/03/19 05/04/19 1515:00 23:00 07:00 IntakeIntake Total 930.77 ml 1199.89 ml 1043.33 ml OutputOutput Total 10 ml 70 ml 0 ml BalanceBalance 920.77 ml 1129.89 ml 1043.33 ml Results Result Diagram: 05/04/19 0608 05/04/19 0608 Results 24hrs Laboratory Tests Test 05/03/19 12:43 05/03/19 18:28 05/04/19 00:32 05/04/19 06:00 Bedside Glucose 114 122 136 130 Test 05/04/19 06:08 White Blood Count 19.3 H Red Blood Count 2.18 #L Hemoglobin 6.8 #*L Hematocrit 22.0 #L Mean Corpuscular 100.9 Volume Mean Corpuscular 31.2 Hemoglobin Mean Corpuscular 30.9 L Hemoglobin Concent Red Cell 23.1 H Distribution Width Platelet Count 25 #*L Mean Platelet 14.2 H Volume Immature 1.200 H Granulocytes % Neutrophils % Segmented 56 Neutrophils % (Manual) Band Neutrophils % 38 H (Manual) Lymphocytes % Lymphocytes % 4 L (Manual) Monocytes % Monocytes % 2 (Manual) Eosinophils % Basophils % Nucleated Red Blood 0.0 Cells % Immature 0.230 H Granulocytes # Neutrophils # Neutrophils # 12.2 H (Manual) Band Neutrophils # 7.3 H Lymphocytes 0.7 L (Manual) Lymphocytes # Monocytes # Monocytes # 0.3 (Manual) Eosinophils # Basophils # Nucleated Red Blood Cells # Platelet Estimate SIG DECREASED Polychromasia 1+ Poikilocytosis 1+ Anisocytosis 3+ Macrocytosis 1+ Sodium Level 130 L Potassium Level 3.5 Chloride Level 94 L Carbon Dioxide 23 Level Anion Gap 13 Blood Urea Nitrogen 54 H Creatinine 2.17 H Est Glomerular Filtrat Rate mL/min Glucose Level 123 Calcium Level 8.9 Phosphorus Level 2.5 Magnesium Level 1.9 Medications Medication Current Medications IV Flush (NS 3 ml) 3 ml PER PROTOCOL IV ; Start 04/06/19 at 23:00 Ondansetron HCl (Zofran Inj) 4 mg Q6H PRN IV NAUSEA/VOMITING; Start 04/06/19 at 23:00 Morphine Sulfate (morphine) 2 mg Q4H PRN IV .PAIN 7-10 Last administered on 05/03/19at 02:19; Admin Dose 2 MG; Start 04/06/19 at 23:00 Acetaminophen (Tylenol Liquid) 650 mg Q4H PRN GTB MILD PAIN(1-3) OR TEMP>38C Last administered on 05/01/19at 00:41; Admin Dose 650 MG; Start 04/08/19 at 13:30 Zinc Sulfate (Zinc Sulfate) 220 mg DAILY GTB Last administered on 05/04/19at 09:12; Admin Dose 220 MG; Start 04/09/19 at 09:00 Atorvastatin Calcium (Lipitor) 20 mg HS PO Last administered on 05/03/19 21:40; Admin Dose 20 MG; Start 04/08/19 at 21:00 Collagenase (Santyl) 1 applic SOILED PRN TOP SOILED; Start 04/08/19 at 14:00 Midodrine (Proamatine) 10 mg TID@09,13,17 PO Last administered on 05/04/19 09:12; Admin Dose 10 MG; Start 04/12/19 at 09:00 Collagenase (Santyl) 1 applic DAILY TOP Last administered on 05/04/19 09:12; Admin Dose 1 APPLIC; Start 04/13/19 at 09:00 Sodium Hypochlorite (Dakins Diluted ()) 1 applic DAILY TP Last administered on 05/04/19 09:13; Admin Dose 1 APPLIC; Start 04/13/19 at 09:00 Famotidine (Pepcid) 20 mg DAILY GTB Last administered on 05/04/19 09:12; Admin Dose 20 MG; Start 04/13/19 at 09:00 Epoetin Nick-epbx (Retacrit (Esrd)) 10,000 unit MoWeFr@1700 SC Last administered on 05/03/19 18:23; Admin Dose 10,000 UNIT; Start 04/22/19 at 17:00 Albumin Human 100 ml @ 100 mls/hr WITH DIALYSIS PRN IV SBP < 90 DURING DIALYSIS Last administered on 05/02/19 16:09; Admin Dose 100 MLS/HR; Start 04/25/19 at 12:30 Midodrine (Proamatine) 10 mg ONCE PRN PO with dialysis; Start 04/26/19 at 09:00 Vancomycin HCl (Vancomycin Oral Syringe) 125 mg Q6 GTB Last administered on 05/04/19 05:51; Admin Dose 125 MG; Start 04/26/19 at 18:00; Stop 05/05/19 at 23:59 Tramadol HCl (Ultram) 50 mg Q6H PRN GTB MODERATE PAIN LEVEL 4-6 Last administered on 05/02/19 00:53; Admin Dose 50 MG; Start 04/28/19 at 02:00 Dextrose 1,000 ml @ 25 mls/hr Q24H IV Last administered on 05/04/19 09:19; Admin Dose 25 MLS/HR; Start 05/02/19 at 08:00 Phenylephrine HCl 80 mg/Dextrose 250 ml @ 18.75 mls/ hr TITRATE IV Last administered on 05/04/19 06:38; Admin Dose 41.25 MLS/HR; Start 05/02/19 at 09:00 Norepinephrine 32 mg/Dextrose 250 ml @ 0.47 mls/hr TITRATE IV Last administered on 05/04/19 02:47; Admin Dose 14.06 MLS/HR; Start 05/02/19 at 09:00 Vancomycin HCl (Vanco Iv Per Pharmacy) VANCOMYCIN PER PHARMACY PER PROTOCOL XX ; Start 05/02/19 at 09:00 Aztreonam 50 ml @ 100 mls/hr Q24H IVPB Last administered on 05/04/19 09:13; Admin Dose 100 MLS/HR; Start 05/02/19 at 10:00 Albuterol (Ventolin Hfa) 4 puff Q6H RESP THERAPY INH Last administered on 05/04/19 09:24; Admin Dose 4 PUFF; Start 05/02/19 at 14:00 Ipratropium [place] (Atrovent Hfa) 4 puff Q6H RESP THERAPY INH Last admini stered on 05/04/19 09:24; Admin Dose 4 PUFF; Start 05/02/19 at 14:00 Propofol 100 ml @ 2.79 mls/hr Q12H IV Last administered on 05/04/19 05:51; Admin Dose 8.37 MLS/HR; Start 05/02/19 at 11:00 Eye Lubricant (Artificial Tears Oph) 2 drop QID BOTH EYES Last administered on 05/04/19 09:13; Admin Dose 2 DROP; Start 05/02/19 at 13:00 Tobramycin (Tobramycin Iv Per Pharmacy) TOBRAMYCIN PER PHARMACY NOTE XX ; Start 05/02/19 at 16:00 Caspofungin 50 mg/ Sodium Chloride 250 ml @ 250 mls/hr Q24H IVPB Last administered on 05/03/19 18:22; Admin Dose 250 MLS/HR; Start 05/03/19 at 17:00 Diagnostic Test (Pha) (Accu-Chek) 1 ea Q6 XX Last administered on 05/04/19 06:02; Admin Dose 1 EA; Start 05/02/19 at 18:00 Eye Lubricant (Akwa Oint) 1 applic TID BOTH EYES Last administered on 05/04/19 09:14; Admin Dose 1 APPLIC; Start 05/02/19 at 21:00 Tobramycin 90 mg/ Dextrose 102.25 ml @ 103.75 mls/hr AFTER DIALYSIS IVPB ; Start 05/03/19 at 20:00 Vasopressin 60 unit/Dextrose 60 ml @ 1.2 mls/hr IV INFUSION IV Last administered on 05/04/19at 02:47; Admin Dose 2.4 MLS/HR; Start 05/02/19 at 23:30 Metronidazole 100 ml @ 100 mls/hr Q8 IVPB Last administered on 05/04/19at 05:51; Admin Dose 100 MLS/HR; Start 05/03/19 at 14:35 Metoclopramide HCl (Reglan) 5 mg Q6 IV ; Start 05/04/19 at 12:00 JOSIE MCNALLY MD May 04, 2019 12:08
--- NOTE | 2019-05-04 15:19 | EN ---
Date/Time of Note Date/Time of Note DATE: 05/04/19 TIME: 15:17 ER Progress Note I was called to the ICU and CODE BLUE response Upon arrival, history available from the ICU staff was at this patient had been having a prolonged hospitalization for septic shock maxed out on 3 pressors. According to the ICU staff, there were ongoing conversations with his family about DNR status. On exam, patient was in a bradycardic PEA at approximately 45. Neurologically patient had no signs of life. He was intubated via tracheostomy and had multiple flexion contractures. ACLS protocol was continued with epinephrine x2 with no return of spontaneous circulation. At that time, prolonged resuscitation seemed futile and resuscitative measures were discontinued. Postmortem care was turned over to the ICU staff EDY VILLAFUERTE May 04, 2019 15:19
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
--- NOTE | 2019-05-04 16:52 | CONS ---
Assessment/Plan Assessment/Plan Hospital Course (Demo Recall) Dr. Garcia this afternoon. I met with Pt's sons including Teo, with whom I spoke about Pt's condition last month. Teo expressed his thoughts on his father's care at [facility]. I answered their questions. I expressed my condolence. I discussed Pt's condition earlier today with OLVIN Serra Consultation Date/Type/Reason Admit Date/Time Apr 06, 2019 at 22:52 Initial Consult Date 04/08/19 Type of Consult ID Requesting Provider: WILLA CARTY Date/Time of Note DATE: 05/04/19 TIME: 16:49 Exam/Review of Systems Exam Vitals Vital Signs Date Temp Pulse Resp B/P (MAP) Pulse Ox O2 O2 Flow FiO2 Time Delivery Rate 05/04/19 0 0/0 (0) 15:00 05/04/19 24 85 Mechanical 14:30 Ventilator 05/04/19 90 13:20 05/04/19 96.5 12:00 Intake and Output 05/03/19 05/03/19 05/04/19 1515:00 23:00 07:00 IntakeIntake Total 930.77 ml 1199.89 ml 1043.33 ml OutputOutput Total 10 ml 70 ml 0 ml BalanceBalance 920.77 ml 1129.89 ml 1043.33 ml Results Result Diagram: 05/04/19 0608 05/04/19 0608 Results 24hrs Laboratory Tests Test 05/03/19 18:28 05/04/19 00:32 05/04/19 06:00 05/04/19 06:08 Bedside Glucose 122 136 130 White Blood Count 19.3 H Red Blood Count 2.18 #L Hemoglobin 6.8 #*L Hematocrit 22.0 #L Mean Corpuscular 100.9 Volume Mean Corpuscular 31.2 Hemoglobin Mean Corpuscular 30.9 L Hemoglobin Concent Red Cell 23.1 H Distribution Width Platelet Count 25 #*L Mean Platelet 14.2 H Volume Immature 1.200 H Granulocytes % Neutrophils % Segmented 56 Neutrophils % (Manual) Band Neutrophils % 38 H (Manual) Lymphocytes % Lymphocytes % 4 L (Manual) Monocytes % Monocytes % 2 (Manual) Eosinophils % Basophils % Nucleated Red 0.0 Blood Cells % Immature 0.230 H Granulocytes # Neutrophils # Neutrophils # 12.2 H (Manual) Band Neutrophils # 7.3 H Lymphocytes 0.7 L (Manual) Lymphocytes # Monocytes # Monocytes # 0.3 (Manual) Eosinophils # Basophils # Nucleated Red Blood Cells # Platelet Estimate SIG DECREASED Polychromasia 1+ Poikilocytosis 1+ Anisocytosis 3+ Macrocytosis 1+ Sodium Level 130 L Potassium Level 3.5 Chloride Level 94 L Carbon Dioxide 23 Level Anion Gap 13 Blood Urea 54 H Nitrogen Creatinine 2.17 H Est Glomerular Filtrat Rate mL/min Glucose Level 123 Calcium Level 8.9 Phosphorus Level 2.5 Magnesium Level 1.9 Test 05/04/19 12:53 Bedside Glucose 77 Medications Medication Current Medications IV Flush (NS 3 ml) 3 ml PER PROTOCOL IV ; Start 04/06/19 at 23:00 Ondansetron HCl (Zofran Inj) 4 mg Q6H PRN IV NAUSEA/VOMITING; Start 04/06/19 at 23:00 Morphine Sulfate (morphine) 2 mg Q4H PRN IV .PAIN 7-10 Last administered on 05/03/19at 02:19; Admin Dose 2 MG; Start 04/06/19 at 23:00 Acetaminophen (Tylenol Liquid) 650 mg Q4H PRN GTB MILD PAIN(1-3) OR TEMP>38C Last administered on 05/01/19at 00:41; Admin Dose 650 MG; Start 04/08/19 at 13:30 Zinc Sulfate (Zinc Sulfate) 220 mg DAILY GTB Last administered on 05/04/19 09:12; Admin Dose 220 MG; Start 04/09/19 at 09:00 Atorvastatin Calcium (Lipitor) 20 mg HS PO Last administered on 05/03/19at 21:40; Admin Dose 20 MG; Start 04/08/19 at 21:00 Collagenase (Santyl) 1 applic SOILED PRN TOP SOILED; Start 04/08/19 at 14:00 Midodrine (Proamatine) 10 mg TID@,,17 PO Last administered on 05/04/19at 12:42; Admin Dose 10 MG; Start 04/12/19 at 09:00 Collagenase (Santyl) 1 applic DAILY TOP Last administered on 05/04/19 09:12; Admin Dose 1 APPLIC; Start 04/13/19 at 09:00 Sodium Hypochlorite (Dakins Diluted ()) 1 applic DAILY TP Last administered on 05/04/19 09:13; Admin Dose 1 APPLIC; Start 04/13/19 at 09:00 Famotidine (Pepcid) 20 mg DAILY GTB Last administered on 05/04/19 09:12; Admin Dose 20 MG; Start 04/13/19 at 09:00 Epoetin Nick-epbx (Retacrit (Esrd)) 10,000 unit MoWeFr@1700 SC Last administered on 05/03/19 18:23; Admin Dose 10,000 UNIT; Start 04/22/19 at 17:00 Albumin Human 100 ml @ 100 mls/hr WITH DIALYSIS PRN IV SBP < 90 DURING DIALYSIS Last administered on 05/02/19 16:09; Admin Dose 100 MLS/HR; Start 04/25/19 at 12:30 Midodrine (Proamatine) 10 mg ONCE PRN PO with dialysis; Start 04/26/19 at 09:00 Vancomycin HCl (Vancomycin Oral Syringe) 125 mg Q6 GTB Last administered on 05/04/19 12:42; Admin Dose 125 MG; Start 04/26/19 at 18:00; Stop 05/05/19 at 23:59 Tramadol HCl (Ultram) 50 mg Q6H PRN GTB MODERATE PAIN LEVEL 4-6 Last administered on 05/02/19 00:53; Admin Dose 50 MG; Start 04/28/19 at 02:00 Dextrose 1,000 ml @ 25 mls/hr Q24H IV Last administered on 05/04/19 09:19; Admin Dose 25 MLS/HR; Start 05/02/19 at 08:00 Phenylephrine HCl 80 mg/Dextrose 250 ml @ 18.75 mls/ hr TITRATE IV Last administered on 05/04/19 12:38; Admin Dose 41.25 MLS/HR; Start 05/02/19 at 09:00 Norepinephrine 32 mg/Dextrose 250 ml @ 0.47 mls/hr TITRATE IV Last administered on 05/04/19 02:47; Admin Dose 14.06 MLS/HR; Start 05/02/19 at 09:00 Vancomycin HCl (Vanco Iv Per Pharmacy) VANCOMYCIN PER PHARMACY PER PROTOCOL XX ; Start 05/02/19 at 09:00 Aztreonam 50 ml @ 100 mls/hr Q24H IVPB Last administered on 05/04/19 09:13; Admin Dose 100 MLS/HR; Start 05/02/19 at 10:00 Albuterol (Ventolin Hfa) 4 puff Q6H RESP THERAPY INH Last administered on 05/04/19 09:24; Admin Dose 4 PUFF; Start 05/02/19 at 14:00 Ipratropium [place] (Atrovent Hfa) 4 puff Q6H RESP THERAPY INH Last administered on 05/04/19 09:24; Admin Dose 4 PUFF; Start 05/02/19 at 14:00 Propofol 100 ml @ 2.79 mls/hr Q12H IV Last administered on 05/04/19 05:51; Admin Dose 8.37 MLS/HR; Start 05/02/19 at 11:00 Eye Lubricant (Artificial Tears Oph) 2 drop QID BOTH EYES Last administered on 05/04/19 12:43; Admin Dose 2 DROP; Start 05/02/19 at 13:00 Tobramycin (Tobramycin Iv Per Pharmacy) TOBRAMYCIN PER PHARMACY NOTE XX ; Start 05/02/19 at 16:00 Caspofungin 50 mg/ Sodium Chloride 250 ml @ 250 mls/hr Q24H IVPB Last administered on 05/03/19 18:22; Admin Dose 250 MLS/HR; Start 05/03/19 at 17:00 Diagnostic Test (Pha) (Accu-Chek) 1 ea Q6 XX Last administered on 05/04/19 12:42; Admin Dose 1 EA; Start 05/02/19 at 18:00 Eye Lubricant ([place] Oint) 1 applic TID BOTH EYES Last administered on 05/04/19 12:43; Admin Dose 1 APPLIC; Start 05/02/19 at 21:00 Tobramycin 90 mg/ Dextrose 102.25 ml @ 103.75 mls/hr AFTER DIALYSIS IVPB ; Start 05/03/19 at 20:00 Vasopressin 60 unit/Dextrose 60 ml @ 1.2 mls/hr IV INFUSION IV Last administered on 05/04/19 02:47; Admin Dose 2.4 MLS/HR; Start 05/02/19 at 23:30 Metronidazole 100 ml @ 100 mls/hr Q8 IVPB Last administered on 8/10/19at 13:08; Admin Dose 100 MLS/HR; Start 05/03/19 at 14:35 Metoclopramide HCl (Reglan) 5 mg Q6 IV Last administered on 05/04/19at 12:42; Ad min Dose 5 MG; Start 05/04/19 at 12:00 Miscellaneous Information (*Rx Drug Level Order Reminder*) VANCO RANDOM @ 0,500 0500 ONCE XX ; Start 05/05/19 at 05:00; Stop 05/05/19 at 05:01 JESUS RIVAS M.D. May 04, 2019 16:52
--- NOTE | 2019-05-04 16:58 | CONS ---
DATE OF ADMISSION: 04/06/2019 DATE OF CONSULTATION: HISTORY OF PRESENT ILLNESS: The patient is an 89-year-old male with a history of renal failure, seps is, non-STEMI PR, vent dependent respiratory failure, multiple wounds, status post cardiac arrest, an oxic encephalopathy, history of skin graft, had a G-tube which was dislodged, so GI consult was yanes d in. The patient is in a vegetative state, and no information could be gathered from the patient. REVIEW OF SYSTEMS: Unable to do it. MEDICATIONS: All reviewed. SOCIAL HISTORY: Does not smoke or drink alcohol. Resident of shelter. ALLERGIES: 1. CEPHALOSPORINS. 2. PIPERACILLIN. 3. TAZOBACTAM. PHYSICAL EXAMINATION NEUROLOGIC: The patient is in a vegetative state. EXTREMITIES: Contracted has got anasarca and scrotal edema. G-tube was replaced with a Sofia cathet er, which was taken out by me. The opening was larger, so 24-Montserr[place] G-tube inserted. PLAN: The patient has a high gastric residual as per the staff and was started on Reglan. LUNGS: He is on a vent. EXTREMITIES: Pedal edema. GENERAL: The patient is on 3-pressor support. LABORATORY DATA: His hematocrit is 22. WBC is 19.2. As per the staff, no evidence of active bleedi ng. Creatinine is 2.17. His serologies for hep B surface antigen was negative. Chest x-ray showed bilateral lung infiltrate, extensive. IMPRESSION: 1. Septic shock on 3-pressor support study. 2. Vent dependent respiratory failure. 3. Vegetative state. 4. Replacement of G-tube with 24-Montserr[place]ian. 5. Gastroparesis. 6. Anasarca. 7. Anemia. 8. End-stage renal disease. 9. Multiple decubitus ulcers. 10. History of Clostridium difficile colitis. PLAN: 1. Continue Reglan. 2. Once the residual is less than 50, we will start feeding through the G-tube. I also told the sta ff to get a Gastrografin study through the G-tube. 3. Continue. 4. Supportive care. 5. The patient's prognosis remains poor given overall condition, multiple comorbidities, and septic shock. Family has to decide regarding no code, no CPR status. Dictated By: JUDI LEBRON/MADELEINE Conf#: [id number] [facility]#: [id number] CC: CARLITO GUERRA MD;*End*
== END 2019-05-04 15:00 | disposition expired | DRG 870 ==
LOC: E/R 20:44 → 6WM 22:52 → CANRESERV 23:22 → EDBEDREQ 23:28 → ICU 04-16 15:26 → 6WM 04-19 16:51 → ICU 05-01 22:10
PROVIDERS: ADMIT Internal Medicine; ATTEND Internal Medicine
PROC: 5A1955Z Respiratory Ventilation, Greater than 96 Consecutive Hours (ICD-10-PCS; 2019-04-06)
PROC: 0DH63UZ Insertion of Feeding Device into Stomach, Percutaneous Approach (ICD-10-PCS; 2019-04-06)
PROC: 30283B1 Transfusion of Nonautologous 4-Factor Prothrombin Complex Concentrate into Vein, Percutaneous Approach (ICD-10-PCS; 2019-04-06)
PROC: 5A1D70Z Performance of Urinary Filtration, Intermittent, Less than 6 Hours Per Day (ICD-10-PCS; 2019-04-09)
PROC: 05PYX3Z Removal of Infusion Device from Upper Vein, External Approach (ICD-10-PCS; 2019-04-19)
PROC: 02HV33Z Insertion of Infusion Device into Superior Vena Cava, Percutaneous Approach (ICD-10-PCS; principal; 2019-04-26)
PROC: 0JH63XZ Insertion of Tunneled Vascular Access Device into Chest Subcutaneous Tissue and Fascia, Percutaneous Approach (ICD-10-PCS; 2019-04-26)
PROC: 02H633Z Insertion of Infusion Device into Right Atrium, Percutaneous Approach (ICD-10-PCS; 2019-05-02)
PROC: 5A12012 Performance of Cardiac Output, Single, Manual (ICD-10-PCS; 2019-05-04)
DX: A41.9 Sepsis, unspecified organism (principal); T80.212A Local infection due to central venous catheter, initial encounter; L89.154 Pressure ulcer of sacral region, stage 4; I21.4 Non-ST elevation (NSTEMI) myocardial infarction; R65.21 Severe sepsis with septic shock; N18.6 End stage renal disease; J15.6 Pneumonia due to other Gram-negative bacteria; G92 Toxic encephalopathy; G93.1 Anoxic brain damage, not elsewhere classified; I12.0 Hypertensive chronic kidney disease with stage 5 chronic kidney disease or end stage renal disease; J96.11 Chronic respiratory failure with hypoxia; L03.313 Cellulitis of chest wall; L97.119 Non-pressure chronic ulcer of right thigh with unspecified severity; J90 Pleural effusion, not elsewhere classified; A04.71 Enterocolitis due to Clostridium difficile, recurrent; Z99.11 Dependence on respirator [ventilator] status; R40.3 Persistent vegetative state; E87.2 Acidosis; E86.0 Dehydration; R13.10 Dysphagia, unspecified; I25.10 Atherosclerotic heart disease of native coronary artery without angina pectoris; D63.1 Anemia in chronic kidney disease; E11.22 Type 2 diabetes mellitus with diabetic chronic kidney disease; N40.1 Benign prostatic hyperplasia with lower urinary tract symptoms; R33.8 Other retention of urine; R31.9 Hematuria, unspecified; E11.622 Type 2 diabetes mellitus with other skin ulcer; L08.9 Local infection of the skin and subcutaneous tissue, unspecified; B95.62 Methicillin resistant Staphylococcus aureus infection as the cause of diseases classified elsewhere; E87.70 Fluid overload, unspecified; D69.6 Thrombocytopenia, unspecified; B96.89 Other specified bacterial agents as the cause of diseases classified elsewhere; Z93.1 Gastrostomy status; Z93.0 Tracheostomy status; Z86.74 Personal history of sudden cardiac arrest; Z99.2 Dependence on renal dialysis
CPT/HCPCS: 36415; 36430; 36558; 36600; 71045; 76604; 76942; 80048; 80053; 80202; 82040; 82728; 82803; 82962; 83036; 83540; 83605; 83615; 83735; 84100; 84145; 84484; 85014; 85018; 85025; 85610; 85730; 86850; 86900; 86901; 86920; 87070; 87075; 87081; 87086; 87102; 87340; 88104; 88305; 89051; 90935; 93005; 93971; 94002; 94003; 94640; 94664; 96374; 96375; C1750; C1751; J0171; J0278; J0885; J1580; J1644; J2270; J2370; J2765; J3260; J3370; J7030; J7040; J7050; J7070; P9016; P9047; Q5105; Q5106